=== PATIENT | female | born 1940 | race Caucasian/White ===

== ENCOUNTER 2020-03-26 20:14 | Inpatient (IN) ==
[2020-03-26 21:50] LABS: Hematocrit (blood only) 34.7 % (37-47); Hemoglobin 11.5 g/dL (12.0-16.0); Mean Corpuscular Hemoglobin 31.2 pg (25-34); Mean Corpuscular Hgb Conc 33.1 g/dL (32-36); Mean Platelet Volume 9.5 fL (7.4-10.4); Platelet Count 442 K/uL (130-400); RDW Coefficient of Variation 13.8 % (11.5-14.5); RDW Standard Deviation 47.1 fL (36.4-46.3); Red Blood Count 3.69 M/uL (4.2-5.4); White Blood Count 23.11 K/uL (4.8-10.8)
[2020-03-26 22:04] LABS: Alanine Aminotransferase 182 U/L (12-78); Albumin Level 2.3 gm/dl (3.4-5.0); Aspartate Aminotransferase 79 U/L (15-37); BUN Creatinine Ratio 29.8 (10-20); Blood Urea Nitrogen 18 mg/dl (7-18); Calcium 9.3 mg/dl (8.5-10.1); Carbon Dioxide 27 mmol/L (21-32); Chloride 96 mmol/L (98-107); Est GFR (African American) 99.8; Est GFR (Non-African American) 86.1; Glucose 107 mg/dl (70-99); Magnesium 2.2 mg/dl (1.8-2.4); Potassium 4.1 mmol/L (3.5-5.1); Sodium 131 mmol/L (136-145)
[2020-03-26 22:08] LABS: INR 1.1 (0.9-1.1); Partial Thromboplastin Ratio 0.9; Partial Thromboplastin Time 23.9 Seconds (21.0-31.0); Prothrombin Time 11.3 Seconds (9.0-12.0)
[2020-03-26 22:09] LABS: Albumin Globulin Ratio 0.4 (0.9-2); Alkaline Phosphatase 236 U/L (45-117); Bilirubin,Total 0.5 mg/dl (0.2-1); Globulin 5.5 gm/dl (2.5-4.0); Total Protein 7.8 gm/dl (6.4-8.2); Troponin I < 0.015 ng/ml (0-0.045)
[2020-03-26 22:13] LABS: Basophils # (auto) 0.01 K/uL (0-0.2); Eosinophils # (auto) 0.01 K/uL (0-0.5); Immature Granulocytes # (auto) 0.08 K/uL (0.00-0.02); Immature Granulocytes % (auto) 0.3 %; Lymphocytes # (auto) 0.38 K/uL (1.2-3.4); Lymphocytes % (auto) 1.6 %; Monocytes # (auto) 0.28 K/uL (0.11-0.59); Monocytes % (auto) 1.2 %; Neutrophils # (auto) 22.35 K/uL (1.4-6.5); Neutrophils % (auto) 96.9 %
--- NOTE | 2020-03-26 22:24 | Emergency Department Note ---
History of Present Illness General Chief complaint: Fever Stated complaint: FEVER, VOMITING Time Seen by Provider: 03/26/20 21:22 Source: family History of Present Illness Provider complaint: Fever cough difficulty breathing Onset (ago): day(s) 1 Location: chest Associated symptoms: + cough, + fever/chills, + nausea/vomiting and + shortness of breath 79-year-old female presents emergency department for cough fever and difficulty breathing. Patient has a history of oral cancer. She is not on chemotherapy currently. The son states he was suctioning herThis afternoon/evening and in the patient accidentally vomited and she started coughing a lot. The son states he is afraid that she aspirated. Patient was recently admitted to [facility] for pneumonia. Patient's son states that the patient is waiting to be cleared from her pneumonia to start therapy with Dr. Roman for immunotherapy for her oral cancer. Patient's son states that the patient was discharged on 2 L of oxygen nasal cannula. He states over the last 2 days she has been having better time breathing and has only been wearing half a liter. He states after the episode today she is having increasing difficulty breathing and he had to put on 3 L of oxygen. Home Medications Home Medications Medication Instructions Recorded Confirmed Type levothyroxine 100 mcg PO DAILY 03/26/20 03/26/20 History ondansetron 4 mg TRANSLINGUAL Q8 PRN 03/26/20 03/26/20 History oxycodone 5 mg PO Q4 PRN 03/26/20 03/26/20 History triamcinolone acetonide 1 applic TOPICAL BID 03/26/20 03/26/20 History Allergies Allergy/AdvReac Type Severity Reaction Status Date / Time No Known Allergies Allergy Unverified 03/26/20 22:51 Past Med/Surg History Medical History Squamous cell carcinoma Surgical History H/O neck surgery History of surgical procedure on mouth Status post split thickness skin graft Family History Other Family history non-contributory Social History Smoking Status: Never smoker Hx Alcohol Use: No Hx Substance Use: No Preferred Language: Venezuelan Communication Ability: Impaired Visual Impairment: Limited Hearing Ability: Normal Beliefs That Will Affect Care: None marital status: / Current Living Situation: Alone current occupational status: retired Feels Safe at Home: Yes Review of Systems A total of 10 systems reviewed and were otherwise negative Physical Exam Vital Signs Vital Signs - 24 hr 03/26/20 20:24 03/26/20 21:20 03/26/20 21:21 Temperature 36.9 C Temperature Source Oral Pulse Rate 128 H 121 H Pulse Rate from SpO2 Sensor 121 H Respiratory Rate 20 30 H Respiratory Effort / Characteristics Non-Labored Spontaneous Non-Labored Spontaneous Respiratory Depth Normal Respiratory Pattern Regular Blood Pressure 112/51 L 106/51 L Blood Pressure Mean 71 68 Blood Pressure Position Sitting Pulse Oximetry 90 93 Oxygen Delivery Method Nasal Cannula Room Air Oxygen Flow Rate 3 Sepsis Recent Fever Within 48 Hours Yes Sepsis New/Unexplained Change in Mental Status No Sepsis Action Taken by Nursing No Action Required 03/26/20 21:28 03/26/20 21:30 03/26/20 21:40 Temperature Temperature Source Pulse Rate 121 H 120 H Pulse Rate from SpO2 Sensor 121 H 120 H Respiratory Rate 34 H 30 H Respiratory Effort / Characteristics Respiratory Depth Respiratory Pattern Blood Pressure 108/52 L Blood Pressure Mean 66 Blood Pressure Position Pulse Oximetry 93 94 95 Oxygen Delivery Method Nasal Cannula Oxygen Flow Rate 3 Sepsis Recent Fever Within 48 Hours Sepsis New/Unexplained Change in Mental Status Sepsis Action Taken by Nursing 03/26/20 21:50 03/26/20 22:00 03/26/20 22:20 Temperature Temperature Source Pulse Rate 113 H Pulse Rate from SpO2 Sensor 114 H Respiratory Rate 23 Respiratory Effort / Characteristics Spontaneous Spontaneous Respiratory Depth Respiratory Pattern Blood Pressure 98/52 L Blood Pressure Mean 71 Blood Pressure Position Pulse Oximetry 96 Oxygen Delivery Method Nasal Cannula Nasal Cannula Oxygen Flow Rate Sepsis Recent Fever Within 48 Hours Sepsis New/Unexplained Change in Mental Status Sepsis Action Taken by Nursing 03/26/20 22:30 03/26/20 22:50 03/26/20 23:00 Temperature Temperature Source Pulse Rate 111 H 109 H Pulse Rate from SpO2 Sensor 108 H 106 H Respiratory Rate 20 22 Respiratory Effort / Characteristics Spontaneous Respiratory Depth Respiratory Pattern Blood Pressure 97/58 L 93/49 L Blood Pressure Mean 69 77 Blood Pressure Position Pulse Oximetry 96 95 Oxygen Delivery Method Nasal Cannula Nasal Cannula Oxygen Flow Rate 3 Sepsis Recent Fever Within 48 Hours Sepsis New/Unexplained Change in Mental Status Sepsis Action Taken by Nursing 03/26/20 23:15 03/26/20 23:20 03/26/20 23:30 Temperature Temperature Source Pulse Rate 107 H 106 H Pulse Rate from SpO2 Sensor 107 H 108 H Respiratory Rate 21 22 Respiratory Effort / Characteristics Spontaneous Spontaneous Respiratory Depth Respiratory Pattern Blood Pressure 87/53 L Blood Pressure Mean 72 Blood Pressure Position Pulse Oximetry 94 95 Oxygen Delivery Method Nasal Cannula Nasal Cannula Oxygen Flow Rate Sepsis Recent Fever Within 48 Hours Sepsis New/Unexplained Change in Mental Status Sepsis Action Taken by Nursing Physical Exam EYES: Conjunctivae and EOM are normal. Pupils are equal, round, and reactive to light. Right eye exhibits no discharge. Left eye exhibits no discharge. No scleral icterus. NECK: Normal range of motion. Neck supple. No JVD present. No spinous process tenderness present. No carotid bruit present. No rigidity. No tracheal deviation and normal range of motion present. No Brudzinski's sign and no Kernig's sign noted. CV: Normal rate, regular rhythm, normal heart sounds and intact distal pulses. There is no peripheral edema. Palpable radial pulses bue. PULM/CHEST: Rhonchi bilaterally. -Chest Wall: She exhibits no tenderness. ABD: PEG tube in place. The abdomen is soft. Bowel sounds are normal. She has no distension. No mass is present. There is no tenderness. There is no rebound, no guarding, no Zambrano's sign and no tenderness at McBurney's point. Rovsig nega tive MUSC/SKEL: Normal range of motion. There is no peripheral edema, tenderness or deformity. LYMPH: No cervical adenopathy. NEURO: She is alert and oriented to person, place, and time. She has normal strength. No cranial nerve deficit or sensory deficit. Coordination and gait normal. GCS eye subscore is 4. GCS verbal subscore is 5. GCS motor subscore is 6. Cerebellar tests wnl. SKIN: Skin is warm and dry. She is not diaphoretic. Course Course 2121: The patient was evaluated in room A4. A complete history and physical exam was performed. Patient was seen in full airborne precautions given her fever cough and difficulty breathing. She will be tested for COVID-19. Patient was seen in gowns, N95, facial, and gloves by myself and staff. Cardiac monitoring: An order was placed for continuous cardiac monitoring. The monitor shows a rate of 111 with sinus tachycardia rhythm 0008: Vital signs stable. Patient sleeping and resting comfortably. Labs show leukocytosis of 23.1. Chest x-ray shows infiltrates in the left lower and right middle lobe. Patient was treated with Zosyn and Vanco in the emergency depa rtment. Patient's VBG is within normal limits. Patient is Covid negative. Patient will be admitted to the [facility] service Dr. Valenzuela has been notified. Administered Medications Discontinued Medications Piperacillin Sod/Tazobactam Sod (Zosyn) 4.5 gm in 120 mls @ 240 mls/hr IV NOW ONE Stop: 03/26/20 23:04 Last Infusion: 03/26/20 23:32 Dose: 0 mls/hr Documented by: [id number] Admin: 03/26/20 23:02 Dose: 240 mls/hr Documented by: [id number] Medical Decision Making Laboratory Data Result diagrams: 03/26/20 21:36 03/26/20 21:36 Lab Results 03/26/20 03/26/20 03/26/20 Range/Units 21:36 21:36 21:36 WBC 23.11 H (4.8-10.8) K/uL RBC 3.69 L (4.2-5.4) M/uL Hgb 11.5 L (12.0-16.0) g/dL Hct 34.7 L (37-47) % MCV 94.0 (80-100) fL MCH 31.2 (25-34) pg MCHC 33.1 (32-36) g/dL RDW Std Deviation 47.1 H (36.4-46.3) fL RDW Coeff of Roni 13.8 (11.5-14.5) % Plt Count 442 H (130-400) K/uL MPV 9.5 (7.4-10.4) fL Immature Gran % (Auto) 0.3 % Neut % (Auto) 96.9 % Lymph % (Auto) 1.6 % Rich % (Auto) 1.2 % Eos % (Auto) 0.0 % Baso % (Auto) 0.0 % Neut # (Auto) 22.35 H (1.4-6.5) K/uL Lymph # (Auto) 0.38 L (1.2-3.4) K/uL Rich # (Auto) 0.28 (0.11-0.59) K/uL Eos # (Auto) 0.01 (0-0.5) K/uL Baso # (Auto) 0.01 (0-0.2) K/uL Immature Gran # (Auto) 0.08 H (0.00-0.02) K/uL PT 11.3 (9.0-12.0) Seconds INR 1.1 (0.9-1.1) APTT 23.9 (21.0-31.0) Seconds PTT Ratio 0.9 VBG pH (7.36-7.41) VBG pCO2 (38-50) mmHg VBG pO2 mmHg VBG HCO3 mmol/L VBG O2 Saturation % VBG Base Excess mEq/L Barometric Pressure mm/Hg Sodium 131 L (136-145) mmol/L Potassium 4.1 (3.5-5.1) mmol/L Chloride 96 L (98-107) mmol/L Carbon Dioxide 27 (21-32) mmol/L Anion Gap 8.0 (3-11) BUN 18 (7-18) mg/dl Creatinine 0.60 (0.6-1.2) mg/dl Est Cr Clr Drug Dosing Not Reportable Est GFR ( Amer) 99.8 Est GFR (Non-Af Amer) 86.1 BUN/Creatinine Ratio 29.8 H (10-20) Glucose 107 H (70-99) mg/dl Lactate (0.4-2.0) mmol/L Calcium 9.3 (8.5-10.1) mg/dl Magnesium 2.2 (1.8-2.4) mg/dl Total Bilirubin 0.5 (0.2-1) mg/dl AST 79 H (15-37) U/L ALT 182 H (12-78) U/L Alkaline Phosphatase 236 H (45-117) U/L Troponin I < 0.015 (0-0.045) ng/ml Total Protein 7.8 (6.4-8.2) gm/dl Albumin 2.3 L (3.4-5.0) gm/dl Globulin 5.5 H (2.5-4.0) gm/dl Albumin/Globulin Ratio 0.4 L (0.9-2) Procalcitonin (0-0.5) ng/ml COVID-19 Eval Order COVID-19 PCR (Negative) 03/26/20 03/26/20 03/26/20 Range/Units 21:36 21:36 22:05 WBC (4.8-10.8) K/uL RBC (4.2-5.4) M/uL Hgb (12.0-16.0) g/dL Hct (37-47) % MCV (80-100) fL MCH (25-34) pg MCHC (32-36) g/dL RDW Std Deviation (36.4-46.3) fL RDW Coeff of Roni (11.5-14.5) % Plt Count (130-400) K/uL MPV (7.4-10.4) fL Immature Gran % (Auto) % Neut % (Auto) % Lymph % (Auto) % Rich % (Auto) % Eos % (Auto) % Baso % (Auto) % Neut # (Auto) (1.4-6.5) K/uL Lymph # (Auto) (1.2-3.4) K/uL Rich # (Auto) (0.11-0.59) K/uL Eos # (Auto) (0-0.5) K/uL Baso # (Auto) (0-0.2) K/uL Immature Gran # (Auto) (0.00-0.02) K/uL PT (9.0-12.0) Seconds INR (0.9-1.1) APTT (21.0-31.0) Seconds PTT Ratio VBG pH (7.36-7.41) VBG pCO2 (38-50) mmHg VBG pO2 mmHg VBG HCO3 mmol/L VBG O2 Saturation % VBG Base Excess mEq/L Barometric Pressure mm/Hg Sodium (136-145) mmol/L Potassium (3.5-5.1) mmol/L Chloride (98-107) mmol/L Carbon Dioxide (21-32) mmol/L Anion Gap (3-11) BUN (7-18) mg/dl Creatinine (0.6-1.2) mg/dl Est Cr Clr Drug Dosing Est GFR ( Amer) Est GFR (Non-Af Amer) BUN/Creatinine Ratio (10-20) Glucose (70-99) mg/dl Lactate 1.1 (0.4-2.0) mmol/L Calcium (8.5-10.1) mg/dl Magnesium (1.8-2.4) mg/dl Total Bilirubin (0.2-1) mg/dl AST (15-37) U/L ALT (12-78) U/L Alkaline Phosphatase (45-117) U/L Troponin I (0-0.045) ng/ml Total Protein (6.4-8.2) gm/dl Albumin (3.4-5.0) gm/dl Globulin (2.5-4.0) gm/dl Albumin/Globulin Ratio (0.9-2) Procalcitonin 0.37 (0-0.5) ng/ml COVID-19 Eval Order Covid19 Done at [facility] COVID-19 PCR (Negative) 03/26/20 03/26/20 Range/Units 22:05 22:12 WBC (4.8-10.8) K/uL RBC (4.2-5.4) M/uL Hgb (12.0-16.0) g/dL Hct (37-47) % MCV (80-100) fL MCH (25-34) pg MCHC (32-36) g/dL RDW Std Deviation (36.4-46.3) fL RDW Coeff of Roni (11.5-14.5) % Plt Count (130-400) K/uL MPV (7.4-10.4) fL Immature Gran % (Auto) % Neut % (Auto) % Lymph % (Auto) % Rich % (Auto) % Eos % (Auto) % Baso % (Auto) % Neut # (Auto) (1.4-6.5) K/uL Lymph # (Auto) (1.2-3.4) K/uL Rich # (Auto) (0.11-0.59) K/uL Eos # (Auto) (0-0.5) K/uL Baso # (Auto) (0-0.2) K/uL Immature Gran # (Auto) (0.00-0.02) K/uL PT (9.0-12.0) Seconds INR (0.9-1.1) APTT (21.0-31.0) Seconds PTT Ratio VBG pH 7.47 H (7.36-7.41) VBG pCO2 40 (38-50) mmHg VBG pO2 62 mmHg VBG HCO3 28 mmol/L VBG O2 Saturation 91.8 % VBG Base Excess 4.1 mEq/L Barometric Pressure 735.8 mm/Hg Sodium (136-145) mmol/L Potassium (3.5-5.1) mmol/L Chloride (98-107) mmol/L Carbon Dioxide (21-32) mmol/L Anion Gap (3-11) BUN (7-18) mg/dl Creatinine (0.6-1.2) mg/dl Est Cr Clr Drug Dosing Est GFR ( Amer) Est GFR (Non-Af Amer) BUN/Creatinine Ratio (10-20) Glucose (70-99) mg/dl Lactate (0.4-2.0) mmol/L Calcium (8.5-10.1) mg/dl Magnesium (1.8-2.4) mg/dl Total Bilirubin (0.2-1) mg/dl AST (15-37) U/L ALT (12-78) U/L Alkaline Phosphatase (45-117) U/L Troponin I (0-0.045) ng/ml Total Protein (6.4-8.2) gm/dl Albumin (3.4-5.0) gm/dl Globulin (2.5-4.0) gm/dl Albumin/Globulin Ratio (0.9-2) Procalcitonin (0-0.5) ng/ml COVID-19 Eval Order COVID-19 PCR NEGATIVE (Negative) Imaging Data My Impression: Chest x-ray: Left lower lobe and right middle lobe infiltrates. ECG Data Indication: + SOB/dyspnea Rate (beats per minute): 111 Rhythm: + sinus tachycardia ECG Intervals/blocks: + Normal TX and + Normal QT-c ECG ST segments: + Normal ST segments Additional Comments: QRS 70. No delta wave. [facility] Narrative 2122: The patient was evaluated in room A4. A complete history and physical exam was performed. Patient was seen in full airborne precautions given her fever cough and difficulty breathing. She will be tested for COVID-19. Patient was seen in gowns, N95, facial, and gloves by myself and staff. Cardiac monitoring: An order was placed for continuous cardiac monitoring. The monitor shows a rate of 111 with sinus tachycardia rhythm 0008: Vital signs stable. Patient sleeping and resting comfortably. Labs show leukocytosis of 23.1. Chest x-ray shows infiltrates in the left lower and right middle lobe. [facility] Patient's VBG is within normal limits. Patient is Covid negative. Patient will be admitted to the [facility] service Dr. Valenzuela has been notified. Impression & Plan Pneumonia Discharge Plan Visit Data Chief Complaint: Fever Stated Complaint: FEVER, VOMITING ED Provider: Jass Fleming Discharge Problem: Pneumonia Patient Disposition: Admitted As Inpatient Forms Stand Alone Forms: [facility] [employer] Prescriptions Prescriptions: No Action levothyroxine 100 mcg tablet 100 mcg PO DAILY RF: 0 oxycodone 5 mg/5 mL solution 5 mg PO Q4 PRN (Reason: Pain) RF: 0 triamcinolone acetonide 0.1 % cream 1 applic TOPICAL BID RF: 0 ondansetron 4 mg tablet,disintegrating 4 mg translingual Q8 PRN (Reason: Nausea) RF: 0 Referrals Referrals: Ruba Chaidez DO [Primary Care Provider] - Discharge Problem: Pneumonia Qualifiers: Pneumonia type: due to unspecified organism Laterality: bilateral Lung location: unspecified part of lung Qualified Code(s): J18.9 - Pneumonia, unspecified organism
[2020-03-26 22:31] LABS: Base Excess VBG 4.1 mEq/L; Oxygen Saturation VBG 91.8 %; pH VBG 7.47 (7.36-7.41)
[2020-03-26] MEDS ORDERED: VANCOMYCIN HCL 1,000 MG in SODIUM CHLORIDE 0.9% 500 ML IV ONE (22:35)
[2020-03-26] MEDS ORDERED: VANCOMYCIN CONSULT ACTIVE PRN (22:35)
[2020-03-26] MEDS ORDERED: PIPERACILLIN/TAZOBACTAM 4.5 GM/120 ML BAG IV ONE (22:35)
[2020-03-26] MEDS ORDERED: SODIUM CHLORIDE 0.9% 1000ML 1,000 ML IV ONE (23:43)
[2020-03-26] MEDS ORDERED: methylPREDNISolone 40 MG in SYRINGE 0 ML IV STA (23:59)
[2020-03-27] MEDS ORDERED: XOPENEX/ATROVENT 1.25mg/0.5MG NEB COMBO NEB STA
[2020-03-27] MEDS ORDERED: IPRATROPIUM BROMIDE NEB SOLN 0.02% 2.5 ML VIAL INH STA (00:08)
[2020-03-27] MEDS ORDERED: LEVALBUTEROL 1.25MG/0.5ML NEB INH STA (00:08)
[2020-03-27] MEDS ORDERED: LACTATED RINGER'S 1,000 ML IV ONE (00:51)
--- NOTE | 2020-03-27 01:38 | History & Physical Report ---
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 Heparin subcu Wound care nurse consult RE sacral decubitus sore Full code for now as per son as per patient's prior directives. (Of note, patient had a DNR CODE STATUS following discharge from [facility].) Patient son requesting updates for providers. Mr. Demetri Kelley, contact #[phone]. Total critical care time was 45 minutes. Text document was generated using [employer] voice recognition software. It may contain grammatical or spelling errors. Kindly contact undersigned for clarification of any documentation item in question. History of Present Illness Chief Complaint: Aspiration as per patient family Primary Care Provider: Ruba Chaidez, History obtained from patient, family, and records. Limited history from patient secondary limited verbal output from head and neck cancer surgery. Medical history significant for recurrent head and neck cancer status post surgery, radiation with lung and bone mets, aspiration risk status post PEG tube placement, hypothyroidism. Last confinement [facility] 3 weeks ago for hypoxemic respiratory failure secondary to pneumonia. Patient discharged home on home O2 as per son. Outpatient [facility] [place] appointment to discuss possible immunotherapy. Hospice care offered by Palliative medicine if patient not a candidate for immunotherapy as per documentation. Patient son has been staying with patient at home since discharge from [facility]. Occasional bloody respiratory secretions suctioned by son. Last night, patient gagged while oral/respiratory secretions being suctioned by son. Subsequent emesis. Patient denies abdominal pain or PEG tube issues. Aspiration event noted by patient's son. Patient noted to be hypoxemic and in respiratory distress. At the ER, patient received vancomycin and Zosyn for sepsis. 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 Allergies Allergy/AdvReac Type Severity Reaction Status Date / Time No Known Allergies Allergy Unverified 03/26/20 22:51 Home Medications Home Medications Medication Instructions Recorded Confirmed Type levothyroxine 100 mcg PO DAILY 03/26/20 03/26/20 History ondansetron 4 mg TRANSLINGUAL Q8 PRN 03/26/20 03/26/20 History oxycodone 5 mg PO Q4 PRN 03/26/20 03/26/20 History triamcinolone acetonide 1 applic TOPICAL BID 03/26/20 03/26/20 History Past Med/Surg History Medical History Squamous cell carcinoma Surgical History H/O neck surgery History of surgical procedure on mouth Status post split thickness skin graft Family History Other Family history non-contributory Social History Smoking Status: Never smoker Hx Alcohol Use: No Hx Substance Use: Yes Last Used Substance: Days (ago) Preferred Language: Mohawk Communication Ability: Impaired Communication Ability Comment: Patient unable to speak full sentences Visual Impairment: Limited Hearing Ability: Normal Beliefs That Will Affect Care: Amish Amish Beliefs: Caodaism marital status: / Current Living Situation: Alone current occupational status: retired Other Information That Helps Us Care for You: No Feels Safe at Home: Yes Safety Concerns: Feels Safe At This Time Assistive Devices: Glasses and Oxygen - Continuous Review of Systems Review of Systems: Could not be reliably obtained Physical Exam Physical Exam: GENERAL: Slightly uncomfortable, pleasant, minimal respiratory distress SKIN: Pallor, warm HEENT: [place] palpebral conjunctivae, no ptosis, dry buccal mucosa, nasal cannula in place NECK : Supple, no tenderness CHEST : Decreased breath sounds, expiratory wheezes, no tenderness HEART : Tachycardic , no obvious murmurs ABDOMEN: Some distention, PEG tube in place, nontender BACK : Pressure sore, sacrum (present prior to confinement) RECTAL : Intact sphincter, brown stool (FOBT negative) EXTREMITIES : No LE swelling/tenderness, no other conspicuous deformities noted NEUROLOGIC : Coherent, no facial asymmetry, no other gross focality Results & Data Results & Data ([facility]) Vital Signs (Past 12 Hours) Vital Signs Temp Pulse Resp BP Pulse Ox 03/27/20 01:00 102 H 31 H 110/58 L 98 03/27/20 00:45 103 H 28 H 95 03/27/20 00:30 99 H 21 103/52 L 94 03/27/20 00:24 20 94 03/27/20 00:15 101 H 22 96 03/27/20 00:00 105 H 18 89/59 L 96 03/26/20 23:45 105 H 19 97 03/26/20 23:30 106 H 22 87/53 L 95 03/26/20 23:15 107 H 21 94 03/26/20 23:00 109 H 22 93/49 L 95 03/26/20 22:30 111 H 20 97/58 L 96 03/26/20 22:00 113 H 23 98/52 L 96 03/26/20 21:40 95 03/26/20 21:30 120 H 30 H 108/52 L 94 03/26/20 21:28 121 H 34 H 93 03/26/20 21:21 121 H 30 H 106/51 L 93 03/26/20 20:24 36.9 C 128 H 20 112/51 L 90 Laboratory Results Laboratory Results WBC 23.11 K/uL (4.8-10.8) H 03/26/20 21:36 RBC 3.69 M/uL (4.2-5.4) L 03/26/20 21:36 Hgb 11.5 g/dL (12.0-16.0) L 03/26/20 21:36 Hct 34.7 % (37-47) L 03/26/20 21:36 MCV 94.0 fL (80-100) 03/26/20 21:36 MCH 31.2 pg (25-34) 03/26/20 21:36 MCHC 33.1 g/dL (32-36) 03/26/20 21:36 RDW Std Deviation 47.1 fL (36.4-46.3) H 03/26/20 21:36 RDW Coeff of Roni 13.8 % (11.5-14.5) 03/26/20 21:36 Plt Count 442 K/uL (130-400) H 03/26/20 21:36 MPV 9.5 fL (7.4-10.4) 03/26/20 21:36 Immature Gran % (Auto) 0.3 % 03/26/20 21:36 Neut % (Auto) 96.9 % 03/26/20 21:36 Lymph % (Auto) 1.6 % 03/26/20 21:36 [place] % (Auto) 1.2 % 03/26/20 21:36 Eos % (Auto) 0.0 % 03/26/20 21:36 Baso % (Auto) 0.0 % 03/26/20 21:36 Neut # (Auto) 22.35 K/uL (1.4-6.5) H 03/26/20 21:36 Lymph # (Auto) 0.38 K/uL (1.2-3.4) L 03/26/20 21:36 [place] # (Auto) 0.28 K/uL (0.11-0.59) 03/26/20 21:36 Eos # (Auto) 0.01 K/uL (0-0.5) 03/26/20 21:36 Baso # (Auto) 0.01 K/uL (0-0.2) 03/26/20 21:36 Immature Gran # (Auto) 0.08 K/uL (0.00-0.02) H 03/26/20 21:36 PT 11.3 Seconds (9.0-12.0) 03/26/20 21:36 INR 1.1 (0.9-1.1) 03/26/20 21:36 APTT 23.9 Seconds (21.0-31.0) 03/26/20 21:36 PTT Ratio 0.9 03/26/20 21:36 VBG pH 7.47 (7.36-7.41) H 03/26/20 22:12 VBG pCO2 40 mmHg (38-50) 03/26/20 22:12 VBG pO2 62 mmHg 03/26/20 22:12 VBG HCO3 28 mmol/L 03/26/20 22:12 VBG O2 Saturation 91.8 % 03/26/20 22:12 VBG Base Excess 4.1 mEq/L 03/26/20 22:12 Barometric Pressure 735.8 mm/Hg 03/26/20 22:12 Sodium 131 mmol/L (136-145) L 03/26/20 21:36 Potassium 4.1 mmol/L (3.5-5.1) 03/26/20 21:36 Chloride 96 mmol/L (98-107) L 03/26/20 21:36 Carbon Dioxide 27 mmol/L (21-32) 03/26/20 21:36 Anion Gap 8.0 (3-11) 03/26/20 21:36 BUN 18 mg/dl (7-18) 03/26/20 21:36 Creatinine 0.60 mg/dl (0.6-1.2) 03/26/20 21:36 Est Cr Clr Drug Dosing Not Reportable 03/26/20 21:36 Est GFR ( Amer) 99.8 03/26/20 21:36 Est GFR (Non-Af Amer) 86.1 03/26/20 21:36 BUN/Creatinine Ratio 29.8 (10-20) H 03/26/20 21:36 Glucose 107 mg/dl (70-99) H 03/26/20 21:36 Osmolality 277 mOsm/kg (280-300) L 03/26/20 21:36 Lactate 1.1 mmol/L (0.4-2.0) 03/26/20 21:36 Calcium 9.3 mg/dl (8.5-10.1) 03/26/20 21:36 Magnesium 2.2 mg/dl (1.8-2.4) 03/26/20 21:36 Total Bilirubin 0.5 mg/dl (0.2-1) 03/26/20 21:36 AST 79 U/L (15-37) H 03/26/20 21:36 ALT 182 U/L (12-78) H 03/26/20 21:36 Alkaline Phosphatase 236 U/L (45-117) H 03/26/20 21:36 Troponin I < 0.015 ng/ml (0-0.045) 03/26/20 21:36 Total Protein 7.8 gm/dl (6.4-8.2) 03/26/20 21:36 Albumin 2.3 gm/dl (3.4-5.0) L 03/26/20 21:36 Globulin 5.5 gm/dl (2.5-4.0) H 03/26/20 21:36 Albumin/Globulin Ratio 0.4 (0.9-2) L 03/26/20 21:36 Procalcitonin 0.37 ng/ml (0-0.5) 03/26/20 21:36 TSH 5.370 uIu/ml (0.300-4.500) H 03/26/20 21:36 COVID-19 Eval Order Covid19 Done at [facility] 03/26/20 22:05 COVID-19 PCR NEGATIVE (Negative) 03/26/20 22:05 Diagnostic Findings Chest x-ray as per my interpretation infiltrate left EKG as per my interpretation : Rate 110, sinus tachycardia, LAD, LAFB, T wave abnormalities inferior and septal leads
[2020-03-27] MEDS ORDERED: PROMETHAZINE HCL 6.25 MG in SODIUM CHLORIDE 0.9% 50 ML IV PRN (05:58)
[2020-03-27] MEDS ORDERED: oxyCODONE HCL SOLN 5 MG/5 ML UDC GT PRN (05:58)
[2020-03-27] MEDS ORDERED: ACETAMINOPHEN 1,000 MG/100 ML VIAL IV PRN (05:58)
[2020-03-27] MEDS ORDERED: AMPICILLIN/SULBACTAM CONSULT ACTIVE PRN (06:04)
[2020-03-27] MEDS ORDERED: INFLUENZA VIRUS QUAD VACCINE 0.5 ML SYR IM ONE (06:31)
[2020-03-27] MEDS ORDERED: INFLUENZA ADMINISTRATION CHARGE ONE (06:31)
[2020-03-27] MEDS ORDERED: XOPENEX/ATROVENT 1.25mg/0.5MG NEB COMBO NEB SCH (07:00)
[2020-03-27 07:03] LABS: Appearance Urine Clear (Clear); Bacteria Urine Automated Negative (Negative); Bilirubin Urine Negative (Negative); Blood Urine 2+ (Negative); Color Urine Yellow; Glucose Urine UA Negative (Negative); Ketones Urine Negative (Negative); Leukocyte Esterase Urine Negative (Negative); Nitrite Urine Negative (Negative); Protein Urine Trace (Negative); Specific Gravity Urine 1.014 (1.000-1.030); Urobilinogen Urine Negative (Negative); pH Urine 6.5 (4.5-7.5)
[2020-03-27] MEDS: IPRATROPIUM BROMIDE NEB SOLN 0.02% 2.5 ML VIAL INH SCH ×3 (07:26→20:18)
[2020-03-27] MEDS: LEVALBUTEROL 1.25MG/0.5ML NEB INH SCH ×3 (07:26→20:18)
[2020-03-27] MEDS: AMPICILLIN/SULBACTAM SOD 3,000 MG in 0.9 % SODIUM CHLORIDE 100 ML IV SCH ×3 (07:56→19:56)
[2020-03-27] MEDS: HEPARIN SOD 5,000 UNIT/0.5 ML VIAL SQ SCH ×3 (07:57→20:55)
[2020-03-27] MEDS: LEVOTHYROXINE SODIUM 100 MCG TABLET GT SCH (07:57)
--- NOTE | 2020-03-27 08:19 | XRay Report ---
XR chest 1V portable CLINICAL HISTORY: SEPSIS COMPARISON STUDY: No previous studies for comparison. FINDINGS: The heart is normal in size. There is interstitial thickening. There are patchy left lung a irspace opacity suspicious for pneumonia. There is also equivocal right basilar airspace opacity. The re is a small left pleural effusion.[ IMPRESSION: 1. Left lung airspace opacity suspicious for pneumonia. Small left pleural effusion. Clinical and rad iographic follow-up is recommended. ACT 112: Negative or not required by law. Electronically signed by: James Araujo M.D. 03/27/2020 8:18 AM
[2020-03-27] MEDS: PEPTAMEN 1.5 CAL 1,000 ML BAG PEG SCH (12:30)
--- NOTE | 2020-03-27 16:07 | Hospitalist Progress Note ---
Date of Service March 27, 2020 and March 28, 2020 Assessment & Plan (1) Acute on chronic respiratory failure with hypoxemia: Recurrent aspiration pneumonia with sepsis Met sepsis criteria on admission with fever, tachycardia, tachypnea and increasing white cell count Last confinement [facility] 3 weeks ago for hypoxemic respiratory failure secondary to pneumonia. Patient discharged home on home O2 as per son. 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 (Of note, patient had a DNR CODE STATUS following discharge from [facility].) Patient son requesting updates for providers. Mr. Demetri Kelley, contact #[phone]. Admission and Anticipated Discharge Date Admission Date: March 27, 2020 Subjective The patient was seen and examined in telemetry unit He has been feeling a little better today Complains today of some congestion behind the throat with minimal shortness of breath at rest Denies any chest pain and/or palpitation 03/28/2020 The patient was seen and examined in medical telemetry unit She has been feeling much better Denies any increasing shortness of breath and/or cough Review of Systems Review of Systems: All systems reviewed and are unremarkable except as noted below Constitutional: + fatigue and + weakness Respiratory: + cough and + dyspnea (Minimal to no dyspnea at rest) Gastrointestinal: no abdominal pain, no bloating, no nausea and no vomiting Physical Exam Physical Exam: Lying in bed comfortably Constitutional: + ill appearing and + thin; no acute distress Eyes: PERRL, conjunctivae normal, anicteric sclerae ENMT: external ear and nose normal, oropharynx normal Neck: trachea midline, no thyromegaly Respiratory: no respiratory distress Auscultation: + diminished lung sounds and + crackles (Bibasilar crackles) Cardiovascular: Rate/Rhythm: regular rate and regular rhythm Heart Sounds: no murmur Gastrointestinal (Abdomen): Inspection/Auscultation: abdomen not distended Percussion/Palpation: abdomen soft; abdomen nontender Musculoskeletal: No acute arthritis in any joint Neurologic: Alert, awake and oriented x3. Generally weak without any focal localizing signs Psychiatric: A+Ox3, euthymic affect Lymphatic: no cervical or axillary lymphadenopathy Results & Data Results & Data ([facility]) Vital Signs (Past 12 Hours) Vital Signs Temp Pulse Pulse Resp BP BP Pulse Ox 03/27/20 13:15 94 03/27/20 10:57 36.5 C 76 20 115/67 95 03/27/20 08:00 95 H 03/27/20 07:27 77 18 94 03/27/20 07:16 36.6 C 89 14 113/68 99 03/27/20 05:30 36.3 C L 93 H 20 127/71 96 03/27/20 04:00 36.5 C 95 H 17 114/62 99 Laboratory Results Short CBC 03/28/20 Range/Units 05:21 WBC 12.00 H (4.8-10.8) K/uL Hgb 10.3 L (12.0-16.0) g/dL Hct 31.6 L (37-47) % Plt Count 367 (130-400) K/uL [facility] 03/28/20 05:21 Sodium 136 Potassium 3.2 L D Chloride 100 Carbon Dioxide 30 BUN 14 Creatinine 0.41 L Glucose 106 H Calcium 8.8 Short CBC 03/26/20 Range/Units 21:36 WBC 23.11 H (4.8-10.8) K/uL Hgb 11.5 L (12.0-16.0) g/dL Hct 34.7 L (37-47) % Plt Count 442 H (130-400) K/uL [facility] 03/26/20 21:36 Sodium 131 L Potassium 4.1 Chloride 96 L Carbon Dioxide 27 BUN 18 Creatinine 0.60 Glucose 107 H Calcium 9.3 Cardiac Enzymes 03/26/20 Range/Units 21:36 Troponin I < 0.015 (0-0.045) ng/ml Liver Function 03/26/20 Range/Units 21:36 Total Bilirubin 0.5 (0.2-1) mg/dl AST 79 H (15-37) U/L ALT 182 H (12-78) U/L Alkaline Phosphatase 236 H (45-117) U/L Albumin 2.3 L (3.4-5.0) gm/dl Urine 03/27/20 Range/Units 05:52 Urine Color Yellow Urine Appearance Clear (Clear) Urine pH 6.5 (4.5-7.5) Ur Specific [place] 1.014 (1.000-1.030) Urine Protein Trace H (Negative) Urine Glucose (UA) Negative (Negative) Medications Administered Current Inpatient Medications Enteral Nutritional Formula (Peptamen 1.5 Armando 1,000 Ml Bag) 1,000 ml PEG .CONTINUOUS [place]ERNA[place]; Protocol Stop: 04/26/20 10:59 Last Admin: 03/27/20 12:30 Dose: 1,000 ml Documented by: Heparin Sodium (Porcine) (Heparin Sod 5,000 Unit/0.5 Ml Vial) 5,000 units SQ Q8 [place] Stop: 04/26/20 05:59 Last Admin: 03/27/20 14:01 Dose: 5,000 units Documented by: Promethazine HCl 6.25 mg/ (Sodium Chloride) 50.25 mls @ 201 mls/hr IV Q6H PRN PRN Reason: Nausea And Vomiting Stop: 04/26/20 05:57 Acetaminophen (Ofirmev) 1,000 mg in 100 mls @ 400 mls/hr IV Q8H PRN PRN Reason: fever/pain Stop: 03/30/20 05:57 Ampicillin Sodium/Sulbactam Sodium 3,000 mg/ Sodium Chloride 108 mls @ 216 mls/hr IV Q6H [place] Stop: 04/03/20 07:59 Last Infusion: 03/27/20 14:24 Dose: Infused Documented by: Ipratropium [place] (Ipratropium [place] Neb Soln 0.02% 2.5 Ml Vial) 0.5 mg INH Q6R [place] Stop: 04/26/20 06:59 Last Admin: 03/27/20 13:12 Dose: 0.5 mg Documented by: Levalbuterol HCl (Levalbuterol 1.25mg/0.5ml Neb) 1.25 mg INH Q6R [place] Stop: 04/26/20 06:59 Last Admin: 03/27/20 13:12 Dose: 1.25 mg Documented by: Levothyroxine Sodium (Levothyroxine Sodium 100 Mcg Tablet) 100 mcg GT DAILYBB [place] Stop: 04/26/20 06:29 Last Admin: 03/27/20 07:57 Dose: 100 mcg Documented by: Miscellaneous Information (Ampicillin/Sulbactam Consult Active) 1 ea N/A UD PRN PRN Reason: Consult Stop: 04/26/20 06:03 Multivitamins/Minerals (Multi Vit W/Minerals Liquid 15 Ml Udp) 15 ml PO QAM [place] Stop: 04/27/20 08:59 Oxycodone HCl (Oxycodone Hcl Soln 5 Mg/5 Ml Udc) 5 mg GT Q4 PRN PRN Reason: Pain Stop: 04/10/20 05:57
[2020-03-28] MEDS: LEVALBUTEROL 1.25MG/0.5ML NEB INH SCH ×4 (00:34→20:33)
[2020-03-28] MEDS: IPRATROPIUM BROMIDE NEB SOLN 0.02% 2.5 ML VIAL INH SCH ×4 (00:34→20:32)
[2020-03-28] MEDS: AMPICILLIN/SULBACTAM SOD 3,000 MG in 0.9 % SODIUM CHLORIDE 100 ML IV SCH ×4 (02:51→20:53)
[2020-03-28] MEDS: HEPARIN SOD 5,000 UNIT/0.5 ML VIAL SQ SCH ×3 (06:09→20:53)
[2020-03-28] MEDS: LEVOTHYROXINE SODIUM 100 MCG TABLET GT SCH (06:10)
[2020-03-28 06:16] LABS: Basophils # (auto) 0.01 K/uL (0-0.2); Basophils % (auto) 0.1 %; Eosinophils # (auto) 0.01 K/uL (0-0.5); Eosinophils % (auto) 0.1 %; Hematocrit (blood only) 31.6 % (37-47); Hemoglobin 10.3 g/dL (12.0-16.0); Immature Granulocytes # (auto) 0.03 K/uL (0.00-0.02); Immature Granulocytes % (auto) 0.3 %; Lymphocytes % (auto) 6.7 %; Mean Corpuscular Hemoglobin 31.2 pg (25-34); Mean Corpuscular Hgb Conc 32.6 g/dL (32-36); Mean Corpuscular Volume 95.8 fL (80-100); Monocytes # (auto) 0.33 K/uL (0.11-0.59); Monocytes % (auto) 2.8 %; Neutrophils # (auto) 10.82 K/uL (1.4-6.5); Platelet Count 367 K/uL (130-400); Reticulocyte % 2.3 % (0.5-2.0); Reticulocytes # 0.07 10^6/uL (0.02-0.10)
[2020-03-28 06:47] LABS: BUN Creatinine Ratio 32.7 (10-20); Calcium 8.8 mg/dl (8.5-10.1); Creatinine Clr Calc Pharmacy 91.4 ml/min; Est GFR (African American) 113.1; Est GFR (Non-African American) 97.6; Ferritin 258.8 ng/ml (8-388); Potassium 3.2 mmol/L (3.5-5.1)
[2020-03-28 06:57] LABS: Folate (Folic Acid) > 20.00 ng/ml (>5.38)
[2020-03-28 08:04] LABS: Vitamin B12 > 2000 pg/ml (193-986)
--- NOTE | 2020-03-28 08:46 | Electrocardiogram Report ---
Test Reason : Blood Pressure : / mmHG Vent. 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
[2020-03-28] MEDS: MULTI VIT W/MINERALS LIQUID 15 ML UDP PO SCH (09:01)
[2020-03-28] MEDS: POTASSIUM CHLORIDE / WTR 10 MEQ/100 ML PLCT IV SCH ×2 (10:36→11:32)
--- NOTE | 2020-03-28 11:16 | Cardiology Consultation ---
Date of Consultation March 28, 2020 Assessment & Plan (1) Acute on chronic respiratory failure with hypoxemia: (2) Pneumonia: (3) H/O neck surgery: (4) Squamous cell carcinoma: (5) Atrial flutter, paroxysmal: I think the best way to treat this patient for her atrial flutter is low dose metoprolol to start. When it does occur it can be fast but she is fortunately asymptomatic. I think her current anticoagulation is adequate. History of Present Illness Attending Physician: Kortney Nguyen MD History of Present Illness This is an 79-year-old female with a history of head neck cancer which is metastatic. Recently she had a hospital stay at [facility] due to aspiration pneumonia. Once again admitted for possible aspiration. 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 After admission last night, she has been noted to have runs of atrial flutter with high heart rates however, she is completely asymptomatic in regard to this arrhythmia. Allergies Allergy/AdvReac Type Severity Reaction Status Date / Time No Known Allergies Allergy Unverified 03/26/20 22:51 Home Medications Home Medications Medication Instructions Recorded Confirmed Type levothyroxine 100 mcg PO DAILY 03/26/20 03/26/20 History ondansetron 4 mg TRANSLINGUAL Q8 PRN 03/26/20 03/26/20 History oxycodone 5 mg PO Q4 PRN 03/26/20 03/26/20 History triamcinolone acetonide 1 applic TOPICAL BID 03/26/20 03/26/20 History Patient History Medical History Squamous cell carcinoma Surgical History H/O neck surgery History of surgical procedure on mouth Status post split thickness skin graft Family History Other Family history non-contributory Social History Smoking Status: Never smoker Hx Alcohol Use: No Hx Substance Use: Yes Last Used Substance: Days (ago) Preferred Language: Maltese Communication Ability: Impaired Communication Ability Comment: Patient unable to speak full sentences Visual Impairment: Limited Hearing Ability: Normal Beliefs That Will Affect Care: Jehovah'S Witness Jehovah'S Witness Beliefs: Anabaptist marital status: / Current Living Situation: Alone current occupational status: retired Other Information That Helps Us Care for You: No Feels Safe at Home: Yes Safety Concerns: Feels Safe At This Time Assistive Devices: Glasses and Oxygen - Continuous Review of Systems Review of Systems: All systems reviewed & are unremarkable except as noted in HPI & below Nothing additional to add. Physical Exam Physical Exam: General: no acute distress and stated age Head: normocephalic, no masses, lesions, tenderness or abnormalities Eyes: conjunctiva are pink and non-injected, sclera clear Neck: Previous surgery for head neck cancer Chest: normal shape and normal respiratory effort Lungs: clear to auscultation and percussion Cardiac Exam: - regular rate & rhythm, no murmurs gallops or rubs - normal S1, normal S2 Pulses: 2(+) throughout Abdomen: PEG tube in place Musculoskeletal: no gait disturbance, no joint inflammation, no deforming arthritis Extremities: no edema and no cyanosis Neuro: grossly normal exam Results & Data ([facility]) Vital Signs (Past 12 Hours) Vital Signs Temp Pulse Pulse Resp BP Pulse Ox 03/28/20 08:02 36.2 C L 111 H 20 113/71 90 03/28/20 07:36 92 H 03/28/20 07:18 90 18 91 03/28/20 03:50 36.4 C L 92 H 20 112/71 93 03/28/20 00:40 98 H 03/28/20 00:34 89 18 90 03/27/20 23:25 37.6 C H 102 H 22 133/72 91 Laboratory Results Laboratory Results - last 24 hr 03/28/20 03/28/20 03/28/20 05:21 05:21 05:21 WBC 12.00 H RBC 3.30 L Hgb 10.3 L Hct 31.6 L MCV 95.8 MCH 31.2 MCHC 32.6 Plt Count 367 Immature Gran % (Auto) 0.3 Neut % (Auto) 90.0 Lymph % (Auto) 6.7 Henry % (Auto) 2.8 Eos % (Auto) 0.1 Baso % (Auto) 0.1 Reticulocyte % (Auto) 2.3 H Neut # (Auto) 10.82 H Lymph # (Auto) 0.80 L Henry # (Auto) 0.33 Eos # (Auto) 0.01 Baso # (Auto) 0.01 Reticulocyte # 0.07 Immature Gran # (Auto) 0.03 H Sodium 136 Potassium 3.2 L D Chloride 100 Carbon Dioxide 30 Anion Gap 5.0 BUN 14 Creatinine 0.41 L Est Cr Clr Drug Dosing 91.4 Est GFR ( Amer) 113.1 Est GFR (Non-Af Amer) 97.6 BUN/Creatinine Ratio 32.7 H Glucose 106 H Calcium 8.8 Iron 46 TIBC 182 L Transferrin 138 L Ferritin 258.8 Vitamin B12 Folate Blood Type A Positive Antibody Screen NEGATIVE 03/28/20 05:21 WBC RBC Hgb Hct MCV MCH MCHC Plt Count Immature Gran % (Auto) Neut % (Auto) Lymph % (Auto) Henry % (Auto) Eos % (Auto) Baso % (Auto) Reticulocyte % (Auto) Neut # (Auto) Lymph # (Auto) Henry # (Auto) Eos # (Auto) Baso # (Auto) Reticulocyte # Immature Gran # (Auto) Sodium Potassium Chloride Carbon Dioxide Anion Gap BUN Creatinine Est Cr Clr Drug Dosing Est GFR ( Amer) Est GFR (Non-Af Amer) BUN/Creatinine Ratio Glucose Calcium Iron TIBC Transferrin Ferritin Vitamin B12 > 2000 H Folate > 20.00 Blood Type Antibody Screen Medications Administered Current Inpatient Medications Enteral Nutritional Formula (Peptamen 1.5 Armando 1,000 Ml Bag) 1,000 ml PEG .CONTINUOUS BERNA[place]TE; Protocol Stop: 04/26/20 10:59 Last Admin: 03/27/20 12:30 Dose: 1,000 ml Documented by: Heparin Sodium (Porcine) (Heparin Sod 5,000 Unit/0.5 Ml Vial) 5,000 units SQ Q8 [place] Stop: 04/26/20 05:59 Last Admin: 03/28/20 06:09 Dose: 5,000 units Documented by: Promethazine HCl 6.25 mg/ (Sodium Chloride) 50.25 mls @ 201 mls/hr IV Q6H PRN PRN Reason: Nausea And Vomiting Stop: 04/26/20 05:57 Acetaminophen (Ofirmev) 1,000 mg in 100 mls @ 400 mls/hr IV Q8H PRN PRN Reason: fever/pain Stop: 03/30/20 05:57 Ampicillin Sodium/Sulbactam Sodium 3,000 mg/ Sodium Chloride 108 mls @ 216 mls/hr IV Q6H [place] Stop: 04/03/20 07:59 Last Infusion: 03/28/20 09:30 Dose: Infused Documented by: Ipratropium [place] (Ipratropium [place] Neb Soln 0.02% 2.5 Ml Vial) 0.5 mg INH Q6R [place] Stop: 04/26/20 06:59 Last Admin: 03/28/20 07:15 Dose: 0.5 mg Documented by: Levalbuterol HCl (Levalbuterol 1.25mg/0.5ml Neb) 1.25 mg INH Q6R [place] Stop: 04/26/20 06:59 Last Admin: 03/28/20 07:15 Dose: 1.25 mg Documented by: Levothyroxine Sodium (Levothyroxine Sodium 100 Mcg Tablet) 100 mcg GT DAILYBB [facility] Stop: 04/26/20 06:29 Last Admin: 03/28/20 06:10 Dose: 100 mcg Documented by: Metoprolol Tartrate (Metoprolol Tartrate 25 Mg Tab) 12.5 mg PO BID [facility] Stop: 04/27/20 11:14 Miscellaneous Information (Ampicillin/Sulbactam Consult Active) 1 ea N/A UD PRN PRN Reason: Consult Stop: 04/26/20 06:03 Multivitamins/Minerals (Multi Vit W/Minerals Liquid 15 Ml Udp) 15 ml PO QAM [facility] Stop: 04/27/20 08:59 Last Admin: 03/28/20 09:01 Dose: 15 ml Documented by: Oxycodone HCl (Oxycodone Hcl Soln 5 Mg/5 Ml Udc) 5 mg GT Q4 PRN PRN Reason: Pain Stop: 04/10/20 05:57 (1) Pneumonia Laterality: bilateral Lung location: unspecified part of lung Pneumonia type: due to unspecified organism Qualified Code(s): J18.9 - Pneumonia, unspecified organism
[2020-03-28] MEDS: METOPROLOL TARTRATE 25 MG TAB PO SCH ×2 (13:03→20:53)
[2020-03-29] MEDS: LEVALBUTEROL 1.25MG/0.5ML NEB INH SCH ×2 (00:39→07:24)
[2020-03-29] MEDS: IPRATROPIUM BROMIDE NEB SOLN 0.02% 2.5 ML VIAL INH SCH ×2 (00:39→07:24)
[2020-03-29] MEDS: AMPICILLIN/SULBACTAM SOD 3,000 MG in 0.9 % SODIUM CHLORIDE 100 ML IV SCH ×4 (02:22→19:53)
[2020-03-29] MEDS: LEVOTHYROXINE SODIUM 100 MCG TABLET GT SCH (06:08)
[2020-03-29] MEDS: HEPARIN SOD 5,000 UNIT/0.5 ML VIAL SQ SCH ×3 (06:08→21:06)
[2020-03-29 06:20] LABS: Basophils # (auto) 0.02 K/uL (0-0.2); Basophils % (auto) 0.3 %; Eosinophils # (auto) 0.04 K/uL (0-0.5); Eosinophils % (auto) 0.6 %; Hematocrit (blood only) 32.7 % (37-47); Hemoglobin 10.3 g/dL (12.0-16.0); Immature Granulocytes # (auto) 0.01 K/uL (0.00-0.02); Immature Granulocytes % (auto) 0.1 %; Lymphocytes # (auto) 0.45 K/uL (1.2-3.4); Lymphocytes % (auto) 6.6 %; Mean Corpuscular Hemoglobin 29.9 pg (25-34); Mean Corpuscular Hgb Conc 31.5 g/dL (32-36); Mean Corpuscular Volume 95.1 fL (80-100); Mean Platelet Volume 9.3 fL (7.4-10.4); Monocytes # (auto) 0.61 K/uL (0.11-0.59); Neutrophils # (auto) 5.66 K/uL (1.4-6.5); Neutrophils % (auto) 83.4 %; Platelet Count 355 K/uL (130-400); RDW Coefficient of Variation 13.7 % (11.5-14.5); RDW Standard Deviation 47.3 fL (36.4-46.3); Red Blood Count 3.44 M/uL (4.2-5.4); White Blood Count 6.79 K/uL (4.8-10.8)
[2020-03-29 06:48] LABS: BUN Creatinine Ratio 22.5 (10-20); Calcium 8.8 mg/dl (8.5-10.1); Creatinine Clr Calc Pharmacy 93.1 ml/min; Est GFR (African American) 113.1; Est GFR (Non-African American) 97.6; Magnesium 2.1 mg/dl (1.8-2.4); Phosphorus 2.5 mg/dl (2.5-4.9); Potassium 3.1 mmol/L (3.5-5.1)
[2020-03-29] MEDS: PEPTAMEN 1.5 CAL 1,000 ML BAG PEG SCH (06:59)
[2020-03-29] MEDS: MULTI VIT W/MINERALS LIQUID 15 ML UDP PO SCH (07:47)
[2020-03-29] MEDS: METOPROLOL TARTRATE 25 MG TAB PO SCH ×2 (07:47→20:55)
[2020-03-29] MEDS ORDERED: POTASSIUM CHLORIDE 20 MEQ/15 ML UDC PO STA (09:22)
--- NOTE | 2020-03-29 10:31 | Cardiology Progress Note ---
Date of Service March 29, 2020 Assessment & Plan (1) Acute on chronic respiratory failure with hypoxemia: (2) Pneumonia: (3) H/O neck surgery: (4) Squamous cell carcinoma: (5) Atrial flutter, paroxysmal: The patient's atrial flutter episodes have improved with the start of metoprolol 12.5 mg twice daily which certainly can be titrated up as needed. Her atrial flutter is asymptomatic and seems to occur whenever she is ambulating such as going to the bathroom. I would continue to treat with metoprolol as needed. Admission and Anticipated Discharge Date Admission Date: March 27, 2020 Subjective The patient had an uneventful night. This morning while going to the bathroom she did have a short run of atrial flutter Review of Systems Review of Systems: All systems reviewed & are unremarkable except as noted in Subjective Physical Exam Physical Exam: General: no acute distress and stated age Head: normocephalic, no masses, lesions, tenderness or abnormalities Eyes: conjunctiva are pink and non-injected, sclera clear Neck: Head and neck cancer surgery Chest: normal shape and normal respiratory effort Lungs: clear to auscultation and percussion Cardiac Exam: - regular rate & rhythm, no murmurs gallops or rubs - normal S1, normal S2 Pulses: 2(+) throughout Abdomen: abdomen soft, non-tender, no abnormal masses and no hepatosplenomegaly, PEG tube in place Musculoskeletal: no gait disturbance, no joint inflammation, no deforming arthritis Extremities: no edema and no cyanosis Neuro: grossly normal exam Results & Data ([facility]) Vital Signs (Past 12 Hours) Vital Signs Temp Pulse Pulse Pulse Pulse Resp BP 03/29/20 07:38 36.5 C 96 H 18 138/73 03/29/20 07:24 86 18 03/29/20 07:11 93 H 03/29/20 04:00 36.8 C 88 18 124/69 03/29/20 01:43 92 H 03/29/20 00:39 97 H 18 03/28/20 22:44 37.2 C 74 18 133/78 Pulse Ox 03/29/20 07:38 95 03/29/20 07:24 98 03/29/20 07:11 03/29/20 04:00 98 03/29/20 01:43 03/29/20 00:39 97 03/28/20 22:44 98 Laboratory Results Laboratory Results - last 24 hr 03/28/20 03/29/20 03/29/20 17:25 05:42 05:42 WBC 6.79 RBC 3.44 L Hgb 10.3 L Hct 32.7 L MCV 95.1 MCH 29.9 MCHC 31.5 L RDW Std Deviation 47.3 H RDW Coeff of Roni 13.7 Plt Count 355 MPV 9.3 Immature Gran % (Auto) 0.1 Neut % (Auto) 83.4 Lymph % (Auto) 6.6 [place] % (Auto) 9.0 Eos % (Auto) 0.6 Baso % (Auto) 0.3 Neut # (Auto) 5.66 Lymph # (Auto) 0.45 L [place] # (Auto) 0.61 H Eos # (Auto) 0.04 Baso # (Auto) 0.02 Immature Gran # (Auto) 0.01 Sodium 135 L Potassium 3.1 L Chloride 100 Carbon Dioxide 31 Anion Gap 5.0 BUN 9 D Creatinine 0.41 L Est Cr Clr Drug Dosing 93.1 Est GFR ( Amer) 113.1 Est GFR (Non-Af Amer) 97.6 BUN/Creatinine Ratio 22.5 H Glucose 139 H POC Glucose 117 H Calcium 8.8 Phosphorus 2.5 Magnesium 2.1 Medications Administered Current Inpatient Medications Enteral Nutritional Formula (Peptamen 1.5 Armando 1,000 Ml Bag) 1,000 ml PEG .CONTINUOUS [place]ER[place]; Protocol Stop: 04/26/20 10:59 Last Admin: 03/29/20 06:59 Dose: 1,000 ml Documented by: Heparin Sodium (Porcine) (Heparin Sod 5,000 Unit/0.5 Ml Vial) 5,000 units SQ Q8 [place] Stop: 04/26/20 05:59 Last Admin: 03/29/20 06:08 Dose: 5,000 units Documented by: Promethazine HCl 6.25 mg/ (Sodium Chloride) 50.25 mls @ 201 mls/hr IV Q6H PRN PRN Reason: Nausea And Vomiting Stop: 04/26/20 05:57 Acetaminophen (Ofirmev) 1,000 mg in 100 mls @ 400 mls/hr IV Q8H PRN PRN Reason: fever/pain Stop: 03/30/20 05:57 Ampicillin Sodium/Sulbactam Sodium 3,000 mg/ Sodium Chloride 108 mls @ 216 mls/hr IV Q6H [place] Stop: 04/03/20 07:59 Last Infusion: 03/29/20 08:17 Dose: Infused Documented by: Ipratropium [place] (Ipratropium [place] Neb Soln 0.02% 2.5 Ml Vial) 0.5 mg INH Q6R PRN PRN Reason: Shortness Of Breath Or Wheezing Stop: 04/26/20 06:59 Levalbuterol HCl (Levalbuterol 1.25mg/0.5ml Neb) 1.25 mg INH Q6R PRN PRN Reason: Shortness Of Breath Or Wheezing Stop: 04/26/20 06:59 Levothyroxine Sodium (Levothyroxine Sodium 100 Mcg Tablet) 100 mcg GT DAILYBB [facility] Stop: 04/26/20 06:29 Last Admin: 03/29/20 06:08 Dose: 100 mcg Documented by: Metoprolol Tartrate (Metoprolol Tartrate 25 Mg Tab) 12.5 mg PO BID [place] Stop: 04/27/20 11:14 Last Admin: 03/29/20 07:47 Dose: 12.5 mg Documented by: Miscellaneous Information (Ampicillin/Sulbactam Consult Active) 1 ea N/A UD PRN PRN Reason: Consult Stop: 04/26/20 06:03 Multivitamins/Minerals (Multi Vit W/Minerals Liquid 15 Ml Udp) 15 ml PO QAM [place] Stop: 04/27/20 08:59 Last Admin: 03/29/20 07:47 Dose: 15 ml Documented by: Oxycodone HCl (Oxycodone Hcl Soln 5 Mg/5 Ml Udc) 5 mg GT Q4 PRN PRN Reason: Pain Stop: 04/10/20 05:57 (1) Pneumonia Laterality: bilateral Lung location: unspecified part of lung Pneumonia type: due to unspecified organism Qualified Code(s): J18.9 - Pneumonia, unspecified organism
--- NOTE | 2020-03-29 13:11 | Hospitalist Progress Note ---
Date of Service March 29, 2020 Assessment & Plan (1) Acute on chronic respiratory failure with hypoxemia: Recurrent aspiration pneumonia with sepsis Met sepsis criteria on admission with fever, tachycardia, tachypnea and increasing white cell count Last confinement [facility] 3 weeks ago for hypoxemic respiratory failure secondary to pneumonia. Patient discharged home on home O2 as per son. 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 (Of note, patient had a DNR CODE STATUS following discharge from [facility].) Patient son requesting updates for providers. Mr. Demetri Kelley, contact #[phone].-Discussed with the son in detail Admission and Anticipated Discharge Date Admission Date: March 27, 2020 Subjective The patient was seen and examined in telemetry unit He has been feeling a little better today Complains today of some congestion behind the throat with minimal shortness of breath at rest Denies any chest pain and/or palpitation 03/28/2020 The patient was seen and examined in medical telemetry unit She has been feeling much better Denies any increasing shortness of breath and/or cough 03/29/2020 The patient was seen and examined in presence of the son She has been feeling lot better and her cough and shortness of breath are improved She has had brief episodes of atrial fibrillation/multiple ectopics without any symptoms Review of Systems Review of Systems: All systems reviewed and are unremarkable except as noted below Constitutional: + fatigue and + weakness Respiratory: + cough and + dyspnea (Minimal to no dyspnea at rest) Physical Exam Physical Exam: Lying in bed comfortably Constitutional: + ill appearing and + thin; no acute distress Eyes: PERRL, conjunctivae normal, anicteric sclerae ENMT: external ear and nose normal, oropharynx normal Neck: trachea midline, no thyromegaly Respiratory: no respiratory distress Auscultation: + diminished lung sounds and + crackles (Bibasilar crackles) Cardiovascular: Rate/Rhythm: regular rate and regular rhythm Heart Sounds: no murmur Gastrointestinal (Abdomen): Inspection/Auscultation: abdomen not distended Percussion/Palpation: abdomen soft; abdomen nontender Musculoskeletal: No acute arthritis in any joint Neurologic: Alert, awake and oriented x3. Weak and lethargic without any focal neurological deficit. Psychiatric: A+Ox3, euthymic affect Lymphatic: no cervical or axillary lymphadenopathy Results & Data [facility] & [facility] ([facility] Vital Signs (Past 12 Hours) Vital Signs Temp Pulse Pulse Pulse Pulse Resp BP 03/29/20 11:44 36.6 C 91 H 18 157/94 H 03/29/20 07:38 36.5 C 96 H 18 138/73 03/29/20 07:24 86 18 03/29/20 07:11 93 H 03/29/20 04:00 36.8 C 88 18 124/69 03/29/20 01:43 92 H Pulse Ox 03/29/20 11:44 96 03/29/20 07:38 95 03/29/20 07:24 98 03/29/20 07:11 03/29/20 04:00 98 03/29/20 01:43 Laboratory Results Short CBC 03/29/20 Range/Units 05:42 WBC 6.79 (4.8-10.8) K/uL Hgb 10.3 L (12.0-16.0) g/dL Hct 32.7 L (37-47) % Plt Count 355 (130-400) K/uL BMP 03/29/20 05:42 Sodium 135 L Potassium 3.1 L Chloride 100 Carbon Dioxide 31 BUN 9 D Creatinine 0.41 L Glucose 139 H Calcium 8.8 Medications Administered Current Inpatient Medications Enteral Nutritional Formula (Peptamen 1.5 Armando 1,000 Ml Bag) 1,000 ml PEG .CONTINUOUS BERNA[facility]TE; Protocol Stop: 04/26/20 10:59 Last Admin: 03/29/20 06:59 Dose: 1,000 ml Documented by: Heparin Sodium (Porcine) (Heparin Sod 5,000 Unit/0.5 Ml Vial) 5,000 units SQ Q8 [facility] Stop: 04/26/20 05:59 Last Admin: 03/29/20 06:08 Dose: 5,000 units Documented by: Promethazine HCl 6.25 mg/ (Sodium Chloride) 50.25 mls @ 201 mls/hr IV Q6H PRN PRN Reason: Nausea And Vomiting Stop: 04/26/20 05:57 Acetaminophen (Ofirmev) 1,000 mg in 100 mls @ 400 mls/hr IV Q8H PRN PRN Reason: fever/pain Stop: 03/30/20 05:57 Ampicillin Sodium/Sulbactam Sodium 3,000 mg/ Sodium Chloride 108 mls @ 216 mls/hr IV Q6H [facility] Stop: 04/03/20 07:59 Last Infusion: 03/29/20 08:17 Dose: Infused Documented by: Ipratropium Roodhouse (Ipratropium [place] Neb Soln 0.02% 2.5 Ml Vial) 0.5 mg INH Q6R PRN PRN Reason: Shortness Of Breath Or Wheezing Stop: 04/26/20 06:59 Levalbuterol HCl (Levalbuterol 1.25mg/0.5ml Neb) 1.25 mg INH Q6R PRN PRN Reason: Shortness Of Breath Or Wheezing Stop: 04/26/20 06:59 Levothyroxine Sodium (Levothyroxine Sodium 100 Mcg Tablet) 100 mcg GT DAILYBB [facility] Stop: 04/26/20 06:29 Last Admin: 03/29/20 06:08 Dose: 100 mcg Documented by: Metoprolol Tartrate (Metoprolol Tartrate 25 Mg Tab) 12.5 mg PO BID [facility] Stop: 04/27/20 11:14 Last Admin: 03/29/20 07:47 Dose: 12.5 mg Documented by: Miscellaneous Information (Ampicillin/Sulbactam Consult Active) 1 ea N/A UD PRN PRN Reason: Consult Stop: 04/26/20 06:03 Multivitamins/Minerals (Multi Vit W/Minerals Liquid 15 Ml Udp) 15 ml PO QAM [facility] Stop: 04/27/20 08:59 Last Admin: 03/29/20 07:47 Dose: 15 ml Documented by: Oxycodone HCl (Oxycodone Hcl Soln 5 Mg/5 Ml Udc) 5 mg GT Q4 PRN PRN Reason: Pain Stop: 04/10/20 05:57
[2020-03-29] MEDS: IPRATROPIUM BROMIDE NEB SOLN 0.02% 2.5 ML VIAL INH PRN (20:03)
[2020-03-29] MEDS: LEVALBUTEROL 1.25MG/0.5ML NEB INH PRN (20:03)
[2020-03-30] MEDS: AMPICILLIN/SULBACTAM SOD 3,000 MG in 0.9 % SODIUM CHLORIDE 100 ML IV SCH ×4 (02:19→20:04)
[2020-03-30] MEDS: LEVOTHYROXINE SODIUM 100 MCG TABLET GT SCH (05:25)
[2020-03-30] MEDS: HEPARIN SOD 5,000 UNIT/0.5 ML VIAL SQ SCH ×3 (06:10→21:41)
[2020-03-30 07:16] LABS: BUN Creatinine Ratio 30.7 (10-20); Calcium 8.6 mg/dl (8.5-10.1); Creatinine Clr Calc Pharmacy 99.4 ml/min
[2020-03-30] MEDS: METOPROLOL TARTRATE 25 MG TAB PO SCH ×2 (07:51→21:41)
[2020-03-30] MEDS: MULTI VIT W/MINERALS LIQUID 15 ML UDP PO SCH (07:51)
--- NOTE | 2020-03-30 13:29 | Cardiology Progress Note ---
Date of Service March 30, 2020 Assessment & Plan (1) Paroxysmal atrial tachycardia: Telemetry reviewed. Underlying rhythm is sinus with elevated average heart rate. Rare episodes of paroxysmal atrial tachycardia recorded. I do not see overt evidence of atrial flutter currently. Recommend titration of metoprolol tartrate to 25 mg twice daily. Continue to monitor rhythm via telemetry during hospitalization. Admission and Anticipated Discharge Date Admission Date: March 27, 2020 Subjective Patient seen and examined at the bedside. Feeling well from a cardiovascular perspective. Denies chest pain or palpitations. No lightheadedness, dizziness, syncope, or near syncope. Complains of discomfort involving her mouth and throat. Offers no other concerns/complaints at this time. Review of Systems Review of Systems: All systems reviewed & are unremarkable except as noted in HPI & below Physical Exam Constitutional: no acute distress Respiratory: normal respiratory effort; no respiratory distress and no labored breathing Auscultation: lungs clear to auscultation bilaterally; no crackles, no rales, no rhonchi and no wheezes Cardiovascular: Rate/Rhythm: regular rate and regular rhythm Heart Sounds: normal S1 and normal S2; no murmur Vessels: radial pulses present; no JVD Extremities: no edema Gastrointestinal (Abdomen): Inspection/Auscultation: normal bowel sounds; abdomen not distended Percussion/Palpation: abdomen nontender, no guarding and abdomen not rigid Skin: no rashes, warm and dry Neurologic: moves all extremities and awake Motor/Sensory: no tremor Psychiatric: Orientation: alert and oriented x 3 Results & Data ([facility]) Vital Signs (Past 12 Hours) Vital Signs Temp Pulse Pulse Resp BP Pulse Ox 03/30/20 12:28 36.6 C 91 H 17 130/76 95 03/30/20 07:43 36.6 C 88 20 128/78 98 03/30/20 07:16 89 03/30/20 03:55 36.4 C L 81 20 124/78 98
--- NOTE | 2020-03-30 14:42 | Hospitalist Progress Note ---
Date of Service March 30, 2020 Assessment & Plan (1) Acute on chronic respiratory failure with hypoxemia: Recurrent aspiration pneumonia with sepsis Met sepsis criteria on admission with fever, tachycardia, tachypnea and increasing white cell count Last confinement [facility] 3 weeks ago for hypoxemic respiratory failure secondary to pneumonia. Patient discharged home on home O2 as per son. 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 (Of note, patient had a DNR CODE STATUS following discharge from [facility].) Patient son requesting updates for providers. Mr. Demetri Kelley, contact #[phone].-Discussed with the son in detail Admission and Anticipated Discharge Date Admission Date: March 27, 2020 Subjective The patient was seen and examined in telemetry unit He has been feeling a little better today Complains today of some congestion behind the throat with minimal shortness of breath at rest Denies any chest pain and/or palpitation 03/28/2020 The patient was seen and examined in medical telemetry unit She has been feeling much better Denies any increasing shortness of breath and/or cough 03/29/2020 The patient was seen and examined in presence of the son She has been feeling lot better and her cough and shortness of breath are improved She has had brief episodes of atrial fibrillation/multiple ectopics without any symptoms 03/30/2020 The patient was seen and examined in medical telemetry unit She has been feeling a lot better and denies any respiratory symptoms She remains generally weak and lethargic No more arrhythmias on monitor Review of Systems Review of Systems: All systems reviewed and are unremarkable except as noted below Constitutional: + fatigue and + weakness Respiratory: no cough and no dyspnea (Minimal to no dyspnea at rest) Physical Exam Physical Exam: Lying in bed comfortably Constitutional: + ill appearing and + thin; no acute distress Eyes: PERRL, conjunctivae normal, anicteric sclerae ENMT: external ear and nose normal, oropharynx normal Neck: trachea midline, no thyromegaly Respiratory: no respiratory distress Auscultation: + diminished lung sounds and + crackles (Bibasilar crackles) Cardiovascular: Rate/Rhythm: regular rate and regular rhythm Heart Sounds: no murmur Gastrointestinal (Abdomen): Inspection/Auscultation: abdomen not distended Percussion/Palpation: abdomen soft; abdomen nontender Musculoskeletal: No acute arthritis in any joint Neurologic: Generally weak and lethargic Psychiatric: A+Ox3, euthymic affect Lymphatic: no cervical or axillary lymphadenopathy Results & Data Results & Data ([facility]) Vital Signs (Past 12 Hours) Vital Signs Temp Pulse Pulse Resp BP Pulse Ox 03/30/20 13:27 104 H 94 03/30/20 12:28 36.6 C 91 H 17 130/76 95 03/30/20 07:43 36.6 C 88 20 128/78 98 03/30/20 07:16 89 03/30/20 03:55 36.4 C L 81 20 124/78 98 Laboratory Results [facility] 03/30/20 06:12 Sodium 134 L Potassium 4.0 D Chloride 100 Carbon Dioxide 29 BUN 12 Creatinine 0.38 L Glucose 107 H Calcium 8.6 Medications Administered Current Inpatient Medications Enteral Nutritional Formula (Peptamen 1.5 Armando 1,000 Ml Bag) 1,000 ml PEG .CONTINUOUS [facility]ER[place]; Protocol Stop: 04/26/20 10:59 Last Admin: 03/29/20 06:59 Dose: 1,000 ml Documented by: Heparin Sodium (Porcine) (Heparin Sod 5,000 Unit/0.5 Ml Vial) 5,000 units SQ Q8 [facility] Stop: 04/26/20 05:59 Last Admin: 03/30/20 13:10 Dose: Not Given Documented by: Promethazine HCl 6.25 mg/ (Sodium Chloride) 50.25 mls @ 201 mls/hr IV Q6H PRN PRN Reason: Nausea And Vomiting Stop: 04/26/20 05:57 Ampicillin Sodium/Sulbactam Sodium 3,000 mg/ Sodium Chloride 108 mls @ 216 mls/hr IV Q6H [facility] Stop: 04/03/20 07:59 Last Infusion: 03/30/20 14:32 Dose: Infused Documented by: Ipratropium Rudd (Ipratropium Rudd Neb Soln 0.02% 2.5 Ml Vial) 0.5 mg INH Q6R PRN PRN Reason: Shortness Of Breath Or Wheezing Stop: 04/26/20 06:59 Last Admin: 03/29/20 20:03 Dose: 0.5 mg Documented by: Levalbuterol HCl (Levalbuterol 1.25mg/0.5ml Neb) 1.25 mg INH Q6R PRN PRN Reason: Shortness Of Breath Or Wheezing Stop: 04/26/20 06:59 Last Admin: 03/29/20 20:03 Dose: 1.25 mg Documented by: Levothyroxine Sodium (Levothyroxine Sodium 100 Mcg Tablet) 100 mcg GT DAILYBB [facility] Stop: 04/26/20 06:29 Last Admin: 03/30/20 05:25 Dose: 100 mcg Documented by: Metoprolol Tartrate (Metoprolol Tartrate 25 Mg Tab) 25 mg PO BID [facility] Stop: 04/29/20 20:59 Miscellaneous Information (Ampicillin/Sulbactam Consult Active) 1 ea N/A UD PRN PRN Reason: Consult Stop: 04/26/20 06:03 Multivitamins/Minerals (Multi Vit W/Minerals Liquid 15 Ml Udp) 15 ml PO QAM [facility] Stop: 04/27/20 08:59 Last Admin: 03/30/20 07:51 Dose: 15 ml Documented by: Oxycodone HCl (Oxycodone Hcl Soln 5 Mg/5 Ml Udc) 5 mg GT Q4 PRN PRN Reason: Pain Stop: 04/10/20 05:57
[2020-03-30] MEDS: LEVALBUTEROL 1.25MG/0.5ML NEB INH PRN (20:12)
[2020-03-30] MEDS: IPRATROPIUM BROMIDE NEB SOLN 0.02% 2.5 ML VIAL INH PRN (20:13)
[2020-03-30] MEDS ORDERED: ACETAMINOPHEN 1000 MG/100 ML IV IV STA (21:22)
[2020-03-31] MEDS: AMPICILLIN/SULBACTAM SOD 3,000 MG in 0.9 % SODIUM CHLORIDE 100 ML IV SCH ×4 (02:09→19:47)
[2020-03-31] MEDS: HEPARIN SOD 5,000 UNIT/0.5 ML VIAL SQ SCH ×3 (05:53→21:13)
[2020-03-31] MEDS: LEVOTHYROXINE SODIUM 100 MCG TABLET GT SCH (05:59)
[2020-03-31 06:31] LABS: Alanine Aminotransferase 150 U/L (12-78); Albumin Level 1.9 gm/dl (3.4-5.0); Alkaline Phosphatase 158 U/L (45-117); Aspartate Aminotransferase 55 U/L (15-37); Bilirubin Direct < 0.1 mg/dl (0-0.2); Bilirubin,Total 0.2 mg/dl (0.2-1); Total Protein 6.9 gm/dl (6.4-8.2)
[2020-03-31] MEDS: METOPROLOL TARTRATE 25 MG TAB PO SCH ×3 (08:19→21:19)
[2020-03-31] MEDS: MULTI VIT W/MINERALS LIQUID 15 ML UDP PO SCH (08:21)
--- NOTE | 2020-03-31 12:15 | Hospitalist Progress Note ---
Date of Service March 31, 2020 Assessment & Plan (1) Acute on chronic respiratory failure with hypoxemia: Recurrent aspiration pneumonia with sepsis Met sepsis criteria on admission with fever, tachycardia, tachypnea and increasing white cell count Last confinement [facility] 3 weeks ago for hypoxemic respiratory failure secondary to pneumonia. Patient discharged home on home O2 as per son. 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 (Of note, patient had a DNR CODE STATUS following discharge from [facility].) Patient son requesting updates for providers. Mr. Demetri Kelley, contact #[phone].-Discussed with the son in detail Admission and Anticipated Discharge Date Admission Date: March 27, 2020 Subjective The patient was seen and examined in telemetry unit He has been feeling a little better today Complains today of some congestion behind the throat with minimal shortness of breath at rest Denies any chest pain and/or palpitation 03/28/2020 The patient was seen and examined in medical telemetry unit She has been feeling much better Denies any increasing shortness of breath and/or cough 03/29/2020 The patient was seen and examined in presence of the son She has been feeling lot better and her cough and shortness of breath are improved She has had brief episodes of atrial fibrillation/multiple ectopics without any symptoms 03/30/2020 The patient was seen and examined in medical telemetry unit She has been feeling a lot better and denies any respiratory symptoms She remains generally weak and lethargic No more arrhythmias on monitor 03/31/2020 The patient was seen and examined in medical telemetry unit She has been feeling a lot better and denies any significant symptoms Her beta-paulo has been adjusted to control the heart rate and PVCs Review of Systems Review of Systems: All systems reviewed and are unremarkable except as noted below Constitutional: + fatigue and + weakness Physical Exam Physical Exam: Lying in bed comfortably Constitutional: + ill appearing and + thin; no acute distress Eyes: PERRL, conjunctivae normal, anicteric sclerae ENMT: external ear and nose normal, oropharynx normal Neck: trachea midline, no thyromegaly Respiratory: no respiratory distress Auscultation: + diminished lung sounds and + crackles (Bibasilar crackles) Cardiovascular: Rate/Rhythm: regular rate and regular rhythm Heart Sounds: no murmur Gastrointestinal (Abdomen): Inspection/Auscultation: abdomen not distended Percussion/Palpation: abdomen soft; abdomen nontender Musculoskeletal: No acute arthritis in any joint Neurologic: Alert, awake and oriented x3. Very weak but no focal sensory and/or motor deficit appreciated. Psychiatric: A+Ox3, euthymic affect Lymphatic: no cervical or axillary lymphadenopathy Results & Data Results & Data ([facility]) Vital Signs (Past 12 Hours) Vital Signs Temp Pulse Pulse Resp BP Pulse Ox 03/31/20 08:00 36.5 C 86 18 133/78 98 03/31/20 07:00 86 03/31/20 04:00 36.8 C 76 18 111/70 97 03/31/20 00:13 82 Laboratory Results Liver Function 03/31/20 Range/Units 05:42 Total Bilirubin 0.2 (0.2-1) mg/dl Direct Bilirubin < 0.1 (0-0.2) mg/dl AST 55 H (15-37) U/L ALT 150 H (12-78) U/L Alkaline Phosphatase 158 H (45-117) U/L Albumin 1.9 L (3.4-5.0) gm/dl Medications Administered Current Inpatient Medications Enteral Nutritional Formula (Peptamen 1.5 Armando 1,000 Ml Bag) 1,000 ml PEG .CONTINUOUS [facility]ER[facility]TE; Protocol Stop: 04/26/20 10:59 Last Admin: 03/29/20 06:59 Dose: 1,000 ml Documented by: Heparin Sodium (Porcine) (Heparin Sod 5,000 Unit/0.5 Ml Vial) 5,000 units SQ Q8 [facility] Stop: 04/26/20 05:59 Last Admin: 03/31/20 05:53 Dose: Not Given Documented by: Promethazine HCl 6.25 mg/ (Sodium Chloride) 50.25 mls @ 201 mls/hr IV Q6H PRN PRN Reason: Nausea And Vomiting Stop: 04/26/20 05:57 Ampicillin Sodium/Sulbactam Sodium 3,000 mg/ Sodium Chloride 108 mls @ 216 mls/hr IV Q6H [facility] Stop: 04/03/20 07:59 Last Infusion: 03/31/20 09:16 Dose: Infused Documented by: Ipratropium Tony (Ipratropium Tony Neb Soln 0.02% 2.5 Ml Vial) 0.5 mg INH Q6R PRN PRN Reason: Shortness Of Breath Or Wheezing Stop: 04/26/20 06:59 Last Admin: 03/30/20 20:13 Dose: 0.5 mg Documented by: Levalbuterol HCl (Levalbuterol 1.25mg/0.5ml Neb) 1.25 mg INH Q6R PRN PRN Reason: Shortness Of Breath Or Wheezing Stop: 04/26/20 06:59 Last Admin: 03/30/20 20:12 Dose: 1.25 mg Documented by: Levothyroxine Sodium (Levothyroxine Sodium 100 Mcg Tablet) 100 mcg GT DAILYBB [facility] Stop: 04/26/20 06:29 Last Admin: 03/31/20 05:59 Dose: 100 mcg Documented by: Metoprolol Tartrate (Metoprolol Tartrate 25 Mg Tab) 25 mg PO BID [facility] Stop: 04/29/20 20:59 Last Admin: 03/31/20 08:19 Dose: 25 mg Documented by: Miscellaneous Information (Ampicillin/Sulbactam Consult Active) 1 ea N/A UD PRN PRN Reason: Consult Stop: 04/26/20 06:03 Multivitamins/Minerals (Multi Vit W/Minerals Liquid 15 Ml Udp) 15 ml PO QAM [facility] Stop: 04/27/20 08:59 Last Admin: 03/31/20 08:21 Dose: 15 ml Documented by: Oxycodone HCl (Oxycodone Hcl Soln 5 Mg/5 Ml Udc) 5 mg GT Q4 PRN PRN Reason: Pain Stop: 04/10/20 05:57
[2020-04-01] MEDS: AMPICILLIN/SULBACTAM SOD 3,000 MG in 0.9 % SODIUM CHLORIDE 100 ML IV SCH ×2 (02:14→07:45)
[2020-04-01] MEDS: PEPTAMEN 1.5 CAL 1,000 ML BAG PEG SCH (02:24)
[2020-04-01] MEDS: HEPARIN SOD 5,000 UNIT/0.5 ML VIAL SQ SCH ×3 (06:07→21:18)
[2020-04-01] MEDS: LEVOTHYROXINE SODIUM 100 MCG TABLET GT SCH (06:08)
[2020-04-01 06:26] LABS: Basophils # (auto) 0.01 K/uL (0-0.2); Basophils % (auto) 0.1 %; Eosinophils # (auto) 0.13 K/uL (0-0.5); Eosinophils % (auto) 1.7 %; Hematocrit (blood only) 33.9 % (37-47); Hemoglobin 11.2 g/dL (12.0-16.0); Immature Granulocytes # (auto) 0.04 K/uL (0.00-0.02); Immature Granulocytes % (auto) 0.5 %; Lymphocytes # (auto) 0.48 K/uL (1.2-3.4); Lymphocytes % (auto) 6.3 %; Mean Corpuscular Volume 93.9 fL (80-100); Mean Platelet Volume 8.7 fL (7.4-10.4); Monocytes # (auto) 0.73 K/uL (0.11-0.59); Monocytes % (auto) 9.5 %; Neutrophils # (auto) 6.28 K/uL (1.4-6.5); Neutrophils % (auto) 81.9 %; Platelet Count 281 K/uL (130-400); RDW Coefficient of Variation 13.9 % (11.5-14.5); RDW Standard Deviation 47.6 fL (36.4-46.3); Red Blood Count 3.61 M/uL (4.2-5.4); White Blood Count 7.67 K/uL (4.8-10.8)
[2020-04-01 06:58] LABS: BUN Creatinine Ratio 34.8 (10-20); Calcium 8.7 mg/dl (8.5-10.1); Creatinine Clr Calc Pharmacy 87.5 ml/min; Est GFR (African American) 111.3; Est GFR (Non-African American) 96.1; Magnesium 2.4 mg/dl (1.8-2.4); Potassium 3.5 mmol/L (3.5-5.1)
[2020-04-01] MEDS: METOPROLOL TARTRATE 25 MG TAB PO SCH ×2 (07:45→21:17)
[2020-04-01] MEDS: MULTI VIT W/MINERALS LIQUID 15 ML UDP PO SCH (07:45)
--- NOTE | 2020-04-01 09:49 | XRay Report ---
XR chest 2V PA/lateral HISTORY: pneumonia COMPARISON: Chest 03/26/2020. FINDINGS: Mild diffuse interstitial thickening, unchanged. Left perihilar airspace opacity and a smal l left pleural effusion persist. The heart remains top normal in size. Hazy appearance to the right u pper lung zone is also unchanged. No pneumothorax. IMPRESSION: No change in the left perihilar airspace opacity and small left pleural effusion. This favors a pneum onia. Recommend follow-up to ensure resolution. ACT 112: Negative or not required by law. Electronically signed by: Papo Gomez M.D. 04/01/2020 9:48 AM
--- NOTE | 2020-04-01 11:28 | Hospitalist Progress Note ---
Date of Service April 01, 2020 Assessment & Plan (1) Acute on chronic respiratory failure with hypoxemia: Recurrent aspiration pneumonia with sepsis Met sepsis criteria on admission with fever, tachycardia, tachypnea and increasing white cell count Last confinement [facility] 3 weeks ago for hypoxemic respiratory failure secondary to pneumonia. Patient discharged home on home O2 as per son. hx aspiration risk status post PEG TUBE PLACEMENT Has been started on intravenous Unasyn Clinically much better today We will continue spirometry and current antibiotic Clinically a lot better today and keeps improving Minimal cough and throat congestion otherwise remains stable Repeat chest x-ray showed little or no improvement of the left basilar infiltrate. 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 (Of note, patient had a DNR CODE STATUS following discharge from [facility].) Patient son requesting updates for providers. Mr. Demetri Kelley, contact #[phone].-Discussed with the son in detail Will have PT and OT evaluation and possible discharge home this afternoon Admission and Anticipated Discharge Date Admission Date: March 27, 2020 Subjective The patient was seen and examined in telemetry unit He has been feeling a little better today Complains today of some congestion behind the throat with minimal shortness of breath at rest Denies any chest pain and/or palpitation 03/28/2020 The patient was seen and examined in medical telemetry unit She has been feeling much better Denies any increasing shortness of breath and/or cough 03/29/2020 The patient was seen and examined in presence of the son She has been feeling lot better and her cough and shortness of breath are improved She has had brief episodes of atrial fibrillation/multiple ectopics without any symptoms 03/30/2020 The patient was seen and examined in medical telemetry unit She has been feeling a lot better and denies any respiratory symptoms She remains generally weak and lethargic No more arrhythmias on monitor 03/31/2020 The patient was seen and examined in medical telemetry unit She has been feeling a lot better and denies any significant symptoms Her beta-paulo has been adjusted to control the heart rate and PVCs 04/01/2020 The patient was seen and examined in medical telemetry unit She complains to have some throat congestion and occasional cough but denies any increasing shortness of breath No fever no chills, no nausea and or vomiting Review of Systems Review of Systems: All systems reviewed and are unremarkable except as noted below Constitutional: + fatigue and + weakness Respiratory: + cough; no dyspnea Gastrointestinal: no abdominal pain, no bloating, no nausea and no vomiting Physical Exam Physical Exam: Lying in bed comfortably Constitutional: + ill appearing and + thin; no acute distress Eyes: PERRL, conjunctivae normal, anicteric sclerae ENMT: external ear and nose normal, oropharynx normal Neck: trachea midline, no thyromegaly Respiratory: no respiratory distress Auscultation: + diminished lung sounds and + crackles (Bibasilar crackles) Cardiovascular: Rate/Rhythm: regular rate and regular rhythm Heart Sounds: no murmur Gastrointestinal (Abdomen): Inspection/Auscultation: abdomen not distended Percussion/Palpation: abdomen soft; abdomen nontender Has PEG tube in situ Musculoskeletal: No acute arthritis in any joint Neurologic: Generally weak no focal neuro deficit Psychiatric: A+Ox3, euthymic affect Lymphatic: no cervical or axillary lymphadenopathy Results & Data Results & Data ([facility]) Vital Signs (Past 12 Hours) Vital Signs Temp Pulse Pulse Resp BP Pulse Ox 04/01/20 10:51 36.6 C 73 16 113/64 95 04/01/20 07:19 93 H 04/01/20 06:11 36.8 C 94 H 18 121/80 99 04/01/20 03:36 36.8 C 80 16 121/78 91 Laboratory Results Short CBC 04/01/20 Range/Units 06:11 WBC 7.67 (4.8-10.8) K/uL Hgb 11.2 L (12.0-16.0) g/dL Hct 33.9 L (37-47) % Plt Count 281 (130-400) K/uL [facility] 04/01/20 06:11 Sodium 134 L Potassium 3.5 Chloride 103 Carbon Dioxide 28 BUN 15 Creatinine 0.43 L Glucose 141 H Calcium 8.7 Medications Administered Current Inpatient Medications Amoxicillin/Clavulanate Potassium (Amoxicillin/Clavulanate [place] 600mg/5ml Udp) 600 mg PO BIDM [facility] Stop: 04/08/20 16:59 Enteral Nutritional Formula (Peptamen 1.5 Armando 1,000 Ml Bag) 1,000 ml PEG .CONTINUOUS [facility]ERNA[facility]TE; Protocol Stop: 04/26/20 10:59 Last Admin: 04/01/20 02:24 Dose: 1,000 ml Documented by: Heparin Sodium (Porcine) (Heparin Sod 5,000 Unit/0.5 Ml Vial) 5,000 units SQ Q8 [facility] Stop: 04/26/20 05:59 Last Admin: 04/01/20 06:07 Dose: 5,000 units Documented by: Promethazine HCl 6.25 mg/ (Sodium Chloride) 50.25 mls @ 201 mls/hr IV Q6H PRN PRN Reason: Nausea And Vomiting Stop: 04/26/20 05:57 Ipratropium [place] (Ipratropium [place] Neb Soln 0.02% 2.5 Ml Vial) 0.5 mg INH Q6R PRN PRN Reason: Shortness Of Breath Or Wheezing Stop: 04/26/20 06:59 Last Admin: 03/30/20 20:13 Dose: 0.5 mg Documented by: Levalbuterol HCl (Levalbuterol 1.25mg/0.5ml Neb) 1.25 mg INH Q6R PRN PRN Reason: Shortness Of Breath Or Wheezing Stop: 04/26/20 06:59 Last Admin: 03/30/20 20:12 Dose: 1.25 mg Documented by: Levothyroxine Sodium (Levothyroxine Sodium 100 Mcg Tablet) 100 mcg GT DAILYBB [facility] Stop: 04/26/20 06:29 Last Admin: 04/01/20 06:08 Dose: 100 mcg Documented by: Metoprolol Tartrate (Metoprolol Tartrate 25 Mg Tab) 25 mg PO BID [facility] Stop: 04/29/20 20:59 Last Admin: 04/01/20 07:45 Dose: 25 mg Documented by: Miscellaneous Information (Ampicillin/Sulbactam Consult Active) 1 ea N/A UD PRN PRN Reason: Consult Stop: 04/26/20 06:03 Multivitamins/Minerals (Multi Vit W/Minerals Liquid 15 Ml Udp) 15 ml PO QAM [facility] Stop: 04/27/20 08:59 Last Admin: 04/01/20 07:45 Dose: 15 ml Documented by: Oxycodone HCl (Oxycodone Hcl Soln 5 Mg/5 Ml Udc) 5 mg GT Q4 PRN PRN Reason: Pain Stop: 04/10/20 05:57
--- NOTE | 2020-04-01 14:23 | Cardiology Progress Note ---
Date of Service April 01, 2020 Assessment & Plan (1) Paroxysmal atrial tachycardia: Continue current dose of metoprolol tartrate, 25 mg p.o. twice daily. Continue subcutaneous heparin for DVT prophylaxis. No indication for systemic anticoagulation at this time. Admission and Anticipated Discharge Date Admission Date: March 27, 2020 Subjective Patient seen in cardiology follow-up. Denies any chest discomfort or shortness of breath. Telemetry reveals sinus rhythm with occasional PACs in the range of 80 bpm to 100 bpm. Review of Systems Review of Systems: All systems reviewed & are unremarkable except as noted in HPI & below Physical Exam Physical Exam: Temp Pulse Resp BP Pulse Ox 36.6 C 87 18 119/76 95 04/01/20 10:51 04/01/20 12:34 04/01/20 12:34 04/01/20 12:34 04/01/20 10:51 Constitutional: WD/WN, vitals as above Respiratory: normal respiratory effort, lungs clear to auscultation Cardiovascular: Rate/Rhythm: regular rate and regular rhythm Heart Sounds: no murmur Vessels: no JVD Extremities: no edema Gastrointestinal (Abdomen): normal bowel sounds, soft, nontender, no hepatosplenomegaly Neurologic: PERRL, EOMI, accommodation nl, no face palsy, no dysarthria Results & Data ([facility]) Vital Signs (Past 12 Hours) Vital Signs Temp Pulse Pulse Resp BP Pulse Ox 04/01/20 12:34 87 18 119/76 04/01/20 10:51 36.6 C 73 16 113/64 95 04/01/20 07:19 93 H 04/01/20 06:11 36.8 C 94 H 18 121/80 99 04/01/20 03:36 36.8 C 80 16 121/78 91 Laboratory Results CBC 04/01/20 Range/Units 06:11 WBC 7.67 (4.8-10.8) K/uL RBC 3.61 L (4.2-5.4) M/uL Hgb 11.2 L (12.0-16.0) g/dL Hct 33.9 L (37-47) % Plt Count 281 (130-400) K/uL Neut # (Auto) 6.28 (1.4-6.5) K/uL Lymph # (Auto) 0.48 L (1.2-3.4) K/uL [place] # (Auto) 0.73 H (0.11-0.59) K/uL Eos # (Auto) 0.13 (0-0.5) K/uL Baso # (Auto) 0.01 (0-0.2) K/uL Comprehensive Metabolic Panel 04/01/20 Range/Units 06:11 Sodium 134 L (136-145) mmol/L Potassium 3.5 (3.5-5.1) mmol/L Chloride 103 (98-107) mmol/L Carbon Dioxide 28 (21-32) mmol/L BUN 15 (7-18) mg/dl Creatinine 0.43 L (0.6-1.2) mg/dl Glucose 141 H (70-99) mg/dl Calcium 8.7 (8.5-10.1) mg/dl Intake and Output 03/31/20 04/01/20 04/01/20 22:59 06:59 14:59 Intake Total 216 / 432 108 / 432 108 / 108 Balance 216 / 432 108 / 432 108 / 108 Intake: IV 216 / 432 108 / 432 108 / 108 Unasyn 3,000 mg In Sodium 216 / 432 108 / 432 108 / 108 Chloride 100 ml @ 216 mls/hr IV Q6H [facility] Rx#:[id number] Other: Other Intake Source npo npo Npo # Unmeasured Voids 2 Weight 53.1 kg Weight Measurement Method Standing Scale
[2020-04-01] MEDS: AMOXICILLIN/CLAVULANATE SUSP 400MG/5ML 50ML BOTTLE PO SCH (18:13)
[2020-04-02] MEDS: PEPTAMEN 1.5 CAL 1,000 ML BAG PEG SCH (02:19)
[2020-04-02] MEDS: HEPARIN SOD 5,000 UNIT/0.5 ML VIAL SQ SCH ×2 (05:27→11:35)
[2020-04-02] MEDS: LEVOTHYROXINE SODIUM 100 MCG TABLET GT SCH (06:29)
[2020-04-02] MEDS: AMOXICILLIN/CLAVULANATE SUSP 400MG/5ML 50ML BOTTLE PO SCH (08:06)
[2020-04-02] MEDS: METOPROLOL TARTRATE 25 MG TAB PO SCH (08:06)
[2020-04-02] MEDS: MULTI VIT W/MINERALS LIQUID 15 ML UDP PO SCH (08:06)
--- NOTE | 2020-04-02 10:35 | Hospitalist Progress Note ---
Date of Service April 02, 2020 Assessment & Plan (1) Acute on chronic respiratory failure with hypoxemia: Recurrent aspiration pneumonia with sepsis Met sepsis criteria on admission with fever, tachycardia, tachypnea and increasing white cell count Last confinement [facility] 3 weeks ago for hypoxemic respiratory failure secondary to pneumonia. Patient discharged home on home O2 as per son. hx aspiration risk status post PEG TUBE PLACEMENT Has been started on intravenous Unasyn Clinically much better today We will continue spirometry and current antibiotic Clinically a lot better today and keeps improving Minimal cough and throat congestion otherwise remains stable Repeat chest x-ray showed little or no improvement of the left basilar infiltrate. 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 S/p PEG tube placement Continue PEG tube feeding Aspiration precautions Swallow eval as per patient son request-speech evaluation is not indicated as the patient will not be able to eat orally No acute symptoms New onset anemia No source of bleeding Anemia could be secondary to pneumonia and is contributed by malnutrition We will monitor hemoglobin-remains stable at 10.3 on 03/28/2020 Hemoglobin remains stable at 10.3 Hypothyroidism, TSH slightly elevated Pressure sore Wound care nurse consult RE sacral decubitus sore DVT prophylaxis Subcu heparin Full code for now as per son as per patient's prior directives. (Of note, patient had a DNR CODE STATUS following discharge from [facility].) Patient son requesting updates for providers. Mr. Demetri Kelley, contact #[phone].-Discussed with the son in detail Will have PT and OT evaluation She will be discharged this afternoon-discussed with the son Admission and Anticipated Discharge Date Admission Date: March 27, 2020 Subjective The patient was seen and examined in telemetry unit He has been feeling a little better today Complains today of some congestion behind the throat with minimal shortness of breath at rest Denies any chest pain and/or palpitation 03/28/2020 The patient was seen and examined in medical telemetry unit She has been feeling much better Denies any increasing shortness of breath and/or cough 03/29/2020 The patient was seen and examined in presence of the son She has been feeling lot better and her cough and shortness of breath are improved She has had brief episodes of atrial fibrillation/multiple ectopics without any symptoms 03/30/2020 The patient was seen and examined in medical telemetry unit She has been feeling a lot better and denies any respiratory symptoms She remains generally weak and lethargic No more arrhythmias on monitor 03/31/2020 The patient was seen and examined in medical telemetry unit She has been feeling a lot better and denies any significant symptoms Her beta-paulo has been adjusted to control the heart rate and PVCs 04/01/2020 The patient was seen and examined in medical telemetry unit She complains to have some throat congestion and occasional cough but denies any increasing shortness of breath No fever no chills, no nausea and or vomiting 04/02/2020 The patient was seen and examined in medical telemetry unit She has been feeling a lot better and denies any congestion in the throat or any cough and/or shortness of breath No abdominal pain, nausea and or vomiting Review of Systems Review of Systems: All systems reviewed and are unremarkable except as noted below Constitutional: + fatigue and + weakness Respiratory: no cough and no dyspnea Physical Exam Physical Exam: Lying in bed comfortably Constitutional: + ill appearing and + thin; no acute distress Eyes: PERRL, conjunctivae normal, anicteric sclerae ENMT: external ear and nose normal, oropharynx normal Neck: trachea midline, no thyromegaly Respiratory: no respiratory distress Auscultation: + diminished lung sounds and + crackles (Moderate crackles at the left base) Cardiovascular: Rate/Rhythm: regular rate and regular rhythm Heart Sounds: no murmur Gastrointestinal (Abdomen): Inspection/Auscultation: abdomen not distended Percussion/Palpation: abdomen soft; abdomen nontender Musculoskeletal: No acute arthritis in any joint Psychiatric: A+Ox3, euthymic affect Lymphatic: no cervical or axillary lymphadenopathy Results & Data Results & Data ([facility]) Vital Signs (Past 12 Hours) Vital Signs Temp Pulse Pulse Resp BP Pulse Ox 04/02/20 07:23 91 H 04/02/20 07:00 35.9 C L 90 18 118/75 94 04/02/20 04:00 37.1 C 92 H 18 122/74 96 04/02/20 00:01 75 04/01/20 23:40 36.6 C 80 20 120/71 98 Medications Administered Current Inpatient Medications Amoxicillin/Clavulanate Potassium (Amoxicillin/Clavulanate Susp 400mg/5ml 50ml Bottle) 875 mg PO BIDM [facility] Stop: 04/08/20 16:59 Last Admin: 04/02/20 08:06 Dose: 875 mg Documented by: Enteral Nutritional Formula (Peptamen 1.5 Armando 1,000 Ml Bag) 1,000 ml PEG .CONTINUOUS [facility]ERNA[facility]TE; Protocol Stop: 04/26/20 10:59 Last Admin: 04/02/20 02:19 Dose: 1,000 ml Documented by: Heparin Sodium (Porcine) (Heparin Sod 5,000 Unit/0.5 Ml Vial) 5,000 units SQ Q8 [facility] Stop: 04/26/20 05:59 Last Admin: 04/02/20 05:27 Dose: Not Given Documented by: Promethazine HCl 6.25 mg/ (Sodium Chloride) 50.25 mls @ 201 mls/hr IV Q6H PRN PRN Reason: Nausea And Vomiting Stop: 04/26/20 05:57 Ipratropium [place] (Ipratropium [place] Neb Soln 0.02% 2.5 Ml Vial) 0.5 mg INH Q6R PRN PRN Reason: Shortness Of Breath Or Wheezing Stop: 04/26/20 06:59 Last Admin: 03/30/20 20:13 Dose: 0.5 mg Documented by: Levalbuterol HCl (Levalbuterol 1.25mg/0.5ml Neb) 1.25 mg INH Q6R PRN PRN Reason: Shortness Of Breath Or Wheezing Stop: 04/26/20 06:59 Last Admin: 03/30/20 20:12 Dose: 1.25 mg Documented by: Levothyroxine Sodium (Levothyroxine Sodium 100 Mcg Tablet) 100 mcg GT DAILYBB [facility] Stop: 04/26/20 06:29 Last Admin: 04/02/20 06:29 Dose: 100 mcg Documented by: Metoprolol Tartrate (Metoprolol Tartrate 25 Mg Tab) 25 mg PO BID [facility] Stop: 04/29/20 20:59 Last Admin: 04/02/20 08:06 Dose: 25 mg Documented by: Multivitamins/Minerals (Multi Vit W/Minerals Liquid 15 Ml Udp) 15 ml PO QAM [facility] Stop: 04/27/20 08:59 Last Admin: 04/02/20 08:06 Dose: 15 ml Documented by: Oxycodone HCl (Oxycodone Hcl Soln 5 Mg/5 Ml Udc) 5 mg GT Q4 PRN PRN Reason: Pain Stop: 04/10/20 05:57
--- NOTE | 2020-04-02 19:07 | Discharge Summary ---
Date of Service April 02, 2020 Admission HPI Per Admitting Provider History obtained from patient, family, and records. Limited history from patient secondary limited verbal output from head and neck cancer surgery. Medical history significant for recurrent head and neck cancer status post surgery, radiation with lung and bone mets, aspiration risk status post PEG tube placement, hypothyroidism. Last confinement [facility] 3 weeks ago for hypoxemic respiratory failure seco ndary to pneumonia. Patient discharged home on home O2 as per son. [facility] appointment to discuss possible immunotherapy. Hospice care offered by Palliative medicine if patient not a candidate for immunotherapy as per documentation. Patient son has been staying with patient at home since [place] [facility] Occasional bloody respiratory secretions suctioned by son. Last night, patient gagged while oral/respiratory secretions being suctioned by son. Subsequent emesis. Patient denies abdominal pain or PEG tube issues. Aspiration event noted by patient's son. Patient noted to be hypoxemic and in respiratory distress. At the ER, patient received vancomycin and Zosyn for sepsis. 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 Admission Exam Per Admitting Provider Physical Exam: GENERAL: Slightly uncomfortable, pleasant, minimal respiratory distress SKIN: Pallor, warm HEENT: [place] palpebral conjunctivae, no ptosis, dry buccal mucosa, nasal cannula in place NECK : Supple, no tenderness CHEST : Decreased breath sounds, expiratory wheezes, no tenderness HEART : Tachycardic , no obvious murmurs ABDOMEN: Some distention, PEG tube in place, nontender BACK : Pressure sore, sacrum (present prior to confinement) RECTAL : Intact sphincter, brown stool (FOBT negative) EXTREMITIES : No LE swelling/tenderness, no other conspicuous deformities noted NEUROLOGIC : Coherent, no facial asymmetry, no other gross focality Principal Diagnosis Acute on chronic respiratory failure with hypoxemia, aspiration pneumonia, pa roxysmal atrial tachycardia, 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, PEG tube feeding Discharge Exam Constitutional + ill appearing and + thin; no acute distress Eyes PERRL, conjunctivae normal, anicteric sclerae ENMT external ear and nose normal, oropharynx normal Neck trachea midline, no thyromegaly Respiratory no respiratory distress Auscultation: + diminished lung sounds and + crackles (Moderate crackles at the left base) Cardiovascular Rate/Rhythm: regular rate and regular rhythm Heart Sounds: no murmur Gastrointestinal (Abdomen) Inspection/Auscultation: abdomen not distended Percussion/Palpation: abdomen soft; abdomen nontender Psychiatric A+Ox3, euthymic affect Lymphatic no cervical or axillary lymphadenopathy Discharge Data Allergies Allergy/AdvReac Type Severity Reaction Status Date / Time No Known Allergies Allergy Unverified 03/26/20 22:51 Consultations 03/26/20 23:03 ED Decision to Admit Stat 03/27/20 05:58 Consult Case Management - Discharge Planning Routine 03/28/20 08:00 Consult Cardiology Routine Hospital Course (1) Acute on chronic respiratory failure with hypoxemia: Recurrent aspiration pneumonia with sepsis Met sepsis criteria on admission with fever, tachycardia, tachypnea and increasing white cell count Last confinement [facility] 3 weeks ago for hypoxemic respiratory failure secondary to pneumonia. Patient discharged home on home O2 as per son. hx aspiration risk status post PEG TUBE PLACEMENT Has been started on intravenous Unasyn Clinically much better today We will continue spirometry and current antibiotic Clinically a lot better today and keeps improving Minimal cough and throat congestion otherwise remains stable Repeat chest x-ray showed little or no improvement of the left basilar infiltrate. 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 S/p PEG tube placement Continue PEG tube feeding Aspiration precautions Swallow eval as per patient son request-speech evaluation is not indicated as the patient will not be able to eat orally No acute symptoms New onset anemia No source of bleeding Anemia could be secondary to pneumonia and is contributed by malnutrition We will monitor hemoglobin-remains stable at 10.3 on 03/28/2020 Hemoglobin remains stable at 10.3 Hypothyroidism, TSH slightly elevated Pressure sore Wound care nurse consult RE sacral decubitus sore DVT prophylaxis Subcu heparin Full code for now as per son as per patient's prior directives. (Of note, patient had a DNR CODE STATUS following discharge from [facility].) Patient son requesting updates for providers. Mr. Demetri Kelley, contact #[phone].-Discussed with the son in detail Will have PT and OT evaluation She will be discharged this afternoon-discussed with the son Total Time Total Time Spent Total Time Spent (In Minutes): 40 minutes Total Time Includes: Examination of the Patient, Discharge Planning, Medication Reconciliation and Communication With Other Providers Discharge Plan Discharge Items Patient Disposition: Home - Home Health Services Reason For Visit: RESPIRATORY FAILURE Discharge Diagnosis: Acute on chronic respiratory failure with hypoxemia, aspiration pneumonia, paroxysmal atrial tachycardia, 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 Take precaution to avoid falls Gentle suction of oropharyngeal secretions as needed Keep regular appointment with your oncologist Pending Studies at Discharge: No Stand-Alone Forms: My [facility], Smoking Cessation Medications and DC Order Prescriptions: New amoxicillin-pot clavulanate 400-57 mg/5 mL Suspension For Reconstitution 10 ml PO BIDM 4 Days Qty: 80 RF: 0 metoprolol tartrate 25 mg Tablet 25 mg PO BID Qty: 60 RF: 0 Lactinex 1 million cell tablet,chewable 2 tab feeding tube BID Qty: 30 RF: 0 Continued levothyroxine 100 mcg tablet 100 mcg PO DAILY RF: 0 oxycodone 5 mg/5 mL solution 5 mg PO Q4 PRN (Reason: Pain) RF: 0 triamcinolone acetonide 0.1 % cream 1 applic TOPICAL BID RF: 0 ondansetron 4 mg tablet,disintegrating 4 mg translingual Q8 PRN (Reason: Nausea) RF: 0 Discharge Orders: Discharge Order (Routine); Ordered 04/02/20 Ordered By: Kortney Nguyen Admission Data Admit Date/Time: 03/27/20 01:40 Attending Provider: Kortney Nguyen Admit Provider: Fransico Harris Primary Care Provider: Ruba Chaidez Other Providers: Fransico Harris ; [facility] ; Greg Cortez ; Rios Flores ; Brandon Granados ; Goyo Singleton ; Balta Langston ; Daniel Mac ; Penny Jeong ; Antonieta Zamudio ; Derik Morton Other Interventions: Discharge Summary Assessment (RN) Last Done: 04/02/20 11:38
== END 2020-04-02 15:29 | disposition home health service (06) | DRG 871 ==
LOC: ED 20:14 → 2S 03-27 01:40 → 2N 03-27 18:21

== ENCOUNTER 2020-04-08 12:25 | Inpatient (IN) ==
[2020-04-08] MEDS ORDERED: SODIUM CHLORIDE 0.9% 1000ML 1,000 ML IV ONE ×2 (12:52→14:43)
--- NOTE | 2020-04-08 13:12 | Emergency Department Note ---
Impression & Plan Hypotension, Aspiration pneumonia, Bradycardia, Adverse effect of beta-paulo, Syncope ED Provider Note NAME: HALEY GARNER AGE: 79 SEX: F : 1940 ARRIVES VIA: Ambulance INFORMANT: Patient, patient's son ED PROVIDER(S): Rocco Lim DO CHIEF COMPLAINT: Syncope HPI: The patient is an 79-year-old female who presented to the emergency department with her son for an evaluation after having a syncopal episode. The patient was recently in our facility. She was diagnosed with pneumonia. She has a history of head and neck cancer. She was treated previously with surgery. She is unable to speak but she does follow commands well and understands what I am saying. According to the prehospital personnel her pressure was very low. They were unable to get an IV site. The patient states that she feels much better at rest right now. She is lying flat. She states he has significant symptoms whenever she tries to stand. She denies having any recent fevers. She does have a cough but is currently being treated for pneumonia. This is why she was admitted to our facility recently. She denies having any lower extremity swelling. She denies having any pain at this time including headache neck pain or abdominal pain. The patient was not recently seen by her primary care physician. She was also recently started on a beta-paulo according to her son. She does have history of aspiration pneumonia in the past. The patient had a negative Covid test recently when she was admitted to our facility. ROS: See above HPI for pertinent positives & negatives. A total of 10 systems reviewed and were otherwise negative. PAST MEDICAL HISTORY: See Below PAST SURGICAL HISTORY: See Below FAMILY HISTORY: See Below SOCIAL HISTORY: See Below HOME MEDICATIONS: See Below ALLERGIES: See Below VITALS: See Below PHYSICAL EXAMINATION: GENERAL: The patient is awake and alert. She looks comfortable and is not anxious. EYES: The conjunctivae are clear. The pupils are unequal. The right pupil is slightly larger than the left pupil. They are reactive bilaterally. EARS, NOSE, MOUTH AND THROAT: The nose is without any evidence of any deformity. Mucous membranes are dry NECK: The neck is nontender and supple. RESPIRATORY: Diminished breath sounds are noted throughout. There were scattered rales in all lung syed. CARDIOVASCULAR: Regular rate and rhythm noted there no murmurs rubs or gallops normal S1 normal S2. GASTROINTESTINAL: The abdomen is soft. Abdomen is nontender. MUSCULOSKELETAL/EXTREMITIES: There is no evidence of gross deformity full range of motion is noted in the hips and shoulders. SKIN: There is no obvious evidence of any rash. There are no petechiae, pallor or cyanosis noted. NEUROLOGIC: Patient is awake alert and follows commands well. Strength was symmetric. MEDICAL DECISION MAKING: The patient is an 79-year-old female who presented to the emergency department for syncope. The patient had a syncopal episode while she was at home. She was lowered to the ground. The patient does not have a headache or neck pain. 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 She was recently started on a beta-paulo. I would wonder if the combination of the beta-paulo as well as her history of involvement of her carotid artery may have caused the syncopal episode. She was bradycardic and hypotensive. She was treated with multiple IV fluid boluses. She was also treated with IV antibiotics. She was reevaluated multiple times. On further reevaluation the patient was significantly improved. She was feeling much better. I was very concerned about the patient's overall condition especially her lung exam and her hypotension. It is possible the patient's new medications could be affecting her adversely. For this reason I [facility] They have agreed to evaluate the patient in the emergency department for further management and disposition. Triage Nursing notes reviewed. Prior medical records reviewed Vital Signs: reviewed and remarkable for hypotension, bradycardia Differential diagnosis: Reactive airway disease, pneumonia, pneumothorax, COPD, CHF, infections, cardiac ischemia, pulmonary embolism, musculoskeletal, gastrointestinal, as well as other pathologies. ER treatment provided: See below Diagnostics interpreted by me: ECG: EKG was obtained in the emergency department. My interpretation is sinus bradycardia at 50 bpm. PACs were noted. Inferior T wave abnormalities were noted. This was compared to a tracing from April [id number]. There is a decrease in the ventricular rate however no other significant changes were noted. Cardiac Monitoring: An order was placed for continuous cardiac monitoring. The monitor shows a rate of 85 bpm with sinus rhythm. Laboratory studies: As stated above and show below. Imaging studies: See below Consultation(s): [id number]: I discussed this case with Viky who is on-call for the [facility] hospitalist group. Past Med/Surg History Medical History (Updated 04/08/20 @ 18:31 by Rocco Lim DO) Chronic respiratory failure Moderate malnutrition Squamous cell carcinoma Surgical History (Updated 04/08/20 @ 16:25 by Viky Rae PA-C) H/O neck surgery History of surgical procedure on mouth 2009: Left inferior alveolar ridge s/p resection, left neck dissection (chemoXRT recommended however not started) 02/16-03/07/13: Right Tonsil: Radiation therapy IMRT (Dr. 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 Chauhan) 09/10/15: Right hemimaxillectomy with left RFFF and tracheostomy (Dr. Jw chau/José KERN) 07/12/18: WLE right buccal mass, inferior maxillectomy, biopsy left mandibular gingivolabial sulcus lesion, PEG placement (Dr. Luque of [place]) 10/14/18: Composite resection of anterior FOM, marginal mandibulectomy, inner lip and right radial forearm (Dr. Flaherty and Dr. Dsouza) 02/28/19: Excision of left hard palate SCCa/Maxillectomy (Dr. Dsouza) History of tracheostomy Status post split thickness skin graft Family History (Updated 04/08/20 @ 17:29 by Viky Rae PA-C) Denies family history of Coronary heart disease Social History Smoking Status: Never smoker Hx Alcohol Use: No Hx Substance Use: Yes Last Used Substance: Days (ago) Preferred Language: Korean Communication Ability: Impaired Visual Impairment: Limited Hearing Ability: Normal Beliefs That Will Affect Care: Judaism Judaism Beliefs: Jainism marital status: / Current Living Situation: Alone current occupational status: retired Feels Safe at Home: Yes Assistive Devices: Oxygen - Continuous Allergies Allergies Allergy/AdvReac Type Severity Reaction Status Date / Time No Known Allergies Allergy Unverified 04/08/20 16:00 Home Meds Home Medications Medication Instructions Recorded Confirmed levothyroxine 100 mcg FEEDING TUBE QAM 03/26/20 04/08/20 ondansetron 4 mg FEEDING TUBE Q8 PRN 03/26/20 04/08/20 oxycodone 5 mg FEEDING TUBE Q4 PRN 03/26/20 04/08/20 triamcinolone acetonide 1 applic TOPICAL BID PRN 03/26/20 04/08/20 Lactobacillus acidoph-L.bulgar 2 tab FEEDING TUBE QAM 04/08/20 04/08/20 [Lactinex] metoprolol tartrate 25 mg FEEDING TUBE BID 04/08/20 04/08/20 multivitamin 1 tab FEEDING TUBE QAM 04/08/20 04/08/20 Results & Data (ED) Vital Signs Vital Signs - 24 hr 04/08/20 12:30 04/08/20 12:44 04/08/20 12:45 Temperature Temperature Source Pulse Rate 68 77 80 Pulse Rate from SpO2 Sensor Pulse Rhythm Pulse Strength Respiratory Rate 23 21 20 Respiratory Effort / Characteristics Respiratory Depth Respiratory Pattern Blood Pressure 56/40 L Blood Pressure Mean 43 Pulse Oximetry Oxygen Delivery Method Oxygen Flow Rate Sepsis Recent Fever Within 48 Hours Sepsis New/Unexplained Change in Mental Status Sepsis Action Taken by Nursing 04/08/20 12:57 04/08/20 13:00 04/08/20 13:01 Temperature 37 C Temperature Source Oral Pulse Rate 75 76 76 Pulse Rate from SpO2 Sensor Pulse Rhythm Regular Pulse Strength Normal Respiratory Rate 18 18 18 Respiratory Effort / Characteristics Non-Labored Spontaneous Respiratory Depth Normal Respiratory Pattern Regular Blood Pressure 56/40 L 56/31 L Blood Pressure Mean 45 42 Pulse Oximetry 92 Oxygen Delivery Method Room Air Oxygen Flow Rate Sepsis Recent Fever Within 48 Hours No Sepsis New/Unexplained Change in Mental Status N/A Sepsis Action Taken by Nursing No Action Required 04/08/20 13:15 04/08/20 13:27 04/08/20 13:28 Temperature Temperature Source Pulse Rate 81 78 74 Pulse Rate from SpO2 Sensor 83 72 75 Pulse Rhythm Pulse Strength Respiratory Rate 22 23 28 H Respiratory Effort / Characteristics Respiratory Depth Respiratory Pattern Blood Pressure 63/38 L 62/35 L Blood Pressure Mean 43 44 Pulse Oximetry 93 90 Oxygen Delivery Method Nasal Cannula Nasal Cannula Oxygen Flow Rate Sepsis Recent Fever Within 48 Hours Sepsis New/Unexplained Change in Mental Status Sepsis Action Taken by Nursing 04/08/20 13:30 04/08/20 13:31 04/08/20 13:45 Temperature Temperature Source Pulse Rate 72 77 70 Pulse Rate from SpO2 Sensor 72 78 72 Pulse Rhythm Pulse Strength Respiratory Rate 24 27 H 16 Respiratory Effort / Characteristics Respiratory Depth Respiratory Pattern Blood Pressure 68/44 L 73/44 L Blood Pressure Mean 48 56 Pulse Oximetry 91 92 95 Oxygen Delivery Method Nasal Cannula Nasal Cannula Nasal Cannula Oxygen Flow Rate 2 2 2 Sepsis Recent Fever Within 48 Hours Sepsis New/Unexplained Change in Mental Status Sepsis Action Taken by Nursing 04/08/20 13:46 04/08/20 13:57 04/08/20 14:00 Temperature Temperature Source Pulse Rate 72 80 Pulse Rate from SpO2 Sensor 68 83 Pulse Rhythm Pulse Strength Respiratory Rate 19 28 H Respiratory Effort / Characteristics Non-Labored Respiratory Depth Respiratory Pattern Blood Pressure Blood Pressure Mean Pulse Oximetry 96 100 Oxygen Delivery Method Nasal Cannula Nasal Cannula Oxygen Flow Rate 2 2 Sepsis Recent Fever Within 48 Hours Sepsis New/Unexplained Change in Mental Status Sepsis Action Taken by Nursing 04/08/20 14:15 04/08/20 14:30 04/08/20 14:31 Temperature Temperature Source Pulse Rate 85 85 83 Pulse Rate from SpO2 Sensor 84 Pulse Rhythm Pulse Strength Respiratory Rate 21 18 20 Respiratory Effort / Characteristics Respiratory Depth Respiratory Pattern Blood Pressure 99/66 L 113/62 Blood Pressure Mean 75 77 Pulse Oximetry 100 Oxygen Delivery Method Nasal Cannula Oxygen Flow Rate 2 Sepsis Recent Fever Within 48 Hours Sepsis New/Unexplained Change in Mental Status Sepsis Action Taken by Nursing 04/08/20 14:45 04/08/20 14:46 04/08/20 15:00 Temperature Temperature Source Pulse Rate 85 80 106 H Pulse Rate from SpO2 Sensor Pulse Rhythm Pulse Strength Respiratory Rate 15 20 21 Respiratory Effort / Characteristics Respiratory Depth Respiratory Pattern Blood Pressure 110/58 L Blood Pressure Mean 68 Pulse Oximetry Oxygen Delivery Method Oxygen Flow Rate Sepsis Recent Fever Within 48 Hours Sepsis New/Unexplained Change in Mental Status Sepsis Action Taken by Nursing 04/08/20 15:11 04/08/20 15:15 04/08/20 15:30 Temperature Temperature Source Pulse Rate 90 89 88 Pulse Rate from SpO2 Sensor Pulse Rhythm Pulse Strength Respiratory Rate 34 H 36 H 18 Respiratory Effort / Characteristics Respiratory Depth Respiratory Pattern Blood Pressure 108/61 97/57 L 87/54 L Blood Pressure Mean 85 71 71 Pulse Oximetry 93 96 95 Oxygen Delivery Method Nasal Cannula Nasal Cannula Nasal Cannula Oxygen Flow Rate 2 2 2 Sepsis Recent Fever Within 48 Hours Sepsis New/Unexplained Change in Mental Status Sepsis Action Taken by Nursing 04/08/20 15:31 04/08/20 15:45 Temperature Temperature Source Pulse Rate 87 84 Pulse Rate from SpO2 Sensor Pulse Rhythm Pulse Strength Respiratory Rate 26 H 17 Respiratory Effort / Characteristics Respiratory Depth Respiratory Pattern Blood Pressure 107/56 L Blood Pressure Mean 81 Pulse Oximetry 96 Oxygen Delivery Method Nasal Cannula Oxygen Flow Rate 2 Sepsis Recent Fever Within 48 Hours Sepsis New/Unexplained Change in Mental Status Sepsis Action Taken by [place] Medications Current Medication List: was personally reviewed by me Laboratory Data Attestation: I reviewed the patient's lab results. Result diagrams: 04/08/20 12:45 04/08/20 14:18 Lab Results 04/08/20 04/08/20 04/08/20 Range/Units 12:45 12:45 13:50 WBC 8.21 (4.8-10.8) K/uL RBC 3.63 L (4.2-5.4) M/uL Hgb 11.3 L (12.0-16.0) g/dL Hct 34.9 L (37-47) % MCV 96.1 (80-100) fL MCH 31.1 (25-34) pg MCHC 32.4 (32-36) g/dL RDW Std Deviation 52.6 H (36.4-46.3) fL RDW Coeff of Roni 15.1 H (11.5-14.5) % Plt Count 384 (130-400) K/uL MPV 10.1 (7.4-10.4) fL Immature Gran % (Auto) 0.4 % Neut % (Auto) 82.8 % Lymph % (Auto) 8.9 % Calvert % (Auto) 7.6 % Eos % (Auto) 0.1 % Baso % (Auto) 0.2 % Neut # (Auto) 6.80 H (1.4-6.5) K/uL Lymph # (Auto) 0.73 L (1.2-3.4) K/uL Calvert # (Auto) 0.62 H (0.11-0.59) K/uL Eos # (Auto) 0.01 (0-0.5) K/uL Baso # (Auto) 0.02 (0-0.2) K/uL Immature Gran # (Auto) 0.03 H (0.00-0.02) K/uL PT (9.0-12.0) Seconds INR (0.9-1.1) APTT (21.0-31.0) Seconds PTT Ratio VBG pH (7.36-7.41) VBG pCO2 (38-50) mmHg VBG pO2 mmHg VBG HCO3 mmol/L VBG O2 Saturation % VBG Base Excess mEq/L Barometric Pressure mm/Hg Sodium 131 L (136-145) mmol/L Potassium (3.5-5.1) mmol/L Chloride 97 L (98-107) mmol/L Carbon Dioxide 27 (21-32) mmol/L Anion Gap 7.0 (3-11) BUN 14 (7-18) mg/dl Creatinine 0.83 (0.6-1.2) mg/dl Est Cr Clr Drug Dosing 46.7 ml/min Est GFR ( Amer) 77.2 Est GFR (Non-Af Amer) 66.6 BUN/Creatinine Ratio 17.5 (10-20) Glucose 99 (70-99) mg/dl Lactate (0.4-2.0) mmol/L Calcium 9.6 (8.5-10.1) mg/dl Magnesium (1.8-2.4) mg/dl Total Bilirubin 0.5 (0.2-1) mg/dl AST (15-37) U/L ALT 115 H (12-78) U/L Alkaline Phosphatase 121 H (45-117) U/L Troponin I (0-0.045) ng/ml Total Protein 7.7 (6.4-8.2) gm/dl Albumin 2.4 L (3.4-5.0) gm/dl Globulin 5.3 H (2.5-4.0) gm/dl Albumin/Globulin Ratio 0.5 L (0.9-2) Urine Color Urine Appearance (Clear) Urine pH (4.5-7.5) Ur Specific [place] (1.000-1.030) Urine Protein (Negative) Urine Glucose (UA) (Negative) Urine Ketones (Negative) Urine Blood (Negative) Urine Nitrite (Negative) Urine Bilirubin (Negative) Urine Urobilinogen (Negative) Ur Leukocyte Esterase (Negative) Urine WBC (Auto) (0-5) /hpf Urine RBC (Auto) (0-4) /hpf U Hyaline Cast (Auto) (0-5) /lpf U Epithel Cells (Auto) (0-5) /lpf Urine Bacteria (Auto) (Negative) Ur Renal Epithelial Cell COVID[facility] SARS-[facility]-2, RNA, NAAT (NEGATIVE) 04/08/20 04/08/20 04/08/20 Range/Units 13:50 14:18 14:18 WBC (4.8-10.8) K/uL RBC (4.2-5.4) M/uL Hgb (12.0-16.0) g/dL Hct (37-47) % MCV (80-100) fL MCH (25-34) pg MCHC (32-36) g/dL RDW Std Deviation (36.4-46.3) fL RDW Coeff of Roni (11.5-14.5) % Plt Count (130-400) K/uL MPV (7.4-10.4) fL Immature Gran % (Auto) % Neut % (Auto) % Lymph % (Auto) % Calvert % (Auto) % Eos % (Auto) % Baso % (Auto) % Neut # (Auto) (1.4-6.5) K/uL Lymph # (Auto) (1.2-3.4) K/uL Calvert # (Auto) (0.11-0.59) K/uL Eos # (Auto) (0-0.5) K/uL Baso # (Auto) (0-0.2) K/uL Immature Gran # (Auto) (0.00-0.02) K/uL PT 11.4 (9.0-12.0) Seconds INR 1.1 (0.9-1.1) APTT 24.5 (21.0-31.0) Seconds PTT Ratio 0.9 VBG pH (7.36-7.41) VBG pCO2 (38-50) mmHg VBG pO2 mmHg VBG HCO3 mmol/L VBG O2 Saturation % VBG Base Excess mEq/L Barometric Pressure mm/Hg Sodium (136-145) mmol/L Potassium (3.5-5.1) mmol/L Chloride (98-107) mmol/L Carbon Dioxide (21-32) mmol/L Anion Gap (3-11) BUN (7-18) mg/dl Creatinine (0.6-1.2) mg/dl Est Cr Clr Drug Dosing ml/min Est GFR ( Amer) Est GFR (Non-Af Amer) BUN/Creatinine Ratio (10-20) Glucose (70-99) mg/dl Lactate 1.6 (0.4-2.0) mmol/L Calcium (8.5-10.1) mg/dl Magnesium (1.8-2.4) mg/dl Total Bilirubin (0.2-1) mg/dl AST (15-37) U/L ALT (12-78) U/L Alkaline Phosphatase (45-117) U/L Troponin I (0-0.045) ng/ml Total Protein (6.4-8.2) gm/dl Albumin (3.4-5.0) gm/dl Globulin (2.5-4.0) gm/dl Albumin/Globulin Ratio (0.9-2) Urine Color Urine Appearance (Clear) Urine pH (4.5-7.5) Ur Specific [place] (1.000-1.030) Urine Protein (Negative) Urine Glucose (UA) (Negative) Urine Ketones (Negative) Urine Blood (Negative) Urine Nitrite (Negative) Urine Bilirubin (Negative) Urine Urobilinogen (Negative) Ur Leukocyte Esterase (Negative) Urine WBC (Auto) (0-5) /hpf Urine RBC (Auto) (0-4) /hpf U Hyaline Cast (Auto) (0-5) /lpf U Epithel Cells (Auto) (0-5) /lpf Urine Bacteria (Auto) (Negative) Ur Renal Epithelial Cell COVID-19 Eval Order SARS-CoV-2, RNA, NAAT NEGATIVE (NEGATIVE) 04/08/20 04/08/20 04/08/20 Range/Units 14:18 14:18 15:13 WBC (4.8-10.8) K/uL RBC (4.2-5.4) M/uL Hgb (12.0-16.0) g/dL Hct (37-47) % MCV (80-100) fL MCH (25-34) pg MCHC (32-36) g/dL RDW Std Deviation (36.4-46.3) fL RDW Coeff of Roni (11.5-14.5) % Plt Count (130-400) K/uL MPV (7.4-10.4) fL Immature Gran % (Auto) % Neut % (Auto) % Lymph % (Auto) % [place]vert % (Auto) % Eos % (Auto) % Baso % (Auto) % Neut # (Auto) (1.4-6.5) K/uL Lymph # (Auto) (1.2-3.4) K/uL [place] # (Auto) (0.11-0.59) K/uL Eos # (Auto) (0-0.5) K/uL Baso # (Auto) (0-0.2) K/uL Immature Gran # (Auto) (0.00-0.02) K/uL PT (9.0-12.0) Seconds INR (0.9-1.1) APTT (21.0-31.0) Seconds PTT Ratio VBG pH 7.42 H (7.36-7.41) VBG pCO2 46 (38-50) mmHg VBG pO2 27 mmHg VBG HCO3 29 mmol/L VBG O2 Saturation < 60.0 % VBG Base Excess 3.7 mEq/L Barometric Pressure 737.9 mm/Hg Sodium (136-145) mmol/L Potassium 3.9 (3.5-5.1) mmol/L Chloride (98-107) mmol/L Carbon Dioxide (21-32) mmol/L Anion Gap (3-11) BUN (7-18) mg/dl Creatinine (0.6-1.2) mg/dl Est Cr Clr Drug Dosing ml/min Est GFR ( Amer) Est GFR (Non-Af Amer) BUN/Creatinine Ratio (10-20) Glucose (70-99) mg/dl Lactate (0.4-2.0) mmol/L Calcium (8.5-10.1) mg/dl Magnesium (1.8-2.4) mg/dl Total Bilirubin (0.2-1) mg/dl AST 39 H (15-37) U/L ALT (12-78) U/L Alkaline Phosphatase (45-117) U/L Troponin I < 0.015 (0-0.045) ng/ml Total Protein (6.4-8.2) gm/dl Albumin (3.4-5.0) gm/dl Globulin (2.5-4.0) gm/dl Albumin/Globulin Ratio (0.9-2) Urine Color Yellow Urine Appearance Clear (Clear) Urine pH >= 9.0 H (4.5-7.5) Ur Specific [place] 1.006 (1.000-1.030) Urine Protein Negative (Negative) Urine Glucose (UA) Negative (Negative) Urine Ketones Negative (Negative) Urine Blood Trace H (Negative) Urine Nitrite Negative (Negative) Urine Bilirubin Negative (Negative) Urine Urobilinogen Negative (Negative) Ur Leukocyte Esterase Negative (Negative) Urine WBC (Auto) 1-5 (0-5) /hpf Urine RBC (Auto) 0-4 (0-4) /hpf U Hyaline Cast (Auto) 1-5 (0-5) /lpf U Epithel Cells (Auto) >30 H (0-5) /lpf Urine Bacteria (Auto) Negative (Negative) Ur Renal Epithelial Cell Not Reportable COVID-19 Eval Order SARS-CoV-2, RNA, NAAT (NEGATIVE) Administered Medications Discontinued Medications Sodium Chloride (Nss 1000ml) 1,000 mls @ 999 mls/hr IV .Q1H1M ONE Stop: 04/08/20 13:52 Last Infusion: 04/08/20 14:49 Dose: 0 mls/hr Documented by: [id number] Admin: 04/08/20 13:48 Dose: 999 mls/hr Documented by: [id number] Sodium Chloride (Nss 1000ml) 1,000 mls @ 999 mls/hr IV .Q1H1M ONE Stop: 04/08/20 15:43 Last Infusion: 04/08/20 16:23 Dose: 0 mls/hr Documented by: [id number] Admin: 04/08/20 15:22 Dose: 999 mls/hr Documented by: [id number] Imaging Data Radiologist's Impression: Patient: VANNESSA GARNERdmsyl Date: 04/08/20MR#: [id number]: [id number] CIRCLEAcct ID:[id number]: Date: 1940[facility] Zip: [place], [place] [address]Mob: 79Location: 1ESex: FRoom/Bed: [id number] Phy: Adán Ortega, MDDiagnosis: ASPIRATION PNEUMONIA, SYNCOPEPri Phy: Ruba Chaidez DOService Date: 04/08/20Fam Phy:Interpreting Phy: [facility]ree Olivier [facility] Phy: Adán Ortega MD Ordering Phy: Viky Rae PA-C cc: ~ CT SCAN OF THE BRAIN WITHOUT IV CONTRAST CLINICAL HISTORY: Syncope. COMPARISON STUDY: No priors. TECHNIQUE: Unenhanced axial CT scan of the brain is performed from the vertex to the skull base. A dose lowering technique was utilized adhering to the principles of ALARA. CT DOSE: 537.48 mGy.cm FINDINGS: Brain parenchyma: There are age-related involutional changes noting mild subcortical and periventricular microangiopathic change. There is no hemorrhage, mass effect, or evidence of acute territorial ischemia by CT criteria. [place]-white matter differentiation is preserved. No extra-axial fluid collection is seen. Ventricles, sulci, cisterns: Prominent secondary to involutional change. Intracranial vasculature: There is atherosclerotic calcification of the cavernous carotid arteries. Calvarium: The skeletal structures are osteopenic. No depressed calvarial fracture is identified. Sinuses and mastoids: The visualized paranasal sinuses are clear. The mastoid air cells are well pneumatized. Orbits: The bony orbits are grossly intact. IMPRESSION: There is no hemorrhage, mass effect, or evidence of acute territorial ischemia by CT criteria. ACT 112: Negative or not required by law. Electronically signed by: Shree Olivier M.D. 04/08/2020 5:58 PM Dictated: 04/08/201755Transcribed: 04/08/201755 Patient: Emilee GARNER Date: 04/08/20#: [id number]: [id number] CIRCLEAcct ID:[id number]: Date: 1940[facility] Zip: [place], [place] [address]Guc: 79Location: EDSex: FRoom/Bed:Att Phy:Diagnosis: SYNCOPE WITH BOWEL MOVEMENTPri Phy: Ruba Chaidez DOService Date: 04/08/20Fa Phy:Interpreting Phy: James Araujo MDAdmit Phy: Ordering Phy: Rocco Lim DO cc: ~ XR chest 1V portable CLINICAL HISTORY: SEPSIS COMPARISON STUDY: 04/01/2020 FINDINGS: The cardiac and mediastinal contours remain stable. There is extensive left lower lobe pulmonary consolidation with air bronchograms. There is a progressive 3 cm left midlung zone nodular soft tissue opacity. There are subtle interstitial opacities within the right upper lung zone. Small pleural effusions are suspected.[ IMPRESSION: Persistent pulmonary airspace opacities suspicious for a multifocal pneumonia. ACT 112: Negative or not required by law. Electronically signed by: James Araujo M.D. 04/08/2020 1:22 PM Dictated: 04/08/20 1320Transcribed: 04/08/20 1320 Blood Pressure Blood Pressure Findings: Low blood pressure Discharge Plan Visit Data Chief Complaint: Syncope (Near Syncope) Stated Complaint: SYNCOPE WITH BOWEL MOVEMENT ED Provider: Rocco Lim Discharge Problem: Hypotension, Aspiration pneumonia, Bradycardia, Adverse effect of beta-paulo, Syncope Patient Disposition: Admitted As Inpatient Condition: Good Discharge Instructions Interventions: ED Discharge Assessment Last Done: 04/08/20 17:37
[2020-04-08 13:17] LABS: Basophils # (auto) 0.02 K/uL (0-0.2); Basophils % (auto) 0.2 %; Eosinophils # (auto) 0.01 K/uL (0-0.5); Eosinophils % (auto) 0.1 %; Hematocrit (blood only) 34.9 % (37-47); Hemoglobin 11.3 g/dL (12.0-16.0); Immature Granulocytes # (auto) 0.03 K/uL (0.00-0.02); Immature Granulocytes % (auto) 0.4 %; Lymphocytes # (auto) 0.73 K/uL (1.2-3.4); Lymphocytes % (auto) 8.9 %; Mean Corpuscular Hemoglobin 31.1 pg (25-34); Mean Corpuscular Hgb Conc 32.4 g/dL (32-36); Mean Corpuscular Volume 96.1 fL (80-100); Mean Platelet Volume 10.1 fL (7.4-10.4); Monocytes # (auto) 0.62 K/uL (0.11-0.59); Monocytes % (auto) 7.6 %; Neutrophils % (auto) 82.8 %; Platelet Count 384 K/uL (130-400); RDW Coefficient of Variation 15.1 % (11.5-14.5); RDW Standard Deviation 52.6 fL (36.4-46.3); Red Blood Count 3.63 M/uL (4.2-5.4); White Blood Count 8.21 K/uL (4.8-10.8)
--- NOTE | 2020-04-08 13:24 | XRay Report ---
XR chest 1V portable CLINICAL HISTORY: SEPSIS COMPARISON STUDY: 04/01/2020 FINDINGS: The cardiac and mediastinal contours remain stable. There is extensive left lower lobe pulm onary consolidation with air bronchograms. There is a progressive 3 cm left midlung zone nodular soft tissue opacity. There are subtle interstitial opacities within the right upper lung zone. Small pleu ral effusions are suspected.[ IMPRESSION: Persistent pulmonary airspace opacities suspicious for a multifocal pneumonia. ACT 112: Negative or not required by law. Electronically signed by: James Araujo M.D. 04/08/2020 1:22 PM
[2020-04-08 13:38] LABS: Albumin Level 2.4 gm/dl (3.4-5.0); BUN Creatinine Ratio 17.5 (10-20); Calcium 9.6 mg/dl (8.5-10.1); Creatinine Clr Calc Pharmacy 46.7 ml/min; Est GFR (African American) 77.2; Est GFR (Non-African American) 66.6
[2020-04-08 13:39] LABS: Albumin Globulin Ratio 0.5 (0.9-2); Bilirubin,Total 0.5 mg/dl (0.2-1); Globulin 5.3 gm/dl (2.5-4.0); Total Protein 7.7 gm/dl (6.4-8.2)
[2020-04-08 14:35] LABS: Base Excess VBG 3.7 mEq/L; HCO3 VBG 29 mmol/L; PCO2 VBG 46 mmHg (38-50); PO2 VBG 27 mmHg; pH VBG 7.42 (7.36-7.41)
[2020-04-08 14:40] LABS: Oxygen Saturation VBG < 60.0 %
[2020-04-08 14:48] LABS: Potassium 3.9 mmol/L (3.5-5.1)
[2020-04-08 14:50] LABS: INR 1.1 (0.9-1.1); Partial Thromboplastin Ratio 0.9; Partial Thromboplastin Time 24.5 Seconds (21.0-31.0); Prothrombin Time 11.4 Seconds (9.0-12.0)
[2020-04-08 14:57] LABS: Aspartate Aminotransferase 39 U/L (15-37); Troponin I < 0.015 ng/ml (0-0.045)
[2020-04-08 15:35] LABS: Appearance Urine Clear (Clear); Bacteria Urine Automated Negative (Negative); Bilirubin Urine Negative (Negative); Blood Urine Trace (Negative); Color Urine Yellow; Epithelial Cell Urine Auto >30 /lpf (0-5); Glucose Urine UA Negative (Negative); Ketones Urine Negative (Negative); Leukocyte Esterase Urine Negative (Negative); Nitrite Urine Negative (Negative); Protein Urine Negative (Negative); RBC Urine Automated 0-4 /hpf (0-4); Specific Gravity Urine 1.006 (1.000-1.030); Urobilinogen Urine Negative (Negative); pH Urine >= 9.0 (4.5-7.5)
--- NOTE | 2020-04-08 16:27 | History & Physical Report ---
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 Pt with syncopal episode and hypotension prior to arrival. Recently started metoprolol tartate. They have not been monitoring BP at home. Possibly in setting of medication, vs hypovolemia from dehydration (cr up from .6 to 0.83), vs cardiogenic arrhythmia or neurogenic admit to telemetry to r/o arrhythmia CT head w/o contrast received 2L IVF, pressures doing well now monitor Orthostatic vital signs carotid doppler, EEG consult cardiology (3) Aspiration pneumonia: pt with recurrent Aspiration PNA Hospitalized [facility] [place]; [facility] 03/27- recently finished augmentin check lactic acid/procalcitonin she is afebrile, wbc WNL CXR show persistent infiltrates Initiate empiric IV Zosyn for now until active infection ruled out, MRSA screen, if positive initiate vanco Blood cultures and sputum cultures pending Pulmonary toilet incentive spirometry, chest PT and flutter valve, suction Levalbuterol nebs as needed (4) Paroxysmal atrial tachycardia: recently started on metoprolol tartrate most recent admission to [facility] resume cautiously for now, monitor for hypotension (5) Squamous cell carcinoma: on head/neck s/p surgical resection, XRT scheduled for new pt appt with Dr. Sunil Roman 04/09 @12pm to discuss immunotherapy Son requesting she make this appt Discussed with son importance of above work up and we will likely be able to get her in shortly after discharge - will need to be arranged (6) Anemia: H&H stable 11.3 and 34.9 No signs or symptoms of bleeding Had anemia work-up 03/28 revealing iron 42, ferritin 258, TIBC 182, folic acid greater than 20, vitamin B12 greater than 2000 Likely chronic disease (7) DVT prophylaxis: SQ Lovenox Disposition: admit to tele Follow up: PCP Dr. Chaidez upon discharge Pt was seen and examined in collaboration with Dr. 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 Patient has been living with son who provides most of history. Patient unable to communicate verbally secondary to prior surgeries. She is able to communicate through written language. Of significance patient with 2 recent hospitalizations: [facility] 03/13-03/12 secondary to acute hypoxic respiratory failure due to aspiration pneumonia discharged on 2 L of oxygen. Unfortunately rehospitalized at [facility] 03/27-04/02 secondary to acute respiratory failure with recurrent aspiration pneumonia. She was treated with IV antibiotics and discharged on Augmentin. She has completed this. Her hospital course was complicated by episodes of paroxysmal atrial tachycardia. Initially was felt to be flutter, but after further review of telemetry felt more to be a atrial tachycardia. She was started on metoprolol tartrate and titrated to 25 mg twice daily. According to her son today around 10 AM she was standing when she lost her ba alex and started leaning towards the wall. He ran over for immediate attention. He carried her over to a chair. This is when her condition continued to worsen. He feels she lost consciousness. He was using a pulse ox to monitor her pulse and oxygen. Her oxygen was in the 90s but her heart rate was, "all over the place." He felt it was very irregular, but was unable to check her actual pulse. She went out for approximately 10 minutes. He started, "pounding on her chest." When EMS arrived she did seem to come to. It is uncertain if she actually lost pulse, but according to EMS report patient was significantly hypotensive upon arrival. Patient denies feeling symptomatic prior to syncopizing. She denies dizziness, lightheadedness, chest pain, shortness breath, palpitations, nausea or diaphoresis. She denies any dizziness with change in position. She denies similar symptoms in the past. She denies recent fever, chills, sweats, lightheadedness, shortness breath at rest, nausea, vomiting, abdominal pain. Her bowels have been on the loose side for the past several days. No lia diarrhea. She does have a cough which has been persistent since discharge, but son feels it is improved and her oxygen has been improving. She has not been using oxygen at home. She currently does tube feedings 4-5 times a day on her own. She does cough occasionally with tube feedings, and when that happens she reduces the amount of tube feeds at one time. In ED patient was initially hypotensive. She received 2 L of IVF. Her oxygen saturation was 100% at 2 L. Lab work notable for H&H 11.3 and 34.9, platelet 384, WBC 8.21k, sodium 131, K3.9, chloride 97, BUN 14, creatinine 0.83, lactate 1.6. Chest x-ray consistent with persistent pulmonary airspace opacity suspicious for multifocal pneumonia. Allergies Allergy/AdvReac Type Severity Reaction Status Date / Time No Known Allergies Allergy Unverified 04/08/20 16:00 Home Medications Medication Instructions Recorded Confirmed Type levothyroxine 100 mcg FEEDING TUBE QAM 03/26/20 04/08/20 History ondansetron 4 mg FEEDING TUBE Q8 PRN 03/26/20 04/08/20 History oxycodone 5 mg FEEDING TUBE Q4 PRN 03/26/20 04/08/20 History triamcinolone acetonide 1 applic TOPICAL BID PRN 03/26/20 04/08/20 History Lactobacillus acidoph-L.bulgar 2 tab FEEDING TUBE QAM 04/08/20 04/08/20 History [Lactinex] metoprolol tartrate 25 mg FEEDING TUBE BID 04/08/20 04/08/20 History multivitamin 1 tab FEEDING TUBE QAM 04/08/20 04/08/20 History Past Med/Surg History Medical History (Updated 04/08/20 @ 18:31 by Rocco Lim DO) Chronic respiratory failure Moderate malnutrition Squamous cell carcinoma Surgical History (Updated 04/08/20 @ 16:25 by Viky Rae PA-C) H/O neck surgery History of surgical procedure on mouth 2009: Left inferior alveolar ridge s/p resection, left neck dissection (chemoXRT recommended however not started) 02/16-03/07/13: Right Tonsil: Radiation therapy IMRT (Dr. 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 Chauhan) 09/10/15: Right hemimaxillectomy with left RFFF and tracheostomy (Dr. Suarez/José KERN) 07/12/18: WLE right buccal mass, inferior maxillectomy, biopsy left mandibular gingivolabial sulcus lesion, PEG placement (Dr. Luque of [place]) 10/14/18: Composite resection of anterior FOM, marginal mandibulectomy, inner lip and right radial forearm (Dr. Flaherty and Dr. Dsouza) 02/28/19: Excision of left hard palate SCCa/Maxillectomy (Dr. 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 Beliefs That Will Affect Care: None marital status: / Current Living Situation: Alone current occupational status: retired Other Information That Helps Us Care for You: No Feels Safe at Home: Yes Safety Concerns: Feels Safe At This Time Assistive Devices: Oxygen - Continuous Review of Systems Review of Systems: All systems reviewed & are unremarkable except as noted in HPI & below Physical Exam Physical Exam: Constitutional: Thin, frail, elderly female,vitals as above, NA D, sitting up in bed, answers questions with head nods Head: Normocephalic, Atraumatic Eyes: PERRL, conjunctivae normal, anicteric sclerae ENMT: external ear and nose normal, oropharynx moist Neck: trachea midline, no thyromegaly Respiratory: normal respiratory effort, lungs clear to auscultation, left basilar crackle, no wheeze or rhonchi. Normal insp/exp effort, no accessory muscle use Cardiovascular: RRR, no murmur, no edema Vessels: no JVD or carotid bruit Chest: normal inspection of chest Abdomen: galdino button in place, no surrounding erythema or drainage, normal bowel sounds, soft, nontender, no hepatosplenomegaly Musculoskeletal: no cyanosis or clubbing, extremities motor strength 5/5 Skin: no rashes, warm and dry normal turgor Neurologic: PERRL, EOMI, accommodation nl, no face palsy, no dysarthria CN's II-XI intact bilaterally and moves all extremities Psychiatric: Alert and oriented x 3, euthymic affect Lymphatic: no cervical or axillary lymphadenopathy : deferred Results & Data Results & [facility] ([facility]) Vital Signs (Past 12 Hours) Vital Signs Temp Pulse Resp BP Pulse Ox 04/08/20 14:46 80 20 04/08/20 14:45 85 15 110/58 L 04/08/20 14:31 83 20 04/08/20 14:30 85 18 113/62 04/08/20 14:15 85 21 99/66 L 100 04/08/20 14:00 80 28 H 100 04/08/20 13:46 72 19 96 04/08/20 13:45 70 16 73/44 L 95 04/08/20 13:31 77 27 H 92 04/08/20 13:30 72 24 68/44 L 91 04/08/20 13:28 74 28 H 62/35 L 90 04/08/20 13:27 78 23 63/38 L 93 04/08/20 13:15 81 22 04/08/20 13:01 76 18 56/31 L 04/08/20 13:00 76 18 04/08/20 12:57 37 C 75 18 56/40 L 92 04/08/20 12:45 80 20 04/08/20 12:44 77 21 04/08/20 12:30 68 23 56/40 L Laboratory Results Short CBC 04/08/20 Range/Units 12:45 WBC 8.21 (4.8-10.8) K/uL Hgb 11.3 L (12.0-16.0) g/dL Hct 34.9 L (37-47) % Plt Count 384 (130-400) K/uL BMP 04/08/20 04/08/20 12:45 14:18 Sodium 131 L Potassium 3.9 Chloride 97 L Carbon Dioxide 27 BUN 14 Creatinine 0.83 Glucose 99 Calcium 9.6 Cardiac Enzymes 04/08/20 Range/Units 14:18 Troponin I < 0.015 (0-0.045) ng/ml Liver Function 04/08/20 04/08/20 Range/Units 12:45 14:18 Total Bilirubin 0.5 (0.2-1) mg/dl AST 39 H (15-37) U/L ALT 115 H (12-78) U/L Alkaline Phosphatase 121 H (45-117) U/L Albumin 2.4 L (3.4-5.0) gm/dl Urine 04/08/20 Range/Units 15:13 Urine Color Yellow Urine Appearance Clear (Clear) Urine pH >= 9.0 H (4.5-7.5) Ur Specific [place] 1.006 (1.000-1.030) Urine Protein Negative (Negative) Urine Glucose (UA) Negative (Negative) Diagnostic Findings CXR: IMPRESSION: Persistent pulmonary airspace opacities suspicious for a multifocal pneumonia. Medications Administered Discontinued Medications Sodium Chloride (Nss 1000ml) 1,000 mls @ 999 mls/hr IV .Q1H1M ONE Stop: 04/08/20 13:52 Last Infusion: 04/08/20 14:49 Dose: 0 mls/hr Documented by: [id number] Admin: 04/08/20 13:48 Dose: 999 mls/hr Documented by: [id number] Sodium Chloride (Nss 1000ml) 1,000 mls @ 999 mls/hr IV .Q1H1M ONE Stop: 04/08/20 15:43 Last Admin: 04/08/20 15:22 Dose: 999 mls/hr Documented by: [id number] ECG Rate (beats per minute): 110 Rhythm: sinus tachycardia Findings: + prolonged QT (qtc 533) Code Status & VTE Plan Code Status Full Code VTE Prophylaxis Plan VTE Prophylaxis will be ordered: Yes Supervising Physician Co-Signing Physician Notes Patient is an 79-year-old female with history of recurrent squamous cell carcinoma S/P resection, radiation and other medical problems presents with history of syncopal episode. Patient was recently discharged 1 month ago after being treated for aspiration pneumonia and hypoxia. She was rehospitalized 2 weeks ago for the same. She admits to completing oral antibiotics as prescribed. She was noted to have paroxysmal atrial tachycardia during prior hospitalization. Please review HPI for complete details of presentation. CT head showed no acute intracranial abnormality. Patient denies any palpitations, dizziness, shortness of breath, chest pain. Patient's son informs that patient currently is not using home oxygen and has been monitoring with pulse oximetry which showed adequate saturations. Chest x-ray showed history of persistent pulmonary airspace opacities suspicious for multifocal pneumonia. Lactate, procalcitonin are normal. No leukocytosis or known history of fever. Chronic hyponatremia also noted on labs. On exam patient is elderly, ill-appearing, thin, frail, no apparent distress, normocephalic atraumatic, lungs--basal crackles, normal breath sounds, abdomen soft, nontender, normal bowel sounds,+ PEG tube, S1, S2, no murmur, no pedal edema, alert, awake, oriented, dysarthria, grossly no focal deficits. Patient is admitted for evaluation of syncopal episode. CT head showed no acute intracranial abnormality. Agree with monitoring on telemetry to rule out any tachybradycardia arrhythmias. Check carotid ultrasound, EEG, orthostatics and consult cardiology. Abnormal chest x-ray--persistent pneumonia likely secondary to aspiration due to PEG tube. Giv en normal lactate, calcium levels and no history of fever and leukocytosis, and lack of respiratory symptoms, patient could have no resolution of prior pneumonia. Will empirically start on IV antibiotics, plan to de-escalate quickly if no signs of infection. Patient admits to ongoing aspiration issues with PEG tube use. I personally reviewed the record. Patient is interviewed and examined at bedside. Patient's care is coordinated with Viky Rae PA-C. Please refer to the documentation above for details of patient's presentation and for discussion of other issues.
[2020-04-08] MEDS ORDERED: ALUMINUM/MAGNESIUM SUSP 30 ML UDC PEG PRN (17:47)
[2020-04-08] MEDS ORDERED: LEVALBUTEROL HCL 0.63 MG/3 ML NEB NEB PRN (17:47)
[2020-04-08] MEDS ORDERED: PIPERACILL/TAZOBAC CONSULT ACTIVE PRN (17:47)
[2020-04-08] MEDS ORDERED: ACETAMINOPHEN 325 MG TAB PEG PRN (17:47)
[2020-04-08] MEDS ORDERED: TRIAMCINOLONE ACET 0.1% CR 15 GM TUBE TOP PRN (17:47)
[2020-04-08] MEDS ORDERED: oxyCODONE HCL SOLN 5 MG/5 ML UDC GT PRN (17:47)
[2020-04-08] MEDS ORDERED: PIPERACILLIN/TAZOBACTAM 3.375 GM in DEXTROSE 5% 100 ML IV ONE (18:00)
--- NOTE | 2020-04-08 18:00 | CT Scan Report ---
CT SCAN OF THE BRAIN WITHOUT IV CONTRAST CLINICAL HISTORY: Syncope. COMPARISON STUDY: No priors. TECHNIQUE: Unenhanced axial CT scan of the brain is performed from the vertex to the skull base. A do se lowering technique was utilized adhering to the principles of ALARA. CT DOSE: 537.48 mGy.cm FINDINGS: Brain parenchyma: There are age-related involutional changes noting mild subcortical and periventric ular microangiopathic change. There is no hemorrhage, mass effect, or evidence of acute territorial i schemia by CT criteria. [place]-white matter differentiation is preserved. No extra-axial fluid collecti on is seen. Ventricles, sulci, cisterns: Prominent secondary to involutional change. Intracranial vasculature: There is atherosclerotic calcification of the cavernous carotid arteries. Calvarium: The skeletal structures are osteopenic. No depressed calvarial fracture is identified. Sinuses and mastoids: The visualized paranasal sinuses are clear. The mastoid air cells are well pneu matized. Orbits: The bony orbits are grossly intact. IMPRESSION: There is no hemorrhage, mass effect, or evidence of acute territorial ischemia by CT gilat anusha. ACT 112: Negative or not required by law. Electronically signed by: Shree Olivier M.D. 04/08/2020 5:58 PM
[2020-04-08] MEDS: ENOXAPARIN INJ 30 MG/0.3 ML SYR SQ SCH (18:46)
[2020-04-08] MEDS ORDERED: METOPROLOL TARTRATE 1 MG/ML VIAL IV STA (22:11)
[2020-04-08] MEDS: METOPROLOL TARTRATE 25 MG TAB PO SCH (23:57)
[2020-04-09] MEDS ORDERED: METOPROLOL TARTRATE 1 MG/ML VIAL IV ONE (01:39)
[2020-04-09] MEDS: PIPERACILLIN/TAZOBACTAM 3.375 GM in DEXTROSE 5% 100 ML IV SCH ×4 (02:04→23:54)
[2020-04-09 05:20] LABS: Basophils # (auto) 0.03 K/uL (0-0.2); Basophils % (auto) 0.4 %; Eosinophils # (auto) 0.04 K/uL (0-0.5); Eosinophils % (auto) 0.6 %; Hematocrit (blood only) 32.5 % (37-47); Hemoglobin 10.5 g/dL (12.0-16.0); Immature Granulocytes # (auto) 0.02 K/uL (0.00-0.02); Immature Granulocytes % (auto) 0.3 %; Lymphocytes # (auto) 0.59 K/uL (1.2-3.4); Lymphocytes % (auto) 8.7 %; Mean Corpuscular Hemoglobin 30.7 pg (25-34); Mean Corpuscular Hgb Conc 32.3 g/dL (32-36); Mean Platelet Volume 9.9 fL (7.4-10.4); Monocytes # (auto) 0.51 K/uL (0.11-0.59); Monocytes % (auto) 7.5 %; Neutrophils # (auto) 5.59 K/uL (1.4-6.5); Neutrophils % (auto) 82.5 %; Platelet Count 269 K/uL (130-400); RDW Coefficient of Variation 15.1 % (11.5-14.5); RDW Standard Deviation 51.7 fL (36.4-46.3); Red Blood Count 3.42 M/uL (4.2-5.4); White Blood Count 6.78 K/uL (4.8-10.8)
[2020-04-09 05:54] LABS: Albumin Globulin Ratio 0.5 (0.9-2); Albumin Level 2.1 gm/dl (3.4-5.0); BUN Creatinine Ratio 18.6 (10-20); Bilirubin,Total 0.6 mg/dl (0.2-1); Calcium 8.7 mg/dl (8.5-10.1); Creatinine Clr Calc Pharmacy 70.4 ml/min; Est GFR (African American) 102.7; Est GFR (Non-African American) 88.6; Globulin 4.4 gm/dl (2.5-4.0); Magnesium 2.2 mg/dl (1.8-2.4); Potassium 3.3 mmol/L (3.5-5.1); Total Protein 6.5 gm/dl (6.4-8.2)
--- NOTE | 2020-04-09 06:13 | Electrocardiogram Report ---
Test Reason : Blood Pressure : / mmHG Vent. Rate : 079 BPM Atrial Rate : 079 BPM P-R Int : 134 ms QRS Dur : 076 ms QT Int : 230 ms P-R-T Axes : 060 -37 013 degrees QTc Int : 264 ms Poor data quality, interpretation may be adversely affected Normal sinus rhythm with PACs Left axis deviation Nonspecific T wave abnormality Abnormal ECG When compared with ECG of 26-MAR-2020 22:06, Premature atrial complexes are now Present HR has increased by 32 bpm Confirmed by Bandar Araya ([id number]) on 04/09/2020 6:13:35 AM Referred By: Confirmed By:Bandar Araya
--- NOTE | 2020-04-09 08:12 | Ultrasound Report ---
ULTRASOUND OF THE CAROTID ARTERIES CLINICAL HISTORY: syncope COMPARISON STUDY: None. TECHNIQUE: Real-time, grayscale, and color Doppler sonography of the carotid arteries was performed. Imaging reviewed in the transverse and longitudinal planes. NASCET criteria was utilized for stenosis calcification. FINDINGS: There is minimal atherosclerotic plaque present . The peak systolic velocity within the right internal carotid artery is 66 cm/sec. The systolic velocity ratio of right internal to common carotid artery is 0.8. The peak systolic velocity within the left internal carotid artery is 151 cm/sec. The systolic velocity ratio left internal to common carotid artery is 2.4. Antegrade flow is seen in the vertebral arteries. The external carotid arteries are patent. IMPRESSION: 1. Elevated peak systolic velocity within the left internal carotid suggestive of a 50-69% stenosis. There is however no corresponding visible plaque, and this may be artifactual due to angle measuremen t error due to the tortuosity of the vessel. CT angiography could be obtained in follow-up as deemed clinically appropriate ACT 112: Negative or not required by law. Electronically signed by: James Araujo M.D. 04/09/2020 8:10 AM
[2020-04-09] MEDS ORDERED: MULTIVITAMINS W/MINERALS LIQUID PO SCH (09:00)
[2020-04-09] MEDS: LEVOTHYROXINE SODIUM 100 MCG TABLET GT SCH (09:12)
[2020-04-09] MEDS: LACTOBACILLUS ACIDOPHILUS 1 GM PACK PEG SCH (09:13)
[2020-04-09] MEDS: METOPROLOL TARTRATE 25 MG TAB PO SCH ×2 (09:14→19:28)
[2020-04-09] MEDS ORDERED: PEPTAMEN 1.5 CAL 1,000 ML BAG PEG SCH (10:00)
--- NOTE | 2020-04-09 10:00 | Cardiology Consultation ---
Date of Consultation April 09, 2020 Assessment & Plan (1) Syncope: (2) Hypotension due to hypovolemia: (3) Paroxysmal atrial tachycardia: (4) Aspiration pneumonia: Complex 79-year-old female presents with syncope related to hypotension and hypovolemia. No arrhythmogenic source of syncope per telemetry/ECG thus far. Patient symptoms significantly improved with IV fluid. Currently normotensive. Recommend continuing beta-paulo therapy and telemetry monitoring. Increase free water flushes to maintain adequate hydration. 2D echocardiogram ordered. Aspiration precautions, management of pneumonia as per pulmonary/internal medicine. History of Present Illness Reason for Consultation: Syncope, paroxysmal atrial tachycardia Requesting Physician: Dr. Ma Attending Physician: Wilson Ma MD History of Present Illness Complex 79-year-old female presented to the emergency department with syncope. According to medical record, patient slumped against the wall and lost consciousness. This was witnessed by her son. EMS was summoned and patient not ed to be significantly hypotensive upon arrival. Son states patient was unconscious for nearly 10 minutes. No tonic-clonic movements, tongue biting, or incontinence. She was treated with 2 L of normal saline in the ER with rapid improvement of hypotension. Review of telemetry demonstrates sinus rhythm and sinus tachycardia. There is one brief, 8 beat tita of atrial tachycardia recorded overnight. No significant bradycardia, pauses, or heart block. Currently, patient resting comfortably. Denies lightheadedness or dizziness. She receives nutrition through a feeding tube. Utilizing free water flushes 3 times per day. Serum creatinine on admission within normal limits, however, above baseline. She denies cough, or shortness of breath. No chest discomfort, fevers, or sick contacts. Allergies Allergy/AdvReac Type Severity Reaction Status Date / Time No Known Allergies Allergy Unverified 04/08/20 16:00 Home Medications Medication Instructions Recorded Confirmed Type levothyroxine 100 mcg FEEDING TUBE QAM 03/26/20 04/08/20 History ondansetron 4 mg FEEDING TUBE Q8 PRN 03/26/20 04/08/20 History oxycodone 5 mg FEEDING TUBE Q4 PRN 03/26/20 04/08/20 History triamcinolone acetonide 1 applic TOPICAL BID PRN 03/26/20 04/08/20 History Lactobacillus acidoph-L.bulgar 2 tab FEEDING TUBE QAM 04/08/20 04/08/20 History [Lactinex] metoprolol tartrate 25 mg FEEDING TUBE BID 04/08/20 04/08/20 History multivitamin 1 tab FEEDING TUBE QAM 04/08/20 04/08/20 History Patient History Medical History Chronic respiratory failure Moderate malnutrition Squamous cell carcinoma Surgical History H/O neck surgery History of surgical procedure on mouth 2009: Left inferior alveolar ridge s/p resection, left neck dissection (chemoXRT recommended however not started) 02/16-03/07/13: Right Tonsil: Radiation therapy IMRT (Dr. 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 Chauhan) 09/10/15: Right hemimaxillectomy with left RFFF and tracheostomy (Dr. Suarez/José KERN) 07/12/18: WLE right buccal mass, inferior maxillectomy, biopsy left mandibular gingivolabial sulcus lesion, PEG placement (Dr. Luque of [place]) 10/14/18: Composite resection of anterior FOM, marginal mandibulectomy, inner lip and right radial forearm (Dr. Flaherty and Dr. Dsouza) 02/28/19: Excision of left hard palate SCCa/Maxillectomy (Dr. Dsouza) History of tracheostomy Status post split thickness skin graft Family History Denies family history of Coronary heart disease Social History Smoking Status: Never smoker Hx Alcohol Use: No Hx Substance Use: No Preferred Language: Belgian Communication Ability: Impaired Visual Impairment: Limited Hearing Ability: Normal Post Doctoral Fellow Required: No Beliefs That Will Affect Care: None marital status: / Current Living Situation: Alone current occupational status: retired Other Information That Helps Us Care for You: No Feels Safe at Home: Yes Safety Concerns: Feels Safe At This Time Assistive Devices: Glasses Review of Systems Review of Systems: All systems reviewed & are unremarkable except as noted in HPI & below Physical Exam Constitutional: + ill appearing and + cachectic Respiratory: no respiratory distress and no labored breathing Auscultation: lungs clear to auscultation bilaterally; no crackles, no rales, no rhonchi and no wheezes Cardiovascular: Rate/Rhythm: regular rate and regular rhythm Heart Sounds: normal S1 and normal S2; no murmur Vessels: no JVD Extremities: no edema Gastrointestinal (Abdomen): Inspection/Auscultation: abdomen normal to inspection and normal bowel sounds; abdomen not distended Percussion/Palpation: abdomen soft; abdomen nontender, no guarding and abdomen not rigid Skin: no rashes, warm and dry Neurologic: moves all extremities Motor/Sensory: no tremor Psychiatric: A+Ox3, euthymic affect Results & Data ([facility]) Vital Signs (Past 12 Hours) Vital Signs Temp Pulse Resp BP Pulse Ox 04/09/20 03:16 36.6 C 88 20 124/78 97 04/08/20 23:27 36.9 C 90 18 132/68 99 (1) Aspiration pneumonia Aspiration pneumonia type: unspecified Laterality: bilateral Lung location: unspecified part of lung Qualified Code(s): J69.0 - Pneumonitis due to inhalation of food and vomit (2) Syncope Syncope type: unspecified Qualified Code(s): R55 - Syncope and collapse
--- NOTE | 2020-04-09 12:11 | Electroencephalogram ---
EEG Procedure Note Date of Service April 09, 2020 Start / End Times Start Time: 05:37 End Time: 05:57 Referring Physician Viky Rae PA-C History An 79-year-old woman with syncope. EEG performed for evaluation of epileptiform activity. Home Medication List Medication Instructions Recorded Confirmed Type levothyroxine 100 mcg FEEDING TUBE QAM 03/26/20 04/08/20 History ondansetron 4 mg FEEDING TUBE Q8 PRN 03/26/20 04/08/20 History oxycodone 5 mg FEEDING TUBE Q4 PRN 03/26/20 04/08/20 History triamcinolone acetonide 1 applic TOPICAL BID PRN 03/26/20 04/08/20 History Lactobacillus acidoph-L.bulgar 2 tab FEEDING TUBE QAM 04/08/20 04/08/20 History [Lactinex] metoprolol tartrate 25 mg FEEDING TUBE BID 04/08/20 04/08/20 History multivitamin 1 tab FEEDING TUBE QAM 04/08/20 04/08/20 History Inpatient Medication List Enoxaparin Sodium (Enoxaparin Inj 30 Mg/0.3 Ml Syr) 30 mg SQ Q24H [facility] Stop: 05/08/20 18:59 Last Admin: 04/08/20 18:46 Dose: 30 mg Documented by: [id number] Enteral Nutritional Formula (Peptamen 1.5 Armando 1,000 Ml Bag) 1,000 ml PEG .CONTINUOUS BERNADETTE; Protocol Stop: 05/09/20 09:59 Last Admin: 04/09/20 10:57 Dose: 1,000 ml Documented by: [id number] Piperacillin Sod/Tazobactam (Sod 3.375 gm/ Dextrose) 115 mls @ 28.75 mls/hr IV Q8H [facility]ERNA[facility]; Protocol Stop: 04/16/20 00:00 Last Infusion: 04/09/20 11:22 Dose: 0 mls/hr Documented by: [id number] Admin: 04/09/20 07:15 Dose: 28.8 mls/hr Documented by: [id number] Infusion: 04/09/20 05:41 Dose: 0 mls/hr Documented by: [id number] Admin: 04/09/20 02:04 Dose: 28.8 mls/hr Documented by: [id number] Lactobacillus Acidophilus (Lactobacillus Acidophilus 1 Gm Pack) 2 gm PEG QAM [facility] Stop: 05/09/20 08:59 Last Admin: 04/09/20 09:13 Dose: 2 gm Documented by: [id number] Levothyroxine Sodium (Levothyroxine Sodium 100 Mcg Tablet) 100 mcg GT DAILYBB [facility] Stop: 05/09/20 06:29 Last Admin: 04/09/20 09:12 Dose: Not Given Documented by: [id number] Metoprolol Tartrate (Metoprolol Tartrate 25 Mg Tab) 25 mg PO BID [facility] Stop: 05/08/20 20:59 Last Admin: 04/09/20 09:14 Dose: 25 mg Documented by: [id number] Admin: 04/08/20 23:57 Dose: Not Given Documented by: [id number] Multivitamins/Minerals (Multivitamins W/Minerals Liquid) 15 ml PO QAM [facility] Stop: 05/09/20 08:59 Last Admin: 04/09/20 09:14 Dose: 15 ml Documented by: [id number] Discontinued Medications Sodium Chloride (Nss 1000ml) 1,000 mls @ 999 mls/hr IV .Q1H1M ONE Stop: 04/08/20 13:52 Last Infusion: 04/08/20 14:49 Dose: 0 mls/hr Documented by: [id number] Admin: 04/08/20 13:48 Dose: 999 mls/hr Documented by: [id number] Sodium Chloride (Nss 1000ml) 1,000 mls @ 999 mls/hr IV .Q1H1M ONE Stop: 04/08/20 15:43 Last Infusion: 04/08/20 16:23 Dose: 0 mls/hr Documented by: [id number] Admin: 04/08/20 15:22 Dose: 999 mls/hr Documented by: [id number] Piperacillin Sod/Tazobactam (Sod 3.375 gm/ Dextrose) 115 mls @ 230 mls/hr IV NOW ONE; Protocol Stop: 04/08/20 18:29 Last Infusion: 04/08/20 19:05 Dose: 0 mls/hr Documented by: [id number] Admin: 04/08/20 18:27 Dose: 230 mls/hr Documented by: [id number] Metoprolol Tartrate (Metoprolol Tartrate 1 Mg/Ml Vial) 2.5 mg IV NOW STA Stop: 04/08/20 22:12 Last Admin: 04/09/20 02:03 Dose: Not Given Documented by: [id number] Metoprolol Tartrate (Metoprolol Tartrate 1 Mg/Ml Vial) Confirm Administered Dose 5 mg IV .[employer] ONE Stop: 04/09/20 01:40 Last Admin: 04/09/20 02:04 Dose: Not Given Documented by: [id number] Description This is a 21 electrode EEG with a single channel dedicated to limited EKG. The electrodes were placed in accordance with the International 10-20 system. Report: At the onset of the EEG the patient is drowsy. The background is symmetric. The posterior dominant rhythm is 8-8.5 Hz. Drowsiness is characterized by increased theta activity, reduced blink rate, and decreased myogenic artifact. Photic stimulation does not induce any abnormalities. No stage II sleep transients are recorded. Impression: This is a normal awake and drowsy routine EEG. There is no evidence of epileptiform activity.
[2020-04-09] MEDS ORDERED: POTASSIUM CHLORIDE CRTAB 20 MEQ TABCR PO STA (15:58)
[2020-04-09] MEDS: ENOXAPARIN INJ 30 MG/0.3 ML SYR SQ SCH (19:27)
--- NOTE | 2020-04-10 04:34 | Electrocardiogram Report ---
Test Reason : Blood Pressure : / mmHG Vent. Rate : 085 BPM Atrial Rate : 084 BPM P-R Int : 132 ms QRS Dur : 070 ms QT Int : 394 ms P-R-T Axes : 052 -36 014 degrees QTc Int : 469 ms Poor data quality, interpretation may be adversely affected Sinus rhythm with PAC Left axis deviation Cannot rule out Anterior infarct (cited on or before 08-APR-2020) Abnormal ECG When compared with ECG of 08-APR-2020 12:32, Questionable change in initial forces of Anterolateral leads Confirmed by Bandar Araya ([id number]) on 04/10/2020 4:34:34 AM Referred By: REFERRED SELF Confirmed By:Bandar Araya
--- NOTE | 2020-04-10 04:40 | Electrocardiogram Report ---
Test Reason : Blood Pressure : / mmHG Vent. Rate : 081 BPM Atrial Rate : 081 BPM P-R Int : 138 ms QRS Dur : 070 ms QT Int : 390 ms P-R-T Axes : 050 -36 003 degrees QTc Int : 453 ms Poor data quality, interpretation may be adversely affected Sinus rhythm with Fusion complexes Left axis deviation Abnormal ECG When compared with ECG of 08-APR-2020 17:19, Fusion complexes are now Present Confirmed by Bandar Araya ([id number]) on 04/10/2020 4:39:17 AM Referred By: REFERRED SELF Confirmed By:Bandar Araya
--- NOTE | 2020-04-10 04:57 | Electrocardiogram Report ---
Test Reason : Blood Pressure : / mmHG Vent. Rate : 091 BPM Atrial Rate : 091 BPM P-R Int : 136 ms QRS Dur : 068 ms QT Int : 374 ms P-R-T Axes : 056 -40 020 degrees QTc Int : 460 ms Sinus rhythm with occasional Premature atrial complexes Left axis deviation Low voltage QRS Cannot rule out Anterior infarct , age undetermined Abnormal ECG When compared with ECG of 08-APR-2020 18:17, Premature atrial complexes are now Present Confirmed by Bandar Araya ([id number]) on 04/10/2020 4:56:52 AM Referred By: REFERRED SELF Confirmed By:Bandar Araya
[2020-04-10] MEDS: LEVOTHYROXINE SODIUM 100 MCG TABLET GT SCH (05:42)
[2020-04-10 07:31] LABS: Albumin Level 2.3 gm/dl (3.4-5.0); BUN Creatinine Ratio 17.1 (10-20); Calcium 9.1 mg/dl (8.5-10.1); Creatinine Clr Calc Pharmacy 65.8 ml/min; Est GFR (African American) 100.9; Est GFR (Non-African American) 87.1; Magnesium 2.3 mg/dl (1.8-2.4); Potassium 3.3 mmol/L (3.5-5.1)
[2020-04-10 07:33] LABS: Albumin Globulin Ratio 0.5 (0.9-2); Bilirubin,Total 0.5 mg/dl (0.2-1); Globulin 4.9 gm/dl (2.5-4.0); Total Protein 7.2 gm/dl (6.4-8.2)
--- NOTE | 2020-04-10 08:53 | Hospitalist Progress Note ---
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 Pt with syncopal episode and hypotension prior to arrival. Recently started metoprolol tartate. They have not been monitoring BP at home. Possibly in setting of medication, vs hypovolemia from dehydration (cr up from .6 to 0.83), vs cardiogenic arrhythmia or neurogenic cont. to monitor on telemetry to r/o arrhythmia CT head w/o contrast received 2L IVF, pressures doing well now monitor Orthostatic vital signs carotid doppler - shows some stenosis, no plaque EEG - negative consult cardiology - recommend to increase free water flushes, cont. to monitor on tele for now (3) Aspiration pneumonia: pt with recurrent Aspiration PNA [place] [facility] [place]; [facility] 03/27- recently finished augmentin check lactic acid/procalcitonin she is afebrile, wbc WNL CXR show persistent infiltrates Initiate empiric IV Zosyn for now until active infection ruled out, MRSA screen, if positive initiate vanco Blood cultures and sputum cultures pending Pulmonary toilet incentive spirometry, chest PT and flutter valve, suction Levalbuterol nebs as needed (4) Paroxysmal atrial tachycardia: recently started on metoprolol tartrate most recent admission to [facility] resume cautiously for now, monitor for hypotension (5) Squamous cell carcinoma: on head/neck s/p surgical resection, XRT scheduled for new pt appt with Dr. Sunil Roman 04/09 @12pm to discuss immunotherapy - this appointment was rescheduled for 04/16 Rufino Mosquera updated about the change (6) Anemia: H&H stable 11.3 and 34.9 No signs or symptoms of bleeding Had anemia work-up 03/28 revealing iron 42, ferritin 258, TIBC 182, folic acid greater than 20, vitamin B12 greater than 2000 Likely chronic disease (7) DVT prophylaxis: SQ Lovenox Disposition: tele Follow up: PCP Dr. Chaidez upon discharge Follow up : Dr. Roman - oncology, appointment rescheduled, son Demetri updated over the phone Admission and Anticipated Discharge Date Admission Date: April 09, 2020 Subjective Pt seen in follow up of hypotension, syncope, aspiration pna. Pt is sitting up in chair in NAD, says she is feeling well now. She ambulated with a nurse in hallway and did fairly well, occasionally gait was off though reportedly. Cardiology seen the pt, recommend to monitor on tele, echo ordered. EEG negative. Recommend to increase free water flushes, increased from 150 ml q4 hrs to 200 ml q 4 hrs. Son Demetri updated over the phone. Review of Systems Review of Systems: All systems reviewed & are unremarkable except as noted in HPI & below Constitutional: no fever and no chills Respiratory: no cough and no dyspnea Cardiovascular: no chest pain and no palpitations Gastrointestinal: no abdominal pain, no nausea and no vomiting Physical Exam Physical Exam: Constitutional: Thin, frail, elderly female,vitals as above, NAD, sitting up in chair in NAD Head: Normocephalic, Atraumatic Eyes: conjunctivae normal, anicteric sclerae ENMT: external ear and nose normal Neck: trachea midline, no thyromegaly Respiratory: normal respiratory effort, lungs clear to auscultation, left basilar crackle, no wheeze or rhonchi. Normal insp/exp effort, no accessory muscle use Cardiovascular: RRR, no murmur, no edema Vessels: no JVD or carotid bruit Chest: normal inspection of chest Abdomen: galdino button in place, no surrounding erythema or drainage, normal bowel sounds, soft, nontender Musculoskeletal: no cyanosis or clubbing, extremities motor strength 5/5 Skin: no rashes, warm and dry normal turgor Neuro/Psych: Alert and oriented x 3, euthymic affect, moves all extremities Results & Data Results & Data ([facility]) Vital Signs (Past 12 Hours) vital signs and labs reviewed (1) Syncope Syncope type: unspecified Qualified Code(s): R55 - Syncope and collapse (2) Hypotension Hypotension type: unspecified hypotension type Qualified Code(s): I95.9 - Hypotension, unspecified (3) Aspiration pneumonia Aspiration pneumonia type: unspecified Laterality: bilateral Lung location: unspecified part of lung Qualified Code(s): J69.0 - Pneumonitis due to inhalation of food and vomit
[2020-04-10] MEDS: METOPROLOL TARTRATE 25 MG TAB PO SCH (09:09)
[2020-04-10] MEDS: LACTOBACILLUS ACIDOPHILUS 1 GM PACK PEG SCH (09:09)
[2020-04-10] MEDS: PIPERACILLIN/TAZOBACTAM 3.375 GM in DEXTROSE 5% 100 ML IV SCH (09:11)
[2020-04-10] MEDS ORDERED: MULTIVITAMINS W/MINERALS LIQUID PO SCH (10:00)
--- NOTE | 2020-04-10 11:30 | Cardiology Progress Note ---
Date of Service April 10, 2020 Assessment & Plan (1) Syncope: (2) Hypotension due to hypovolemia: (3) Paroxysmal atrial tachycardia: (4) Aspiration pneumonia: Complex 79-year-old female presents with syncope related to hypotension and hypovolemia. No sustained tachycardia dysrhythmias or symptomatic bradycardia. Recommend continuing beta-paulo therapy. Increase free water flushes to maintain adequate hydration. Aspiration precautions, management of pneumonia as per pulmonary/internal medicine. Cardiology will sign off. Please call with questions. Admission and Anticipated Discharge Date Admission Date: April 09, 2020 Subjective Patient seen and examined at the bedside. Feeling well from a cardiovascular perspective. Blood pressure stable. Telemetry reveals sinus rhythm with rare short salvos of atrial tachycardia. Denies any palpitations. Continues to complain of discomfort related to prior mouth, head and neck surgery. Review of Systems Review of Systems: All systems reviewed & are unremarkable except as noted in HPI & below Physical Exam Constitutional: + ill appearing and + cachectic Respiratory: no respiratory distress and no labored breathing Auscultation: lungs clear to auscultation bilaterally; no crackles, no rales, no rhonchi and no wheezes Cardiovascular: Rate/Rhythm: regular rate and regular rhythm Heart Sounds: normal S1 and normal S2; no murmur Vessels: no JVD Extremities: no edema Gastrointestinal (Abdomen): Inspection/Auscultation: abdomen normal to inspection and normal bowel sounds; abdomen not distended Percussion/Palpation: abdomen soft; abdomen nontender, no guarding and abdomen not rigid Skin: no rashes, warm and dry Neurologic: moves all extremities Motor/Sensory: no tremor Psychiatric: A+Ox3, euthymic affect Results & Data ([facility]) Vital Signs (Past 12 Hours) Vital Signs Temp Pulse Resp BP Pulse Ox 04/10/20 08:00 36.9 C 88 20 130/78 94 04/10/20 04:00 36.9 C 82 18 127/72 94 04/10/20 00:00 36.8 C 82 18 142/77 H 96 (1) Syncope Syncope type: unspecified Qualified Code(s): R55 - Syncope and collapse (2) Aspiration pneumonia Aspiration pneumonia type: unspecified Laterality: bilateral Lung location: unspecified part of lung Qualified Code(s): J69.0 - Pneumonitis due to inhalation of food and vomit
[2020-04-10] MEDS ORDERED: ACETAMINOPHEN SUSP 325 MG/10.15 ML UDC PEG PRN (12:47)
[2020-04-10] MEDS: POTASSIUM CHLORIDE / WTR 10 MEQ/100 ML PLCT IV SCH ×2 (13:01→14:39)
--- NOTE | 2020-04-10 14:00 | XRay Report ---
TWO VIEW CHEST CLINICAL HISTORY: Follow-up airspace consolidation.. FINDINGS: AP and lateral chest radiographs are compared to study dated 04/08/2020. The heart is top n ormal for projection. The pulmonary vasculature is noncongested. Multiple airspace consolidation is a gain seen throughout the left lung. This is greatest in the left mid to lower lung. A small left pleu ral effusion persists. Minimal patchy opacities are seen in the right upper lung. There is no pneumot horax. The skeletal structures are osteopenic. The bony thorax appears intact. IMPRESSION: 1. Multifocal airspace consolidation in the left lung with associated pleural effusion is similar to the 04/08/2020 examination. 2. Mild patchy airspace opacities are again seen in the right upper lobe. ACT 112: Negative or not required by law. Electronically signed by: Shree Olivier M.D. 04/10/2020 1:58 PM
--- NOTE | 2020-04-10 14:29 | Hospitalist Progress Note ---
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 -Carotid doppler 04/08/2020 Elevated peak systolic velocity within the left internal carotid suggestive of a 50-69% stenosis. There is however no corresponding visible plaque, and this may be artifactual due to angle measurement error due to the tortuosity of the vessel EEG - negative as per cardiology consult 04/10/2020 "Complex 79-year-old female presents with syncope related to hypotension and hypovolemia. No sustained tachycardia dysrhythmias or symptomatic bradycardia. ecommend continuing beta-paulo therapy. Increase free water flushes to maintain adequate hydration." (3) Paroxysmal atrial tachycardia: -continue current metoprolol as per cardiology service (4) Aspiration pneumonia: -recurrent Aspiration PNA -Hospitalized [facility] [place] 03/05-03/12; [facility] [place] 03/27- -recently finished augmentin -patient initially on IV Zosyn while in the hospital -cultures no growth to date -Chest X ray: 04/10/2020 Multifocal airspace consolidation in the left lung with associated pleural effusion is similar to the 04/08/2020 examination. Mild patchy airspace opacities are again seen in the right upper lobe. -discharge pharmacy is [facility] [id number] [place] [place] [address] with oral suspension Augmentin that is equivalent to 875 mg twice a day for 10 days (5) Anemia: -Had anemia work-up 03/28 revealing iron 42, ferritin 258, TIBC 182, folic acid greater than 20, vitamin B12 greater than 2000 -H&H stable 11.3 and 34.9, No signs or symptoms of bleeding (6) Squamous cell carcinoma: -history of head/neck cancer with surgical resection and radiation in the past as per hospital notes -Magic mouthwash 5 ml every 4 hours as needed for throat pain as a swish and spit -maintain NPO, continue PEG feeds 04/10/2020 disposition: Patient seen and examined while communicating with hospitalist with writing on notepad as she cannot speak. Patient wishes to go home. She reports that the throat pain is chronic. she denies other symptoms. breathing comfortably on room air. No other symptoms on review of systems. Discussed with her son at length about discharge plans and instructions discharge to home with home health services Patient to have CD of hospital imaging on this admission for follow up of aspiration pneumonia and left internal carotid artery stenosis Increase free water flushes to maintain adequate hydration as per cardiology service upcoming appointments 04/16/2020 9:45 AM Provider Sunil Roman MD Department Hematology/Oncology [facility] 04/18/2020 10:00 AM Provider Nurse Annual Wellness [facility] Department Ancillary [facility] 04/18/2020 11:20 AM Provider Ruba Chaidez DO Department Family Practice [facility] 04/23/2020 11:30 AM Provider Mike Flaherty DO Department Otolaryngology/Head & Neck/Facial Plastic Surgery (7) DVT prophylaxis: -SQ Lovenox while inpatient only Admission and Anticipated Discharge Date Admission Date: April 09, 2020 Subjective Patient seen and examined while communicating with hospitalist with writing on notepad as she cannot speak. Patient wishes to go home. She reports that the throat pain is chronic. she denies other symptoms. breathing comfortably on room air. No other symptoms on review of systems. Discussed with her son at length about discharge plans and instructions Review of Systems Review of Systems: All systems reviewed & are unremarkable except as noted in Subjective Physical Exam Constitutional: comfortable Eyes: PERRL, conjunctivae normal, anicteric sclerae EOM intact bilaterally ENMT: external ear and nose normal, oropharynx normal Respiratory: normal respiratory effort, lungs clear to auscultation Cardiovascular: Rate/Rhythm: regular rate Gastrointestinal (Abdomen): normal bowel sounds, soft, nontender, no hepatosplenomegaly (has PEG tube) Musculoskeletal: Head/Neck/Chest: normocephalic and head atraumatic Neurologic: awake Psychiatric: Orientation: alert and cooperative Results & Data Results & Data ([facility]) Vital Signs (Past 12 Hours) Vital Signs Temp Pulse Resp BP Pulse Ox 04/10/20 12:00 36.5 C 74 20 115/72 95 04/10/20 08:00 36.9 C 88 20 130/78 94 04/10/20 04:00 36.9 C 82 18 127/72 94 (1) Aspiration pneumonia Aspiration pneumonia type: unspecified Laterality: bilateral Lung location: unspecified part of lung Qualified Code(s): J69.0 - Pneumonitis due to inhalation of food and vomit (2) Syncope Syncope type: unspecified Qualified Code(s): R55 - Syncope and collapse (3) Hypotension Hypotension type: unspecified hypotension type Qualified Code(s): I95.9 - Hypotension, unspecified
[2020-04-10] MEDS ORDERED: AMOXICILLIN/CLAVULANATE SUSP 400MG/5ML 50ML BOTTLE PO ONE (14:30)
--- NOTE | 2020-04-10 14:47 | Discharge Summary ---
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 Patient has been living with son who provides most of history. Patient unable to communicate verbally secondary to prior surgeries. She is able to communicate through written language. Of significance patient with 2 recent hospitalizations: [facility] 03/13-03/12 secondary to acute hypoxic respiratory failure due to aspiration pneumonia discharged on 2 L of oxygen. Unfortunately rehospitalized at [facility] 03/27-04/02 secondary to acute respiratory failure with recurrent aspiration pneumonia. She was treated with IV antibiotics and discharged on Augmentin. She has completed this. Her hospital course was complicated by episodes of paroxysmal atrial tachycardia. Initially was felt to be flutter, but after further review of telemetry felt more to be a atrial tachycardia. She was started on metoprolol tartrate and titrated to 25 mg twice daily. According to her son today around 10 AM she was standing when she lost her balance and started leaning towards the wall. He ran over for immediate attention. He carried her over to a chair. This is when her condition continued to worsen. He feels she lost consciousness. He was using a pulse ox to monitor her pulse and oxygen. Her oxygen was in the 90s but her heart rate was, "all over the place." He felt it was very irregular, but was unable to check her actual pulse. She went out for approximately 10 minutes. He started, "pounding on her chest." When EMS arrived she did seem to come to. It is uncertain if she actually lost pulse, but according to EMS report patient was significantly hypotensive upon arrival. Patient denies feeling symptomatic prior to syncopizing. She denies dizziness, lightheadedness, chest pain, shortness breath, palpitations, nausea or diaphoresis. She denies any dizziness with change in position. She denies similar symptoms in the past. She denies recent fever, chills, sweats, lightheadedness, shortness breath at rest, nausea, vomiting, abdominal pain. Her bowels have been on the loose side for the past several days. No lia diarrhea. She does have a cough which has been persistent since discharge, but son feels it is improved and her oxygen has been improving. She has not been using oxygen at home. She currently does tube feedings 4-5 times a day on her own. She does cough occasionally with tube feedings, and when that happens she reduces the amount of tube feeds at one time. In ED patient was initially hypotensive. She received 2 L of IVF. Her oxygen saturation was 100% at 2 L. Lab work notable for H&H 11.3 and 34.9, platelet 384, WBC 8.21k, sodium 131, K3.9, chloride 97, BUN 14, creatinine 0.83, lactate 1.6. Chest x-ray consistent with persistent pulmonary airspace opacity suspicious for multifocal pneumonia. Principal Diagnosis Syncope and collapse Hypotension Left internal carotid artery stenosis Aspiration pneumonia Paroxysmal atrial tachycardia Squamous cell carcinoma (Head/Neck cancer) Anemia Discharge Exam Constitutional comfortable Eyes PERRL, conjunctivae normal, anicteric sclerae EOM intact bilaterally ENMT external ear and nose normal, oropharynx normal Respiratory normal respiratory effort, lungs clear to auscultation Cardiovascular Rate/Rhythm: regular rate Gastrointestinal (Abdomen) normal bowel sounds, soft, nontender, no hepatosplenomegaly (has PEG tube) Musculoskeletal Head/Neck/Chest: normocephalic and head atraumatic Neurologic awake Psychiatric Orientation: alert and cooperative Discharge Data Allergies Allergy/AdvReac Type Severity Reaction Status Date / Time No Known Allergies Allergy Unverified 04/08/20 16:00 Consultations 04/08/20 15:38 ED Decision to Admit Stat 04/08/20 17:47 Consult Cardiology Routine Consult Case Management - Discharge Planning Routine 04/10/20 14:09 Burn CD for patient Stat Ordered Studies 04/08/20 17:18 CT head/brain wo con Stat 04/08/20 17:47 US carotid doppler BI Routine Hospital Course (1) Syncope: Syncope and collapse (prior to ED presentation on 04/08/2020) -"This is an 79-year-old female who has significant past medical history of 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 -Carotid doppler 04/08/2020 Elevated peak systolic velocity within the left internal carotid suggestive of a 50-69% stenosis. There is however no corresponding visible plaque, and this may be artifactual due to angle measurement error due to the tortuosity of the vessel EEG - negative as per cardiology consult 04/10/2020 "Complex 79-year-old female presents with syncope related to hypotension and hypovolemia. No sustained tachycardia dysrhythmias or symptomatic bradycardia. ecommend continuing beta-paulo therapy. Increase free water flushes to maintain adequate hydration." (3) Paroxysmal atrial tachycardia: -continue current metoprolol as per cardiology service (4) Aspiration pneumonia: -recurrent Aspiration PNA -Hospitalized [facility] 03/05-03/12; [facility] -recently finished augmentin -patient initially on IV Zosyn while in the hospital -cultures no growth to date -Chest X ray: 04/10/2020 Multifocal airspace consolidation in the left lung with associated pleural effusion is similar to the 04/08/2020 examination. Mild patchy airspace opacities are again seen in the right upper lobe. -discharge pharmacy is [facility] [address] [place] [address] with oral suspension Augmentin that is equivalent to 875 mg twice a day for 10 days (5) Anemia: -Had anemia work-up 03/28 revealing iron 42, ferritin 258, TIBC 182, folic acid greater than 20, vitamin B12 greater than 2000 -H&H stable 11.3 and 34.9, No signs or symptoms of bleeding (6) Squamous cell carcinoma: -history of head/neck cancer with surgical resection and radiation in the past as per hospital notes -Magic mouthwash 5 ml every 4 hours as needed for throat pain as a swish and spit -maintain NPO, continue PEG feeds 04/10/2020 disposition: Patient seen and examined while communicating with hospitalist with writing on notepad as she cannot speak. Patient wishes to go home. She reports that the throat pain is chronic. she denies other symptoms. breathing comfortably on room air. No other symptoms on review of systems. Discussed with her son at length about discharge plans and instructions discharge to home with home health services Patient to have CD of hospital imaging on this admission for follow up of aspiration pneumonia and left internal carotid artery stenosis Increase free water flushes to maintain adequate hydration as per cardiology service upcoming appointments 04/16/2020 9:45 AM Provider Sunil Roman MD Department Hematology/Oncology [facility] 04/18/2020 10:00 AM Provider Nurse [facility] Department Ancillary [facility] 04/18/2020 11:20 AM Provider Ruba Chaidez DO Department [facility] 04/23/2020 11:30 AM Provider Mike Flaherty DO Department Otolaryngology/Head & Neck/Facial Plastic Surgery (7) DVT prophylaxis: -SQ Lovenox while inpatient only Total Time Total Time Spent Total Time Spent (In Minutes): 40 inutes Total Time Includes: Examination of the Patient, Discharge Planning, Medication Reconciliation and Communication With Other Providers Discharge Plan Discharge Items Patient Disposition: Home - Home Health Services Reason For Visit: ASPIRATION PNEUMONIA, SYNCOPE Discharge Diagnosis: Syncope and collapse Hypotension Left internal carotid artery stenosis Aspiration pneumonia Paroxysmal atrial tachycardia Squamous cell carcinoma (Head/Neck cancer) Anemia Condition on Discharge: Good Activity: Per Instructions section Bathing: No limitations Exercise/Sports: As tolerated Weightbearing: Full weightbearing Non-emergency contact: Primary Care Provider and Specialist Call non-emergency contact if: you have any medication questions Follow-up/Referrals: Ruba Chaidez DO [Primary Care Provider] - Diet: Nothing by Mouth Addtl Attending Provider Instructions: discharge pharmacy is [facility] pharmacy [address] [place] [address] with oral suspension Augmentin that is equivalent to 875 mg twice a day for 10 days Magic mouthwash 5 ml every 4 hours as needed for throat pain as a swish and spit discharge to home with home health services Patient to have [facility] hospital imaging on this admission for follow up of aspiration pneumonia and left internal carotid artery stenosis Increase free water flushes to maintain adequate hydration as per cardiology service upcoming appointments 04/16/2020 9:45 AM Provider Sunil Roman MD Department Hematology/Oncology [facility] 04/18/2020 10:00 AM Provider Nurse 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 No sustained tachycardia dysrhythmias or symptomatic bradycardia. ecommend continuing beta-paulo therapy. Increase free water flushes to maintain adequate hydration." Carotid doppler 04/08/2020 Elevated peak systolic velocity within the left internal carotid suggestive of a 50-69% stenosis. There is however no corresponding visible plaque, and this may be artifactual due to angle measurement error due to the tortuosity of the vessel Chest X ray: 04/10/2020 Multifocal airspace consolidation in the left lung with associated pleural effusion is similar to the 04/08/2020 examination. Mild patchy airspace opacities are again seen in the right upper lobe. Pending Studies at Discharge: No Stand-Alone Forms: [facility], Smoking Cessation Medications and DC Order Prescriptions: New amoxicillin-pot clavulanate 400-57 mg/5 mL Suspension For Reconstitution 11 ml PO BIDM 10 Days Qty: 220 RF: 0 Magic Mouthwash 300 mL mouthwash 5 ml mucous membrane Q4H 10 Days Qty: 300 RF: 0 Continued multivitamin Tablet 1 tab feeding tube QAM RF: 0 metoprolol tartrate 25 mg tablet 25 mg feeding tube BID RF: 0 Lactinex 1 million cell tablet,chewable 2 tab feeding tube QAM RF: 0 levothyroxine 100 mcg tablet 100 mcg feeding tube QAM RF: 0 oxycodone 5 mg/5 mL solution 5 mg feeding tube Q4 PRN (Reason: Pain) RF: 0 triamcinolone acetonide 0.1 % cream 1 applic TOPICAL BID PRN (Reason: Inflammation around peg tube) RF: 0 ondansetron 4 mg tablet,disintegrating 4 mg feeding tube Q8 PRN (Reason: Nausea) RF: 0 Discharge Orders: Discharge Order (Routine); Ordered 04/10/20 Ordered By: Jona Parks/Other Patient Handouts: Dysphagia Aspiration Tx, Amoxicillin Clavulanic Acid oral suspension Admission Data Admit Date/Time: 04/09/20 12:04 Attending Provider: Jona Ortega Admit Provider: Adán Ortega Primary Care Provider: Ruba Chaidez Other Providers: Adán Ortega ; Brandon Granados
[2020-04-10] MEDS ORDERED: AMOXICILLIN/CLAVULANATE SUSP 400MG/5ML 50ML BOTTLE PO SCH (21:00)
--- NOTE | 2020-04-10 21:30 | Electrocardiogram Report ---
Test Reason : Blood Pressure : / mmHG Vent. Rate : 088 BPM Atrial Rate : 088 BPM P-R Int : 132 ms QRS Dur : 070 ms QT Int : 380 ms P-R-T Axes : 059 -40 027 degrees QTc Int : 459 ms Normal sinus rhythm Left axis deviation Low voltage QRS Cannot rule out Anterior infarct (cited on or before 09-APR-2020) Abnormal ECG When compared with ECG of 09-APR-2020 09:00, Premature atrial complexes are no longer Present Confirmed by Bandar Araya ([id number]) on 04/10/2020 9:29:47 PM Referred By: REFERRED SELF Confirmed By:Bandar Araya
== END 2020-04-10 17:11 | disposition home health service (06) | DRG 314 ==
LOC: 1E 12:25 → ED 12:25 → SUATTDRO 15:53 → 1E 17:37 → SUATTDRO 04-09 12:04

== ENCOUNTER 2020-04-11 12:14 | Inpatient (IN) ==
[2020-04-11] MEDS ORDERED: SODIUM CHLORIDE 0.9% 1000ML 1,000 ML IV SCH ×2 (12:30→18:00)
--- NOTE | 2020-04-11 12:43 | Emergency Department Note ---
History of Present Illness General Chief complaint: Hypotension Stated complaint: Hypotension Time Seen by Provider: 04/11/20 12:17 Source: patient Mode of arrival: EMS Limitations: no limitations History of Present Illness Provider complaint: Near syncope Maximum Pain Intensity: 0 This is a 79-year-old female who presents to the ED with a chief complaint of feeling lightheaded and dizzy and near syncopal while she was sitting down feeding herself through her feeding tube. EMS was summoned. Her initial blood pressure was 50/20. The best blood pressure they got was in the 80s. They gave her a normal saline bolus in route. Her blood pressure here was 94/50. The patient has no additional complaints at this time. Denies any headache, recent illness or fever, chest pain, shortness of breath, abdominal pains or other symptoms. The patient does have a history of oral cancer and does not take p.o. Home Medications Medication Instructions Recorded Confirmed Type levothyroxine 100 mcg FEEDING TUBE QAM 03/26/20 04/11/20 History ondansetron 4 mg FEEDING TUBE Q8 PRN 03/26/20 04/11/20 History oxycodone 5 mg FEEDING TUBE Q4 PRN 03/26/20 04/11/20 History triamcinolone acetonide 1 applic TOPICAL BID PRN 03/26/20 04/11/20 History Lactinex 2 tab FEEDING TUBE QAM 04/08/20 04/11/20 History metoprolol tartrate 25 mg FEEDING TUBE BID 04/08/20 04/11/20 History multivitamin 1 tab FEEDING TUBE QAM 04/08/20 04/11/20 History Magic Mouthwash 5 ml MUCOUS MEMBRANE Q4H 10 Days 04/10/20 04/11/20 Rx #300 ml amoxicillin-pot clavulanate 11 ml PO BIDM 10 Days #220 ml 04/10/20 04/11/20 Rx Allergies Allergy/AdvReac Type Severity Reaction Status Date / Time No Known Allergies Allergy Unverified 04/11/20 13:50 Past Med/Surg History Medical History Chronic respiratory failure Hypotension Moderate malnutrition Squamous cell carcinoma Syncope Surgical History H/O neck surgery History of surgical procedure on mouth 2009: Left inferior alveolar ridge s/p resection, left neck dissection (chemoXRT recommended however not started) 02/16-03/07/13: Right Tonsil: Radiation therapy IMRT (Dr. 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 Chauhan) 09/10/15: Right hemimaxillectomy with left RFFF and tracheostomy (Dr. Suarez/José KERN) 07/12/18: WLE right buccal mass, inferior maxillectomy, biopsy left mandibular gingivolabial sulcus lesion, PEG placement (Dr. Luque of [place]) 10/14/18: Composite resection of anterior FOM, marginal mandibulectomy, inner lip and right radial forearm (Dr. Flaherty and Dr. Dsouza) 02/28/19: Excision of left hard palate SCCa/Maxillectomy (Dr. Dsouza) History of tracheostomy Status post split thickness skin graft Family History Denies family history of Coronary heart disease Social History Smoking Status: Unknown if ever smoked Hx Alcohol Use: No Hx Substance Use: No Preferred Language: Wolof Communication Ability: Impaired Visual Impairment: Limited Hearing Ability: Normal Dispute Resolution Specialist Required: No Beliefs That Will Affect Care: None marital status: / Current Living Situation: Alone current occupational status: retired Feels Safe at Home: Yes Assistive Devices: Glasses Review of Systems A total of 10 systems reviewed and were otherwise negative Physical Exam Vital Signs Vital Signs - 24 hr 04/11/20 12:23 04/11/20 12:35 04/11/20 12:50 Temperature 36.9 C Temperature Source Rectal Pulse Rate 108 H 58 L Pulse Rate from SpO2 Sensor Pulse Rhythm Regular Regular Respiratory Rate 17 18 Respiratory Effort / Characteristics Non-Labored Spontaneous Respiratory Depth Normal Respiratory Pattern Regular Blood Pressure 94/50 L Blood Pressure Mean 64 Pulse Oximetry 96 93 84 L Oxygen Delivery Method Room Air Room Air Room Air Nasal Cannula Oxygen Flow Rate 0 Sepsis Recent Fever Within 48 Hours No Sepsis New/Unexplained Change in Mental Status Yes Sepsis Action Taken by Nursing Physician Notified Oxygen Flow Rate - Titration 2 Pulse Oximetry Post Tiitration 96 04/11/20 13:01 04/11/20 13:30 Temperature Temperature Source Pulse Rate 82 74 Pulse Rate from SpO2 Sensor 74 75 Pulse Rhythm Respiratory Rate 24 15 Respiratory Effort / Characteristics Respiratory Depth Respiratory Pattern Blood Pressure 83/49 L 85/43 L Blood Pressure Mean 55 50 Pulse Oximetry 100 100 Oxygen Delivery Method Oxygen Flow Rate 2 2 Sepsis Recent Fever Within 48 Hours Sepsis New/Unexplained Change in Mental Status Sepsis Action Taken by Nursing Oxygen Flow Rate - Titration Pulse Oximetry Post Tiitration CONSTITUTIONAL/VITAL SIGNS: Reviewed / noted above. GENERAL: Non-toxic in appearance. INTEGUMENTARY: Warm, dry, and Wisdom. HEAD: Normocephalic with exception of anatomic changes in the mouth area from her cancer. EYES: without scleral icterus or trauma. ENT/OROPHARYNX: clear and moist. LYMPHADENOPATHY/NECK: Is supple without lymphadenopathy or meningismus. RESPIRATORY: Lungs clear and equal. CARDIOVASCULAR: Regular rate and rhythm. GI/ABDOMEN: Soft and nontender. No organomegaly or pulsatile mass. No rebound or guarding. Normal bowel sounds. PEG tube present. EXTREMITIES: Warm and well perfused. BACK: No CVA tenderness. NEUROLOGICAL: Intact without focal deficits. PSYCHIATRIC: normal affect. MUSCULOSKELETAL: Normally developed with good muscle tone. TRIAGE NURSING DOCUMENTATION REVIEWED. Course Administered Medications Discontinued Medications Sodium Chloride (Nss 1000ml) 1,000 mls @ 999 mls/hr IV .Q1H1M BERNADETTE Stop: 04/11/20 13:30 Last Infusion: 04/11/20 13:41 Dose: 0 mls/hr Documented by: [id number] Admin: 04/11/20 12:33 Dose: 999 mls/hr Documented by: [id number] Medical Decision Making Differential Diagnosis Differential includes acute coronary syndrome, myocardial infarction, CVA, TIA, anemia, infection, pneumonia, UTI, pyelonephritis, poor nutrition, dehydration, electrolyte disturbance,hypoglycemia. Medical Records Attestation: I reviewed the patient's medical records. Home Medications Current Medication List: was personally reviewed by me Laboratory Data Attestation: I reviewed the patient's lab results. Result diagrams: 04/11/20 13:06 04/11/20 13:06 Lab Results 04/11/20 04/11/20 Range/Units 13:06 13:06 WBC 6.73 (4.8-10.8) K/uL RBC 3.19 L (4.2-5.4) M/uL Hgb 9.9 L (12.0-16.0) g/dL Hct 30.0 L (37-47) % MCV 94.0 (80-100) fL MCH 31.0 (25-34) pg MCHC 33.0 (32-36) g/dL RDW Std Deviation 50.5 H (36.4-46.3) fL RDW Coeff of Roni 14.7 H (11.5-14.5) % Plt Count 267 (130-400) K/uL MPV 9.0 (7.4-10.4) fL Immature Gran % (Auto) 0.4 % Neut % (Auto) 85.2 % Lymph % (Auto) 9.4 % Centre % (Auto) 4.0 % Eos % (Auto) 0.4 % Baso % (Auto) 0.6 % Neut # (Auto) 5.73 (1.4-6.5) K/uL Lymph # (Auto) 0.63 L (1.2-3.4) K/uL Centre # (Auto) 0.27 (0.11-0.59) K/uL Eos # (Auto) 0.03 (0-0.5) K/uL Baso # (Auto) 0.04 (0-0.2) K/uL Immature Gran # (Auto) 0.03 H (0.00-0.02) K/uL Sodium 134 L (136-145) mmol/L Potassium 3.5 (3.5-5.1) mmol/L Chloride 101 (98-107) mmol/L Carbon Dioxide 31 (21-32) mmol/L Anion Gap 2.0 L (3-11) BUN 12 (7-18) mg/dl Creatinine 0.76 (0.6-1.2) mg/dl Est Cr Clr Drug Dosing 46.7 ml/min Est GFR ( Amer) 85.9 Est GFR (Non-Af Amer) 74.1 BUN/Creatinine Ratio 15.5 (10-20) Glucose 124 H (70-99) mg/dl Calcium 8.0 L (8.5-10.1) mg/dl Total Bilirubin 0.4 (0.2-1) mg/dl AST 24 (15-37) U/L ALT 57 (12-78) U/L Alkaline Phosphatase 102 (45-117) U/L Total Creatine Kinase 22 L (26-192) U/L Troponin I < 0.015 (0-0.045) ng/ml Total Protein 6.3 L (6.4-8.2) gm/dl Albumin 2.0 L (3.4-5.0) gm/dl Globulin 4.3 H (2.5-4.0) gm/dl Albumin/Globulin Ratio 0.5 L (0.9-2) TSH 8.000 H (0.300-4.500) uIu/ml Free T4 1.23 (0.8-1.6) ng/dl Imaging Data Radiologist's Impression: XR chest 1V portable HISTORY: 79 years-old Female weakness acute weakness COMPARISON: Chest radiographs 04/10/2020 TECHNIQUE: Portable AP view of the chest FINDINGS: Cardiac silhouette is enlarged, unchanged. Calcified plaque of the thoracic aorta. No pneumothorax or overt pulmonary edema. Decreased pulmonary vascular congestion. Mildly improved aeration of the right upper lobe. Improved aeration of left lung with persistent patchy alveolar opacities and small left pleural effusion. Surgical clips project over the left neck. Degenerative changes of the shoulders and spine. IMPRESSION: 1. Cardiomegaly with decreased pulmonary vascular congestion. 2. Mild improvement of the multifocal left lung and right upper lung alveolar opacities. 3. Small left pleural effusion. ECG Data Attestation: I personally reviewed and interpreted this ECG as follows: Indication: + syncope Rate (beats per minute): 74 Rhythm: + normal sinus ECG ST segments: no ST elevation ECG Findings: no PVCs MDM Narrative Patient presents to the ED with complaints of lightheadedness and near syncope and had an initial blood pressure by EMS on scene of 50/20. They provided a 500 cc normal saline bolus in route and her blood pressure here was 94/50. She is currently not experiencing any significant symptoms. Her exam as noted above. Nothing significantly remarkable with exception of her chronic physical changes from her oral cancer. This is reportedly not being treated. I did speak with the son when he came in about the patient's symptoms. She became very shaky and had some involuntary contractions of her hands. The patient's twelve-lead EKG shows normal sinus rhythm. CBC is unremarkable. Hemoglobin is 9.9. This is near baseline. Chest x-ray reveals some cardiomegaly and some other findings as noted above which appear to be improving. The patient blood pressure on recheck after a liter of normal saline was 85/43. The patient did have normal blood pressures during her stay in the hospital. She was discharged yesterday. Because of her recurrent hypotension, she will need further observation in the hospital for further evaluation. Impression & Plan Acute hypotension Discharge Plan Visit Data Chief Complaint: Hypotension Stated Complaint: Hypotension ED Provider: Michael Beverly Discharge Problem: Acute hypotension Patient Disposition: Being Evaluated by Hospitalist Forms Stand Alone Forms: [facility] Prescriptions Prescriptions: No Action multivitamin Tablet 1 tab feeding tube QAM RF: 0 metoprolol tartrate 25 mg tablet 25 mg feeding tube BID RF: 0 Lactinex 1 million cell tablet,chewable 2 tab feeding tube QAM RF: 0 amoxicillin-pot clavulanate 400-57 mg/5 mL Suspension For Reconstitution 11 ml PO BIDM 10 Days Qty: 220 RF: 0 Magic Mouthwash 300 mL mouthwash 5 ml mucous membrane Q4H 10 Days Qty: 300 RF: 0 levothyroxine 100 mcg tablet 100 mcg feeding tube QAM RF: 0 oxycodone 5 mg/5 mL solution 5 mg feeding tube Q4 PRN (Reason: Pain) RF: 0 triamcinolone acetonide 0.1 % cream 1 applic TOPICAL BID PRN (Reason: Inflammation around peg tube) RF: 0 ondansetron 4 mg tablet,disintegrating 4 mg feeding tube Q8 PRN (Reason: Nausea) RF: 0 Referrals Referrals: Ruba Chaidez DO [Primary Care Provider] -
--- NOTE | 2020-04-11 13:10 | XRay Report ---
XR chest 1V portable HISTORY: 79 years-old Female weakness acute weakness COMPARISON: Chest radiographs 04/10/2020 TECHNIQUE: Portable AP view of the chest FINDINGS: Cardiac silhouette is enlarged, unchanged. Calcified plaque of the thoracic aorta. No pneumothorax or overt pulmonary edema. Decreased pulmonary vascular congestion. Mildly improved aeration of the righ t upper lobe. Improved aeration of left lung with persistent patchy alveolar opacities and small left pleural effusion. Surgical clips project over the left neck. Degenerative changes of the shoulders a nd spine. IMPRESSION: 1. Cardiomegaly with decreased pulmonary vascular congestion. 2. Mild improvement of the multifocal left lung and right upper lung alveolar opacities. 3. Small left pleural effusion. ACT 112: Negative or not required by law. The above report was generated using voice recognition software. It may contain grammatical, syntax o r spelling errors. Electronically signed by: Campbell Haddad M.D. 04/11/2020 1:08 PM
[2020-04-11 13:22] LABS: Basophils # (auto) 0.04 K/uL (0-0.2); Basophils % (auto) 0.6 %; Eosinophils # (auto) 0.03 K/uL (0-0.5); Eosinophils % (auto) 0.4 %; Hemoglobin 9.9 g/dL (12.0-16.0); Immature Granulocytes # (auto) 0.03 K/uL (0.00-0.02); Immature Granulocytes % (auto) 0.4 %; Lymphocytes # (auto) 0.63 K/uL (1.2-3.4); Lymphocytes % (auto) 9.4 %; Monocytes # (auto) 0.27 K/uL (0.11-0.59); Neutrophils # (auto) 5.73 K/uL (1.4-6.5); Neutrophils % (auto) 85.2 %; Platelet Count 267 K/uL (130-400); RDW Coefficient of Variation 14.7 % (11.5-14.5); RDW Standard Deviation 50.5 fL (36.4-46.3); Red Blood Count 3.19 M/uL (4.2-5.4); White Blood Count 6.73 K/uL (4.8-10.8)
[2020-04-11 13:42] LABS: Alanine Aminotransferase 57 U/L (12-78); Aspartate Aminotransferase 24 U/L (15-37); BUN Creatinine Ratio 15.5 (10-20); Blood Urea Nitrogen 12 mg/dl (7-18); Carbon Dioxide 31 mmol/L (21-32); Chloride 101 mmol/L (98-107); Creatinine Clr Calc Pharmacy 46.7 ml/min; Est GFR (African American) 85.9; Est GFR (Non-African American) 74.1; Glucose 124 mg/dl (70-99); Potassium 3.5 mmol/L (3.5-5.1); Sodium 134 mmol/L (136-145)
[2020-04-11 13:52] LABS: Albumin Globulin Ratio 0.5 (0.9-2); Alkaline Phosphatase 102 U/L (45-117); Bilirubin,Total 0.4 mg/dl (0.2-1); Creatine Kinase 22 U/L (26-192); Globulin 4.3 gm/dl (2.5-4.0); Total Protein 6.3 gm/dl (6.4-8.2); Troponin I < 0.015 ng/ml (0-0.045)
[2020-04-11 14:05] LABS: T4 Free Thyroxine 1.23 ng/dl (0.8-1.6)
[2020-04-11] MEDS: ACETAMINOPHEN 325 MG TAB PO STA ×2 (15:08→16:17)
[2020-04-11] MEDS ORDERED: SODIUM CHLORIDE 0.9% 1000ML 500 ML IV ONE ×2 (15:33→17:58)
[2020-04-11] MEDS ORDERED: TRIAMCINOLONE ACET 0.1% CR 15 GM TUBE TOP PRN (15:34)
[2020-04-11] MEDS ORDERED: ACETAMINOPHEN 65 ML IV PRN (15:40)
--- NOTE | 2020-04-11 15:41 | History & Physical Report ---
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 Patient has been admitted multiple times in past month for issues concerning of aspiration or loss of consciousness. Patient is returned to hospital by EMS on 04/11/2020 after hypotension event associated with shaking at home. As per the patient's son, woke up in the morning with normal systolic blood pressure of 120 as recorded by him with digital blood pressure cuff. patient also had some free water flushes to the PEG tube and also day time medications including Augmentin suspension and metoprolol. About an hour later, patient's son reported that patient was sitting in chair and looked unwell with her head drooping. Patient's son reports that patient's eyes were opened but staring into space and there were some associated shaking of her body with also her hands in a stiff claw like position. The son also "pounded" on the patient's chest. The patient's symptoms also associated with low blood pressure and was verified by EMS who arrived perhaps 10 minutes later as per the patient's son. Unclear by the history whether any blood sugars were checked at the time. However, by the tiem EMS arrived as per the son, the patient was back to usual mental baseline. In the Emergency room, patient was given IV fluids and interacting appropriately as her usual mental baseline however the blood pressure still low to low normotensive. Patient is baseline at nonverbal because of history of cancer with neck surgery/radiation. But her facial expressions were well animated. She was cooperative on exam. She was able to write to communicate with physician the code status which is full code and this was witnessed by patient's son who talked her through the medical plans as explained by hospitalist. She did not appear to have any other symptoms on review of systems -will give additional IV fluids -sepsis is unlikely because of recent antibiotics from previous hospital stay when she was on IV Zosyn, recheck blood cultures and lactic acid levels, continue outpatient respiratory antibiotics of Augmentin suspension BID by PEG tube -check cortisol levels -check glucose levels qshift -patient has history of Paroxysmal atrial tachycardia but allowed to resume metoprolol when evaluated by cardiology on last hospitalization. monitor on telemetry if any arrhythmia whiling holding metoprolol for now -last time patient was admitted, she had unremarkable neurological workup including negative EEG. check prolactin and CK levels. since the associated hypotension at home included possible seizure symptoms, will request neurology consult to evaluate and plan for repeat EEG on this presentation although the EEG may not be revealing -neurocheck qshift (2) PAT (paroxysmal atrial tachycardia): -patient has history of Paroxysmal atrial tachycardia but allowed to resume metoprolol when evaluated by cardiology on last hospitalization. 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 risk of sedation by narcotic pain medications vs benefits of treating cancer related neck pains -PEG feeding. trial of free water flushes as 300 ml every 6 hours through PEG tibe as well -nutrition consult (4) Stenosis of left internal carotid artery: -Carotid doppler 04/08/2020: "Elevated peak systolic velocity within the left internal carotid suggestive of a 50-69% stenosis. There is however no corresponding visible plaque, and this may be artifactual due to angle measurement error due to the tortuosity of the vessel" -can consider dedicated CTA scan of the neck when blood pressure improves (5) Aspiration pneumonia: -recurrent aspiration pneumonia and recently was on IV on last hospitalization -continue current oral Augmentin suspension (started on 04/11/2020 with plans for 10 days of antibiotics) (6) Hypothyroidism: -TSH is 8, normal free T4 -can continue home dose levothyroxine 100 mcg daily by PEG tube for now Anemia -chronic, stable around 9 to 10 Full Code Status: patient will allow for ICU intervention if central line is needed for vasopressors if blood pressure not responsive to IV fluids History of Present Illness This is a 79 year old female with 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 Patient has been admitted multiple times in past month for issues concerning of aspiration or loss of consciousness. Patient is returned to hospital by EMS on 04/11/2020 after hypotension event associated with shaking at home. As per the patient's son, woke up in the morning with normal systolic blood pressure of 120 as recorded by him with digital blood pressure cuff. patient also had some free water flushes to the PEG tube and also day time medications including Augmentin suspension and metoprolol. About an hour later, patient's son reported that patient was sitting in chair and looked unwell with her head drooping. Patient's son reports that patient's eyes were opened but staring into space and there were some associated shaking of her body with also her hands in a stiff claw like position. The son also "pounded" on the patient's chest. The patient's symptoms also associated with low blood pressure and was verified by EMS who arrived perhaps 10 minutes later as per the patient's son. Unclear by the history whether any blood sugars were checked at the time. However, by the tiem EMS arrived as per the son, the patient was back to usual mental baseline. In the Emergency room, patient was given IV fluids and interacting appropriately as her usual mental baseline however the blood pressure still low to low normotensive. Patient is baseline at nonverbal because of history of cancer with neck surgery/radiation. But her facial expressions were well animated. She was cooperative on exam. She was able to write to communicate with physician the code status which is full code and this was witnessed by patient's son who talked her through the medical plans as explained by hospitalist. She did not appear to have any other symptoms on review of systems Primary Care Provider: Ruba Chaidez, DO Allergies Allergy/AdvReac Type Severity Reaction Status Date / Time No Known Allergies Allergy Unverified 04/11/20 13:50 Home Medications Medication Instructions Recorded Confirmed Type levothyroxine 100 mcg FEEDING TUBE QAM 03/26/20 04/11/20 History ondansetron 4 mg FEEDING TUBE Q8 PRN 03/26/20 04/11/20 History oxycodone 5 mg FEEDING TUBE Q4 PRN 03/26/20 04/11/20 History triamcinolone acetonide 1 applic TOPICAL BID PRN 03/26/20 04/11/20 History Lactinex 2 tab FEEDING TUBE QAM 04/08/20 04/11/20 History metoprolol tartrate 25 mg FEEDING TUBE BID 04/08/20 04/11/20 History multivitamin 1 tab FEEDING TUBE QAM 04/08/20 04/11/20 History Magic Mouthwash 5 ml MUCOUS MEMBRANE Q4H 10 Days 04/10/20 04/11/20 Rx #300 ml amoxicillin-pot clavulanate 11 ml PO BIDM 10 Days #220 ml 04/10/20 04/11/20 Rx Past Med/Surg History Medical History Chronic respiratory failure Hypotension Moderate malnutrition Squamous cell carcinoma Syncope Surgical History H/O neck surgery History of surgical procedure on mouth 2009: Left inferior alveolar ridge s/p resection, left neck dissection (chemoXRT recommended however not started) 02/16-03/07/13: Right Tonsil: Radiation therapy IMRT (Dr. 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 Chauhan) 09/10/15: Right hemimaxillectomy with left RFFF and tracheostomy (Dr. Suarez/José KERN) 07/12/18: WLE right buccal mass, inferior maxillectomy, biopsy left mandibular gingivolabial sulcus lesion, PEG placement (Dr. Luque of [place]) 10/14/18: Composite resection of anterior FOM, marginal mandibulectomy, inner lip and right radial forearm (Dr. Flaherty and Dr. Dsouza) 02/28/19: Excision of left hard palate SCCa/Maxillectomy (Dr. Dsouza) History of tracheostomy Status post split thickness skin graft Family History Denies family history of Coronary heart disease Social History Smoking Status: Never smoker Second Hand Exposure: No; Do You Dip or Chew Tobacco: No; Tobacco Cessation Education Requested by Patient: No Hx Alcohol Use: No Hx Substance Use: No Preferred Language: Lithuanian Communication Ability: Effective Visual Impairment: Limited Hearing Ability: Normal Chief Wellness Officer Required: No Beliefs That Will Affect Care: None marital status: / Current Living Situation: Family Current Living Situation Comment: lives with son current occupational status: retired Other Information That Helps Us Care for You: No Feels Safe at Home: Yes Safety Concerns: Feels Safe At This Time Assistive Devices: None Review of Systems Review of Systems: All systems reviewed & are unremarkable except as noted in Subjective Physical Exam Constitutional: cooperative Eyes: PERRL, conjunctivae normal, anicteric sclerae EOM intact bilaterally ENMT: external ear and nose normal, oropharynx normal Respiratory: normal respiratory effort, lungs clear to auscultation Cardiovascular: Rate/Rhythm: regular rate Gastrointestinal (Abdomen): Percussion/Palpation: abdomen soft (has PEG tube) Musculoskeletal: Head/Neck/Chest: normocephalic Neurologic: moves all extremities and awake Cranial Nerves: EOM intact bilaterally Psychiatric: Orientation: alert and cooperative Eye Contact: good eye contact Results & Data Results & Data ([facility]) Vital Signs (Past 12 Hours) Vital Signs Temp Pulse Resp BP Pulse Ox 04/11/20 15:30 70 22 90/57 L 99 04/11/20 15:08 79 22 88/50 L 97 04/11/20 15:07 77 24 84/44 L 98 04/11/20 15:00 63 19 75/40 L 99 04/11/20 14:30 76 18 81/48 L 98 04/11/20 14:00 76 17 83/48 L 100 04/11/20 13:30 74 15 85/43 L 100 04/11/20 13:01 82 24 83/49 L 100 04/11/20 12:50 84 L 04/11/20 12:35 58 L 18 93 04/11/20 12:23 36.9 C 108 H 17 94/50 L 96 Code Status & VTE Plan VTE Prophylaxis Plan VTE Prophylaxis will be ordered: Yes (1) Aspiration pneumonia Aspiration pneumonia type: unspecified Laterality: bilateral Lung location: unspecified part of lung Qualified Code(s): J69.0 - Pneumonitis due to inhalation of food and vomit
[2020-04-11] MEDS ORDERED: NON-FORMULARY MEDICATION (Magic Mouthwash 300 mL mouthwash) mucous membrane SCH (15:45)
[2020-04-11 16:54] LABS: Cortisol Random 16.88 mcg/dl; Prolactin 9.91 ng/ml
[2020-04-11] MEDS ORDERED: ACETAMINOPHEN 1,000 MG/100 ML VIAL IV PRN (17:45)
[2020-04-11] MEDS ORDERED: MIDODRINE HCL 2.5 MG TAB PO ONE (18:00)
[2020-04-11] MEDS: AMOXICILLIN/CLAVULANATE SUSP 400MG/5ML 50ML BOTTLE PO SCH (18:18)
[2020-04-11] MEDS: TUBE FEEDING WATER FLUSH PEG SCH (18:19)
[2020-04-11] MEDS ORDERED: GLUCAGON 5 MG in DEXTROSE 5% 45 ML IV ONE (19:00)
[2020-04-11] MEDS ORDERED: GLUCAGON 10 MG in SYRINGE 0 ML IV ONE (19:00)
[2020-04-11] MEDS: Magic Swizzle w/Glycerin 240mL MT SCH ×2 (19:02→22:06)
[2020-04-11] MEDS: HEPARIN SOD 5,000 UNIT/0.5 ML VIAL SQ SCH (20:13)
[2020-04-11] MEDS ORDERED: SODIUM CHLORIDE 0.9% 500 ML IV SCH (23:45)
[2020-04-12] MEDS ORDERED: DEXTROSE 50% 50 ML SYRINGE IV STA (00:06)
[2020-04-12] MEDS ORDERED: D5W AND NSS 1,000 ML IV SCH (00:15)
[2020-04-12] MEDS ORDERED: DEXTROSE 50% 50 ML SYRINGE IV ONE (00:16)
[2020-04-12] MEDS: TUBE FEEDING WATER FLUSH PEG SCH ×4 (00:31→17:53)
[2020-04-12] MEDS: Magic Swizzle w/Glycerin 240mL MT SCH ×6 (01:08→20:46)
[2020-04-12 01:10] LABS: Basophils # (auto) 0.02 K/uL (0-0.2); Basophils % (auto) 0.2 %; Eosinophils # (auto) 0.01 K/uL (0-0.5); Eosinophils % (auto) 0.1 %; Hematocrit (blood only) 29.9 % (37-47); Hemoglobin 9.8 g/dL (12.0-16.0); Immature Granulocytes # (auto) 0.02 K/uL (0.00-0.02); Immature Granulocytes % (auto) 0.2 %; Lymphocytes # (auto) 0.25 K/uL (1.2-3.4); Lymphocytes % (auto) 2.8 %; Mean Corpuscular Hemoglobin 31.3 pg (25-34); Mean Corpuscular Hgb Conc 32.8 g/dL (32-36); Mean Corpuscular Volume 95.5 fL (80-100); Mean Platelet Volume 9.8 fL (7.4-10.4); Monocytes # (auto) 0.46 K/uL (0.11-0.59); Monocytes % (auto) 5.2 %; Neutrophils # (auto) 8.06 K/uL (1.4-6.5); Neutrophils % (auto) 91.5 %; Platelet Count 284 K/uL (130-400); RDW Coefficient of Variation 14.9 % (11.5-14.5); RDW Standard Deviation 51.5 fL (36.4-46.3); Red Blood Count 3.13 M/uL (4.2-5.4); White Blood Count 8.82 K/uL (4.8-10.8)
[2020-04-12 01:31] LABS: Alanine Aminotransferase 58 U/L (12-78); Albumin Level 2.1 gm/dl (3.4-5.0); Aspartate Aminotransferase 26 U/L (15-37); BUN Creatinine Ratio 19.6 (10-20); Blood Urea Nitrogen 12 mg/dl (7-18); Calcium 8.1 mg/dl (8.5-10.1); Carbon Dioxide 25 mmol/L (21-32); Chloride 103 mmol/L (98-107); Creatinine Clr Calc Pharmacy 59.1 ml/min; Est GFR (African American) 99.8; Est GFR (Non-African American) 86.1; Glucose 186 mg/dl (70-99); Potassium 3.1 mmol/L (3.5-5.1); Sodium 134 mmol/L (136-145)
[2020-04-12 01:35] LABS: Albumin Globulin Ratio 0.5 (0.9-2); Alkaline Phosphatase 100 U/L (45-117); Bilirubin,Total 0.5 mg/dl (0.2-1); Globulin 4.2 gm/dl (2.5-4.0); Total Protein 6.3 gm/dl (6.4-8.2); Troponin I < 0.015 ng/ml (0-0.045)
[2020-04-12 01:51] LABS: T4 Thyroxine 6.3 mcg/dl (4.5-10.9)
[2020-04-12 01:52] LABS: T3 Free 1.95 pg/ml (2.3-4.2); T3 Total 0.48 ng/ml (0.60-1.81)
[2020-04-12] MEDS ORDERED: LEVOTHYROXINE SODIUM 100 MCG TABLET JT SCH (06:30)
[2020-04-12] MEDS ORDERED: LEVOTHYROXINE SODIUM 25 MCG TABLET PO ONE (06:51)
[2020-04-12] MEDS ORDERED: LACTOBACILLUS ACIDOPHILUS 1 GM PACK PEG SCH (09:00)
[2020-04-12] MEDS: AMOXICILLIN/CLAVULANATE SUSP 400MG/5ML 50ML BOTTLE PO SCH ×2 (10:07→18:52)
[2020-04-12] MEDS: MULTI VIT W/MINERALS LIQUID 15 ML UDP PEG SCH (10:07)
[2020-04-12] MEDS: PEPTAMEN 1.5 CAL 1,000 ML BAG PEG SCH (10:07)
[2020-04-12] MEDS: MIDODRINE HCL 2.5 MG TAB PO SCH ×3 (10:08→17:53)
[2020-04-12] MEDS: HEPARIN SOD 5,000 UNIT/0.5 ML VIAL SQ SCH ×2 (10:08→20:47)
--- NOTE | 2020-04-12 10:45 | Hospitalist Progress Note ---
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 Patient has been admitted multiple times in past month for issues concerning of aspiration or loss of consciousness. Patient is returned to hospital by EMS on 04/11/2020 after hypotension event associated with shaking at home. As per the patient's son, woke up in the morning with normal systolic blood pressure of 120 as recorded by him with digital blood pressure cuff. patient also had some free water flushes to the PEG tube and also day time medications including Augmentin suspension and metoprolol. About an hour later, patient's son reported that patient was sitting in chair and looked unwell with her head drooping. Patient's son reports that patient's eyes were opened but staring into space and there were some associated shaking of her body with also her hands in a stiff claw like position. The son also "pounded" on the patient's chest. The patient's symptoms also associated with low blood pressure and was verified by EMS who arrived perhaps 10 minutes later as per the patient's son. Unclear by the history whether any blood sugars were checked at the time. However, by the tiem EMS arrived as per the son, the patient was back to usual mental baseline. In the Emergency room, patient was given IV fluids and interacting appropriately as her usual mental baseline however the blood pressure still low to low normotensive. Patient is baseline at nonverbal because of history of cancer with neck surgery/radiation. But her facial expressions were well animated. She was cooperative on exam. She was able to write to communicate with physician the code status which is full code and this was witnessed by patient's son who talked her through the medical plans as explained by hospitalist. She did not appear to have any other symptoms on review of systems -was given additional IV fluids -sepsis is unlikely because of recent antibiotics from previous hospital stay when she was on IV Zosyn, recheck blood cultures and lactic acid levels, continue outpatient respiratory antibiotics of Augmentin suspension BID by PEG tube -cortisol levels are not low on admission labs. so she does not likely have an adrenal isnufficiency -check glucose levels qshift -patient has history of Paroxysmal atrial tachycardia but allowed to resume metoprolol when evaluated by cardiology on last hospitalization. monitor on telemetry if any arrhythmia whiling holding metoprolol for now. Glucagon bolus was given on admission. -last time patient was admitted, she had unremarkable neurological workup including negative EEG. normal serum prolactin levels and normal CK levels. since the associated hypotension at home included possible seizure symptoms, will request neurology consult to evaluate and plan for repeat EEG on this presentation although the EEG may not be revealing -neuroco[facility] qshift 04/12/2020 AM assessment: Overnight there was some lower blood sugar recorded as 69 even though patient was given glucagon on admission. Patient was given IV fluids with dextrose. By AM of 04/12/2020, the IV fluids are stopped and PEG feeds to be started up for titration. Additional thyroid labs reviewed and home dose levothyroxine increased from 100 mcg daily to 125 mcg daily by PEG tube. Di scussed with patient/patient's son that any changes to home dose levothyroxine will take several weeks because thyroid levels are changed. brief 04/12/2020 AM run of Paroxysmal Atrial Tachycardia on telemetry - otherwise no other arrhythmia. Patient seen and examined at bedside. She is baseline nonverbal. She appears to be in good spirits and denies any new symptoms or medical concerns on review of systems by her head movements and she decline to list any new complaints by notepad (2) PAT (paroxysmal atrial tachycardia): -patient has history of Paroxysmal atrial tachycardia but allowed to resume metoprolol when evaluated by cardiology on last hospitalization. -monitor on telemetry if any arrhythmia whiling holding metoprolol for now. Glucagon bolus was given on admission. -overnight telemetry reveal a brief 04/12/2020 AM run of PAT. 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 risk of sedation by narcotic pain medications vs benefits of treating cancer related neck pains -restart PEG feeding. with trial of free water flushes as 300 ml every 6 hours through PEG tube, nutrition consult (4) Stenosis of left internal carotid artery: -Carotid doppler 04/08/2020: "Elevated peak systolic velocity within the left internal carotid suggestive of a 50-69% stenosis. There is however no corresponding visible plaque, and this may be artifactual due to angle measurement error due to the tortuosity of the vessel" -can consider dedicated CTA scan of the neck when blood pressure remains stable (5) Aspiration pneumonia: -recurrent aspiration pneumonia and recently was on IV on last hospitalization -continue current oral Augmentin suspension (started on 04/11/2020 with plans for 10 days of antibiotics) (6) Hypothyroidism: -TSH is 8, normal free T4, low T3, low free T4 -in case any contribution to low blood pressures by underactive thyroid, the home dose levothyroxine is increased from 100 mcg daily to 125 mcg daily by PEG tube Anemia -chronic, stable around 9 to 10 Full Code Status Admission and Anticipated Discharge Date Admission Date: April 11, 2020 Subjective Overnight there was some lower blood sugar recorded as 69 even though patient was given glucagon on admission. Patient was given IV fluids with dextrose. By AM of 04/12/2020, the IV fluids are stopped and PEG feeds to be started up for titration. Additional thyroid labs reviewed and home dose levothyroxine increased from 100 mcg daily to 125 mcg daily by PEG tube. Discussed with patient/patient's son that any changes to home dose levothyroxine will take several weeks because thyroid levels are changed. brief 04/12/2020 AM run of Paroxysmal Atrial Tachycardia on telemetry - otherwise no other arrhythmia. Patient seen and examined at bedside. She is baseline nonverbal. She appears to be in good spirits and denies any new symptoms or medical concerns on review of systems by her head movements and she decline to list any new complaints by notepad Review of Systems Review of Systems: All systems reviewed & are unremarkable except as noted in Subjective Physical Exam Constitutional: cooperative Eyes: PERRL, conjunctivae normal, anicteric sclerae EOM intact bilaterally ENMT: external ear and nose normal, oropharynx normal Neck: nontender Respiratory: normal respiratory effort, lungs clear to auscultation Cardiovascular: Rate/Rhythm: regular rate Gastrointestinal (Abdomen): Percussion/Palpation: abdomen soft (has PEG tube) Musculoskeletal: Head/Neck/Chest: normocephalic Neurologic: moves all extremities and awake Cranial Nerves: EOM intact bilaterally Psychiatric: Orientation: alert and cooperative Eye Contact: good eye contact Results & Data Results & Data ([facility]) Vital Signs (Past 12 Hours) Vital Signs Temp Pulse Pulse Resp BP Pulse Ox 04/12/20 07:30 68 04/12/20 07:04 36.7 C 70 18 107/69 99 04/12/20 05:33 133/72 04/12/20 03:16 36.5 C 72 18 90/51 L 98 04/12/20 00:40 105/64 04/11/20 23:29 36.8 C 64 18 79/43 L 96 (1) Aspiration pneumonia Aspiration pneumonia type: unspecified Laterality: bilateral Lung location: unspecified part of lung Qualified Code(s): J69.0 - Pneumonitis due to inhalation of food and vomit
[2020-04-12] MEDS: POTASSIUM CHLORIDE / WTR 10 MEQ/100 ML PLCT IV SCH ×2 (13:44→15:14)
--- NOTE | 2020-04-12 15:36 | Communication Note ---
Date of Service: April 12, 2020 I saw and very briefly today, reviewed her chart, discussed the event of this morning with her son by telephone and have also interpreted her EEG. She is a woman with advanced head and neck cancer post resection with radiation who has a number of other medical problems including anemia aspiration pneumonia hypotension possibly of stenosis of the left internal carotid artery by the prior duplex examination and has had some atrial tach arrhythmias and at least one prior episode of syncope which was evaluated extensively last admission beginning about a week ago She was home for a day was giving herself I think a third tube feeding and then became poorly responsive had some tonic movements of her extremities had a little pallor and extremely irregular cardiac rhythm determined by her pulse oximetry clinical lab technologist arrived had significant hypotension of 80/50 but then revived quickly once her cardiac rhythm became more regular and has been stable ever since albeit with a significantly low baseline blood pressure but is without any obvious symptoms CAT scans have shown age-appropriate changes occluding a leukoencephalopathy but no recent infarcts and again the duplex did suggest either an artifactual issue with the left internal carotid or perhaps a poorly localizable stenosis and CT angiography was recommended for further assessment An EEG done during the last hospital admission was normal and another one today is normal At this point I think the most likely cause for recurrent syncope is diminished cerebral blood flow perhaps due to some reflexive hypotension induced by tube feeding, perhaps by some tachy cardia with atrial arrhythmias but we really have nothing to suggest a primary cerebral originating seizure and the seizure-like activity described by her son is quite appropriate for global cerebral hypoperfusion My only suggestion would be to go ahead with the CT angiography suggested on the basis of the last duplex just to be sure she does not have any post radiation induced stenoses of the carotid or that the head and neck cancer is not beginning to erode into the carotid itself or into the carotid sinus area with irritation and production of secondary arrhythmias and vascular instability Oli Sheridan MD
--- NOTE | 2020-04-12 15:41 | Electroencephalogram ---
EEG Procedure Note Date of Service April 12, 2020 Start / End Times Start Time: 1233 End Time: 12 5 3 Referring Physician Oli Sheridan MD History Recurrent syncope question seizures Home Medication List Medication Instructions Recorded Confirmed Type levothyroxine 100 mcg FEEDING TUBE QAM 03/26/20 04/11/20 History ondansetron 4 mg FEEDING TUBE Q8 PRN 03/26/20 04/11/20 History oxycodone 5 mg FEEDING TUBE Q4 PRN 03/26/20 04/11/20 History triamcinolone acetonide 1 applic TOPICAL BID PRN 03/26/20 04/11/20 History Lactinex 2 tab FEEDING TUBE QAM 04/08/20 04/11/20 History metoprolol tartrate 25 mg FEEDING TUBE BID 04/08/20 04/11/20 History multivitamin 1 tab FEEDING TUBE QAM 04/08/20 04/11/20 History Magic Mouthwash 5 ml MUCOUS MEMBRANE Q4H 10 Days 04/10/20 04/11/20 Rx #300 ml amoxicillin-pot clavulanate 11 ml PO BIDM 10 Days #220 ml 04/10/20 04/11/20 Rx Inpatient Medication List Amoxicillin/Clavulanate Potassium (Amoxicillin/Clavulanate Susp 400mg/5ml 50ml Bottle) 875 mg PO BIDM [facility] Stop: 04/18/20 16:59 Last Admin: 04/12/20 10:07 Dose: 875 mg Documented by: [id number] Admin: 04/11/20 18:18 Dose: 875 mg Documented by: [id number] Lidocaine HCl 60 ml/Diphenhydramine HCl 150 mg/ Al Hydrox/Mg Hydrox/Simethicone 60 ml/ Glycerin 60 ml/ BARCODE IDENTIFIER 1 ea 0 ml MT Q4H [facility]ERNA[place] Stop: 05/11/20 17:59 Last Admin: 04/12/20 13:45 Dose: 5 ml Documented by: [id number] Admin: 04/12/20 10:08 Dose: Not Given Documented by: [id number] Admin: 04/12/20 05:52 Dose: Not Given Documented by: [id number] Admin: 04/12/20 01:08 Dose: Not Given Documented by: [id number] Admin: 04/11/20 22:06 Dose: Not Given Documented by: [id number] Admin: 04/11/20 19:02 Dose: Not Given Documented by: [id number] Enteral Nutritional Formula (Peptamen 1.5 Armando 1,000 Ml Bag) 1,000 ml PEG .CONTINUOUS BERNADETTE; Protocol Stop: 05/12/20 06:59 Last Admin: 04/12/20 10:07 Dose: 1,000 ml Documented by: [id number] Heparin Sodium (Porcine) (Heparin Sod 5,000 Unit/0.5 Ml Vial) 5,000 units SQ Q12 BERNA[place] Stop: 05/11/20 20:59 Last Admin: 04/12/20 10:08 Dose: 5,000 units Documented by: [id number] Admin: 04/11/20 20:13 Dose: 5,000 units Documented by: [id number] Acetaminophen (Ofirmev) 1,000 mg in 100 mls @ 400 mls/hr IV Q8H PRN; Protocol PRN Reason: Pain or Fever Stop: 04/14/20 17:44 Last Infusion: 04/12/20 02:20 Dose: 0 mls/hr Documented by: [id number] Admin: 04/12/20 02:05 Dose: 400 mls/hr Documented by: [id number] Lactobacillus Acidophilus (Lactobacillus Acidophilus 1 Gm Pack) 1 gm PEG QAM [place]NA[place] Stop: 05/12/20 08:59 Last Admin: 04/12/20 10:08 Dose: 1 gm Documented by: [id number] Midodrine (Midodrine Hcl 2.5 Mg Tab) 5 mg PO TID@0800,1200,1700 BERNA[place] Stop: 05/12/20 07:59 Last Admin: 04/12/20 13:45 Dose: 5 mg Documented by: [id number] Admin: 04/12/20 10:08 Dose: 5 mg Documented by: [id number] Multivitamins/Minerals (Multi Vit W/Minerals Liquid 15 Ml Udp) 15 ml PEG QAM BERNADETTE Stop: 05/12/20 08:59 Last Admin: 04/12/20 10:07 Dose: 15 ml Documented by: [id number] Sterile Water (Tube Feeding Water Flush) 300 ml PEG Q6H [place] Stop: 05/11/20 17:59 Last Admin: 04/12/20 13:45 Dose: 300 ml Documented by: [id number] Admin: 04/12/20 05:52 Dose: 300 ml Documented by: [id number] Admin: 04/12/20 00:31 Dose: 300 ml Documented by: [id number] Admin: 04/11/20 18:19 Dose: 300 ml Documented by: [id number] Discontinued Medications Acetaminophen (Acetaminophen 325 Mg Tab) 650 mg PO NOW STA Stop: 04/11/20 14:58 Last Admin: 04/11/20 16:17 Dose: Not Given Documented by: [id number] Dextrose (Dextrose 50% 50 Ml Syringe) 50 ml IV NOW STA Stop: 04/12/20 00:07 Last Admin: 04/12/20 00:25 Dose: 50 ml Documented by: [id number] Dextrose (Dextrose 50% 50 Ml Syringe) Confirm Administered Dose 50 ml IV .STK- MED ONE Stop: 04/12/20 00:17 Last Admin: 04/12/20 00:32 Dose: Not Given Documented by: [id number] Sodium Chloride (Nss 1000ml) 1,000 mls @ 999 mls/hr IV .Q1H1M [place] Stop: 04/11/20 13:30 Last Infusion: 04/11/20 13:41 Dose: 0 mls/hr Documented by: [id number] Admin: 04/11/20 12:33 Dose: 999 mls/hr Documented by: [id number] Sodium Chloride (Nss 1000ml) 500 mls @ 999 mls/hr IV .Q31M ONE Stop: 04/11/20 16:03 Last Infusion: 04/11/20 16:09 Dose: 0 mls/hr Documented by: [id number] Admin: 04/11/20 15:38 Dose: 999 mls/hr Documented by: [id number] Sodium Chloride (Nss 1000ml) 1,000 mls @ 80 mls/hr IV .[id number] [place]ERNA[place] Stop: 04/12/20 06:29 Last Infusion: 04/12/20 00:49 Dose: 0 mls/hr Documented by: [id number] Infusion: 04/11/20 23:45 Dose: 0 mls/hr Documented by: [id number] Infusion: 04/11/20 18:53 Dose: 80 mls/hr Documented by: [id number] Infusion: 04/11/20 18:09 Dose: 0 mls/hr Documented by: [id number] Admin: 04/11/20 17:47 Dose: 80 mls/hr Documented by: [id number] Sodium Chloride (Nss 1000ml) 500 mls @ 999 mls/hr IV .Q31M ONE Stop: 04/11/20 18:28 Last Infusion: 04/11/20 18:53 Dose: 0 mls/hr Documented by: [id number] Admin: 04/11/20 18:09 Dose: 999 mls/hr Documented by: [id number] Glucagon 10 mg/ Syringe 10 mls @ 1 mls/min IV TODAY@1900 ONE Stop: 04/11/20 19:09 Last Admin: 04/11/20 19:24 Dose: 1 mls/min Documented by: [id number] Glucagon 5 mg/ Dextrose 50 mls @ 30 mls/hr IV TODAY@1900 ONE Stop: 04/11/20 20:39 Last Infusion: 04/11/20 22:05 Dose: 0 mg/hr, 0 mls/hr Documented by: [id number] Admin: 04/11/20 19:24 Dose: 3 mg/hr, 30 mls/hr Documented by: [id number] Sodium Chloride (Nss) 500 mls @ 250 mls/hr IV .Q2H [place] Stop: 04/12/20 00:44 Last Infusion: 04/12/20 00:45 Dose: 0 mls/hr Documented by: [id number] Admin: 04/11/20 23:45 Dose: 250 mls/hr Documented by: [id number] Dextrose/Sodium Chloride (D5w And Nss) 1,000 mls @ 80 mls/hr IV .[id number] [place]ERNA[place] Stop: 05/12/20 00:14 Last Infusion: 04/12/20 07:36 Dose: 0 mls/hr Documented by: [id number] Admin: 04/12/20 00:49 Dose: 80 mls/hr Documented by: [id number] Potassium Chloride (K Roverto / Wtr) 10 meq in 100 mls @ 100 mls/hr IV Q1H [place] Stop: 04/12/20 14:59 Last Admin: 04/12/20 15:14 Dose: 100 mls/hr Documented by: [id number] Infusion: 04/12/20 14:51 Dose: 0 mls/hr Documented by: [id number] Admin: 04/12/20 13:44 Dose: 100 mls/hr Documented by: [id number] Infusion: 04/12/20 13:44 Dose: 100 mls/hr Documented by: [id number] Admin: 04/12/20 13:44 Dose: 100 mls/hr Documented by: [id number] Levothyroxine Sodium (Levothyroxine Sodium 100 Mcg Tablet) 100 mcg JT DAILYBB [place] Stop: 05/12/20 06:29 Last Admin: 04/12/20 05:52 Dose: 100 mcg Documented by: [id number] Levothyroxine Sodium (Levothyroxine Sodium 25 Mcg Tablet) 25 mcg PO ONE ONE Stop: 04/12/20 06:52 Last Admin: 04/12/20 10:07 Dose: 25 mcg Documented by: [id number] Midodrine (Midodrine Hcl 2.5 Mg Tab) 5 mg PO ONCE ONE Stop: 04/11/20 18:01 Last Admin: 04/11/20 18:18 Dose: 5 mg Documented by: [id number] Description This is a 21 electrode EEG with a single channel dedicated to limited EKG. The electrodes were placed in accordance with the International 10-20 system. This EEG was done as a bedside recording is of excellent technical quality with no muscle artifacts. Video analysis patient movement and behavior was obtained. Because this light sleep were not seen. Photic stimulation was performed These conditions there is evidence for normal background rhythm in the alpha range of up to 10 Hz and maximum frequency and 30 V a maximum amplitude which is symmetrical in maximum posterior head regions. Polymorphic mid to upper frequency modest voltage theta activity is seen symmetrically over the central regions. Beta activity seen bifrontally Photic stimulation produces no important changes No time during the tracing is or evidence for potentially epileptogenic activity form polyspike and spike-wave burst, focal sharp waves or focal spikes Interpretation This is a normal EEG during wakefulness Clinical Correlation This is a normal EEG failing to reveal evidence for focal or generalized encephalopathy and failing to reveal evidence for potentially epileptogenic activity Oli Sheridan MD
[2020-04-12] MEDS ORDERED: OPTIRAY 320 125ml IV ONE (17:30)
--- NOTE | 2020-04-12 18:03 | Communication Note ---
Date of Service: April 12, 2020 The CTA head and neck is performed and discussed with radiologist Dr. Olivier of a previous outpatient report on [employer] system of imaging dating to 02/21/2020 (CT NECK W CONTRAST-02/21/2020 4:40 pm COMPARISON: CT scan 02/08/2019 TECHNIQUE: Axial scanning performed through the neck at 1 mm intervals with intravenous contrast. Sagittal and coronal reconstructions. FINDINGS: ORBITS AND SKULL BASE: The visualized intracranial and intraorbital contents are normal. SINUSES AND MASTOIDS: The tympanic cavities and mastoid air cells are well aerated. NASOPHARYNX/NASAL CAVITY: Nasal cavity and nasopharynx are widely patent. SUPRAHYOID NECK: Postsurgical changes of mandibulectomy and reconstruction. Resection of floor of the right maxillary sinus and right hard palate. Partial glossectomy. Multiple surgical clips in the floor of the mouth and tonsillar fossae. Bilateral neck dissection with excision of the right jugular vein. New mass present surrounding left internal carotid artery. The mass measures approximately 2.5 x 1.8 cm in diameter and extends 5.4 cm cephalocaudal from the level of C2 to the skull base. The mass apparently narrows internal carotid artery. The mass abuts the left vertebral artery. Previously seen metabolically active soft tissue below left maxilla appear stable. INFRAHYOID NECK: Bilateral neck dissections. There are retained secretions in the vallecula and hypopharynx. The epiglottis, supraglottis, glottis, cervical esophagus, and trachea are normal. GLANDS: The parotid and thyroid glands are atrophic. Submandibular glands are not visualized. Thyroid is grossly unremarkable by CT evaluation. LYMPH NODES: No lymphadenopathy. THORACIC INLET: The pulmonary apices and superior mediastinum are normal. VASCULATURE: Surgically absent right internal jugular vein. Left internal carotid is narrowed by surrounding mass.. MUSCULOSKELETAL: Postsurgical changes. Edentulous maxilla. Several dental implants in the mandible. Chronic depression of superior endplate of T2.. IMPRESSION: Chronic postsurgical changes. 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
--- NOTE | 2020-04-12 18:06 | CT Scan Report ---
CT ANGIOGRAM OF THE BRAIN; CT ANGIOGRAM OF THE NECK CLINICAL HISTORY: Syncope. Neurological symptoms. 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 Abnormal carotid ultrasound. COMPARISON STUDY: Unenhanced CT of the brain dated 04/08/2020. Carotid artery ultrasound dated 04/08. TECHNIQUE: Following the IV administration of 116 of Optiray 320, CT angiogram of the head and neck w as performed from the aortic arch to the vertex. Images are reviewed in the axial, sagittal, and kaylee nal planes. 3-D MIPS images are created and assessed. IV contrast was administered without complicati on. All measurements were calculated based on NASCET criteria. A dose lowering technique was utilize d adhering to the principles of ALARA. CT DOSE: 462.70 mGy.cm FINDINGS: Brain parenchyma: There is age-related involutional change noting mild subcortical and periventricula r microangiopathic disease. There is no hemorrhage, mass effect, or evidence of acute territorial isc hemia by CT criteria. There is no evidence of enhancing mass lesion on the angiogram phase images. Th e ventricles, sulci, and cisterns are prominent secondary to involutional change. The pineal gland is densely calcified. Bingham-white matter differentiation is preserved. No extra-axial fluid collection i s seen. Thoracic aorta: Visualized portions of the thoracic aorta are normal in caliber. The aortic arch demo nstrates 4-vessel variant anatomy. The left vertebral artery arises directly from the thoracic aorta. Right carotid arterial system: The right common carotid artery is widely patent, as are the right int ernal and external carotid arteries. Mild plaque is seen in the carotid bulb. Left carotid arterial system: The left common carotid artery is widely patent, as is the left externa l carotid artery. There is a large heterogeneous/complex fluid collection versus necrotic mass encasi ng the distal left internal carotid artery. This extends from just above the bifurcation to the skull base and measures approximately 5 x 2 x 2.5 cm as seen on axial image #240. There is a long segment of approximately 50% luminal narrowing of the mid to distal left internal carotid artery in this vahe on. The minimum diameter measures up to 2.5 mm as seen on image #255. This may extend into the left t ransverse foramen at the level of C1-C2 on image #246 and partially encase the left vertebral artery. Layering secretions are noted in the pharynx. Vertebral arteries: The vertebral arteries are widely patent bilaterally and codominant. Subclavian arteries: Widely patent bilaterally. Intracranial vasculature: The internal carotid arteries are patent at the skull base, as are the ante rior and middle cerebral arteries bilaterally. The vertebrobasilar system and posterior cerebral carley blank[place] are widely patent. The vertebral arteries are codominant. There is no aneurysm, high-grade steno sis, or focal vessel cut off seen throughout the intracranial circulation. Jugular veins: The right jugular vein is not identified and presumed surgically absent. The left inte rnal jugular vein is patent, with significant effacement at the level of C2-C3 as seen on image #214. Gas within the left internal jugular vein is likely related to injection. Dural sinuses: Patent. Lung apices: A left pleural effusion is partially visualized. Upper lobe lung parenchyma is otherwise clear as imaged. Soft tissues: Extensive postoperative change is suggested in the visualized pharynx/floor of the mout h. Surgical clips and soft tissue infiltration is seen throughout the left neck. Surgical clips are a lso identified throughout the right neck. As noted above there is a heterogeneous/complex collection versus necrotic mass lesion encasing the left internal carotid artery as above. There is effacement o f the left parapharyngeal fat, and as noted above this extends into the left transverse foramen at C1 and C2. The oropharyngeal airway appears patent. The thyroid gland is atrophic versus surgically abs ent. The parotid glands are atrophic and grossly unremarkable. The submandibular glands are not visua lized and presumed surgically absent. No discrete cervical lymphadenopathy is identified. Skeletal structures: The skeletal structures are osteopenic. The calvarium appears intact. The cervic al spine is maintained noting multilevel spondylosis. There is a mild superior endplate compression d eformity of T2. No lytic or blastic lesion is seen. Orbits: The bony orbits are intact. Orbital contents are normal as visualized. Sinuses and mastoids: There is trace mucosal thickening within the maxillary antra and the ethmoid si nuses. The remaining paranasal sinuses are clear. The mastoid air cells are well pneumatized. IMPRESSION: 1. There is no hemorrhage, mass effect, or evidence of acute territorial ischemia by CT criteria noti ng angiographic phase technique. 2. Unremarkable CT angiogram of the brain. 3. The right internal carotid artery in the vertebral arteries are widely patent in the neck. 4. There is a large heterogeneous/complex fluid collection or mass in the left neck which encases the left internal carotid artery. This causes a long segment of at least 50% luminal narrowing of the mi d to distal internal carotid artery. 5. This lesion also extends into the left parapharyngeal region and also involves the left transverse foramen at C1 and C2. This likely at least partially encases the left vertebral artery at this level . 6. Postoperative change is seen bilaterally with soft tissue infiltration throughout the left neck. C orrelation with the patient's oncological and surgical history will be required. 7. The right internal jugular vein is not identified and presumed surgically absent. 8. There is significant effacement of the left internal jugular vein which remains patent. Findings were discussed with Dr. Ortega at the time of interpretation. ACT 112: Negative or not required by law. Electronically signed by: Shree Olivier M.D. 04/12/2020 6:05 PM
--- NOTE | 2020-04-12 21:12 | Electrocardiogram Report ---
Test Reason : Blood Pressure : / mmHG Vent. Rate : 074 BPM Atrial Rate : 074 BPM P-R Int : 128 ms QRS Dur : 072 ms QT Int : 414 ms P-R-T Axes : 020 -42 003 degrees QTc Int : 459 ms Poor data quality, interpretation may be adversely affected Sinus rhythm Left axis deviation Cannot rule out Anterior infarct (cited on or before 09-APR-2020) Abnormal ECG When compared with ECG of 10-APR-2020 07:20, No significant change Confirmed by Sammy Borjas ([id number]) on 04/12/2020 9:12:03 PM Referred By: REFERRED SELF Confirmed By:Sammy Borjas
[2020-04-13] MEDS: TUBE FEEDING WATER FLUSH PEG SCH ×4 (01:29→17:19)
[2020-04-13] MEDS: Magic Swizzle w/Glycerin 240mL MT SCH ×6 (01:30→20:51)
[2020-04-13] MEDS: LEVOTHYROXINE SODIUM 125 MCG TABLET PO SCH (06:30)
[2020-04-13 08:48] LABS: Albumin Globulin Ratio 0.5 (0.9-2); Albumin Level 2.3 gm/dl (3.4-5.0); BUN Creatinine Ratio 9.6 (10-20); Bilirubin,Total 0.4 mg/dl (0.2-1); Calcium 9.3 mg/dl (8.5-10.1); Creatinine Clr Calc Pharmacy 73.9 ml/min; Est GFR (African American) 107.4; Est GFR (Non-African American) 92.6; Globulin 4.8 gm/dl (2.5-4.0); Total Protein 7.1 gm/dl (6.4-8.2)
[2020-04-13] MEDS: AMOXICILLIN/CLAVULANATE SUSP 400MG/5ML 50ML BOTTLE PO SCH ×2 (08:57→18:02)
[2020-04-13] MEDS: ADVANCED PROBIOTIC 1250 MG CAPSULE PO SCH (08:57)
[2020-04-13] MEDS: HEPARIN SOD 5,000 UNIT/0.5 ML VIAL SQ SCH ×2 (08:57→20:50)
[2020-04-13] MEDS: MULTI VIT W/MINERALS LIQUID 15 ML UDP PEG SCH (08:57)
[2020-04-13] MEDS: MIDODRINE HCL 2.5 MG TAB PO SCH ×3 (08:58→17:19)
[2020-04-13] MEDS ORDERED: BACITRACIN OINT 15 GM TUBE EXT ONE (09:23)
--- NOTE | 2020-04-13 09:23 | Hospitalist Progress Note ---
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 Patient has been admitted multiple times in past month for issues concerning of aspiration or loss of consciousness. Patient is returned to hospital by EMS on 04/11/2020 after hypotension event associated with shaking at home. As per the patient's son Demetri [phone], the patient woke up in the morning with normal systolic blood pressure of 120 as recorded by him with digital blood pressure cuff. patient also had some free water flushes to the PEG tube and also day time medications including Augmentin suspension and metoprolol. About an hour later, patient's son reported that patient was sitting in chair and looked unwell with her head drooping. Patient's son reports that patient's eyes were opened but staring into space and there were some associated shaking of her body with also her hands in a stiff claw like position. The son also "pounded" on the patient's chest. The patient's symptoms also associated with low blood pressure and was verified by EMS who arrived perhaps 10 minutes later as per the patient's son. Unclear by the history whether any blood sugars were checked at the time. However, by the tiem EMS arrived as per the son, the patient was back to usual mental baseline. -In the Emergency room, patient was given IV fluids and interacting appropriately as her usual mental baseline however the blood pressure still low to low normotensive. Patient is baseline at nonverbal because of history of cancer with neck surgery/radiation. But her facial expressions were well animated. She was cooperative on exam. She was able to write to communicate with physician the code status which is full code and this was witnessed by patient's son who talked her through the medical plans as explained by hospitalist. She did not appear to have any other symptoms on review of systems -On this hospital return as of 04/12/2020, multiple workups have been done to rule out differentials Patient's blood pressure required greater than 2 liters of IV fluids before improving to stability Her metoprolol was held in case of any contribution from beta paulo to the initial low blood pressures, she was given glucagon initially The telemetry shows occasional paroxysmal tachycardia, which is known to have occurred in the past, and no other arrythmias to date Her admission cortisol levels were not low, rules out adrenal insufficiency as cause of hypertension Sepsis from any underlying bacterial infection was not suspected because when she was discharged on 04/10/2020, she was still on IV Zosyn for aspiration pneumonia. her blood cultures no growth and she can continue the outpatient discharge plans of Augmentin oral suspension by PEG tubes (estimated to be for 10 day course from 04/10/2020) The EEG again on this admission did not find evidence for seizure like activity The patient has hypothyroidism with further increases of TSH levels, with low total T3 and low free T3 levels but normal free T4 levels, her levothyroxine was increased on this admission from 100 mcg daily to 125 mcg daily by PEG feeds starting on 04/12/2020 but unlikely to be the sole cause of initial hypotension Her glucose levels were monitored while restarting PEG feeds in the hospital - have recommended to patient and her son that patient should go home with kangaroo pump to help with tube feeds rather than self feeds. This could be set up on Wednesday04/15/2020 for home use as per community case manager. However patient expressed some reservations about being on tube feeds with pump because she worries this will limit her mobility compared to when she self feeds at home. Hospitalist recommends that she try the tube feed protocol at home and see how much she can deviate from that as per her comfort and wishes Continued the workup of the neck with CTA head and neck completed on 04/12/2020 that basically showed chronic surgical changes to her anatomy and continues to show cancer around left internal carotid area -04/13/2020 have discussed the recent hospital workup and imaging tests with patient and her son Demetri and that much as of the symptomatic problems of syncope in the past is likely related to aspiration due to the surgical anatomy of oropharynx and previously known tumor invasion of the neck. Discussed with Dr. Sunil Roman oncology of these impressions and he plans to see patient as outpatient to discuss whether any role of chemotherapy in regards to current cancer situation. (2) PAT (paroxysmal atrial tachycardia): -patient has history of Paroxysmal atrial tachycardia but allowed to resume metoprolol when evaluated by cardiology on last hospitalization. -monitor on telemetry if any arrhythmia whiling holding metoprolol for now. Glucagon bolus was given on admission. -overnight telemetry reveal a brief 04/12/2020 AM run of PAT. 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 -(a summary of patient's surgical history from head/neck cancer are documented in this outpatient surgery clinic note on 01/05/2020 Department of Otolaryngology - Head and Neck Surgery Facial Plastic Surgery [address] [id number] Diagnosis: 2009: T1N0 Oral Cavity (Left inferior alveolar ridge) SCC 2012: T1N1M0 Oropharyngeal (Right Tonsil) SCC 2015: Oral Cavity Recurrence 07/12/18: pT2 cN0 M0 Oral Cavity (Right Buccal/Maxillary, left gingivobuccal gingiva) SCCa 02/15/2019: [id number] Oral Cavity Recurrence (left maxilla) SCC Treatment History: 2009: Left inferior alveolar ridge s/p resection, left neck dissection (chemoXRT recommended however not started) 02/16-03/07/13: Right Tonsil: Radiation therapy IMRT (Dr. 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 Chauhan) 09/10/15: Right hemimaxillectomy with left RFFF and tracheostomy (Dr. Suarez/José KERN) 07/12/18: WLE right buccal mass, inferior maxillectomy, biopsy left mandibular gingivolabial sulcus lesion, PEG placement (Dr. Luque of [place]) 10/14/18: Composite resection of anterior FOM, marginal mandibulectomy, inner lip and right radial forearm (Dr. Flaherty and Dr. Dsouza) 02/28/19: Excision of left hard palate SCCa/Maxillectomy (Dr. Dsouza)) -outpatient report on [facility] system of imaging dating to 02/21/2020 (CT NECK W CONTRAST-02/21/2020 4:40 pm, COMPARISON: CT scan 02/08/2019 (FINDINGS: ORBITS AND SKULL BASE: The visualized intracranial and intraorbital contents are normal. SINUSES AND MASTOIDS: The tympanic cavities and mastoid air cells are well aerated. NASOPHARYNX/NASAL CAVITY: Nasal cavity and nasopharynx are widely patent. SUPRAHYOID NECK: Postsurgical changes of mandibulectomy and reconstruction. Resection of floor of the right maxillary sinus and right hard palate. Partial glossectomy. Multiple surgical clips in the floor of the mouth and tonsillar fossae. Bilateral neck dissection with excision of the right jugular vein. New mass present surrounding left internal carotid artery. The mass measures approximately 2.5 x 1.8 cm in diameter and extends 5.4 cm cephalocaudal from the level of C2 to the skull base. The mass apparently narrows internal carotid artery. The mass abuts the left vertebral artery. Previously seen metabolically active soft tissue below left maxilla appear stable. INFRAHYOID NECK: Bilateral neck dissections. There are retained secretions in the vallecula and hypopharynx. The epiglottis, supraglottis, glottis, cervical esophagus, and trachea are normal. GLANDS: The parotid and thyroid glands are atrophic. Submandibular glands are not visualized. Thyroid is grossly unremarkable by CT evaluation. LYMPH NODES: No lymphadenopathy. THORACIC INLET: The pulmonary apices and superior mediastinum are normal. VASCULATURE: Surgically absent right internal jugular vein. Left internal carotid is narrowed by surrounding mass.. MUSCULOSKELETAL: Postsurgical changes. Edentulous maxilla. Several dental implants in the mandible. Chronic depression of superior endplate of T2.. IMPRESSION: Chronic postsurgical changes. New mass in left upper neck surrounding the internal carotid artery consistent with recurrent tumor.) -there is a outpatient PET CT SKULL BASE TO MID-THIGH - 03/04/2020 IMPRESSION 1. FDG avid pre-spinal lesion surrounding the carotid artery, near the skull base, as detailed on the recent diagnostic CT neck, consistent with neoplastic disease. 2. FDG avid soft tissue lesion extending from the inferior margin of the midline mandible. This is consistent with either neoplasm or infection. 3. FDG avid left hilar nodule and nodule along the cranial aspect of the left major fissure. These are new since the prior PET-CT and most likely malignant -cannot take food or medications by mouth -Magic mouthwash 5 ml every 4 hours as needed for throat pain as a swish and spit -re-assess pain medications. risk of sedation by narcotic pain medications vs benefits of treating cancer related neck pains -restart PEG feeding. with trial of free water flushes as 300 ml every 6 hours through PEG tube, nutrition consult -04/13/2020. Discussed with Dr. Sunil Roman oncology of these impressions and he plans to see patient as outpatient to discuss whether any role of chemotherapy in regards to current cancer situation. Patient will need this upcoming appointment to be scheduled patient's lower jaw area with ulcer that occasionally bleeds from contact with face mask, cleaning as per nursing care and trial of bacitracin (4) Stenosis of left internal carotid artery: due to cancer mass inpatient [facility] -Carotid doppler 04/08/2020: "Elevated peak systolic velocity within the left internal carotid suggestive of a 50-69% stenosis. There is however no corresponding visible plaque" Head/Neck CTA with contrast 04/12/2020 (1. There is no hemorrhage, mass effect, or evidence of acute territorial ischemia by CT criteria noting angiographic phase technique. 2. Unremarkable CT angiogram of the brain. 3. The right internal carotid artery in the vertebral arteries are widely patent in the neck. 4. There is a large heterogeneous/complex fluid collection or mass in the left neck which encases the left internal carotid artery. This causes a long segment of at least 50% luminal narrowing of the mid to distal internal carotid artery. 5. This lesion also extends into the left parapharyngeal region and also involves the left transverse foramen at C1 and C2. This likely at least partially encases the left vertebral artery at this level. 6. Postoperative change is seen bilaterally with soft tissue infiltration throughout the left neck. Correlation with the patient's oncological and surgical history will be required. 7. The right internal jugular vein is not identified and presumed surgically absent. 8. There is significant effacement of the left internal jugular vein which remains patent.) (5) Aspiration pneumonia: -recurrent aspiration pneumonia and recently was on IV on last hospitalization -continue current oral Augmentin suspension (started on 04/11/2020 with plans for 10 days of antibiotics) -on this admission, nurse have observed oral secretions that needs to be suctioned, patient get suctioning by son at home (6) Hypothyroidism: -TSH is 8, normal free T4, low T3, low free T3 -in case any contribution to low blood pressures by underactive thyroid, the home dose levothyroxine is increased from 100 mcg daily to 125 mcg daily by PEG tube Anemia -chronic, stable around 9 to 10 Full Code Status Admission and Anticipated Discharge Date Admission Date: April 11, 2020 Subjective 04/13/2020 have discussed the recent hospital workup and imaging tests with patient and her son Demetri and that much as of the symptomatic problems of syncope in the past is likely related to aspiration due to the surgical anatomy of oropharynx and previously known tumor invasion of the neck. Discussed with Dr. Sunil Roman oncology of these impressions and he plans to see patient as outpatient to discuss whether any role of chemotherapy in regards to current cancer situation. patient continues to be currently stable. no arrhythmia besides occasional PAT on telemetry and heart rate controlled. nurse assists with suctioning. patient's lower jaw area with ulcer that occasionally bleeds from contact with face mask. patient otherwise denies other symptoms on review of systems by communicating with her by speaking to her and notepad Review of Systems Review of Systems: All systems reviewed & are unremarkable except as noted in Subjective Physical Exam Constitutional: cooperative Eyes: PERRL, conjunctivae normal, anicteric sclerae EOM intact bilaterally ENMT: Mouth: + oropharynx abnormality (lower mandible resected with partial tongue removed, ulcer of lower jaw) Respiratory: normal respiratory effort, lungs clear to auscultation Cardiovascular: Rate/Rhythm: regular rate Gastrointestinal (Abdomen): Percussion/Palpation: abdomen soft (has PEG tube) Musculoskeletal: Head/Neck/Chest: normocephalic Neurologic: moves all extremities and awake Cranial Nerves: EOM intact bilaterally Psychiatric: Orientation: alert and cooperative Eye Contact: good eye contact Results & Data Results & Data ([facility]) Vital Signs (Past 12 Hours) Vital Signs Temp Pulse Pulse Resp BP Pulse Ox 04/13/20 07:23 93 H 04/13/20 07:11 36.5 C 91 H 16 138/80 95 04/13/20 04:00 36.3 C L 91 H 20 160/80 H 94 (1) Aspiration pneumonia Aspiration pneumonia type: unspecified Laterality: bilateral Lung location: unspecified part of lung Qualified Code(s): J69.0 - Pneumonitis due to inhalation of food and vomit
--- NOTE | 2020-04-13 09:48 | Electrocardiogram Report ---
Test Reason : Blood Pressure : / mmHG Vent. Rate : 094 BPM Atrial Rate : 094 BPM P-R Int : 132 ms QRS Dur : 074 ms QT Int : 378 ms P-R-T Axes : 054 -44 018 degrees QTc Int : 472 ms Normal sinus rhythm Left axis deviation Low voltage QRS Cannot rule out Old Anterior infarct (cited on or before 09-APR-2020) Abnormal ECG When compared with ECG of 11-APR-2020 12:21, No significant change was found Confirmed by Demetri Law ([id number]) on 04/13/2020 9:48:16 AM Referred By: REFERRED SELF Confirmed By:Demetri Law
[2020-04-13] MEDS ORDERED: POTASSIUM CHLORIDE 20 MEQ/15 ML UDC PO STA (11:46)
[2020-04-13] MEDS: POTASSIUM CHLORIDE / WTR 10 MEQ/100 ML PLCT IV SCH ×3 (13:01→16:55)
[2020-04-13] MEDS: PEPTAMEN 1.5 CAL 1,000 ML BAG PEG SCH (13:02)
--- NOTE | 2020-04-13 16:56 | Communication Note ---
Date of Service: April 13, 2020 hospitalist informed by nurse that when she walked into patient's room, patient's eyes were opened but not really responding to her. She checked blood p ressure and it was low. Glucose levels were normal and review of telemetry did not show arrhythmia. Patient was subsequently able to respond to nurse. Upon questioning by nurse, patient reports she was having pain of the right wrist as the IV potassium was running. Nurse denies any sounds of aspiration. On physical exam by hospitalist, patient breathing comfortably. A bolus of IV fluids is being ordered note that patient already on trial of midrodrine and PEG feeds were being hung. from this information, it seems like hypotensive episode was vasovagal in nature due to pain. will continue to monitor patient on telemetry and monitor blood pressure after IV fluids completed
[2020-04-13] MEDS ORDERED: SODIUM CHLORIDE 0.9% 1000ML 1,000 ML IV SCH (17:15)
[2020-04-14] MEDS: Magic Swizzle w/Glycerin 240mL MT SCH ×6 (00:26→20:29)
[2020-04-14] MEDS: TUBE FEEDING WATER FLUSH PEG SCH ×4 (00:26→17:26)
[2020-04-14] MEDS: LEVOTHYROXINE SODIUM 125 MCG TABLET PO SCH (05:24)
[2020-04-14 07:01] LABS: Basophils # (auto) 0.02 K/uL (0-0.2); Basophils % (auto) 0.4 %; Eosinophils # (auto) 0.08 K/uL (0-0.5); Eosinophils % (auto) 1.4 %; Hematocrit (blood only) 33.7 % (37-47); Hemoglobin 10.9 g/dL (12.0-16.0); Immature Granulocytes # (auto) 0.01 K/uL (0.00-0.02); Immature Granulocytes % (auto) 0.2 %; Lymphocytes # (auto) 0.59 K/uL (1.2-3.4); Lymphocytes % (auto) 10.6 %; Mean Corpuscular Hemoglobin 30.5 pg (25-34); Mean Corpuscular Hgb Conc 32.3 g/dL (32-36); Mean Corpuscular Volume 94.4 fL (80-100); Mean Platelet Volume 10.2 fL (7.4-10.4); Monocytes # (auto) 0.53 K/uL (0.11-0.59); Monocytes % (auto) 9.5 %; Neutrophils # (auto) 4.35 K/uL (1.4-6.5); Neutrophils % (auto) 77.9 %; Platelet Count 318 K/uL (130-400); RDW Coefficient of Variation 14.9 % (11.5-14.5); RDW Standard Deviation 51.3 fL (36.4-46.3); Red Blood Count 3.57 M/uL (4.2-5.4); White Blood Count 5.58 K/uL (4.8-10.8)
[2020-04-14 07:31] LABS: Albumin Level 2.2 gm/dl (3.4-5.0); BUN Creatinine Ratio 14.3 (10-20); Calcium 8.9 mg/dl (8.5-10.1); Creatinine Clr Calc Pharmacy 80.7 ml/min; Est GFR (African American) 110.5; Est GFR (Non-African American) 95.3; Potassium 3.8 mmol/L (3.5-5.1)
[2020-04-14 07:35] LABS: Albumin Globulin Ratio 0.5 (0.9-2); Bilirubin,Total 0.3 mg/dl (0.2-1); Globulin 4.7 gm/dl (2.5-4.0); Total Protein 6.9 gm/dl (6.4-8.2)
[2020-04-14] MEDS: MIDODRINE HCL 2.5 MG TAB PO SCH ×3 (08:30→17:26)
[2020-04-14] MEDS: MULTI VIT W/MINERALS LIQUID 15 ML UDP PEG SCH (08:30)
[2020-04-14] MEDS: ADVANCED PROBIOTIC 1250 MG CAPSULE PO SCH (08:30)
[2020-04-14] MEDS: BACITRACIN OINT 15 GM TUBE EXT SCH (08:30)
[2020-04-14] MEDS: AMOXICILLIN/CLAVULANATE SUSP 400MG/5ML 50ML BOTTLE PO SCH ×2 (08:31→17:26)
[2020-04-14] MEDS: HEPARIN SOD 5,000 UNIT/0.5 ML VIAL SQ SCH ×2 (08:31→20:29)
[2020-04-14] MEDS ORDERED: METOPROLOL TARTRATE 1 MG/ML VIAL IV STA (10:14)
--- NOTE | 2020-04-14 10:47 | Hospitalist Progress Note ---
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 Patient has been admitted multiple times in past month for issues concerning of aspiration or loss of consciousness. Patient is returned to hospital by EMS on 04/11/2020 after hypotension event associated with shaking at home. As per the patient's son Demetri [phone], the patient woke up in the morning with normal systolic blood pressure of 120 as recorded by him with digital blood pressure cuff. patient also had some free water flushes to the PEG tube and also day time medications including Augmentin suspension and metoprolol. About an hour later, patient's son reported that patient was sitting in chair and looked unwell with her head drooping. Patient's son reports that patient's eyes were opened but staring into space and there were some associated shaking of her body with also her hands in a stiff claw like position. The son also "pounded" on the patient's chest. The patient's symptoms also associated with low blood pressure and was verified by EMS who arrived perhaps 10 minutes later as per the patient's son. Unclear by the history whether any blood sugars were checked at the time. However, by the tiem EMS arrived as per the son, the patient was back to usual mental baseline. -In the Emergency room, patient was given IV fluids and interacting appropriately as her usual mental baseline however the blood pressure still low to low normotensive. Patient is baseline at nonverbal because of history of cancer with neck surgery/radiation. But her facial expressions were well animated. She was cooperative on exam. She was able to write to communicate with physician the code status which is full code and this was witnessed by patient's son who talked her through the medical plans as explained by hospitalist. She did not appear to have any other symptoms on review of systems -On this hospital return as of 04/12/2020, multiple workups have been done to rule out differentials Patient's blood pressure required greater than 2 liters of IV fluids before improving to stability Her metoprolol was held in case of any contribution from beta paulo to the initial low blood pressures, she was given glucagon initially The telemetry shows occasional paroxysmal tachycardia, which is known to have occurred in the past, and no other arrhythmias to date Her admission cortisol levels were not low, rules out adrenal insufficiency as cause of hypertension Sepsis from any underlying bacterial infection was not suspected because when she was discharged on 04/10/2020, she was still on IV Zosyn for aspiration pneumonia. her blood cultures no growth and she can continue the outpatient discharge plans of Augmentin oral suspension by PEG tubes (estimated to be for 10 day course from 04/10/2020) Trial of midodrine also started in case of orthostatic or postural hypotension The EEG again on this admission did not find evidence for seizure like activity The patient has hypothyroidism with further increases of TSH levels, with low total T3 and low free T3 levels but normal free T4 levels, her levothyroxine was increased on this admission from 100 mcg daily to 125 mcg daily by PEG feeds starting on 04/12/2020 but unlikely to be the sole cause of initial hypotension Her glucose levels were monitored while restarting PEG feeds in the hospital - have recommended to patient and her son that patient should go home with kangaroo pump to help with tube feeds rather than self feeds. This could be set up on Wednesday04/15/2020 for home use as per corrections caseworker. However patient expressed some reservations about being on tube feeds with pump because she worries this will limit her mobility compared to when she self feeds at home. Hospitalist recommends that she try the tube feed protocol at home and see how much she can deviate from that as per her comfort and wishes Continued the workup of the neck with CTA head and neck completed on 04/12/2020 that basically showed chronic surgical changes to her anatomy and continues to show cancer around left internal carotid area -04/13/2020 have discussed the recent hospital workup and imaging tests with patient and her son Demetri and that much as of the symptomatic problems of syncope in the past is likely related to either aspiration due to the surgical anatomy of oropharynx and previously known tumor invasion of the neck, or from vasovagal episodes from pain. Hypotension associated with vasovagal symptoms is more likely differential at this time (On evening of 04/13/2020 hospitalist informed by nurse that when she walked into patient's room, patient's eyes were opened but not really responding to her. She checked blood pressure and it was low as 70/40. Glucose levels were normal and review of telemetry did not show arrhythmia. Patient was subsequently able to respond to nurse. Upon questioning by nurse, patient reports she was having pain of the right wrist as the IV potassium was running. Nurse denies any sounds of aspiration. On physical exam by hospitalist, patient breathing comfortably. note that patient already on trial of midrodrine and PEG feeds were being hung. A bolus of IV fluids helped with resolving the hypotension) -04/14/2020: No acute events since evening of 04/13/2020. As per discussions with patient's son and patient the goal is to see if she can be discharged in the coming weekdays and follow with Dr. Sunil Roman oncology about any role of chemotherapy/immunotherapy (hospitalist updated Dr. Roman by telephone on 04/13/2020) - And also on ensuring that patient has appropriate pumps for tube feeding which requires case management efforts. re-assessment by Wednesday04/15/2020 when discharge services are available (2) PAT (paroxysmal atrial tachycardia): -patient has history of Paroxysmal atrial tachycardia but allowed to resume metoprolol when evaluated by cardiology on last hospitalization. -monitor on telemetry if any arrhythmia whiling holding metoprolol for now. Glucagon bolus was given on admission. -overnight telemetry reveal a brief 04/12/2020 AM run of PAT. 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 -(a summary of patient's surgical history from head/neck cancer are documented in this outpatient surgery clinic note on 01/05/2020 Department of Otolaryngology - Head and Neck Surgery Facial Plastic Surgery [address] [id number] Diagnosis: 2009: T1N0 Oral Cavity (Left inferior alveolar ridge) SCC 2013: T1N1M0 Oropharyngeal (Right Tonsil) SCC 2015: Oral Cavity Recurrence 07/12/18: pT2 cN0 M0 Oral Cavity (Right Buccal/Maxillary, left gingivobuccal gingiva) SCCa 02/15/2019: [id number] Oral Cavity Recurrence (left maxilla) SCC Treatment History: 2009: Left inferior alveolar ridge s/p resection, left neck dissection (chemoXRT recommended however not started) 02/16-03/07/13: Right Tonsil: Radiation therapy IMRT (Dr. 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 Chauhan) 09/10/15: Right hemimaxillectomy with left RFFF and tracheostomy (Dr. Suarez/José KERN) 07/12/18: WLE right buccal mass, inferior maxillectomy, biopsy left mandibular gingivolabial sulcus lesion, PEG placement (Dr. Luque of [facility]) 10/14/18: Composite resection of anterior FOM, marginal mandibulectomy, inner lip and right radial forearm (Dr. Flaherty and Dr. Dsouza) 02/28/19: Excision of left hard palate SCCa/Maxillectomy (Dr. Dsouza)) -outpatient report on [employer] system of imaging dating to 02/21/2020 (CT NECK W CONTRAST-02/21/2020 4:40 pm, COMPARISON: CT scan 02/08/2019 (FINDINGS: ORBITS AND SKULL BASE: The visualized intracranial and intraorbital contents are normal. SINUSES AND MASTOIDS: The tympanic cavities and mastoid air cells are well aerated. NASOPHARYNX/NASAL CAVITY: Nasal cavity and nasopharynx are widely patent. SUPRAHYOID NECK: Postsurgical changes of mandibulectomy and reconstruction. Resection of floor of the right maxillary sinus and right hard palate. Partial glossectomy. Multiple surgical clips in the floor of the mouth and tonsillar fossae. Bilateral neck dissection with excision of the right jugular vein. New mass present surrounding left internal carotid artery. The mass measures approximately 2.5 x 1.8 cm in diameter and extends 5.4 cm cephalocaudal from the level of C2 to the skull base. The mass apparently narrows internal carotid artery. The mass abuts the left vertebral artery. Previously seen metabolically active soft tissue below left maxilla appear stable. INFRAHYOID NECK: Bilateral neck dissections. There are retained secretions in the vallecula and hypopharynx. The epiglottis, supraglottis, glottis, cervical esophagus, and trachea are normal. GLANDS: The parotid and thyroid glands are atrophic. Submandibular glands are not visualized. Thyroid is grossly unremarkable by CT evaluation. LYMPH NODES: No lymphadenopathy. THORACIC INLET: The pulmonary apices and superior mediastinum are normal. VASCULATURE: Surgically absent right internal jugular vein. Left internal carotid is narrowed by surrounding mass.. MUSCULOSKELETAL: Postsurgical changes. Edentulous maxilla. Several dental implants in the mandible. Chronic depression of superior endplate of T2.. IMPRESSION: Chronic postsurgical changes. New mass in left upper neck surrounding the internal carotid artery consistent with recurrent tumor.) -there is a outpatient PET CT SKULL BASE TO MID-THIGH - 03/04/2020 IMPRESSION 1. FDG avid pre-spinal lesion surrounding the carotid artery, near the skull base, as detailed on the recent diagnostic CT neck, consistent with neoplastic disease. 2. FDG avid soft tissue lesion extending from the inferior margin of the midline mandible. This is consistent with either neoplasm or infection. 3. FDG avid left hilar nodule and nodule along the cranial aspect of the left major fissure. These are new since the prior PET-CT and most likely malignant -cannot take food or medications by mouth -Magic mouthwash 5 ml every 4 hours as needed for throat pain as a swish and spit -re-assess pain medications. risk of sedation by narcotic pain medications vs benefits of treating cancer related neck pains -restart PEG feeding. with trial of free water flushes as 300 ml every 6 hours through PEG tube, nutrition consult -04/13/2020. Discussed with Dr. Sunil Roman oncology of these impressions and he plans to see patient as outpatient to discuss whether any role of chemotherapy in regards to current cancer situation. Patient will need this upcoming appointment to be scheduled patient's lower jaw area with ulcer that occasionally bleeds from contact with face mask, cleaning as per nursing care and trial of bacitracin. no bleeding seen on 04/14/2020 (4) Stenosis of left internal carotid artery: due to cancer mass inpatient [facility] imaging Carotid doppler 04/08/2020: "Elevated peak systolic velocity within the left internal carotid suggestive of a 50-69% stenosis. There is however no corresponding visible plaque" Head/Neck CTA with contrast 04/12/2020 (1. There is no hemorrhage, mass effect, or evidence of acute territorial ischemia by CT criteria noting angiographic phase technique. 2. Unremarkable CT angiogram of the brain. 3. The right internal carotid artery in the vertebral arteries are widely patent in the neck. 4. There is a large heterogeneous/complex fluid collection or mass in the left neck which encases the left internal carotid artery. This causes a long segment of at least 50% luminal narrowing of the mid to distal internal carotid artery. 5. This lesion also extends into the left parapharyngeal region and also involves the left transverse foramen at C1 and C2. This likely at least partially encases the left vertebral artery at this level. 6. Postoperative change is seen bilaterally with soft tissue infiltration throughout the left neck. Correlation with the patient's oncological and surgical history will be required. 7. The right internal jugular vein is not identified and presumed surgically absent. 8. There is significant effacement of the left internal jugular vein which remains patent.) -discussed as above (5) Aspiration pneumonia: -recurrent aspiration pneumonia and recently was on IV on last hospitalization -continue current oral Augmentin suspension (started on 04/11/2020 with plans for 10 days of antibiotics) -on this admission, nurse have observed oral secretions that needs to be suctioned, patient get suctioning by son at home (6) Hypothyroidism: -TSH is 8, normal free T4, low T3, low free T3 -in case any contribution to low blood pressures by underactive thyroid, the home dose levothyroxine is increased from 100 mcg daily to 125 mcg daily by PEG tube Anemia -chronic, stable around 9 to 10 Full Code Status Admission and Anticipated Discharge Date Admission Date: April 11, 2020 Subjective -04/14/2020: No acute events since evening of 04/13/2020. As per discussions with patient's son and patient the goal is to see if she can be discharged in the coming and follow with Dr. Sunil Roman oncology about any role of chemotherapy/immunotherapy (hospitalist updated Dr. Roman by telephone on 04/13/2020) - And also on ensuring that patient has appropriate pumps for tube feeding which requires case management efforts. re-assessment by Wednesday04/15/2020 when discharge services are available patient on exam with good expression and denies acute symptoms on review of systems since evening of 04/13/2020. Patient is not in distress Review of Systems Review of Systems: All systems reviewed & are unremarkable except as noted in Subjective Physical Exam Constitutional: cooperative Eyes: PERRL, conjunctivae normal, anicteric sclerae EOM intact bilaterally ENMT: external ear and nose normal, oropharynx normal Mouth: + oropharynx abnormality (lower mandible resected with partial tongue removed, ulcer of lower jaw) Respiratory: normal respiratory effort, lungs clear to auscultation Cardiovascular: Rate/Rhythm: regular rate Gastrointestinal (Abdomen): Percussion/Palpation: abdomen soft (has PEG tube) Musculoskeletal: Head/Neck/Chest: normocephalic Neurologic: moves all extremities and awake Cranial Nerves: EOM intact bilaterally Psychiatric: Orientation: alert and cooperative Eye Contact: good eye contact Results & Data Results & Data ([facility]) Vital Signs (Past 12 Hours) Vital Signs Temp Pulse Pulse Resp BP BP Pulse Ox 04/14/20 07:18 37.2 C 90 18 133/74 94 04/14/20 05:04 88 04/14/20 04:20 36.9 C 83 18 122/73 94 04/13/20 23:00 37.1 C 88 16 156/83 H 93 (1) Aspiration pneumonia Aspiration pneumonia type: unspecified Laterality: bilateral Lung location: unspecified part of lung Qualified Code(s): J69.0 - Pneumonitis due to inhalation of food and vomit
[2020-04-14] MEDS: PEPTAMEN 1.5 CAL 1,000 ML BAG PEG SCH (12:21)
[2020-04-14] MEDS ORDERED: SODIUM CHLORIDE 0.9% 1000ML 250 ML IV ONE (16:01)
[2020-04-15] MEDS: TUBE FEEDING WATER FLUSH PEG SCH ×3 (00:01→12:32)
[2020-04-15] MEDS: Magic Swizzle w/Glycerin 240mL MT SCH ×4 (01:49→14:14)
[2020-04-15] MEDS: LEVOTHYROXINE SODIUM 125 MCG TABLET PO SCH (05:24)
[2020-04-15 08:25] LABS: BUN Creatinine Ratio 20.2 (10-20); Calcium 9.6 mg/dl (8.5-10.1); Creatinine Clr Calc Pharmacy 72.4 ml/min; Est GFR (African American) 106.6; Potassium 3.9 mmol/L (3.5-5.1)
[2020-04-15] MEDS: AMOXICILLIN/CLAVULANATE SUSP 400MG/5ML 50ML BOTTLE PO SCH (09:02)
[2020-04-15] MEDS: MIDODRINE HCL 2.5 MG TAB PO SCH ×2 (09:02→11:46)
[2020-04-15] MEDS: ADVANCED PROBIOTIC 1250 MG CAPSULE PO SCH (09:03)
[2020-04-15] MEDS: MULTI VIT W/MINERALS LIQUID 15 ML UDP PEG SCH (09:03)
[2020-04-15] MEDS: HEPARIN SOD 5,000 UNIT/0.5 ML VIAL SQ SCH ×2 (09:11→11:57)
[2020-04-15] MEDS ORDERED: PANTOprazole 40 MG TAB PO SCH (10:00)
[2020-04-15] MEDS ORDERED: LANSOPRAZOLE 30 MG SOLTAB PEG SCH (10:30)
--- NOTE | 2020-04-15 10:31 | Hospitalist Progress Note ---
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 Patient has been admitted multiple times in past month for issues concerning of aspiration or loss of consciousness. Patient is returned to hospital by EMS on 04/11/2020 after hypotension event associated with shaking at home. As per the patient's son Demetri [phone], the patient woke up in the morning with normal systolic blood pressure of 120 as recorded by him with digital blood pressure cuff. patient also had some free water flushes to the PEG tube and also day time medications including Augmentin suspension and metoprolol. About an hour later, patient's son reported that patient was sitting in chair and looked unwell with her head drooping. Patient's son reports that patient's eyes were opened but staring into space and there were some associated shaking of her body with also her hands in a stiff claw like position. The son also "pounded" on the patient's chest. The patient's symptoms also associated with low blood pressure and was verified by EMS who arrived perhaps 10 minutes later as per the patient's son. Unclear by the history whether any blood sugars were checked at the time. However, by the tiem EMS arrived as per the son, the patient was back to usual mental baseline. -In the Emergency room, patient was given IV fluids and interacting appropriately as her usual mental baseline however the blood pressure still low to low normotensive. Patient is baseline at nonverbal because of history of cancer with neck surgery/radiation. But her facial expressions were well animated. She was cooperative on exam. She was able to write to communicate with physician the code status which is full code and this was witnessed by patient's son who talked her through the medical plans as explained by hospitalist. She did not appear to have any other symptoms on review of systems -On this hospital return as of 04/12/2020, multiple workups have been done to rule out differentials Patient's blood pressure required greater than 2 liters of IV fluids before improving to stability Her metoprolol was held in case of any contribution from beta paulo to the initial low blood pressures, she was given glucagon initially The telemetry shows occasional paroxysmal tachycardia, which is known to have occurred in the past, and no other arrhythmias to date Her admission cortisol levels were not low, rules out adrenal insufficiency as cause of hypertension Sepsis from any underlying bacterial infection was not suspected because when she was discharged on 04/10/2020, she was still on IV Zosyn for aspiration pneumonia. her blood cultures no growth and she can continue the outpatient discharge plans of Augmentin oral suspension by PEG tubes (estimated to be for 10 day course from 04/10/2020) Trial of midodrine also started in case of orthostatic or postural hypotension The EEG again on this admission did not find evidence for seizure like activity The patient has hypothyroidism with further increases of TSH levels, with low total T3 and low free T3 levels but normal free T4 levels, her levothyroxine was increased on this admission from 100 mcg daily to 125 mcg daily by PEG feeds starting on 04/12/2020 but unlikely to be the sole cause of initial hypotension Her glucose levels were monitored while restarting PEG feeds in the hospital - have recommended to patient and her son that patient should go home with ka ngaroo pump to help with tube feeds rather than self feeds. 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 However patient expressed some reservations about being on tube feeds with pump because she worries this will limit her mobility compared to when she self feeds at home. Hospitalist recommends that she try the tube feed protocol at home and see how much she can deviate from that as per her comfort and wishes Continued the workup of the neck with CTA head and neck completed on 04/12/2020 that basically showed chronic surgical changes to her anatomy and continues to show cancer around left internal carotid area -04/13/2020 have discussed the recent hospital workup and imaging tests with patient and her son Demetri and that much as of the symptomatic problems of syncope in the past is likely related to either aspiration due to the surgical anatomy of oropharynx and previously known tumor invasion of the neck, or from vasovagal episodes from pain. Hypotension associated with vasovagal symptoms is more likely differential at this time (On evening of 04/13/2020 hospitalist informed by nurse that when she walked into patient's room, patient's eyes were opened but not really responding to her. She checked blood pressure and it was low as 70/40. Glucose levels were normal and review of telemetry did not show arrhythmia. Patient was subsequently able to respond to nurse. Upon questioning by nurse, patient reports she was having pain of the right wrist as the IV potassium was running. Nurse denies any sounds of aspiration. On physical exam by hospitalist, patient breathing comfortably. note that patient already on trial of midrodrine and PEG feeds were being hung. A bolus of IV fluids helped with resolving the hypotension) -04/14/2020: No acute events since evening of 04/13/2020. As per discussions with patient's son and patient the goal is to see if she can be discharged in the coming weekdays and follow with Dr. Sunil Roman oncology about any role of chemotherapy/immunotherapy (hospitalist updated Dr. Roman by telephone on 04/13/2020) - And also on ensuring that patient has appropriate pumps for tube feeding which requires case management efforts. re-assessment by Wednesday04/15/2020 when discharge services are available 04/15/2020 discharge to home with home health services (originally patient was resumed Peptamen 1.5 while in the hospital with 300 ml q6 hour free water flushes by PEG tube). As per discharge dietary services recommendations that patient to be provided discharge on these Prescriptions of Isosource 1.5 with goal rate of 65 ml/hr x 18 hours per day and free water flushes to 225 ml QID which are to be coordinated by [facility] as per case management patient can finish home dose Augmentin from previous admission Stop metoprolol from discharge medications because of hypotensive episodes discharge medication of sent electronically to her preferred pharmacy of bacitracin ointment for the lower jaw, pantoprazole daily be PEG tube to reduce gastric reflux while on tube feeds, midrodrine 5 mg TID by PEG tube to prevent orthostatic hypotension, levothyroxine 125 mcg by PEG tube daily upcoming appointments 04/16/2020 9:45 AM Provider Sunil Roman MD Department Hematology/Oncology [facility] 04/18/2020 10:00 AM Provider Nurse Annual Wellness [facility] Department Ancillary [facility] 04/18/2020 11:20 AM Provider Ruba Chaidez DO Department Family Practice [facility] 04/23/2020 11:30 AM Provider Mike Flaherty DO Department Otolaryngology/Head & Neck/Facial Plastic Surgery (2) PAT (paroxysmal atrial tachycardia): -patient has history of Paroxysmal atrial tachycardia but allowed to resume metoprolol when evaluated by cardiology on last hospitalization. -monitor on telemetry if any arrhythmia whiling holding metoprolol for now. Glucagon bolus was given on admission. 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 -(a summary of patient's surgical history from head/neck cancer are documented in this outpatient surgery clinic note on 01/05/2020 Department of Otolaryngology - Head and Neck Surgery Facial Plastic Surgery [address] [id number] Diagnosis: 2009: T1N0 Oral Cavity (Left inferior alveolar ridge) SCC 2012: T1N1M0 Oropharyngeal (Right Tonsil) SCC 2015: Oral Cavity Recurrence 07/12/18: pT2 cN0 M0 Oral Cavity (Right Buccal/Maxillary, left gingivobuccal gingiva) SCCa 02/15/2019: [id number] Oral Cavity Recurrence (left maxilla) SCC Treatment History: 2010: Left inferior alveolar ridge s/p resection, left neck dissection (chemoXRT recommended however not started) 02/16-03/07/13: Right Tonsil: Radiation therapy IMRT (Dr. 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 Chauhan) 09/10/15: Right hemimaxillectomy with left RFFF and tracheostomy (Dr. Suarez/José KERN) 07/12/18: WLE right buccal mass, inferior maxillectomy, biopsy left mandibular gingivolabial sulcus lesion, PEG placement (Dr. Luque of [place]) 10/14/18: Composite resection of anterior FOM, marginal mandibulectomy, inner lip and right radial forearm (Dr. Flaherty and Dr. Dsouza) 02/28/19: Excision of left hard palate SCCa/Maxillectomy (Dr. Dsouza)) -outpatient report on [facility] of imaging dating to 02/21/2020 (CT NECK W CONTRAST-02/21/2020 4:40 pm, COMPARISON: CT scan 02/08/2019 (FINDINGS: ORBITS AND SKULL BASE: The visualized intracranial and intraorbital contents are normal. SINUSES AND MASTOIDS: The tympanic cavities and mastoid air cells are well aer ated. NASOPHARYNX/NASAL CAVITY: Nasal cavity and nasopharynx are widely patent. SUPRAHYOID NECK: Postsurgical changes of mandibulectomy and reconstruction. Resection of floor of the right maxillary sinus and right hard palate. Partial glossectomy. Multiple surgical clips in the floor of the mouth and tonsillar fossae. Bilateral neck dissection with excision of the right jugular vein. New mass present surrounding left internal carotid artery. The mass measures approximately 2.5 x 1.8 cm in diameter and extends 5.4 cm cephalocaudal from the level of C2 to the skull base. The mass apparently narrows internal carotid artery. The mass abuts the left vertebral artery. Previously seen metabolically active soft tissue below left maxilla appear stable. INFRAHYOID NECK: Bilateral neck dissections. There are retained secretions in the vallecula and hypopharynx. The epiglottis, supraglottis, glottis, cervical esophagus, and trachea are normal. GLANDS: The parotid and thyroid glands are atrophic. Submandibular glands are not visualized. Thyroid is grossly unremarkable by CT evaluation. LYMPH NODES: No lymphadenopathy. THORACIC INLET: The pulmonary apices and superior mediastinum are normal. VASCULATURE: Surgically absent right internal jugular vein. Left internal carotid is narrowed by surrounding mass.. MUSCULOSKELETAL: Postsurgical changes. Edentulous maxilla. Several dental implants in the mandible. Chronic depression of superior endplate of T2.. IMPRESSION: Chronic postsurgical changes. New mass in left upper neck surrounding the internal carotid artery consistent with recurrent tumor.) -there is a outpatient PET CT SKULL BASE TO MID-THIGH - 03/04/2020 IMPRESSION 1. FDG avid pre-spinal lesion surrounding the carotid artery, near the skull base, as detailed on the recent diagnostic CT neck, consistent with neoplastic disease. 2. FDG avid soft tissue lesion extending from the inferior margin of the midline mandible. This is consistent with either neoplasm or infection. 3. FDG avid left hilar nodule and nodule along the cranial aspect of the left major fissure. These are new since the prior PET-CT and most likely malignant -cannot take food or medications by mouth -Magic mouthwash 5 ml every 4 hours as needed for throat pain as a swish and spit -re-assess pain medications. risk of sedation by narcotic pain medications vs benefits of treating cancer related neck pains -restart PEG feeding. with trial of free water flushes as 300 ml every 6 hours through PEG tube, nutrition consult -04/13/2020. Discussed with Dr. Sunil Roman oncology of these impressions and he plans to see patient as outpatient to discuss whether any role of chemotherapy in regards to current cancer situation. Patient will need this upcoming appointment to be scheduled patient's lower jaw area with ulcer that occasionally bleeds from contact with face mask, cleaning as per nursing care and trial of bacitracin. no bleeding seen on 04/14/2020 (4) Stenosis of left internal carotid artery: due to cancer mass inpatient [facility] imaging Carotid doppler 04/08/2020: "Elevated peak systolic velocity within the left internal carotid suggestive of a 50-69% stenosis. There is however no corresponding visible plaque" Head/Neck CTA with contrast 04/12/2020 (1. There is no hemorrhage, mass effect, or evidence of acute territorial ischemia by CT criteria noting angiographic phase technique. 2. Unremarkable CT angiogram of the brain. 3. The right internal carotid artery in the vertebral arteries are widely patent in the neck. 4. There is a large heterogeneous/complex fluid collection or mass in the left neck which encases the left internal carotid artery. This causes a long segment of at least 50% luminal narrowing of the mid to distal internal carotid artery. 5. This lesion also extends into the left parapharyngeal region and also involves the left transverse foramen at C1 and C2. This likely at least partially encases the left vertebral artery at this level. 6. Postoperative change is seen bilaterally with soft tissue infiltration throughout the left neck. Correlation with the patient's oncological and surgi annabelle history will be required. 7. The right internal jugular vein is not identified and presumed surgically absent. 8. There is significant effacement of the left internal jugular vein which remains patent.) -discussed as above (5) Aspiration pneumonia: -recurrent aspiration pneumonia and recently was on IV on last hospitalization -continue current oral Augmentin suspension (started on 04/11/2020 with plans for 10 days of antibiotics) -on this admission, nurse have observed oral secretions that needs to be suctioned, patient get suctioning by son at home (6) Hypothyroidism: -TSH is 8, normal free T4, low T3, low free T3 -in case any contribution to low blood pressures by underactive thyroid, the home dose levothyroxine is increased from 100 mcg daily to 125 mcg daily by PEG tube Anemia -chronic, stable around 9 to 10 Full Code Status Admission and Anticipated Discharge Date Admission Date: April 11, 2020 Subjective Patient did not have any acute dizziness or nausea. she reports some lower jaw irritation. otherwise, she denies any pain to chest, abdomen area. 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 is finalizing tube feed services for discharge Review of Systems Review of Systems: All systems reviewed & are unremarkable except as noted in Subjective Physical Exam Constitutional: cooperative Eyes: PERRL, conjunctivae normal, anicteric sclerae EOM intact bilaterally ENMT: external ear and nose normal, oropharynx normal Mouth: + oropharynx abnormality (lower mandible resected with partial tongue removed, ulcer of lower jaw) Respiratory: normal respiratory effort, lungs clear to auscultation Cardiovascular: Rate/Rhythm: regular rate Gastrointestinal (Abdomen): Percussion/Palpation: abdomen soft (has PEG tube) Musculoskeletal: Head/Neck/Chest: normocephalic Neurologic: moves all extremities and awake Cranial Nerves: EOM intact bilaterally Psychiatric: Orientation: alert and cooperative Eye Contact: good eye contact Results & Data Results & Data ([facility]) Vital Signs (Past 12 Hours) Vital Signs Temp Pulse Pulse Resp BP Pulse Ox 04/15/20 07:50 36.6 C 96 H 18 145/76 H 99 04/15/20 07:18 89 04/15/20 04:05 36.6 C 82 16 139/87 94 04/15/20 00:00 89 04/14/20 23:57 36.5 C 89 18 148/89 H 93 (1) Aspiration pneumonia Aspiration pneumonia type: unspecified Laterality: bilateral Lung location: unspecified part of lung Qualified Code(s): J69.0 - Pneumonitis due to inhalation of food and vomit
--- NOTE | 2020-04-15 10:36 | Discharge Summary ---
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 Patient has been admitted multiple times in past month for issues concerning of aspiration or loss of consciousness. Patient is returned to hospital by EMS on 04/11/2020 after hypotension event associated with shaking at home. As per the patient's son, woke up in the morning with normal systolic blood pressure of 120 as recorded by him with digital blood pressure cuff. patient also had some free wa ter flushes to the PEG tube and also day time medications including Augmentin suspension and metoprolol. About an hour later, patient's son reported that patient was sitting in chair and looked unwell with her head drooping. Patient's son reports that patient's eyes were opened but staring into space and there were some associated shaking of her body with also her hands in a stiff claw like position. The son also "pounded" on the patient's chest. The patient's symptoms also associated with low blood pressure and was verified by EMS who arrived perhaps 10 minutes later as per the patient's son. Unclear by the history whether any blood sugars were checked at the time. However, by the tiem EMS arrived as per the son, the patient was back to usual mental baseline. In the Emergency room, patient was given IV fluids and interacting appropriately as her usual mental baseline however the blood pressure still low to low normotensive. Patient is baseline at nonverbal because of history of cancer with neck surgery/radiation. But her facial expressions were well animated. She was cooperative on exam. She was able to write to communicate with physician the code status which is full code and this was witnessed by patient's son who talked her through the medical plans as explained by hospitalist. 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 Hypothyroidism History of Aspiration pneumonia Discharge Exam Constitutional cooperative Eyes PERRL, conjunctivae normal, anicteric sclerae EOM intact bilaterally ENMT external ear and nose normal, oropharynx normal Mouth: + oropharynx abnormality (lower mandible resected with partial tongue removed, ulcer of lower jaw) Respiratory normal respiratory effort, lungs clear to auscultation Cardiovascular Rate/Rhythm: regular rate Gastrointestinal (Abdomen) Percussion/Palpation: abdomen soft (has PEG tube) Musculoskeletal Head/Neck/Chest: normocephalic Neurologic moves all extremities and awake Cranial Nerves: EOM intact bilaterally Psychiatric Orientation: alert and cooperative Eye Contact: good eye contact Discharge Data Allergies Allergy/AdvReac Type Severity Reaction Status Date / Time No Known Allergies Allergy Unverified 04/11/20 13:50 Consultations 04/11/20 14:29 ED Decision to Admit Stat 04/11/20 15:17 ED Decision to Admit Stat 04/11/20 15:38 Consult Case Management - Discharge Planning Routine 04/11/20 15:55 Consult Neurology Routine Ordered Studies 04/12/20 16:35 CT angio neck with con Routine 04/12/20 16:36 CT angio head w con Routine Hospital Course (1) Acute hypotension: Acute hypotension (likely from vasovagal episodes) -This is a 79 year old female with recurrent head neck squamous cell CA status post resection in the past lung metastasis who was discharged on her request on 04/10/2020 after recent hospitalization. Patient has been admitted multiple times in past month for issues concerning of aspiration or loss of consciousn ess. Patient is returned to hospital by EMS on 04/11/2020 after hypotension event associated with shaking at home. As per the patient's son Demetri [phone], the patient woke up in the morning with normal systolic blood pressure of 120 as recorded by him with digital blood pressure cuff. patient also had some free water flushes to the PEG tube and also day time medications including Augmentin suspension and metoprolol. About an hour later, patient's son reported that patient was sitting in chair and looked unwell with her head drooping. Patient's son reports that patient's eyes were opened but staring into space and there were some associated shaking of her body with also her hands in a stiff claw like position. The son also "pounded" on the patient's chest. The patient's symptoms also associated with low blood pressure and was verified by EMS who arrived perhaps 10 minutes later as per the patient's son. Unclear by the history whether any blood sugars were checked at the time. However, by the tie EMS arrived as per the son, the patient was back to usual mental baseline. -In the Emergency room, patient was given IV fluids and interacting appropriately as her usual mental baseline however the blood pressure still low to low normotensive. Patient is baseline at nonverbal because of history of cancer with neck surgery/radiation. But her facial expressions were well animated. She was cooperative on exam. She was able to write to communicate with physician the code status which is full code and this was witnessed by patient's son who talked her through the medical plans as explained by hospitalist. She did not appear to have any other symptoms on review of systems -On this hospital return as of 04/12/2020, multiple workups have been done to rule out differentials Patient's blood pressure required greater than 2 liters of IV fluids before improving to stability Her metoprolol was held in case of any contribution from beta paulo to the initial low blood pressures, she was given glucagon initially The telemetry shows occasional paroxysmal tachycardia, which is known to have occurred in the past, and no other arrhythmias to date Her admission cortisol levels were not low, rules out adrenal insufficiency as cause of hypertension Sepsis from any underlying bacterial infection was not suspected because when she was discharged on 04/10/2020, she was still on IV Zosyn for aspiration pneumonia. her blood cultures no growth and she can continue the outpatient discharge plans of Augmentin oral suspension by PEG tubes (estimated to be for 10 day course from 04/10/2020) Trial of midodrine also started in case of orthostatic or postural hypotension The EEG again on this admission did not find evidence for seizure like activity The patient has hypothyroidism with further increases of TSH levels, with low total T3 and low free T3 levels but normal free T4 levels, her levothyroxine was increased on this admission from 100 mcg daily to 125 mcg daily by PEG feeds starting on 04/12/2020 but unlikely to be the sole cause of initial hypotension Her glucose levels were monitored while restarting PEG feeds in the hospital - have recommended to patient and her son that patient should go home with kangaroo pump to help with tube feeds rather than self feeds. This could be set up on Wednesday04/15/2020 for home use as per case reviewer. However patient expressed some reservations about being on tube feeds with pump because she worries this will limit her mobility compared to when she self feeds at home. Hospitalist recommends that she try the tube feed protocol at home and see how much she can deviate from that as per her comfort and wishes Continued the workup of the neck with CTA head and neck completed on 04/12/2020 that basically showed chronic surgical changes to her anatomy and continues to show cancer around left internal carotid area -04/13/2020 have discussed the recent hospital workup and imaging tests with patient and her son Demetri and that much as of the symptomatic problems of syncope in the past is likely related to either aspiration due to the surgical anatomy of oropharynx and previously known tumor invasion of the neck, or from vasovagal episodes from pain. Hypotension associated with vasovagal symptoms is more likely differential at this time (On evening of 04/13/2020 hospitalist informed by nurse that when she walked into patient's room, patient's eyes were opened but not really responding to her. She checked blood pressure and it was low as 70/40. Glucose levels were normal and review of telemetry did not show arrhythmia. Patient was subsequently able to respond to nurse. Upon questioning by nurse, patient reports she was having pain of the right wrist as the IV potassium was running. Nurse denies any sounds of aspiration. On physical exam by hospitalist, patient breathing comfortably. note that patient already on trial of midrodrine and PEG feeds were being hung. A bolus of IV fluids helped with resolving the hypotension) -04/14/2020: No acute events since evening of 04/13/2020. As per discussions with patient's son and patient the goal is to see if she can be discharged in the coming and follow with Dr. Sunil Roman oncology about any role of chemotherapy/immunotherapy (hospitalist updated Dr. Roman by telephone on 04/13/2020) - And also on ensuring that patient has appropriate pumps for tube feeding which requires case management efforts. re-assessment by Wednesday04/15/2020 when discharge services are available 04/15/2020 discharge to home with home health services (originally patient was resumed Peptamen 1.5 while in the hospital with 300 ml q6 hour free water flushes by PEG tube). As per discharge dietary services recommendations that patient to be provided discharge on these Prescriptions of Isosource 1.5 with goal rate of 65 ml/hr x 18 hours per day and free water flushes to 225 ml QID which are to be coordinated by Vitaline as per case management patient can finish home dose Augmentin from previous admission Stop metoprolol from discharge medications because of hypotensive episodes discharge medication of sent electronically to her preferred pharmacy of bacit racin ointment for the lower jaw, pantoprazole daily be PEG tube to reduce gastric reflux while on tube feeds, midrodrine 5 mg TID by PEG tube to prevent orthostatic hypotension, levothyroxine 125 mcg by PEG tube daily upcoming appointments 04/16/2020 9:45 AM Provider Sunil Roman MD Department Hematology/Oncology [facility] 04/18/2020 10:00 AM Provider Nurse [facility] Department Ancillary [facility] 04/18/2020 11:20 AM Provider Ruba Chaidez DO Department Family Practice [facility] 04/23/2020 11:30 AM Provider Mike Flaherty DO Department Otolaryngology/Head & Neck/Facial Plastic Surgery (2) PAT (paroxysmal atrial tachycardia): -patient has history of Paroxysmal atrial tachycardia but allowed to resume metoprolol when evaluated by cardiology on last hospitalization. -monitor on telemetry if any arrhythmia whiling holding metoprolol for now. Gl ucagon bolus was given on admission. 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 -(a summary of patient's surgical history from head/neck cancer are documented in this outpatient surgery clinic note on 01/05/2020 Department of Otolaryngology - Head and Neck Surgery Facial Plastic Surgery [address] [id number] Diagnosis: 2009: T1N0 Oral Cavity (Left inferior alveolar ridge) SCC 2013: T1N1M0 Oropharyngeal (Right Tonsil) SCC 2015: Oral Cavity Recurrence 07/12/18: pT2 cN0 M0 Oral Cavity (Right Buccal/Maxillary, left gingivobuccal gingiva) SCCa 02/15/2019: [id number] Oral Cavity Recurrence (left maxilla) SCC Treatment History: 2009: Left inferior alveolar ridge s/p resection, left neck dissection (chemoXRT recommended however not started) 02/16-03/07/13: Right Tonsil: Radiation therapy IMRT (Dr. 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 Chauhan) 09/10/15: Right hemimaxillectomy with left RFFF and tracheostomy (Dr. Suarez/José KERN) 07/12/18: WLE right buccal mass, inferior maxillectomy, biopsy left mandibular gingivolabial sulcus lesion, PEG placement (Dr. Luque of [place]) 10/14/18: Composite resection of anterior FOM, marginal mandibulectomy, inner lip and right radial forearm (Dr. Flaherty and Dr. Dsouza) 02/28/19: Excision of left hard palate SCCa/Maxillectomy (Dr. Dsouza)) -outpatient report on iPositioning system of imaging dating to 02/21/2020 (CT NECK W CONTRAST-02/21/2020 4:40 pm, COMPARISON: CT scan 02/08/2019 (FINDINGS: ORBITS AND SKULL BASE: The visualized intracranial and intraorbital contents are normal. SINUSES AND MASTOIDS: The tympanic cavities and mastoid air cells are well aerated. NASOPHARYNX/NASAL CAVITY: Nasal cavity and nasopharynx are widely patent. SUPRAHYOID NECK: Postsurgical changes of mandibulectomy and reconstruction. Res ection of floor of the right maxillary sinus and right hard palate. Partial glossectomy. Multiple surgical clips in the floor of the mouth and tonsillar fossae. Bilateral neck dissection with excision of the right jugular vein. New mass present surrounding left internal carotid artery. The mass measures approximately 2.5 x 1.8 cm in diameter and extends 5.4 cm cephalocaudal from the level of C2 to the skull base. The mass apparently narrows internal carotid artery. The mass abuts the left vertebral artery. Previously seen metabolically active soft tissue below left maxilla appear stable. INFRAHYOID NECK: Bilateral neck dissections. There are retained secretions in the vallecula and hypopharynx. The epiglottis, supraglottis, glottis, cervical esophagus, and trachea are normal. GLANDS: The parotid and thyroid glands are atrophic. Submandibular glands are not visualized. Thyroid is grossly unremarkable by CT evaluation. LYMPH NODES: No lymphadenopathy. THORACIC INLET: The pulmonary apices and superior mediastinum are normal. VASCULATURE: Surgically absent right internal jugular vein. Left internal carotid is narrowed by surrounding mass.. MUSCULOSKELETAL: Postsurgical changes. Edentulous maxilla. Several dental implants in the mandible. Chronic depression of superior endplate of T2.. IMPRESSION: Chronic postsurgical changes. New mass in left upper neck surrounding the internal carotid artery consistent with recurrent tumor.) -there is a outpatient PET CT SKULL BASE TO MID-THIGH - 03/04/2020 IMPRESSION 1. FDG avid pre-spinal lesion surrounding the carotid artery, near the skull base, as detailed on the recent diagnostic CT neck, consistent with neoplastic disease. 2. FDG avid soft tissue lesion extending from the inferior margin of the midline mandible. This is consistent with either neoplasm or infection. 3. FDG avid left hilar nodule and nodule along the cranial aspect of the left major fissure. These are new since the prior PET-CT and most likely malignant -cannot take food or medications by mouth -Magic mouthwash 5 ml every 4 hours as needed for throat pain as a swish and spit -re-assess pain medications. risk of sedation by narcotic pain medications vs benefits of treating cancer related neck pains -restart PEG feeding. with trial of free water flushes as 300 ml every 6 hours through PEG tube, nutrition consult -04/13/2020. Discussed with Dr. Sunil Roman oncology of these impressions and he plans to see patient as outpatient to discuss whether any role of chemotherapy in regards to current cancer situation. Patient will need this upcoming appointment to be scheduled patient's lower jaw area with ulcer that occasionally bleeds from contact with face mask, cleaning as per nursing care and trial of bacitracin. no bleeding seen on 04/14/2020 (4) Stenosis of left internal carotid artery: due to cancer mass inpatient [facility] imaging Carotid doppler 04/08/2020: "Elevated peak s ystolic velocity within the left internal carotid suggestive of a 50-69% stenosis. There is however no corresponding visible plaque" Head/Neck CTA with contrast 04/12/2020 (1. There is no hemorrhage, mass effect, or evidence of acute territorial ischemia by CT criteria noting angiographic phase technique. 2. Unremarkable CT angiogram of the brain. 3. The right internal carotid artery in the vertebral arteries are widely patent in the neck. 4. There is a large heterogeneous/complex fluid collection or mass in the left neck which encases the left internal carotid artery. This causes a long segment of at least 50% luminal narrowing of the mid to distal internal carotid artery. 5. This lesion also extends into the left parapharyngeal region and also involves the left transverse foramen at C1 and C2. This likely at least partially encases the left vertebral artery at this level. 6. Postoperative change is seen bilaterally with soft tissue infiltration throughout the left neck. Correlation with the patient's oncological and surgical history will be required. 7. The right internal jugular vein is not identified and presumed surgically absent. 8. There is significant effacement of the left internal jugular vein which remains patent.) -discussed as above (5) Aspiration pneumonia: -recurrent aspiration pneumonia and recently was on IV on last hospitalization -continue current oral Augmentin suspension (started on 04/11/2020 with plans for 10 days of antibiotics) -on this admission, nurse have observed oral secretions that needs to be suct ioned, patient get suctioning by son at home (6) Hypothyroidism: -TSH is 8, normal free T4, low T3, low free T3 -in case any contribution to low blood pressures by underactive thyroid, the home dose levothyroxine is increased from 100 mcg daily to 125 mcg daily by PEG tube Anemia -chronic, stable around 9 to 10 Full Code Status Total Time Total Time Spent Total Time Spent (In Minutes): 40 minutes Total Time Includes: Examination of the Patient, Discharge Planning, Medication Reconciliation and Communication With Other Providers Discharge Plan Discharge Items Patient Disposition: Home - Home Health Services Reason For Visit: Hypotension Discharge Diagnosis: Acute hypotension (like from vasovagal episodes) PAT (paroxysmal atrial tachycardia) 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 As per discharge dietary services recommendations that patient to be provided discharge on these Prescriptions of Isosource 1.5 with goal rate of 65 ml/hr x 18 hours per day and free water flushes to 225 ml QID which are to be coordinated by Vitaline as per case man agement patient can finish home dose Augmentin from previous admission Stop metoprolol from discharge medications because of hypotensive episodes discharge medication of sent electronically to her preferred pharmacy of bacitracin ointment for the lower jaw, pantoprazole daily be PEG tube to reduce gastric reflux while on tube feeds, midrodrine 5 mg TID by PEG tube to prevent orthostatic hypotension, levothyroxine 125 mcg by PEG tube daily upcoming appointments 04/16/2020 9:45 AM Provider Sunil Roman MD Department Hematology/Oncology [facility] 04/18/2020 10:00 AM Provider Nurse [facility] Department Ancillary [facility] 04/18/2020 11:20 AM Provider Ruba Chaidez DO Department Family Practice [facility] 04/23/2020 11:30 AM Provider Mike Flaherty DO Department Otolaryngology/Head & Neck/Facial Plastic Surgery Pending Studies at Discharge: No Stand-Alone Forms: My [facility] [employer], Smoking Cessation Medications and DC Order Prescriptions: New midodrine 2.5 mg Tablet 5 mg PO TID@0800,1200,1700 30 Days Qty: 90 RF: 0 levothyroxine [Synthroid] 125 mcg Tablet 125 mcg PO DAILYBB 30 Days Qty: 30 RF: 0 bacitracin 500 unit/gram Ointment 1 applic EXT DAILY 14 Days Qty: 30 RF: 0 pantoprazole 40 mg Tablet,Delayed Release (Dr/Ec) 40 mg PO QAM 30 Days Qty: 30 RF: 0 Continued multivitamin Tablet 1 tab feeding tube QAM RF: 0 Lactinex 1 million cell tablet,chewable 2 tab feeding tube QAM RF: 0 amoxicillin-pot clavulanate 400-57 mg/5 mL Suspension For Reconstitution 11 ml PO BIDM 10 Days Qty: 220 RF: 0 Magic Mouthwash 300 mL mouthwash 5 ml mucous membrane Q4H 10 Days Qty: 300 RF: 0 oxycodone 5 mg/5 mL solution 5 mg feeding tube Q4 PRN (Reason: Pain) RF: 0 triamcinolone acetonide 0.1 % cream 1 applic TOPICAL BID PRN (Reason: Inflammation around peg tube) RF: 0 ondansetron 4 mg tablet,disintegrating 4 mg feeding tube Q8 PRN (Reason: Nausea) RF: 0 Discontinued metoprolol tartrate 25 mg tablet 25 mg feeding tube BID RF: 0 levothyroxine 100 mcg tablet 100 mcg feeding tube QAM RF: 0 Discharge Orders: Discharge Order (Routine); Ordered 04/15/20 Ordered By: Jona Ortega Admission Data Admit Date/Time: 04/11/20 15:37 Attending Provider: Jona Ortega Admit Provider: Jona Ortega Primary Care Provider: Ruba Chaidez Other Providers: Oli Montesinos ; Jona Ortega ; Oli Sheridan ; [facility]
[2020-04-15] MEDS: PEPTAMEN 1.5 CAL 1,000 ML BAG PEG SCH (12:33)
[2020-04-15] MEDS: BACITRACIN OINT 15 GM TUBE EXT SCH (14:14)
== END 2020-04-15 16:31 | disposition home health service (06) | DRG 314 ==
LOC: ED 12:14 → 2N 15:37

== ENCOUNTER 2020-04-20 03:09 | Inpatient (IN) ==
[2020-04-20] MEDS ORDERED: SODIUM CHLORIDE 0.9% 1000ML 500 ML IV ONE (03:34)
[2020-04-20] MEDS ORDERED: ALBUT/IPRATROP 3MG/0.5MG NEB 3 ML VIAL NEB STA (03:57)
--- NOTE | 2020-04-20 04:00 | Emergency Department Note ---
History of Present Illness General Chief complaint: Hypotension Stated complaint: UNRESPONSIVENESS/HYPOTENSION Time Seen by Provider: 04/20/20 03:13 History of Present Illness This is an 79-year-old female presenting to the emergency department for evaluation of unresponsive episode and hypotension that occurred just prior to arrival. The patient has an extensive recent medical history including aspiration pneumonia and multiple episodes of hypertension. 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 The patient is living with her son, and evidently the patient had an episode of coughing tonight where she did bring up a large amount of mucoid material. The son typically does super ficial and deep suction as the patient has difficulty handling her secretions at times. The patient initially did well after the coughing episode, and went to sleep. The son did check on his mother, and she was evidently very pale and not responsive. He had difficulty arousing her, and did put a home pulse ox on her as well as called 911. He states her oxygen saturation was in the mid 80s. Up on EMS arrival her blood pressure was 50/30, and they did give her a liter of fluids prehospital. The patient has difficulty speaking because of her cancer, but does understand questions and is able to communicate otherwise. She does not report recent fever or chills. She does not report any chest pain, chest tightness, or shortness of breath. Home Medications Medication Instructions Recorded Confirmed Type ondansetron 4 mg FEEDING TUBE Q8 PRN 03/26/20 04/20/20 History oxycodone 5 mg FEEDING TUBE Q4 PRN 03/26/20 04/20/20 History triamcinolone acetonide 1 applic TOPICAL BID PRN 03/26/20 04/20/20 History Lactinex 2 tab FEEDING TUBE QAM 04/08/20 04/20/20 History bacitracin 1 applic EXT DAILY 14 Days #30 g 04/15/20 04/20/20 Rx gggvzdph-evh-mhlkmdl gluconate 15 ml PEG QAM 30 Days #450 ml 04/15/20 04/20/20 R x [Centrum] pantoprazole 40 mg PO QAM 30 Days #30 tab 04/15/20 04/20/20 Rx Magic Mouthwash 5 ml PO Q4H 04/20/20 04/20/20 History amoxicillin-pot clavulanate 11 ml FEEDING TUBE BID 04/20/20 04/20/20 History levothyroxine [Synthroid] 125 mcg FEEDING TUBE DAILYBB 04/20/20 04/20/20 History midodrine 5 mg PO TID 04/20/20 04/20/20 History Allergies Allergy/AdvReac Type Severity Reaction Status Date / Time No Known Allergies Allergy Verified 04/20/20 03:55 Past Med/Surg History Medical History (Updated 04/20/20 @ 21:54 by Rios Hernandez PA-C) Chronic respiratory failure Hypotension Moderate malnutrition Recurrent aspiration pneumonia Squamous cell carcinoma Syncope Surgical History H/O neck surgery History of surgical procedure on mouth 2009: Left inferior alveolar ridge s/p resection, left neck dissection (chemoXRT recommended however not started) 02/16-03/07/13: Right Tonsil: Radiation therapy IMRT (Dr. 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 Chauhan) 09/10/15: Right hemimaxillectomy with left RFFF and tracheostomy (Dr. Suarez/José KERN) 07/12/18: WLE right buccal mass, inferior maxillectomy, biopsy left mandibular gingivolabial sulcus lesion, PEG placement (Dr. Luque of [place]) 10/14/18: Composite resection of anterior FOM, marginal mandibulectomy, inner lip and right radial forearm (Dr. Flaherty and Dr. Dsouza) 02/28/19: Excision of left hard palate SCCa/Maxillectomy (Dr. Dsouza) History of tracheostomy Status post split thickness skin graft Family History Denies family history of Coronary heart disease Social History Smoking Status: Never smoker Second Hand Exposure: No; Hx Alcohol Use: No Hx Substance Use: No Preferred Language: Thai Communication Ability: Impaired Visual Impairment: Limited Hearing Ability: Normal [employer] Teacher Required: No Beliefs That Will Affect Care: None marital status: / Current Living Situation: Family Current Living Situation Comment: lives with son current occupational status: retired Feels Safe at Home: Yes Assistive Devices: Glasses Review of Systems A total of 10 systems reviewed and were otherwise negative Physical Exam Vital Signs Vital Signs - 24 hr 04/20/20 03:16 04/20/20 03:20 04/20/20 03:26 Temperature 36.2 C L Temperature Source Axillary Pulse Rate 78 68 Pulse Rate [Apical] Respiratory Rate 22 20 Respiratory Effort / Characteristics Respiratory Depth Normal Blood Pressure 101/48 L 70/30 L Blood Pressure Mean 65 44 Pulse Oximetry 100 95 88 L Oxygen Delivery Method Nasal Cannula Nasal Cannula Oxygen Flow Rate 3 3 Sepsis New/Unexplained Change in Mental Status N/A Sepsis Action Taken by Nursing No Action Required Oxygen Flow Rate - Titration 3 Pulse Oximetry Post Tiitration 100 04/20/20 03:30 04/20/20 03:40 04/20/20 03:50 Temperature Temperature Source Pulse Rate 87 79 84 Pulse Rate [Apical] Respiratory Rate 16 16 16 Respiratory Effort / Characteristics Respiratory Depth Blood Pressure 111/67 70/46 L 109/61 Blood Pressure Mean 72 51 73 Pulse Oximetry 100 100 100 Oxygen Delivery Method Oxygen Flow Rate 3 Sepsis New/Unexplained Change in Mental Status Sepsis Action Taken by Nursing Oxygen Flow Rate - Titration Pulse Oximetry Post Tiitration 04/20/20 04:00 04/20/20 04:10 04/20/20 04:20 Temperature Temperature Source Pulse Rate 92 H 98 H 94 H Pulse Rate [Apical] Respiratory Rate 16 20 24 Respiratory Effort / Characteristics Respiratory Depth Blood Pressure 105/60 106/62 99/59 L Blood Pressure Mean 70 66 66 Pulse Oximetry 100 100 100 Oxygen Delivery Method Oxygen Flow Rate Sepsis New/Unexplained Change in Mental Status Sepsis Action Taken by Nursing Oxygen Flow Rate - Titration Pulse Oximetry Post Tiitration 04/20/20 04:27 04/20/20 04:30 04/20/20 04:40 Temperature Temperature Source Pulse Rate 95 H 90 Pulse Rate [Apical] 94 H Respiratory Rate 26 H 24 20 Respiratory Effort / Characteristics Spontaneous Respiratory Depth Blood Pressure 89/52 L 102/56 L Blood Pressure Mean 60 71 Pulse Oximetry 100 100 100 Oxygen Delivery Method Nasal Cannula Oxygen Flow Rate 3 Sepsis New/Unexplained Change in Mental Status Sepsis Action Taken by Nursing Oxygen Flow Rate - Titration Pulse Oximetry Post Tiitration 04/20/20 04:58 Temperature Temperature Source Pulse Rate 93 H Pulse Rate [Apical] Respiratory Rate 20 Respiratory Effort / Characteristics Respiratory Depth Blood Pressure 82/46 L Blood Pressure Mean 54 Pulse Oximetry 100 Oxygen Delivery Method Oxygen Flow Rate Sepsis New/Unexplained Change in Mental Status Sepsis Action Taken by Nursing Oxygen Flow Rate - Titration Pulse Oximetry Post Tiitration VITALS: Vitals are noted on the nurse's note and reviewed by myself. Vital signs with O2 sat of 88%. 3 L nasal cannula improved this to 100%. GENERAL: Chronically ill-appearing white female who is cooperative with the exam HEAD: Normocephalic atraumatic. NECK: Supple without nuchal rigidity. No lymphadenopathy. No thyromegaly. Cervical spine is nontender. HEART: Regular rate and rhythm without murmurs gallops or rubs. LUNGS: Clear to auscultation bilaterally without wheezes, rales or rhonchi. No retractions or accessory muscle use. ABDOMEN: Positive normal bowel sounds x 4. Soft, nontender, without masses or organomegaly. No guarding or rebound tenderness. PEG tube noted. MUSCULOSKELETAL: No muscle atrophy, erythema, or edema noted. Full range of motion in all extremities. NEURO: Patient was alert and oriented to person place and time. Course Administered Medications Ampicillin Sodium/Sulbactam Sodium 3,000 mg/ Sodium Chloride 108 mls @ 216 m ls/hr IV Q6H BERNADETTE Stop: 04/27/20 07:59 Last Infusion: 04/20/20 20:40 Dose: 0 mls/hr Documented by: [id number] Admin: 04/20/20 20:06 Dose: 216 mls/hr Documented by: [id number] Admin: 04/20/20 20:05 Dose: Not Given Documented by: [id number] Admin: 04/20/20 20:05 Dose: Not Given Documented by: [id number] Discontinued Medications Albuterol (Albut/Ipratrop 3mg/0.5mg Neb 3 Ml Vial) 3 ml NEB NOW STA Stop: 04/20/20 03:58 Last Admin: 04/20/20 04:27 Dose: 3 ml Documented by: [id number] Sodium Chloride (Nss 1000ml) 500 mls @ 999 mls/hr IV .Q31M ONE Stop: 04/20/20 04:04 Last Infusion: 04/20/20 04:13 Dose: 0 mls/hr Documented by: [id number] Admin: 04/20/20 03:40 Dose: 999 mls/hr Documented by: [id number] Midodrine (Midodrine Hcl 10 Mg Tab) 10 mg PO 0540 ONE Stop: 04/20/20 05:41 Last Admin: 04/20/20 20:07 Dose: Not Given Documented by: [id number] Midodrine (Midodrine Hcl 10 Mg Tab) 10 mg PO TID BERNADETTE Stop: 05/20/20 13:59 Last Admin: 04/20/20 19:41 Dose: Not Given Documented by: [id number] Medical Decision Making Differential Diagnosis Differential diagnosis: Etiologies such as vasovagal event, infection, anemia, hypoglycemia, hypovolemia, electrolyte abnormalities, dysrhythmias, cardiac ischemia, cardiac tamponade, valvular heart disease, structural heart disease, seizure, vascular stenosis/dissection, pulmonary embolism, intracerebral event, toxicological process, neurologic event, as well as others were entertained. Laboratory Data Result diagrams: 04/20/20 03:57 04/20/20 03:57 Lab Results 04/20/20 04/20/20 04/20/20 Range/Units 03:57 03:57 03:57 WBC 8.79 (4.8-10.8) K/uL RBC 3.16 L (4.2-5.4) M/uL Hgb 9.8 L (12.0-16.0) g/dL Hct 30.2 L (37-47) % MCV 95.6 (80-100) fL MCH 31.0 (25-34) pg MCHC 32.5 (32-36) g/dL RDW Std Deviation 53.2 H (36.4-46.3) fL RDW Coeff of Roni 15.0 H (11.5-14.5) % Plt Count 249 (130-400) K/uL MPV 10.4 (7.4-10.4) fL Immature Gran % (Auto) 0.1 % Neut % (Auto) 88.7 % Lymph % (Auto) 6.7 % Rosebud % (Auto) 4.0 % Eos % (Auto) 0.3 % Baso % (Auto) 0.2 % Neut # (Auto) 7.79 H (1.4-6.5) K/uL Lymph # (Auto) 0.59 L (1.2-3.4) K/uL Rosebud # (Auto) 0.35 (0.11-0.59) K/uL Eos # (Auto) 0.03 (0-0.5) K/uL Baso # (Auto) 0.02 (0-0.2) K/uL Immature Gran # (Auto) 0.01 (0.00-0.02) K/uL ABG pH (7.35-7.45) ABG pCO2 (35-46) mmHg ABG pO2 (80-95) mmHg ABG HCO3 (19-24) mmol/L ABG O2 Saturation (90-95) % ABG Base Excess (-9-1.8) mEq/L Dilshad Test (Pos) Barometric Pressure mm/Hg Oxygen Given Sodium 135 L (136-145) mmol/L Potassium 4.0 (3.5-5.1) mmol/L Chloride 101 (98-107) mmol/L Carbon Dioxide 29 (21-32) mmol/L Anion Gap 5.0 (3-11) BUN 15 (7-18) mg/dl Creatinine 0.60 (0.6-1.2) mg/dl Est Cr Clr Drug Dosing 64.6 ml/min Est GFR ( Amer) 99.8 Est GFR (Non-Af Amer) 86.1 BUN/Creatinine Ratio 25.2 H (10-20) Glucose 93 (70-99) mg/dl Lactate 1.3 (0.4-2.0) mmol/L Calcium 8.5 (8.5-10.1) mg/dl Magnesium 2.0 (1.8-2.4) mg/dl Total Bilirubin 0.4 (0.2-1) mg/dl AST 17 (15-37) U/L ALT 30 (12-78) U/L Alkaline Phosphatase 88 (45-117) U/L Troponin I < 0.015 (0-0.045) ng/ml Total Protein 6.7 (6.4-8.2) gm/dl Albumin 2.3 L (3.4-5.0) gm/dl Globulin 4.4 H (2.5-4.0) gm/dl Albumin/Globulin Ratio 0.5 L (0.9-2) TSH 2.430 (0.300-4.500) uIu/ml COVID-19 Eval Order SARS-CoV-2, RNA, NAAT (NEGATIVE) 04/20/20 04/20/20 04/20/20 Range/Units 04:10 04:10 04:33 WBC (4.8-10.8) K/uL RBC (4.2-5.4) M/uL Hgb (12.0-16.0) g/dL Hct (37-47) % MCV (80-100) fL MCH (25-34) pg MCHC (32-36) g/dL RDW Std Deviation (36.4-46.3) fL RDW Coeff of Roni (11.5-14.5) % Plt Count (130-400) K/uL MPV (7.4-10.4) fL Immature Gran % (Auto) % Neut % (Auto) % Lymph % (Auto) % Rosebud % (Auto) % Eos % (Auto) % Baso % (Auto) % Neut # (Auto) (1.4-6.5) K/uL Lymph # (Auto) (1.2-3.4) K/uL [place] # (Auto) (0.11-0.59) K/uL Eos # (Auto) (0-0.5) K/uL Baso # (Auto) (0-0.2) K/uL Immature Gran # (Auto) (0.00-0.02) K/uL ABG pH 7.40 (7.35-7.45) ABG pCO2 41 (35-46) mmHg ABG pO2 126 H (80-95) mmHg ABG HCO3 25 H (19-24) mmol/L ABG O2 Saturation 98.7 H (90-95) % ABG Base Excess -0.1 (-9-1.8) mEq/L Dilshad Test POS (Pos) Barometric Pressure 730.0 mm/Hg Oxygen Given 3L Sodium (136-145) mmol/L Potassium (3.5-5.1) mmol/L Chloride (98-107) mmol/L Carbon Dioxide (21-32) mmol/L Anion Gap (3-11) BUN (7-18) mg/dl Creatinine (0.6-1.2) mg/dl Est Cr Clr Drug Dosing ml/min Est GFR ( Amer) Est GFR (Non-Af Amer) BUN/Creatinine Ratio (10-20) Glucose (70-99) mg/dl Lactate (0.4-2.0) mmol/L Calcium (8.5-10.1) mg/dl Magnesium (1.8-2.4) mg/dl Total Bilirubin (0.2-1) mg/dl AST (15-37) U/L ALT (12-78) U/L Alkaline Phosphatase (45-117) U/L Troponin I (0-0.045) ng/ml Total Protein (6.4-8.2) gm/dl Albumin (3.4-5.0) gm/dl Globulin (2.5-4.0) gm/dl Albumin/Globulin Ratio (0.9-2) TSH (0.300-4.500) uIu/ml COVID-19 [facility] SARS-[facility]-2, RNA, NAAT NEGATIVE (NEGATIVE) Imaging Data Radiologist's Impression: XR chest 1V portable CLINICAL HISTORY: possible aspiration COMPARISON STUDY: 04/11/2020 FINDINGS: The cardiac and mediastinal contours remain stable. There are persistent left mid and lower lung zone airspace opacities. Findings are consistent with a pneumonia. There is a small left pleural effusion. There is nodular prominence of the left hilum. There is also a 29 mm left upper lung zone nodular opacity. Underlying neoplasm cannot be excluded. CT scanning the chest or film subsequent to treatment are recommended in follow-up. IMPRESSION: 1. Left lung airspace opacities consistent with pneumonia. Small left pleural effusion. 2. Equivocal 29 mm left upper lung zone nodule and left hilar prominence. Underl aquiles malignancy cannot be excluded. Chest CT scanning or film subsequent to treatment are recommended in follow-up. MDM Narrative This patient was seen in part during a [facility] downtime and elements of this chart may be scanned into the EMR at a later date. Physical exam and history were performed. Nursing notes, EMR, and Medication List were personally reviewed. Patient appears to have an unresponsive and hypotensive episode tonight. The p atient has extensive and complicated past medical history. She is somewhat improved after 1 L of normal saline via EMS. She is slightly hypoxic and this did improve significantly with 3 L nasal cannula. IV access was established and labs were obtained. Chest x-ray was performed. The patient was given a small amount of maintenance fluids. An order was placed for continuous cardiac monitoring. The monitor shows a rate of 87 with normal sinus rhythm. The patient blood work is as above and was reviewed. She does not have a significantly elevated white blood cell count, new anemia, significant bandemia, or gross electrolyte imbalance. Troponin x1 is negative. Covid is negative. Chest x-ray was reviewed by myself and radiology and appears to show left lung pneumonia. Overall the patient does not appear well for discharge home. The case was discussed with the on-call hospitalist, Dr. Valenzuela, who did begin Unasyn and order additional labs. Please see the hospitalist dictation for further patient course, plan, and disposition. The chart was completed utilizing [employer] Speech Voice Recognition Software. Grammatical errors, random word insertions, pronoun errors, and incomplete sentences are an occasional consequence of this system due to software limitations, ambient noise, and hardware issues. Any formal questions or concerns about the content, text, or information contained within the body of this dictation should be directly addressed to the provider for clarification. . Impression & Plan Pneumonia, Hypotension, Unresponsive episode, Hypoxia Discharge Plan Visit Data Chief Complaint: Hypotension Stated Complaint: UNRESPONSIVENESS/HYPOTENSION ED Provider: Corazon Duarte ED Midlevel Provider: Rios Hernandez Discharge Problem: Pneumonia, Hypotension, Unresponsive episode, Hypoxia Patient Disposition: Admitted As Inpatient
--- NOTE | 2020-04-20 04:10 | History & Physical Report ---
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 No sepsis for now hypothyroidism, euthyroid as of today's TSH Hyperglycemia rule out DM Recurrent admissions, debility from progressive head and neck cancer PCU IVF Continue midodrine currently at maximal dose of 10 mg 3 times daily Add Fludrocortisone 0.1 mg daily TTE RE recurrent syncope/hypotension rule out obstructive cardiac pathology Supplemental O2 IV Unasyn for aspiration pneumonitis Nebs as needed Aspiration precautions Swallow eval, follow-up Check hemoglobin A1c Palliative care consultation RE recurrent admissions, debility from progressive head and neck cancer, discuss goals of care with patient and son (Son requesting video conference with mother and providers if possible) DVT prophylaxis. Heparin subcu DNR as per patient Patient son requesting updates for providers. Mr. Demetri Kelley, contact #[phone]. Text document was generated using [employer] voice recognition software. It may contain grammatical or spelling errors. Kindly contact undersigned for clarification of any documentation item in question. History of Present Illness Chief Complaint: Cough, low O2, low BP unresponsiveness Primary Care Provider: Ruba Chiadez, History obtained from patient, family, and records. Limited history from patient secondary limited verbal output from head and neck cancer surgery. Medical history significant for recurrent head and neck cancer status post surgery, radiation with lung and bone mets, aspiration risk status post PEG tube placement, hypothyroidism, orthostatic hypotension on Midodrine. Patient admitted at [facility] on few occasions last month. Recent confinement last week for acute hypotension from vasovagal episodes and aspiration pneumonia. Beta-paulo for paroxysmal atrial tachycardia stop on discharge. Patient discharged on Midodrine 5 mg via PEG 3 times daily later increased to 10 mg via PEG 3 times daily. Patient also discharged on Augmentin course for aspiration pneumonia. Last night, patients son noted aspiration event following nausea emesis episode while receiving tube feeds. Junky cough symptoms noted. No fever, no chills, no shortness of breath. Patient later noted to be hypoxemic on home pulse ox by son. Patient noted to be unresponsive. SBP 60s at home. Patient brought to the ER for evaluation. Medical History as above Recent outpatient [facility] oncologist follow-up 04/16/20 Consideration for initiation of Keytruda immunotherapy next week. Treatment goal will be palliative and not curative as per documentation. 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 Allergies Allergy/AdvReac Type Severity Reaction Status Date / Time No Known Allergies Allergy Verified 04/20/20 03:55 Home Medications Medication Instructions Recorded Confirmed Type ondansetron 4 mg FEEDING TUBE Q8 PRN 03/26/20 04/20/20 History oxycodone 5 mg FEEDING TUBE Q4 PRN 03/26/20 04/20/20 History triamcinolone acetonide 1 applic TOPICAL BID PRN 03/26/20 04/20/20 History Lactinex 2 tab FEEDING TUBE QAM 04/08/20 04/20/20 History bacitracin 1 applic EXT DAILY 14 Days #30 g 04/15/20 04/20/20 Rx hcselyfd-[id number] gluconate 15 ml PEG QAM 30 Days #450 ml 04/15/20 04/20/20 Rx [Centrum] pantoprazole 40 mg PO QAM 30 Days #30 tab 04/15/20 04/20/20 Rx Magic Mouthwash 5 ml PO Q4H 04/20/20 04/20/20 History amoxicillin-pot clavulanate 11 ml FEEDING TUBE BID 04/20/20 04/20/20 History levothyroxine [Synthroid] 125 mcg FEEDING TUBE DAILYBB 04/20/20 04/20/20 History midodrine 5 mg PO TID 04/20/20 04/20/20 History Past Med/Surg History Medical History (Updated 04/20/20 @ 21:16 by Fransico Harris MD) Chronic respiratory failure Hypotension Moderate malnutrition Recurrent aspiration pneumonia Squamous cell carcinoma Syncope Surgical History H/O neck surgery History of surgical procedure on mouth 2009: Left inferior alveolar ridge s/p resection, left neck dissection (chemoXRT recommended however not started) 02/16-03/07/13: Right Tonsil: Radiation therapy IMRT (Dr. 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 Chauhan) 09/10/15: Right hemimaxillectomy with left RFFF and tracheostomy (Dr. Suarez/José KERN) 07/12/18: WLE right buccal mass, inferior maxillectomy, biopsy left mandibular gingivolabial sulcus lesion, PEG placement (Dr. Luque of [place]) 10/14/18: Composite resection of anterior FOM, marginal mandibulectomy, inner lip and right radial forearm (Dr. Flaherty and Dr. Dsouza) 02/28/19: Excision of left hard palate SCCa/Maxillectomy (Dr. Dsouza) History of tracheostomy Status post split thickness skin graft Family History Denies family history of Coronary heart disease Social History Smoking Status: Never smoker Second Hand Exposure: No; Hx Alcohol Use: No Hx Substance Use: No Preferred Language: French Communication Ability: Impaired Visual Impairment: Limited Hearing Ability: Normal Warehouse Assistant Required: No Beliefs That Will Affect Care: None marital status: / Current Living Situation: Family Current Living Situation Comment: lives with son current occupational status: retired Feels Safe at Home: Yes Assistive Devices: Glasses Review of Systems Review of Systems: Could not be reliably obtained Physical Exam Physical Exam: GENERAL: pleasant, no respiratory distress, underweight SKIN: Pallor, warm HEENT: pale palpebral conjunctivae, no ptosis, dry buccal mucosa, nasal cannula in place NECK : Supple, no tenderness, tracheostomy scar CHEST : Decreased breath sounds, occasional expiratory wheezes, no tenderness HEART : RRR , no obvious murmurs ABDOMEN: Some distention, PEG tube in place, nontender EXTREMITIES : No LE swelling/tenderness, no other conspicuous deformities noted NEUROLOGIC : Coherent, no facial asymmetry, no other gross focality Results & Data Results & Data ([facility]) Vital Signs (Past 12 Hours) Vital Signs Temp Pulse Resp BP Pulse Ox 04/20/20 03:30 87 16 111/67 100 04/20/20 03:26 88 L 04/20/20 03:20 68 20 70/30 L 95 04/20/20 03:16 36.2 C L 78 22 101/48 L 100 Laboratory Results Laboratory Results WBC 8.79 K/uL (4.8-10.8) 04/20/20 03:57 RBC 3.16 M/uL (4.2-5.4) L 04/20/20 03:57 Hgb 9.8 g/dL (12.0-16.0) L 04/20/20 03:57 Hct 30.2 % (37-47) L 04/20/20 03:57 MCV 95.6 fL (80-100) 04/20/20 03:57 MCH 31.0 pg (25-34) 04/20/20 03:57 MCHC 32.5 g/dL (32-36) 04/20/20 03:57 RDW Std Deviation 53.2 fL (36.4-46.3) H 04/20/20 03:57 RDW Coeff of Roni 15.0 % (11.5-14.5) H 04/20/20 03:57 Plt Count 249 K/uL (130-400) 04/20/20 03:57 MPV 10.4 fL (7.4-10.4) 04/20/20 03:57 Immature Gran % (Auto) 0.1 % 04/20/20 03:57 Neut % (Auto) 88.7 % 04/20/20 03:57 Lymph % (Auto) 6.7 % 04/20/20 03:57 [place] % (Auto) 4.0 % 04/20/20 03:57 Eos % (Auto) 0.3 % 04/20/20 03:57 Baso % (Auto) 0.2 % 04/20/20 03:57 Neut # (Auto) 7.79 K/uL (1.4-6.5) H 04/20/20 03:57 Lymph # (Auto) 0.59 K/uL (1.2-3.4) L 04/20/20 03:57 [place] # (Auto) 0.35 K/uL (0.11-0.59) 04/20/20 03:57 Eos # (Auto) 0.03 K/uL (0-0.5) 04/20/20 03:57 Baso # (Auto) 0.02 K/uL (0-0.2) 04/20/20 03:57 Immature Gran # (Auto) 0.01 K/uL (0.00-0.02) 04/20/20 03:57 ABG pH 7.40 (7.35-7.45) 04/20/20 04:33 ABG pCO2 41 mmHg (35-46) 04/20/20 04:33 ABG pO2 126 mmHg (80-95) H 04/20/20 04:33 ABG HCO3 25 mmol/L (19-24) H 04/20/20 04:33 ABG O2 Saturation 98.7 % (90-95) H 04/20/20 04:33 ABG Base Excess -0.1 mEq/L (-9-1.8) 04/20/20 04:33 Dilshad Test POS (Pos) 04/20/20 04:33 Barometric Pressure 730.0 mm/Hg 04/20/20 04:33 Oxygen Given 3L 04/20/20 04:33 Sodium 135 mmol/L (136-145) L 04/20/20 03:57 Potassium 4.0 mmol/L (3.5-5.1) 04/20/20 03:57 Chloride 101 mmol/L (98-107) 04/20/20 03:57 Carbon Dioxide 29 mmol/L (21-32) 04/20/20 03:57 Anion Gap 5.0 (3-11) 04/20/20 03:57 BUN 15 mg/dl (7-18) 04/20/20 03:57 Creatinine 0.60 mg/dl (0.6-1.2) 04/20/20 03:57 Est Cr Clr Drug Dosing 64.6 ml/min 04/20/20 03:57 Est GFR ( Amer) 99.8 04/20/20 03:57 Est GFR (Non-Af Amer) 86.1 04/20/20 03:57 BUN/Creatinine Ratio 25.2 (10-20) H 04/20/20 03:57 Glucose 93 mg/dl (70-99) 04/20/20 03:57 Lactate 1.3 mmol/L (0.4-2.0) 04/20/20 03:57 Calcium 8.5 mg/dl (8.5-10.1) 04/20/20 03:57 Magnesium 2.0 mg/dl (1.8-2.4) 04/20/20 03:57 Total Bilirubin 0.4 mg/dl (0.2-1) 04/20/20 03:57 AST 17 U/L (15-37) 04/20/20 03:57 ALT 30 U/L (12-78) 04/20/20 03:57 Alkaline Phosphatase 88 U/L (45-117) 04/20/20 03:57 Troponin I < 0.015 ng/ml (0-0.045) 04/20/20 03:57 Total Protein 6.7 gm/dl (6.4-8.2) 04/20/20 03:57 Albumin 2.3 gm/dl (3.4-5.0) L 04/20/20 03:57 Globulin 4.4 gm/dl (2.5-4.0) H 04/20/20 03:57 Albumin/Globulin Ratio 0.5 (0.9-2) L 04/20/20 03:57 TSH 2.430 uIu/ml (0.300-4.500) 04/20/20 03:57 COVID-19 Eval Order Covid19 IDNow atMWVC 04/20/20 04:10 SARS-CoV-2, RNA, NAAT NEGATIVE (NEGATIVE) 04/20/20 04:10 Diagnostic Findings Chest x-ray as per my interpretation atelectasis EKG as per my interpretation : Rate 80, NSR, LAD, LAFB, T wave abnormalities inferior and septal leads
[2020-04-20 04:42] LABS: Basophils # (auto) 0.02 K/uL (0-0.2); Basophils % (auto) 0.2 %; Eosinophils # (auto) 0.03 K/uL (0-0.5); Eosinophils % (auto) 0.3 %; Hematocrit (blood only) 30.2 % (37-47); Hemoglobin 9.8 g/dL (12.0-16.0); Immature Granulocytes # (auto) 0.01 K/uL (0.00-0.02); Immature Granulocytes % (auto) 0.1 %; Lymphocytes # (auto) 0.59 K/uL (1.2-3.4); Lymphocytes % (auto) 6.7 %; Mean Corpuscular Hgb Conc 32.5 g/dL (32-36); Mean Corpuscular Volume 95.6 fL (80-100); Mean Platelet Volume 10.4 fL (7.4-10.4); Monocytes # (auto) 0.35 K/uL (0.11-0.59); Neutrophils # (auto) 7.79 K/uL (1.4-6.5); Neutrophils % (auto) 88.7 %; Platelet Count 249 K/uL (130-400); RDW Standard Deviation 53.2 fL (36.4-46.3); Red Blood Count 3.16 M/uL (4.2-5.4); White Blood Count 8.79 K/uL (4.8-10.8)
[2020-04-20 04:46] LABS: Base Excess ABG -0.1 mEq/L (-9-1.8); HCO3 ABG 25 mmol/L (19-24); Oxygen Saturation ABG 98.7 % (90-95); PCO2 ABG 41 mmHg (35-46); PO2 ABG 126 mmHg (80-95)
[2020-04-20 05:00] LABS: Allen Test POS (Pos)
[2020-04-20] MEDS ORDERED: MIDODRINE HCL 10 MG TAB PO ONE (05:40)
[2020-04-20] MEDS ORDERED: ACETAMINOPHEN 1,000 MG/100 ML VIAL IV PRN (06:30)
[2020-04-20] MEDS ORDERED: PROMETHAZINE HCL 6.25 MG in SODIUM CHLORIDE 0.9% 50 ML IV PRN (06:30)
--- NOTE | 2020-04-20 14:55 | XRay Report ---
XR chest 1V portable CLINICAL HISTORY: possible aspiration COMPARISON STUDY: 04/11/2020 FINDINGS: The cardiac and mediastinal contours remain stable. There are persistent left mid and lower lung zone airspace opacities. Findings are consistent with a pneumonia. There is a small left pleura l effusion. There is nodular prominence of the left hilum. There is also a 29 mm left upper lung zone nodular opacity. Underlying neoplasm cannot be excluded. CT scanning the chest or film subsequent to treatment are recommended in follow-up. IMPRESSION: 1. Left lung airspace opacities consistent with pneumonia. Small left pleural effusion. 2. Equivocal 29 mm left upper lung zone nodule and left hilar prominence. Underlying malignancy canno t be excluded. Chest CT scanning or film subsequent to treatment are recommended in follow-up. ACT 112: Negative or not required by law. Electronically signed by: James Araujo M.D. 04/20/2020 7:48 AM
[2020-04-20 17:16] LABS: Alanine Aminotransferase 30 U/L (12-78); Albumin Globulin Ratio 0.5 (0.9-2); Albumin Level 2.3 gm/dl (3.4-5.0); Alkaline Phosphatase 88 U/L (45-117); Aspartate Aminotransferase 17 U/L (15-37); BUN Creatinine Ratio 25.2 (10-20); Bilirubin,Total 0.4 mg/dl (0.2-1); Blood Urea Nitrogen 15 mg/dl (7-18); Calcium 8.5 mg/dl (8.5-10.1); Carbon Dioxide 29 mmol/L (21-32); Chloride 101 mmol/L (98-107); Creatinine Clr Calc Pharmacy 64.6 ml/min; Est GFR (African American) 99.8; Est GFR (Non-African American) 86.1; Globulin 4.4 gm/dl (2.5-4.0); Glucose 93 mg/dl (70-99); Sodium 135 mmol/L (136-145); Total Protein 6.7 gm/dl (6.4-8.2); Troponin I < 0.015 ng/ml (0-0.045)
--- NOTE | 2020-04-20 17:46 | Hospitalist Progress Note ---
Date of Service April 20, 2020 Assessment & Plan (1) Recurrent aspiration pneumonia: Acute on chronic respiratory failure with hypoxia Recurrent aspiration pneumonia Left upper lobe pulmonary nodule S/P PEG tube placement Uses oxygen intermittently at baseline as per patient -CXR:Left lung airspace opacities consistent with pneumonia. Small left pleural effusion. Equivocal 29 mm left upper lung zone nodule and left hilar prominence. Underlying malignancy cannot be excluded. Chest CT scanning or film subsequent to treatment are recommended in follow-up. -Normal lactate levels, no leukocytosis, Afebrile -Hold Augmentin. Started on IV Unasyn Aspiration precautions, speech therapy consulted Gentle IV fluids Continue supplemental oxygen as needed Nebs PRN Continue tube feeds Given recurrent admissions/Complex comorbidities, palliative care consulted to address goals of care (son request video conference with mother if possible) Syncopal Episode Chronic hypotension Chronic recurrent Syncopal Episodes H/O orthostatic hypotension H/O left internal carotid artery stenosis secondary to cancer mass as per records EEG on prior admission showed no seizure-like activity Had extensive work-up prior admissions. 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 S/P resection, radiation S/P PEG NPO at baseline Paroxysmal atrial tachycardia Previously on metoprolol Beta-paulo discontinued on prior to discharge Hypothyroidism Continue levothyroxine DVT Px: Heparin SQ Code Status DNR Disposition To be determined Subjective Patient is seen and examined at bedside States feeling better currently Mostly Nonverbal--responds by writing to questions Denies chest pain, shortness of breath, dizziness, nausea, abdominal pain Admits to using oxygen intermittently at baseline Currently saturating well on 3 L of supplemental oxygen Review of Systems Review of Systems: All systems reviewed & are unremarkable except as noted in HPI & below Physical Exam Physical Exam: Physical Exam: Vitals signs as noted above General Appearance: Ill-appearing, thin, frail, no apparent distress Head: normocephalic, + oropharyngeal abnormality. Surgical findings. Eyes: normal inspection, EOMI, PERRL Neck: supple, Trachea midline Respiratory/Chest: Coarse breath sounds, basal crackles Cardiovascular: S1, S2, No murmur Abdomen/GI:Soft, Non tender, +PEG tube, Bowel sounds present Extremities/Musculoskelatal:normal inspection, no edema Neurologic/Psych:AAOX3, grossly no focal neurological deficits Skin: normal color, warm Results & Data Results & Data ([facility]) Vital Signs (Past 12 Hours) Vital Signs Temp Pulse Pulse Resp BP Pulse Ox 04/20/20 04:58 93 H 20 82/46 L 100 04/20/20 04:40 90 20 102/56 L 100 04/20/20 04:30 95 H 24 89/52 L 100 04/20/20 04:27 94 H 26 H 100 04/20/20 04:20 94 H 24 99/59 L 100 04/20/20 04:10 98 H 20 106/62 100 04/20/20 04:00 92 H 16 105/60 100 04/20/20 03:50 84 16 109/61 100 04/20/20 03:40 79 16 70/46 L 100 04/20/20 03:30 87 16 111/67 100 04/20/20 03:26 88 L 04/20/20 03:20 68 20 70/30 L 95 04/20/20 03:16 36.2 C L 78 22 101/48 L 100 Intake and Output 04/20/20 04/20/20 04/20/20 06:59 14:59 22:59 Intake Total 500 / 500 Balance 500 / 500 Intake: IV 500 / 500 Nss 1000ML 500 ml @ 999 mls/hr 500 / 500 IV .Q31M ONE Rx#:[id number] Other: Weight 55.8 kg Weight Measurement Method Built in [facility] Laboratory Results Short CBC 04/20/20 Range/Units 03:57 WBC 8.79 (4.8-10.8) K/uL Hgb 9.8 L (12.0-16.0) g/dL Hct 30.2 L (37-47) % Plt Count 249 (130-400) K/uL BMP 04/20/20 03:57 Sodium 135 L Potassium 4.0 Chloride 101 Carbon Dioxide 29 BUN 15 Creatinine 0.60 Glucose 93 Calcium 8.5 Cardiac Enzymes 04/20/20 Range/Units 03:57 Troponin I < 0.015 (0-0.045) ng/ml Liver Function 04/20/20 Range/Units 03:57 Total Bilirubin 0.4 (0.2-1) mg/dl AST 17 (15-37) U/L ALT 30 (12-78) U/L Alkaline Phosphatase 88 (45-117) U/L Albumin 2.3 L (3.4-5.0) gm/dl Diagnostic Findings CXR: 1. Left lung airspace opacities consistent with pneumonia. Small left pleural effusion. 2. Equivocal 29 mm left upper lung zone nodule and left hilar prominence. Underlying malignancy cannot be excluded. Chest CT scanning or film subsequent to treatment are recommended in follow-up.
[2020-04-20] MEDS ORDERED: ALBUT/IPRATROP 3MG/0.5MG NEB 3 ML VIAL INH PRN (18:54)
[2020-04-20] MEDS: MIDODRINE HCL 10 MG TAB PO SCH ×2 (19:41→22:04)
[2020-04-20] MEDS: AMPICILLIN/SULBACTAM SOD 3,000 MG in 0.9 % SODIUM CHLORIDE 100 ML IV SCH ×2 (20:05→20:06)
--- NOTE | 2020-04-20 21:28 | Communication Note ---
Date of Service: April 20, 2020 SBP 140s. Continue fludrocortisone for orthostatic/postural hypotension. Decrease midodrine to 5 mg TID.
[2020-04-20] MEDS ORDERED: TRIAMCINOLONE ACET 0.1% CR 15 GM TUBE TOP PRN (21:47)
[2020-04-20] MEDS ORDERED: MAGIC MOUTHWASH PO SCH (21:47)
[2020-04-20] MEDS ORDERED: oxyCODONE HCL IR 5 MG TAB (IMMEDIATE RELEASE) PEG PRN (21:47)
[2020-04-21] MEDS: AMPICILLIN/SULBACTAM SOD 3,000 MG in 0.9 % SODIUM CHLORIDE 100 ML IV SCH ×4 (03:23→21:05)
[2020-04-21] MEDS ORDERED: MIDODRINE HCL 2.5 MG TAB PO SCH (06:00)
[2020-04-21 06:06] LABS: Hematocrit (blood only) 31.2 % (37-47); Hemoglobin 10.3 g/dL (12.0-16.0); Mean Corpuscular Hemoglobin 31.3 pg (25-34); Mean Corpuscular Volume 94.8 fL (80-100); Mean Platelet Volume 9.7 fL (7.4-10.4); Platelet Count 217 K/uL (130-400); RDW Coefficient of Variation 14.8 % (11.5-14.5); RDW Standard Deviation 51.7 fL (36.4-46.3); Red Blood Count 3.29 M/uL (4.2-5.4); White Blood Count 5.45 K/uL (4.8-10.8)
[2020-04-21] MEDS: HEPARIN SOD 5,000 UNIT/0.5 ML VIAL SQ SCH ×3 (06:32→21:04)
[2020-04-21] MEDS: LEVOTHYROXINE SODIUM 125 MCG TABLET PO SCH (06:32)
[2020-04-21 06:34] LABS: Estimated Average Glucose 103 mg/dl; Hemoglobin A1C 5.2 % (4.5-5.6)
[2020-04-21 06:36] LABS: BUN Creatinine Ratio 21.3 (10-20); Calcium 8.8 mg/dl (8.5-10.1); Creatinine Clr Calc Pharmacy 92.3 ml/min; Est GFR (African American) 112.2; Est GFR (Non-African American) 96.8; Potassium 3.4 mmol/L (3.5-5.1)
[2020-04-21] MEDS: MIDODRINE HCL 2.5 MG TAB PO SCH ×3 (08:52→17:36)
[2020-04-21] MEDS: LANSOPRAZOLE 30 MG SOLTAB PEG SCH (08:53)
[2020-04-21] MEDS: BACITRACIN OINT 15 GM TUBE EXT SCH (08:53)
[2020-04-21] MEDS: LACTOBACILLUS ACIDOPHILUS 1 GM PACK PEG SCH (08:53)
[2020-04-21] MEDS: FLUDROCORTISONE ACETATE 0.1 MG TAB PO SCH (08:53)
[2020-04-21] MEDS: MULTI VIT W/MINERALS LIQUID 15 ML UDP PEG SCH (08:53)
[2020-04-21] MEDS: Magic Mouthwash 240mL PO SCH ×4 (09:00→21:07)
[2020-04-21] MEDS ORDERED: POTASSIUM CHLORIDE PWD 20 MEQ PACK GT ONE (10:02)
--- NOTE | 2020-04-21 10:39 | Electrocardiogram Report ---
Test Reason : Blood Pressure : / mmHG Vent. Rate : 078 BPM Atrial Rate : 078 BPM P-R Int : 140 ms QRS Dur : 072 ms QT Int : 416 ms P-R-T Axes : 059 -33 004 degrees QTc Int : 474 ms Poor data quality, interpretation may be adversely affected Normal sinus rhythm Left axis deviation Low voltage QRS Cannot rule out Anterior infarct (cited on or before 09-APR-2020) Abnormal ECG When compared with ECG of 13-APR-2020 07:15, No significant change was found Confirmed by Rocco Gonzalez ([id number]) on 04/21/2020 10:39:12 AM Referred By: REFERRED SELF Confirmed By:Rocco Gonzalez
[2020-04-21] MEDS ORDERED: AMPICILLIN/SULBACTAM CONSULT ACTIVE PRN (11:52)
[2020-04-21] MEDS: PEPTAMEN 1.5 CAL 1,000 ML BAG NG SCH (18:03)
--- NOTE | 2020-04-21 19:12 | Hospitalist Progress Note ---
Date of Service April 21, 2020 Assessment & Plan (1) Hypotension: Acute on chronic respiratory failure with hypoxia Recurrent aspiration pneumonia Left upper lobe pulmonary nodule S/P PEG tube placement Uses oxygen intermittently at baseline as per patient -CXR:Left lung airspace opacities consistent with pneumonia. Small left pleural effusion. Equivocal 29 mm left upper lung zone nodule and left hilar prominence. Underlying malignancy cannot be excluded. Chest CT scanning or film subsequent to treatment are recommended in follow-up. -Normal lactate levels, no leukocytosis, Afebrile -Hold Augmentin. Continue IV Unasyn Aspiration precautions, speech therapy consulted Received IV fluids Continue supplemental oxygen as needed Nebs PRN Continue tube feeds Given recurrent admissions/Complex comorbidities, palliative care consulted to address goals of care (son request video conference with mother if possible) Continue current medications Syncopal Episode Chronic hypotension Chronic recurrent Syncopal Episodes H/O orthostatic hypotension H/O left internal carotid artery stenosis secondary to cancer mass as per records EEG on prior admission showed no seizure-like activity Had extensive work-up prior admissions. 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 S/P resection, radiation S/P PEG NPO at baseline Paroxysmal atrial tachycardia Previously on metoprolol Beta-paulo discontinued on prior to discharge Hypothyroidism Continue levothyroxine DVT Px: Heparin SQ Code Status DNR Disposition To be determined Palliative care consult secondary to recurrent admissions to address goals of care Admission and Anticipated Discharge Date Admission Date: April 20, 2020 Subjective Patient is seen and examined at bedside Minimal dry cough today No new complaints Saturating 94% on 3 L of oxygen Mostly Nonverbal--responds by writing to questions Denies chest pain, shortness of breath, dizziness, nausea, abdominal pain Review of Systems Review of Systems: All systems reviewed & are unremarkable except as noted in HPI & below Physical Exam Physical Exam: Physical Exam: Vitals signs as noted above General Appearance: Ill-appearing, thin, frail, no apparent distress Head: normocephalic, + oropharyngeal abnormality. Surgical findings. Eyes: normal inspection, EOMI, PERRL Neck: supple, Trachea midline Respiratory/Chest: Decreased breath sounds, scattered rhonchi Cardiovascular: S1, S2, No murmur Abdomen/GI:Soft, Non tender, +PEG tube, Bowel sounds present Extremities/Musculoskelatal:normal inspection, no edema Neurologic/Psych:AAOX3, grossly no focal neurological deficits Skin: normal color, warm Results & Data Results & Data ([facility]) Vital Signs (Past 12 Hours) Vital Signs Temp Pulse Pulse Pulse Resp BP Pulse Ox 04/21/20 17:25 98 H 143/74 H 04/21/20 15:02 36.8 C 95 H 20 144/82 H 94 04/21/20 15:00 106 H 04/21/20 11:07 36.5 C 97 H 20 138/67 98 04/21/20 07:53 36.6 C 87 20 119/72 99 Laboratory Results Short CBC 04/21/20 Range/Units 05:50 WBC 5.45 (4.8-10.8) K/uL Hgb 10.3 L (12.0-16.0) g/dL Hct 31.2 L (37-47) % Plt Count 217 (130-400) K/uL BMP 04/21/20 05:50 Sodium 136 Potassium 3.4 L Chloride 102 Carbon Dioxide 28 BUN 9 D Creatinine 0.42 L Glucose 121 H Calcium 8.8
[2020-04-21] MEDS ORDERED: MAGNESIUM SULFATE / D5W 1 GM/100 ML BAG IV ONE (22:23)
[2020-04-21 23:14] LABS: BUN Creatinine Ratio 23.5 (10-20); Calcium 8.6 mg/dl (8.5-10.1); Creatinine Clr Calc Pharmacy 87.5 ml/min; Est GFR (African American) 111.3; Est GFR (Non-African American) 96.1; Potassium 3.4 mmol/L (3.5-5.1)
[2020-04-21] MEDS ORDERED: POTASSIUM CHLORIDE / WTR 10 MEQ/100 ML PLCT IV SCH (23:30)
[2020-04-21] MEDS: POTASSIUM CHLORIDE / WTR 10 MEQ/100 ML PLCT IV SCH (23:42)
[2020-04-22] MEDS ORDERED: POTASSIUM CHLORIDE 40 MEQ in SODIUM CHLORIDE 0.9% 1000ML 1,000 ML IV ONE (00:01)
[2020-04-22] MEDS ORDERED: POTASSIUM CHLORIDE 20 MEQ/15 ML UDC PEG STA (00:08)
[2020-04-22] MEDS: POTASSIUM CHLORIDE / WTR 10 MEQ/100 ML PLCT IV SCH (00:12)
[2020-04-22] MEDS: AMPICILLIN/SULBACTAM SOD 3,000 MG in 0.9 % SODIUM CHLORIDE 100 ML IV SCH ×4 (03:06→20:03)
--- NOTE | 2020-04-22 03:29 | Communication Note ---
Date of Service: April 22, 2020 Transient atrial tachycardia as per RN SBP 140- 150s Serum potassium 3.4 AP Elevated BP History idiopathic hypotension on home midodrine, recently started on fludrocortisone Hypokalemia ? Secondary to fludrocortisone DC midodrine Continue fludrocortisone Replace potassium May require daily potassium supplement if with recurrent hypokalemia Will relay to AM provider.
[2020-04-22] MEDS: LEVOTHYROXINE SODIUM 125 MCG TABLET PO SCH (06:11)
[2020-04-22] MEDS: HEPARIN SOD 5,000 UNIT/0.5 ML VIAL SQ SCH ×3 (06:11→21:51)
[2020-04-22 06:58] LABS: BUN Creatinine Ratio 22.5 (10-20); Calcium 9.1 mg/dl (8.5-10.1); Creatinine Clr Calc Pharmacy 87.5 ml/min; Est GFR (African American) 111.3; Est GFR (Non-African American) 96.1; Magnesium 1.9 mg/dl (1.8-2.4); Potassium 4.1 mmol/L (3.5-5.1)
[2020-04-22] MEDS: FLUDROCORTISONE ACETATE 0.1 MG TAB PO SCH (08:40)
[2020-04-22] MEDS: Magic Mouthwash 240mL PO SCH ×4 (08:45→20:04)
[2020-04-22] MEDS: BACITRACIN OINT 15 GM TUBE EXT SCH (08:45)
[2020-04-22] MEDS: LACTOBACILLUS ACIDOPHILUS 1 GM PACK PEG SCH (08:45)
[2020-04-22] MEDS: MULTI VIT W/MINERALS LIQUID 15 ML UDP PEG SCH (08:45)
[2020-04-22] MEDS: LANSOPRAZOLE 30 MG SOLTAB PEG SCH (08:45)
[2020-04-22 08:56] LABS: Appearance Urine Clear (Clear); Bacteria Urine Automated Negative (Negative); Bilirubin Urine Negative (Negative); Blood Urine 1+ (Negative); Cast Urine Automated 0 /lpf (0-5); Color Urine Yellow; Epithelial Cell Urine Auto 0-5 /lpf (0-5); Glucose Urine UA Trace (Negative); Ketones Urine Negative (Negative); Leukocyte Esterase Urine Negative (Negative); Nitrite Urine Negative (Negative); Specific Gravity Urine 1.016 (1.000-1.030); Urobilinogen Urine Negative (Negative); WBC Urine Automated 0 /hpf (0-5)
--- NOTE | 2020-04-22 09:16 | Palliative Care Consultation ---
Date of Consultation April 22, 2020 Assessment & Plan (1) Palliative care encounter: Jeanne is an 79 year old who presented to the [facility] with . She has unfortunately had 3 other inpatient hospitalizations in the past 30 days for similar symptoms. 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 [facility] [place] [facility] [place] and was due to start Keytruda next week for palliation of symptoms. She is aware that her cancer is, unfortunately, not curative. She has a PEG tube since her resection and has been receiving tube feedings through it. She has a son, Demetri, who is her POA and has recently moved in with her to provide her care in her home. Palliative Care has been consulted to discuss goals of care. Jeanne is an already established DNR/DNI. I met with Jeanne privately first. She was so pleasant and grateful for a visit. We spoke at length about how she was feeling regarding her current plans to move forward with Keytruda Immunotherapy. She has reservations, but due to the anticipated limited side effects, she is willing to proceed. I did connect her with her son, Demetri (POA), whom I did speak with prior to the Ipad meeting over Zoom. Demetri has moved in with her to care for her over the past few weeks. Both recognize the repeat and frequent hospitalizations are not linear with what both of their half-way goals would be. Her admissions have been more geared towards hypotension/vasovagal episodes. Her son wants to know what he can do at home to prevent this. I suggested she use a walker to have 4 point balance, would also suggest PT/OT, surveillance cameras (son suggested), and a life alert necklace. The cause of her current and frequent hypotension is not 100% clear. She did have a carotid ultrasound done on April 08, 2020 which showed some plaque, but nothing too remarkable. I was unable to find any recent ECHO, so discussed ordering one with Dr. Ortega, who agreed to such and will take place today. This will help them have more information towards making decisions in the future. We did discuss Hospice and its capabilities. She does continue to have tube feedings and this was discussed also. For now, all parties agreed for her to remain a DNR/DNI, proceed with Keytruda immunotherapy for palliation purposes, continue tube feedings, return home with home health and attend outpatient palliative care appointments to continue to evolve goals of care based on her treatment response. She declines any symptom management needs. For now, palliative care will follow peripherally, unless additional support is necessary while she is inpatient. 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 Ortega Attending Physician: Adán Ortega MD History of Present Illness Jeanne is an 79 year old who presented to the [facility] with . She has unfortunately had 3 other inpatient hospitalizations in the past 30 days for similar symptoms. 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 She [place] [facility] [place] and was due to start Keytruda next week for palliation of symptoms. She is aware that her cancer is, unfortunately, not curative. She has a PEG tube since her resection and has been receiving tube feedings through it. She has a son, Demetri, who is her POA and has recently moved in with her to provide her care in her home. Palliative Care has been consulted to discuss goals of care. Jeanne is an already established DNR/DNI. Please see A/P for further details. Thank you kindly for involving Palliative Care with this patient. Allergies Allergy/AdvReac Type Severity Reaction Status Date / Time No Known Allergies Allergy Verified 04/20/20 03:55 Home Medications Medication Instructions Recorded Confirmed Type ondansetron 4 mg FEEDING TUBE Q8 PRN 03/26/20 04/20/20 History oxycodone 5 mg FEEDING TUBE Q4 PRN 03/26/20 04/20/20 History triamcinolone acetonide 1 applic TOPICAL BID PRN 03/26/20 04/20/20 History Lactinex 2 tab FEEDING TUBE QAM 04/08/20 04/20/20 History bacitracin 1 applic EXT DAILY 14 Days #30 g 04/15/20 04/20/20 Rx zcdzvyqd-svg-szsqzlv gluconate 15 ml PEG QAM 30 Days #450 ml 04/15/20 04/20/20 Rx [Centrum] pantoprazole 40 mg PO QAM 30 Days #30 tab 04/15/20 04/20/20 Rx Magic Mouthwash 5 ml PO Q4H 04/20/20 04/20/20 History amoxicillin-pot clavulanate 11 ml FEEDING TUBE BID 04/20/20 04/20/20 History levothyroxine [Synthroid] 125 mcg FEEDING TUBE DAILYBB 04/20/20 04/20/20 History midodrine 5 mg PO TID 04/20/20 04/20/20 History Patient History Medical History (Updated 04/22/20 @ 09:34 by ABHILASH De Oliveira) Chronic respiratory failure Hypotension 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 Chauhan) 09/10/15: Right hemimaxillectomy with left RFFF and tracheostomy (Dr. Suarez/José KERN) 07/12/18: WLE right buccal mass, inferior maxillectomy, biopsy left mandibular gingivolabial sulcus lesion, PEG placement (Dr. Luque of [place]) 10/14/18: Composite resection of anterior FOM, marginal mandibulectomy, inner lip and right radial forearm (Dr. Flaherty and Dr. Dsouza) 02/28/19: Excision of left hard palate SCCa/Maxillectomy (Dr. Dsouza) History of tracheostomy Status post split thickness skin graft Family History Denies family history of Coronary heart disease Social History Smoking Status: Never smoker Second Hand Exposure: No; Hx Alcohol Use: No Hx Substance Use: No Preferred Language: Sinhala Communication Ability: Impaired Visual Impairment: Limited Hearing Ability: Normal Die Trimmer Required: No Beliefs That Will Affect Care: None marital status: / Current Living Situation: Family Current Living Situation Comment: lives with son current occupational status: retired Feels Safe at Home: Yes Assistive Devices: None Review of Systems Review of Systems: [place] Symptom Assessment System Revised (ESAS-R) Pain: 0/3 Nausea: 0/3 SOB: 0/3 Depression: 0/3 Anxiety: 0/3 PPS: 40% Physical Exam Constitutional: well nourished, + frail appearing and cooperative ENMT: external ear and nose normal, oropharynx normal Neck: + anterior neck swelling Respiratory: normal respiratory effort, lungs clear to auscultation Cardiovascular: RRR, no murmur, no edema Extremities: normal capillary refill; no edema Gastrointestinal (Abdomen): normal bowel sounds, soft, nontender, no hepatosplenomegaly Skin: no rashes, warm and dry Psychiatric: A+Ox3, euthymic affect unable to speak d/t cancer Results & Data ([facility]) Vital Signs (Past 12 Hours) Vital Signs Temp Pulse Pulse Resp BP BP Pulse Ox 04/22/20 07:21 36.3 C L 95 H 16 147/88 H 96 04/22/20 07:09 94 H 04/22/20 04:02 36.8 C 103 H 18 141/70 H 96 04/22/20 02:05 106 H 04/21/20 23:33 36.7 C 105 H 18 152/80 H 94 PG Care Time/CCT Total # of Minutes Spent Total Time Spent with Patient: Total time spent is greater than 50% in coordination of care (as documented) at patient's floor/unit and/or counseling patient: 70 Coding Level of Care Code 33404 Inpt Consult Level 3 Diagnoses Palliative care encounter Z51.5 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
[2020-04-22 09:20] LABS: Protein Urine Negative (Negative); Sulfosalicylic Acid Urine Negative (Negative)
[2020-04-22] MEDS: PEPTAMEN 1.5 CAL 1,000 ML BAG NG SCH (15:26)
--- NOTE | 2020-04-22 18:22 | Hospitalist Progress Note ---
Date of Service April 22, 2020 Assessment & Plan (1) Hypotension: Acute on chronic respiratory failure with hypoxia Recurrent aspiration pneumonia Left upper lobe pulmonary nodule S/P PEG tube placement Uses oxygen intermittently at baseline as per patient -CXR:Left lung airspace opacities consistent with pneumonia. Small left pleural effusion. Equivocal 29 mm left upper lung zone nodule and left hilar prominence. Underlying malignancy cannot be excluded. Chest CT scanning or film subsequent to treatment are recommended in follow-up. -Normal lactate levels, no leukocytosis, Afebrile -Held Augmentin. Continue IV Unasyn Aspiration precautions, speech therapy consulted Received IV fluids Continue supplemental oxygen as needed Nebs PRN Continue tube feeds Appreciate palliative care input to address goals of care Saturating well on room air Syncopal Episode Chronic hypotension Chronic recurrent Syncopal Episodes H/O paroxysmal atrial tachycardia H/O orthostatic hypotension H/O left internal carotid artery stenosis secondary to cancer mass as per records EEG on prior admission showed no seizure-like activity Had extensive work-up prior admissions. ECHO pending Blood pressure improved with fludrocortisone Midodrine discontinued Restarted metoprolol at lower dose for paroxysmal atrial tachycardia Received IV fluids Fall precautions 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 S/P resection, radiation S/P PEG NPO at baseline Patient interested to move forward with Keytruda immunotherapy Appreciate palliative care input Paroxysmal atrial tachycardia Previously on metoprolol Resume Metoprolol 6.25mg BID with holding parameters Hypothyroidism Continue levothyroxine DVT Px: Heparin SQ Code Status DNR/DNI Disposition Expect to discharge home when medically stable Admission and Anticipated Discharge Date Admission Date: April 20, 2020 Subjective Patient is seen and examined at bedside Mostly Nonverbal--responds by writing to questions Blood pressure elevated today No new complaints Discussed with palliative care today Noted tachycardia on monitor Less cough Saturating 95% on RA Denies chest pain, shortness of breath, dizziness, nausea, abdominal pain Review of Systems Review of Systems: All systems reviewed & are unremarkable except as noted in HPI & below Physical Exam Physical Exam: Physical Exam: Vitals signs as noted above General Appearance: Ill-appearing, thin, frail, no apparent distress Head: normocephalic, + oropharyngeal abnormality. Surgical findings. Eyes: normal inspection, EOMI, PERRL Neck: supple, Trachea midline Respiratory/Chest: Decreased breath sounds, scattered rhonchi Cardiovascular: S1, S2, No murmur Abdomen/GI:Soft, Non tender, +PEG tube, Bowel sounds present Extremities/Musculoskelatal:normal inspection, no edema Neurologic/Psych:AAOX3, grossly no focal neurological deficits Skin: normal color, warm Results & Data Results & Data ([facility]) Vital Signs (Past 12 Hours) Vital Signs Temp Pulse Pulse Resp BP BP Pulse Ox 04/22/20 16:20 100 H 04/22/20 15:45 36.9 C 78 19 158/71 H 95 04/22/20 12:58 36.3 C L 86 18 95/77 L 98 04/22/20 11:19 36.2 C L 94 H 16 134/77 96 04/22/20 07:21 36.3 C L 95 H 16 147/88 H 96 04/22/20 07:09 94 H Laboratory Results [facility] 04/21/20 04/22/20 22:33 06:13 Sodium 134 L 135 L Potassium 3.4 L 4.1 D Chloride 100 102 Carbon Dioxide 27 27 BUN 10 10 Creatinine 0.43 L 0.43 L Glucose 128 H 133 H Calcium 8.6 9.1 Urine 04/22/20 Range/Units 08:25 Urine Color Yellow Urine Appearance Clear (Clear) Urine pH 8.0 H (4.5-7.5) Ur Specific [place] 1.016 (1.000-1.030) Urine Protein Negative (Negative) Urine Glucose (UA) Trace H (Negative)
[2020-04-22] MEDS: METOPROLOL TARTRATE 25 MG TAB PO SCH (20:42)
[2020-04-23] MEDS: AMPICILLIN/SULBACTAM SOD 3,000 MG in 0.9 % SODIUM CHLORIDE 100 ML IV SCH ×3 (01:52→14:48)
[2020-04-23] MEDS: HEPARIN SOD 5,000 UNIT/0.5 ML VIAL SQ SCH ×2 (05:46→14:49)
[2020-04-23] MEDS: LEVOTHYROXINE SODIUM 125 MCG TABLET PO SCH (05:46)
[2020-04-23 06:39] LABS: BUN Creatinine Ratio 31.9 (10-20); Calcium 8.9 mg/dl (8.5-10.1); Creatinine Clr Calc Pharmacy 83.5 ml/min; Est GFR (African American) 111.3; Est GFR (Non-African American) 96.1; Magnesium 2.3 mg/dl (1.8-2.4); Potassium 3.9 mmol/L (3.5-5.1)
[2020-04-23] MEDS: MULTI VIT W/MINERALS LIQUID 15 ML UDP PEG SCH (09:07)
[2020-04-23] MEDS: Magic Mouthwash 240mL PO SCH ×3 (09:08→16:04)
[2020-04-23] MEDS: FLUDROCORTISONE ACETATE 0.1 MG TAB PO SCH (09:09)
[2020-04-23] MEDS: BACITRACIN OINT 15 GM TUBE EXT SCH (09:09)
[2020-04-23] MEDS: LANSOPRAZOLE 30 MG SOLTAB PEG SCH (09:09)
[2020-04-23] MEDS: METOPROLOL TARTRATE 25 MG TAB PO SCH (09:10)
[2020-04-23] MEDS: LACTOBACILLUS ACIDOPHILUS 1 GM PACK PEG SCH (09:10)
--- NOTE | 2020-04-23 15:07 | Hospitalist Progress Note ---
Date of Service April 23, 2020 Assessment & Plan (1) Hypotension: Acute on chronic respiratory failure with hypoxia Recurrent aspiration pneumonia Left upper lobe pulmonary nodule S/P PEG tube placement Uses oxygen intermittently at baseline as per patient -CXR:Left lung airspace opacities consistent with pneumonia. Small left pleural effusion. Equivocal 29 mm left upper lung zone nodule and left hilar prominence. Underlying malignancy cannot be excluded. Chest CT scanning or film subsequent to treatment are recommended in follow-up. -Normal lactate levels, no leukocytosis, Afebrile Received IV Unasyn Aspiration precautions, speech therapy consulted Received IV fluids Weaned off of supplemental oxygen Nebs PRN Continue tube feeds Appreciate palliative care input to address goals of care Plan to transition to Augmentin to complete the course Syncopal Episode Chronic hypotension Chronic recurrent Syncopal Episodes H/O paroxysmal atrial tachycardia H/O orthostatic hypotension H/O left internal carotid artery stenosis secondary to cancer mass as per records EEG on prior admission showed no seizure-like activity Had extensive work-up prior admissions. ECHO: EF: 60-65%, grade 1 diastolic dysfunction. Poorly visualized valvular structures without significant stenosis or regurgitation by Doppler. Blood pressure improved with fludrocortisone Midodrine discontinued Restarted metoprolol at lower dose 6.25mg BID given H/O paroxysmal atrial tachycardia Received IV fluids Fall precautions Advised to check blood pressure regularly at home. 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 S/P resection, radiation S/P PEG NPO at baseline Patient interested to move forward with Keytruda immunotherapy Appreciate palliative care input Paroxysmal atrial tachycardia Previously on metoprolol Resumed Metoprolol 6.25mg BID with holding parameters Hypothyroidism Continue levothyroxine DVT Px: Heparin SQ Code Status DNR/DNI Disposition Plan to discharge home today Admission and Anticipated Discharge Date Admission Date: April 20, 2020 Subjective Patient is seen and examined at bedside Mostly Nonverbal--responds by writing to questions Doing well today Offers no new complaints Discussed with patient's son over the phone Saturating well on RA Denies chest pain, shortness of breath, dizziness, nausea, abdominal pain Plan to discharge home today Review of Systems Review of Systems: All systems reviewed & are unremarkable except as noted in HPI & below Physical Exam Physical Exam: Physical Exam: Vitals signs as noted above General Appearance: Ill-appearing, thin, frail, no apparent distress Head: normocephalic, + oropharyngeal abnormality. Surgical findings. Eyes: normal inspection, EOMI, PERRL Neck: supple, Trachea midline Respiratory/Chest: Decreased breath sounds, minimal left base crackles Cardiovascular: S1, S2, No murmur Abdomen/GI:Soft, Non tender, +PEG tube, Bowel sounds present Extremities/Musculoskelatal:normal inspection, no edema Neurologic/Psych:AAOX3, grossly no focal neurological deficits Skin: normal color, warm Results & Data Results & Data ([facility]) Vital Signs (Past 12 Hours) Vital Signs Temp Pulse Pulse Resp BP Pulse Ox 04/23/20 11:07 36.9 C 90 16 124/74 94 04/23/20 07:41 93 H 04/23/20 07:21 36.5 C 96 H 16 153/91 H 96 Laboratory Results [facility] 04/23/20 05:18 Sodium 134 L Potassium 3.9 Chloride 102 Carbon Dioxide 27 BUN 14 Creatinine 0.43 L Glucose 124 H Calcium 8.9
--- NOTE | 2020-04-23 15:36 | Discharge Summary ---
Date of Service April 23, 2020 Admission HPI Per Admitting Provider History obtained from patient, family, and records. Limited history from patient secondary limited verbal output from head and neck cancer surgery. Medical history significant for recurrent head and neck cancer status post surgery, radiation with lung and bone mets, aspiration risk status post PEG tube placement, hypothyroidism, orthostatic hypotension on Midodrine. Patient admitted at [facility] on few occasions last month. Recent confinement last week for acute hypotension from vasovagal episodes and aspiration pneumonia. Beta-paulo for paroxysmal atrial tachycardia stop on discharge. Patient discharged on Midodrine 5 mg via PEG 3 times daily later increased to 10 mg via PEG 3 times daily. Patient also discharged on Augmentin course for aspiration pneumonia. Last night, patients son noted aspiration event following nausea emesis episode while receiving tube feeds. Junky cough symptoms noted. No fever, no chills, no shortness of breath. Patient later noted to be hypoxemic on home pulse ox by son. Patient noted to be unresponsive. SBP 60s at home. Patient brought to the ER for evaluation. Medical History as above Recent outpatient [facility] oncologist follow-up 04/16/20 Consideration for initiation of Keytruda immunotherapy next week. Treatment goal will be palliative and not curative as per documentation. 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 Admission Exam Per Admitting Provider Physical Exam Physical Exam: GENERAL: pleasant, no respiratory distress, underweight SKIN: Pallor, warm HEENT: pale palpebral conjunctivae, no ptosis, dry buccal mucosa, nasal cannula in place NECK : Supple, no tenderness, tracheostomy scar CHEST : Decreased breath sounds, occasional expiratory wheezes, no tenderness HEART : RRR , no obvious murmurs ABDOMEN: Some distention, PEG tube in place, nontender EXTREMITIES : No LE swelling/tenderness, no other conspicuous deformities noted NEUROLOGIC : Coherent, no facial asymmetry, no other gross focality Principal Diagnosis Acute on chronic respiratory failure with hypoxia Recurrent aspiration pneumonia Left upper lobe pulmonary nodule Syncope Hypokalemia Discharge Data Allergies Allergy/AdvReac Type Severity Reaction Status Date / Time No Known Allergies Allergy Verified 04/20/20 03:55 Consultations 04/20/20 03:51 ED Decision to Admit Stat 12/05/20 21:18 Consult Case Management - Discharge Planning Routine 04/21/20 12:58 Consult Palliative Care Routine Procedures Performed -CXR:Left lung airspace opacities consistent with pneumonia. Small left pleural effusion. Equivocal 29 mm left upper lung zone nodule and left hilar prominence. Underlying malignancy cannot be excluded. Chest CT scanning or film subsequent to treatment are recommended in follow-up. Hospital Course (1) Hypotension: Acute on chronic respiratory failure with hypoxia Recurrent aspiration pneumonia Left upper lobe pulmonary nodule S/P PEG tube placement Uses oxygen intermittently at baseline as per patient -CXR:Left lung airspace opacities consistent with pneumonia. Small left pleural effusion. Equivocal 29 mm left upper lung zone nodule and left hilar prominence. Underlying malignancy cannot be excluded. Chest CT scanning or film subsequent to treatment are recommended in follow-up. -Normal lactate levels, no leukocytosis, Afebrile Received IV Unasyn Aspiration precautions, speech therapy consulted Received IV fluids Weaned off of supplemental oxygen Nebs PRN Continue tube feeds Appreciate palliative care input to address goals of care Plan to transition to Augmentin to complete the course Syncopal Episode Chronic hypotension Chronic recurrent Syncopal Episodes H/O paroxysmal atrial tachycardia H/O orthostatic hypotension H/O left internal carotid artery stenosis secondary to cancer mass as per records EEG on prior admission showed no seizure-like activity Had extensive work-up prior admissions. ECHO: EF: 60-65%, grade 1 diastolic dysfunction. Poorly visualized valvular structures without significant stenosis or regurgitation by Doppler. Blood pressure improved with fludrocortisone Midodrine discontinued Restarted metoprolol at lower dose 6.25mg BID given H/O paroxysmal atrial tachycardia Received IV fluids Fall precautions Advised to check blood pressure regularly at home. 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 S/P resection, radiation S/P PEG NPO at baseline Patient interested to move forward with Keytruda immunotherapy Appreciate palliative care input Paroxysmal atrial tachycardia Previously on metoprolol Resumed Metoprolol 6.25mg BID with holding parameters Hypothyroidism Continue levothyroxine DVT Px: Heparin SQ Code Status DNR/DNI Disposition Plan to discharge home today Total Time Total Time Spent Total Time Spent (In Minutes): 38 minutes Total Time Includes: Examination of the Patient, Discharge Planning, Medication Reconciliation, Communication With Other Providers and Other Discharge Plan Discharge Items Patient Disposition: Home - Home Health Services Reason For Visit: HYPOTENSION Discharge Diagnosis: Acute on chronic respiratory failure with hypoxia Recurrent aspiration pneumonia Left upper lobe pulmonary nodule Syncope Hypokalemia Activity: Resume your previous activity Exercise/Sports: Gradually increase as tolerated Non-emergency contact: Primary Care Provider, Director Of Cloud Services and Oncologist Call non-emergency contact if: you have any medication questions, your symptoms worsen, your pain is not controlled, your pain is worsening, your pain is unusual for you, your pain is concerning for you and you have a fever Follow-up/Referrals: Ruba Chaidez DO [Primary Care Provider] - (Date & Time 04/26/2020 11:20 AM Provider Ruba Chaidez DO Department [facility] ) Dietitian Info: Tube feeds Diet: Nothing by Mouth and Other - See Diet Comment Ambulatory Orders: Basic Metabolic Panel (Routine) Timeframe: 1 Week Location: Determined by Patient Ordered By: Adán Figueroa Attending Provider Instructions: Follow up with your PCP on 04/26/2020 11:20 AM as scheduled Follow up with your Director Of Cloud Services as recommended for further evaluation of paroxysmal atrial tachycardia and recurrent syncope Follow up with your Oncologist for further evaluation of left lung nodule. Get blood test (Basic Metabolic Panel) in 1 week and follow up with your physician with results Complete antibiotic course Augmentin as recommended Your final blood cultures are pending at the time of discharge. Follow-up with your physician for results. Check your blood pressure regularly as advised. Monitor your oxygen saturations at home using pulse oximeter. Seek immediate medical attention if your symptoms reoccur or worsen Pending Studies at Discharge: Yes Studies:: Blood Cultures Stand-Alone Forms: My [facility] [employer], Smoking Cessation Medications and DC Order Prescriptions: New metoprolol tartrate 25 mg Tablet 6.25 mg PO BID Qty: 30 RF: 0 fludrocortisone 0.1 mg Tablet 0.1 mg PO QAM Qty: 30 RF: 0 Continued Lactinex 1 million cell tablet,chewable 2 tab feeding tube QAM RF: 0 oxycodone 5 mg/5 mL solution 5 mg feeding tube Q4 PRN (Reason: Pain) RF: 0 triamcinolone acetonide 0.1 % cream 1 applic TOPICAL BID PRN (Reason: Inflammation around peg tube) RF: 0 ondansetron 4 mg tablet,disintegrating 4 mg feeding tube Q8 PRN (Reason: Nausea) RF: 0 bacitracin 500 unit/gram Ointment 1 applic EXT DAILY 14 Days Qty: 30 RF: 0 pantoprazole 40 mg Tablet,Delayed Release (Dr/Ec) 40 mg PO QAM 30 Days Qty: 30 RF: 0 ofuhcqkb-spv-etcgrhz gluconate [Centrum] 9 mg iron/15 mL Liquid 15 ml PEG QAM 30 Days Qty: 450 RF: 0 amoxicillin-pot clavulanate 400-57 mg/5 mL suspension for reconstitution 11 ml feeding tube BID RF: 0 Magic Mouthwash 5 ml PO Q4H RF: 0 levothyroxine [Synthroid] 125 mcg tablet 125 mcg feeding tube DAILYBB RF: 0 Discontinued midodrine 2.5 mg tablet 5 mg PO TID RF: 0 Discharge Orders: Discharge Order (Routine); Ordered 04/23/20 Ordered By: Adán Ortega Admission Data Admit Date/Time: 04/20/20 07:30 Attending Provider: Adán Ortega Admit Provider: Adán Ortega Primary Care Provider: Ruba Chaidez Other Providers: Fransico Harris ; [facility] ; Jeannie Goodson Other Interventions: Discharge Summary Assessment (RN) Last Done: 04/23/20 16:01
== END 2020-04-23 17:36 | disposition home health service (06) | DRG 177 ==
LOC: ED 03:09 → 2S 07:30 → 2N 21:19

== ENCOUNTER 2020-04-27 00:17 | Observation (INO) ==
[2020-04-27] MEDS ORDERED: SODIUM CHLORIDE 0.9% 1000ML 1,000 ML IV ONE (00:21)
--- NOTE | 2020-04-27 00:28 | Emergency Department Note ---
Impression & Plan Acute hypotension, Altered mental status ED Provider Note Name: HALEY GARNER Age: 79 Sex: F Arrives Via: Ambulance Informant: Patient, EMS, Son ED Provider: Aidan Pathak MD Chief Complaint: Syncope Impression: Acute Hypotension Altered Mental States Medical Decision Makin yr old female with metastatic squamous CA of head and neck arrives after another episode syncope/hypotension that has been occurring fairly frequently the last few weeks. Apparently tried recent switch to fludrocortisone and dropping off the Midodrine as outpatient. She arrives tired appearing, dehydrated appearing and of note there is a dilated minimally reactive right pupil. She is awake and appears oriented. Work-up essentially benign other than hypotension on arrival which responded to 2 L IV NSS. With good BP improvement held off on empiric steroids. No clear evidence of infection causing this. Unclear etiology of these episodes whether maury/vagal in nature, mets to brain, dehydration or other. Reviewed with pt/son and at this point wish monitoring in hosp given severity symptoms prior to arrival. Hospitalist consulted for further management. I will note it appears there was to be paliative/hospice consult next week which given recurrence of these issues and severity of her cancer seems very much reasonable. Prior Medical Record and Triage/Nursing Notes reviewed by Me Additional history obtained from Differentials:Vasovagal event, dehydration, infection, hypoglycemia, electrolyte abnormalities, cardiac sources, intracerebral event, pulmonary embolism, seizure, toxicologic, neurologic, as well as other pathologies. Vital Signs: reviewed and remarkable for hypotension Interventions: saline lock, nss bolus x 2, Dilaudid IV (chronic neck pain from mass) Labs:Reviewed and remarkable for no significant abnormalities Imaging:X ray results are stated below per my interpretation: Chest: 1 view: Mild congestion, left hilar fullness, left pleural effusion, similar to recent cxr EKG:Per My Interpretation: Indication Syncope: NSR 86 bpm, qtc 485. No Ectopy. No Ischemia. Compared to EKG 04/27/20, no significant changes. Cardiac/Tele Monitoring: Cardiac Monitoring: An Order was placed for continuous cardiac monitoring. The monitor shows a rate of 80 with a normal sinus rhythm. Consults:Dr Candido Jordan Hospitalist Plan: Disposition: Hospitalist Condition: Fair History of Present Illness:79 yr old arrives for evaluation of syncope. Patient with large facial tumor which keeps from eating/drinking orally. Patient was recently discharged from hospital after syncope and pneumonia treatment. She has been at home and tonight had a syncopal episode. No reported injury nor head headache. She notes she feels OK currently. EMS notes SBP in 50s en route. Unable to get IV access prior to arrival. No medications prior to arrival. Patient denies headache, neck pain cp, sob, back pain, fevers, abdominal pain, nausea, vomiting, diarrhea, urinary issues, leg swelling nor other symptoms. Notes that peg tube working well for feeding at home. Per son she was switched from Midodrine 10mg TID to Fludrocortisone daily a few days ago. ROS: See above HPI for pertinent positives & negatives. A total of 10 systems reviewed and were otherwise negative. Past Medical History:See Below Past Surgical History:See Below Family History:See Below Social History:See Below Home Medications:See Below Allergies:See Below Vitals:Blood Pressure: 70/50, Pulse 90, RR 30, T 36.7C, O2 94% on RA Physical Exam: GENERAL: Patient is chronically unwell and significantly dehydrated appearing and in minimal distress. EYES: No scleral icterus, unremarkable pupils. ENT: Large fungating ulcerative mass of lower anterior jaw/lip protruding forward/up. Dry membranes, no nasal congestion. NECK: No masses appreciated, nomeningismus, trachea is midline. RESPIRATORY: Mild dyspnea with diffuse mild crackles, mostly upper airway noises, no wheeze CARDIOVASCULAR: Regular rate and rhythm.No murmurs, rubs, gallops appreciated. GASTROINTESTINAL: Abdomen soft, non-tender, no peritonitis.Bowel sounds positive.No masses appreciated. BACK: No midline tenderness, no CVA tenderness EXTREMITIES: Normal motion all extremities, no cyanosis, no edema. NEUROLOGIC: Alert, answers with head nod yes/no, no acute motor or sensory deficits, no focal weakness, cranial nerves grossly intact though right pupil is dilated and minimally responsive. SKIN: No rash, no jaundice, no diaphoresis. PSYCH: Appropriate GCS: 15 ED Course: Times/Reassessments: Improvement in BP with IV fluids, patient feeling better though needing some pain meds for neck Critical Care: I have personally spent 35 minutes of critical care time in the direct management of this patient. Acute Hypotensive episode requiring fluid resus. This was a life/limb threatening event. This 35 minutes is in excess of all separately billable procedures. Aidan Pathak MD Past Med/Surg History Medical History (Updated 04/27/20 @ 02:57 by Aidan Pathak MD) Chronic respiratory failure Hypokalemia Hypotension 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 Chauhan) 09/10/15: Right hemimaxillectomy with left RFFF and tracheostomy (Dr. Suarez/José KERN) 07/12/18: WLE right buccal mass, inferior maxillectomy, biopsy left mandibular gingivolabial sulcus lesion, PEG placement (Dr. Luque of [place]) 10/14/18: Composite resection of anterior FOM, marginal mandibulectomy, inner lip and right radial forearm (Dr. Flaherty and Dr. Dsouza) 02/28/19: Excision of left hard palate SCCa/Maxillectomy (Dr. 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: No Beliefs That Will Affect Care: None marital status: / Current Living Situation: Family Current Living Situation Comment: lives with son current occupational status: retired Other Information That Helps Us Care for You: No Feels Safe at Home: Yes Safety Concerns: Feels Safe At This Time Assistive Devices: Glasses, Hearing Aid - Left and Hearing Aid - Right Allergies Allergies Allergy/AdvReac Type Severity Reaction Status Date / Time No Known Allergies Allergy Verified 04/27/20 00:39 Home Meds Home Medications Medication Instructions Recorded Confirmed ondansetron 4 mg FEEDING TUBE Q8 PRN 03/26/20 04/27/20 oxycodone 5 mg FEEDING TUBE Q4 PRN 03/26/20 04/27/20 triamcinolone acetonide 1 applic TOPICAL BID PRN 03/26/20 04/27/20 Lactinex 2 tab FEEDING TUBE QAM 04/08/20 04/27/20 Magic Mouthwash 5 ml PO Q4H 04/20/20 04/27/20 levothyroxine [Synthroid] 125 mcg FEEDING TUBE DAILYBB 04/20/20 04/27/20 midodrine 5 mg PO TID 04/27/20 04/27/20 pantoprazole 40 mg PO QAM 04/27/20 04/27/20 Previous Rx's Medication Instructions Recorded bacitracin 1 applic EXT DAILY 14 Days #30 g 04/15/20 ucecafvs-ews-vebjufr gluconate 15 ml PEG QAM 30 Days #450 ml 04/15/20 [Centrum] fludrocortisone 0.1 mg PO QAM #30 tab 04/23/20 metoprolol tartrate 6.25 mg PO BID #30 tab 04/23/20 Results & Data (ED) Vital Signs Vital Signs - 24 hr 04/27/20 00:23 04/27/20 00:24 04/27/20 00:26 Temperature Temperature Source Pulse Rate 115 H 156 H 120 H Pulse Rate from SpO2 Sensor Respiratory Rate 20 21 23 Respiratory Effort / Characteristics Non-Labored Respiratory Depth Normal Respiratory Pattern Regular Blood Pressure 74/44 L 74/44 L Blood Pressure Mean 54 54 Pulse Oximetry 95 Oxygen Delivery Method Room Air Sepsis Recent Fever Within 48 Hours No Sepsis New/Unexplained Change in Mental Status N/A Sepsis Action Taken by Nursing No Action Required 04/27/20 00:30 04/27/20 00:31 04/27/20 00:37 Temperature 36.7 C Temperature Source Axillary Pulse Rate 90 83 Pulse Rate from SpO2 Sensor Respiratory Rate 23 19 Respiratory Effort / Characteristics Respiratory Depth Respiratory Pattern Blood Pressure 80/47 L Blood Pressure Mean 53 Pulse Oximetry Oxygen Delivery Method Sepsis Recent Fever Within 48 Hours Sepsis New/Unexplained Change in Mental Status Sepsis Action Taken by Nursing 04/27/20 00:40 04/27/20 00:55 04/27/20 00:58 Temperature Temperature Source Pulse Rate 85 91 H 80 Pulse Rate from SpO2 Sensor 86 87 80 Respiratory Rate 20 19 20 Respiratory Effort / Characteristics Respiratory Depth Respiratory Pattern Blood Pressure 92/52 L 82/41 L Blood Pressure Mean 60 54 Pulse Oximetry 92 94 90 Oxygen Delivery Method Sepsis Recent Fever Within 48 Hours Sepsis New/Unexplained Change in Mental Status Sepsis Action Taken by Nursing 04/27/20 01:00 04/27/20 01:01 04/27/20 01:10 Temperature Temperature Source Pulse Rate 68 68 102 H Pulse Rate from SpO2 Sensor 69 68 88 Respiratory Rate 17 21 21 Respiratory Effort / Characteristics Respiratory Depth Respiratory Pattern Blood Pressure 71/35 L 98/52 L Blood Pressure Mean 47 62 Pulse Oximetry 91 92 92 Oxygen Delivery Method Sepsis Recent Fever Within 48 Hours Sepsis New/Unexplained Change in Mental Status Sepsis Action Taken by Nursing 04/27/20 01:15 04/27/20 01:20 04/27/20 01:21 Temperature Temperature Source Pulse Rate 92 H 90 89 Pulse Rate from SpO2 Sensor 93 H 91 H 89 Respiratory Rate 15 13 15 Respiratory Effort / Characteristics Respiratory Depth Respiratory Pattern Blood Pressure 100/53 L Blood Pressure Mean 69 Pulse Oximetry 96 94 95 Oxygen Delivery Method Sepsis Recent Fever Within 48 Hours Sepsis New/Unexplained Change in Mental Status Sepsis Action Taken by Nursing 04/27/20 01:30 04/27/20 01:31 04/27/20 01:40 Temperature Temperature Source Pulse Rate 90 94 H 94 H Pulse Rate from SpO2 Sensor 91 H 92 H 90 Respiratory Rate 16 21 17 Respiratory Effort / Characteristics Respiratory Depth Respiratory Pattern Blood Pressure 118/62 114/59 L Blood Pressure Mean 79 76 Pulse Oximetry 97 96 97 Oxygen Delivery Method Sepsis Recent Fever Within 48 Hours Sepsis New/Unexplained Change in Mental Status Sepsis Action Taken by Nursing 04/27/20 01:41 04/27/20 01:50 04/27/20 01:51 Temperature Temperature Source Pulse Rate 93 H 99 H 97 H Pulse Rate from SpO2 Sensor 94 H 96 H 97 H Respiratory Rate 16 19 17 Respiratory Effort / Characteristics Respiratory Depth Respiratory Pattern Blood Pressure 109/61 Blood Pressure Mean 78 Pulse Oximetry 97 97 97 Oxygen Delivery Method Sepsis Recent Fever Within 48 Hours Sepsis New/Unexplained Change in Mental Status Sepsis Action Taken by Nursing 04/27/20 02:03 04/27/20 02:33 04/27/20 02:34 Temperature Temperature Source Pulse Rate 94 H 83 84 Pulse Rate from SpO2 Sensor 99 H 81 85 Respiratory Rate 13 22 14 Respiratory Effort / Characteristics Respiratory Depth Respiratory Pattern Blood Pressure 117/59 L 58/37 L 76/36 L Blood Pressure Mean 82 45 45 Pulse Oximetry 94 91 94 Oxygen Delivery Method Room Air Room Air Room Air Sepsis Recent Fever Within 48 Hours Sepsis New/Unexplained Change in Mental Status Sepsis Action Taken by Nursing 04/27/20 02:39 04/27/20 02:40 04/27/20 02:44 Temperature Temperature Source Pulse Rate 79 92 H 93 H Pulse Rate from SpO2 Sensor 77 91 H 92 H Respiratory Rate 15 21 15 Respiratory Effort / Characteristics Respiratory Depth Respiratory Pattern Blood Pressure 67/38 L 76/39 L 94/48 L Blood Pressure Mean 46 53 64 Pulse Oximetry 92 93 92 Oxygen Delivery Method Room Air Room Air Room Air Sepsis Recent Fever Within 48 Hours Sepsis New/Unexplained Change in Mental Status Sepsis Action Taken by Nursing 04/27/20 02:51 04/27/20 03:00 Temperature Temperature Source Pulse Rate 102 H 99 H Pulse Rate from SpO2 Sensor 105 H 99 H Respiratory Rate 35 H 17 Respiratory Effort / Characteristics Respiratory Depth Respiratory Pattern Blood Pressure 99/54 L 101/52 L Blood Pressure Mean 65 70 Pulse Oximetry 94 92 Oxygen Delivery Method Room Air Room Air Sepsis Recent Fever Within 48 Hours Sepsis New/Unexplained Change in Mental Status Sepsis Action Taken by Nursing Laboratory Data Result diagrams: 04/27/20 Unknown 04/27/20 Unknown Lab Results 04/27/20 Range/Units 02:44 POC Glucose 114 H (70-99) mg/dl Administered Medications Sodium Chloride (Nss 1000ml) 1,000 mls @ 150 mls/hr IV .Q6H40M [facility] Stop: 05/27/20 04:57 Last Admin: 04/27/20 05:29 Dose: 150 mls/hr Documented by: [id number] Discontinued Medications Hydromorphone HCl (Hydromorphone Inj 0.5 Mg/0.5 Ml Syr) 0.25 mg IV NOW STA Stop: 04/27/20 01:44 Last Admin: 04/27/20 01:53 Dose: 0.25 mg Documented by: [id number] Hydromorphone HCl (Hydromorphone Inj 0.5 Mg/0.5 Ml Syr) 0.5 mg IV NOW STA Stop: 04/27/20 02:12 Last Admin: 04/27/20 02:22 Dose: 0.5 mg Documented by: [id number] Sodium Chloride (Nss 1000ml) 1,000 mls @ 999 mls/hr IV .Q1H1M ONE Stop: 04/27/20 01:21 Last Infusion: 04/27/20 01:25 Dose: 0 mls/hr Documented by: [id number] Admin: 04/27/20 00:31 Dose: 999 mls/hr Documented by: [id number] Discharge Plan Visit Data Chief Complaint: Syncope Stated Complaint: SYNCOPE/HYPOTENSIVE ED Provider: Aidan Pathak Discharge Problem: Acute hypotension, Altered mental status Patient Disposition: Admitted As Inpatient Discharge Instructions Interventions: ED Discharge Assessment Last Done: 04/27/20 04:12 Discharge Problem: Altered mental status Qualifiers: Altered mental status type: transient alteration of awareness Qualified Code(s): R40.4 - Transient alteration of awareness
[2020-04-27 00:40] LABS: Basophils # (auto) 0.04 K/uL (0-0.2); Basophils % (auto) 0.6 %; Eosinophils # (auto) 0.15 K/uL (0-0.5); Eosinophils % (auto) 2.4 %; Hematocrit (blood only) 34.1 % (37-47); Hemoglobin 11.1 g/dL (12.0-16.0); Immature Granulocytes # (auto) 0.02 K/uL (0.00-0.02); Immature Granulocytes % (auto) 0.3 %; Lymphocytes # (auto) 0.82 K/uL (1.2-3.4); Lymphocytes % (auto) 12.9 %; Mean Corpuscular Hemoglobin 30.8 pg (25-34); Mean Corpuscular Hgb Conc 32.6 g/dL (32-36); Mean Corpuscular Volume 94.7 fL (80-100); Mean Platelet Volume 10.4 fL (7.4-10.4); Monocytes # (auto) 0.87 K/uL (0.11-0.59); Monocytes % (auto) 13.7 %; Neutrophils # (auto) 4.44 K/uL (1.4-6.5); Neutrophils % (auto) 70.1 %; Platelet Count 298 K/uL (130-400); RDW Coefficient of Variation 14.8 % (11.5-14.5); RDW Standard Deviation 51.1 fL (36.4-46.3); White Blood Count 6.34 K/uL (4.8-10.8)
[2020-04-27 00:48] LABS: INR 1.1 (0.9-1.1); Prothrombin Time 11.2 Seconds (9.0-12.0)
[2020-04-27 00:58] LABS: Alanine Aminotransferase 29 U/L (12-78); Albumin Level 2.6 gm/dl (3.4-5.0); Aspartate Aminotransferase 21 U/L (15-37); BUN Creatinine Ratio 28.7 (10-20); Bilirubin Direct < 0.1 mg/dl (0-0.2); Blood Urea Nitrogen 20 mg/dl (7-18); Calcium 9.2 mg/dl (8.5-10.1); Carbon Dioxide 33 mmol/L (21-32); Chloride 99 mmol/L (98-107); Creatinine Clr Calc Pharmacy 57.8 ml/min; Est GFR (African American) 95.3; Est GFR (Non-African American) 82.2; Glucose 84 mg/dl (70-99); Lipase 157 U/L (73-393); Magnesium 2.4 mg/dl (1.8-2.4); Potassium 4.1 mmol/L (3.5-5.1); Sodium 135 mmol/L (136-145)
[2020-04-27 01:04] LABS: Alkaline Phosphatase 92 U/L (45-117); Bilirubin,Total 0.3 mg/dl (0.2-1); Total Protein 7.8 gm/dl (6.4-8.2); Troponin I < 0.015 ng/ml (0-0.045)
[2020-04-27] MEDS ORDERED: HYDROmorphone INJ 0.5 MG/0.5 ML SYR IV STA ×2 (01:43→02:11)
[2020-04-27] MEDS ORDERED: MAGIC MOUTHWASH PO SCH (04:58)
[2020-04-27] MEDS ORDERED: SODIUM CHLORIDE 0.9% 1000ML 1,000 ML IV SCH (04:58)
[2020-04-27] MEDS ORDERED: ACETAMINOPHEN 325 MG TAB PO PRN (04:58)
[2020-04-27] MEDS ORDERED: TRIAMCINOLONE ACET 0.1% CR 15 GM TUBE TOP PRN (04:58)
[2020-04-27] MEDS ORDERED: NITROGLYCERIN SL 0.4 MG/TAB TAB SL PRN (04:58)
[2020-04-27] MEDS ORDERED: oxyCODONE HCL SOLN 5 MG/5 ML UDC GT PRN (04:58)
--- NOTE | 2020-04-27 05:59 | History and Physical Report ---
DATE OF ADMISSION: 04/27/2020 CHIEF COMPLAINT: Syncope, hypotension. HISTORY OF PRESENT ILLNESS: This 79-year-old female with past medical history significant for head and neck cancer status post surgery and radiation mets to lung, bone mets, aspiration risk, status post PEG tube placement, recently started on Keytruda, history of hypothyroidism, orthostatic hypotension, history of aspiration pneumonia, paroxysmal atrial tachycardia. The patient has little verbal output from the head and neck cancer surgery. Son lives with her. The patient was just had recently multiple admissions for hypotension. She was discharged on 04/23/2020. As per son, the patient was doing okay. He was checking her blood pressure 128/80, but today in night again she was staring and semiconscious, so he called the EMS and blood pressure was low again. Initially with the fluid bolus, her blood pressure improved, but again it dropped down and we have to give more fluid bolus. The patient is alert and awake, no complaints of any headache, no chest pain, no shortness of breath, no nausea, no abdominal pain. She has couple of episodes of diarrhea yesterday, tolerating , tube feeds okay as per the son and also given fluid flushes he says about 250 mL 6 times a day. No fever. She has occasional cough. Normal bladder movements. She is ambulating okay with a cane, he thinks may be in the he last couple of days he has noticed some imbalance. ALLERGIES: No known drug allergies. PAST MEDICAL HISTORY: As mentioned above. PAST SURGICAL HISTORY: History of neck surgery in 2009, left inferior alveolar ridge, status post resection, left neck dissection, radiation therapy, resection of the oral cavity malignancy with a mandibulectomy and right fibular free flap, right neck dissection, tracheostomy in 2015, right hemimaxillectomy with left RFFF and tracheostomy in 2018,buccal mass inferior maxillectomy, biopsy of left mandibular gingival labial sulcus lesion, PEG placement and also in September 2018 composite resection of anterior FOM marginal mandibulectomy, inner lip and right radial forearm, in February 2019, incision of the left hard palate, status post split skin thickness graft. FAMILY HISTORY: No family history in file. SOCIAL HISTORY: Currently lives with son. No smoking, no alcohol, no drug use. REVIEW OF SYMPTOMS: As per HPI. Could not get complete review of symptoms. PHYSICAL EXAMINATION: GENERAL: The patient could not speak much. VITAL SIGNS: Temperature 36.7, pulse 102, respiratory rate 21, blood pressure 99/54, oxygen 94% on room air. HEENT: Pupils equal, round, and reactive to light. NECK: No neck masses seen. CARDIOVASCULAR: S1, S2 heard. Tachycardia. No murmurs. RESPIRATORY SYSTEM: Normal AP diameter. No accessory muscle use. No wheezing, no crackles. ABDOMEN: Soft, bowel sounds present, nontender. PEG tube site clean. No distention seen. CENTRAL NERVOUS SYSTEM: Alert and awake. Moves extremities. EXTREMITIES: No edema, no erythema seen. LABORATORY DATA: WBC 6.3, hemoglobin 11.1, hematocrit 34.1, platelets 298. PT 11.2, INR 1.1. Sodium 135, potassium 4.1, chloride 99, bicarbonate 33, BUN 20, creatinine 0.69, serum glucose 84, calcium 9.2, magnesium 2.4, total bilirubin 0.3, direct bilirubin less than 0.1, AST 21, ALT 29, alkaline phosphatase 92. Troponin I less than 0.015. Lipase 157. IMAGING: CT of the head, no acute intracranial hemorrhage, mass effect, midline shift or hydrocephalus, acute infarct, low densities in the bilateral periventricular white matter is nonspecific but probably represents chronic small vessel ischemic disease. Chest x-ray, left lower lung specific opacities. EKG: Sinus rhythm with occasional PVCs at a rate of 86, no acute ST changes seen. ASSESSMENT AND PLAN: This 79-year-old female presents with syncope and hypotension. 1. Syncope, hypotension. The patient has ongoing problems with hypotension. recent echo was okay except for grade 1 diastolic dysfunction. Recent eeg ok.Since she was started on midodrine, but last admission changed to fludrocortisone and Lopressor was started at 6.25 mg p.o. b.i.d. given because of history of paroxysmal atrial tachycardia which we will stop the metoprolol. The patient's symptoms improving with fluids. We will continue with fluids and continue the fludrocortisone. If needed, we may need to increase the fludrocortisone dose. Will check blood pressure. We will closely monitor and monitor in the tele floor. The patient's blood pressure somewhat again decreased, but with fluid bolus again coming up. Doesn't seem to be in sepsis. Will follow lactic acid level. Close monitor. 2. History of recurrent aspiration pneumonia, status post PEG tube placement. The patient's chest x-ray had left lower lobe infiltrate. Last admission she finished a course of Augmentin. If any concern, we will restart the antibiotics. 3. 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 , all medicine via tube feeding. Currently, just received Keytruda few days back, following with hematology/oncology, Son requesting request for a port placement, 4.history of paroxysmal atrial tachycardia. Holding metoprolol. 5.The patient has Hypothyroidism. Continue Synthroid. 6. Deep venous thrombosis prophylaxis, sequential compression devices. 7. Code status. The patient was full code, but last admission, she was DNR/DNI, but again she says she does not want CPR , but ok for intubation and shocks. DISPOSITION: Monitor in the tele floor. Expect discharge back to home when stable. IRAIS
[2020-04-27] MEDS: LEVOTHYROXINE SODIUM 125 MCG TABLET PO SCH (06:36)
--- NOTE | 2020-04-27 07:08 | CT Scan Report ---
HEAD CT NONCONTRAST CT DOSE: 537.48 mGy.cm HISTORY: syncope TECHNIQUE: Multiaxial CT images of the head were performed without the use of intravenous contrast. A utomated exposure control was utilized for this study. A dose lowering technique was utilized adheri ng to the principles of ALARA. Comparison: Head CT 04/08/2020. Findings: Mild mucosal thickening within the maxillary sinuses. The mastoid air cells are clear. The calvarium and skull base are intact. There is no mass, hematoma, midline shift, acute infarct. White matter hypodensity is nonspecific but suggestive of microvascular ischemic change. The ventricles and sulci demonstrate mild age-related involutional changes. Impression: No significant change compared to the prior study. No acute intracranial abnormality. ACT 112: Negative or not required by law. Electronically signed by: Papo Gomez M.D. 04/27/2020 7:07 AM
[2020-04-27 07:49] LABS: Basophils # (auto) 0.02 K/uL (0-0.2); Basophils % (auto) 0.4 %; Eosinophils # (auto) 0.06 K/uL (0-0.5); Eosinophils % (auto) 1.1 %; Hematocrit (blood only) 30.2 % (37-47); Hemoglobin 9.8 g/dL (12.0-16.0); Immature Granulocytes # (auto) 0.02 K/uL (0.00-0.02); Immature Granulocytes % (auto) 0.4 %; Lymphocytes # (auto) 0.62 K/uL (1.2-3.4); Lymphocytes % (auto) 10.9 %; Mean Corpuscular Hemoglobin 30.7 pg (25-34); Mean Corpuscular Hgb Conc 32.5 g/dL (32-36); Mean Corpuscular Volume 94.7 fL (80-100); Mean Platelet Volume 9.4 fL (7.4-10.4); Monocytes # (auto) 0.38 K/uL (0.11-0.59); Monocytes % (auto) 6.7 %; Neutrophils % (auto) 80.5 %; Platelet Count 206 K/uL (130-400); RDW Coefficient of Variation 14.7 % (11.5-14.5); RDW Standard Deviation 50.4 fL (36.4-46.3); Red Blood Count 3.19 M/uL (4.2-5.4)
[2020-04-27 08:07] LABS: BUN Creatinine Ratio 35.5 (10-20); Calcium 8.4 mg/dl (8.5-10.1); Creatinine Clr Calc Pharmacy 78.9 ml/min; Est GFR (African American) 109.7; Est GFR (Non-African American) 94.6; Potassium 3.9 mmol/L (3.5-5.1)
--- NOTE | 2020-04-27 08:11 | Hospitalist Progress Note ---
Date of Service April 27, 2020 Assessment & Plan (1) Syncope: -Patient presented to th2 ED on 04/26/2020 and as per the ED notes that "79 yr old female with metastatic squamous CA of head and neck arrives after another episode syncope/hypotension that has been occurring fairly frequently the last few weeks. Apparently tried recent switch to fludrocortisone and dropping off the Midodrine as outpatient. She arrives tired appearing, dehydrated appearing and of note there is a dilated minimally reactive right pupil. She is awake and appears oriented. Work-up essentially benign other than hypotension on arrival which responded to 2 L IV NSS" -admitting physician Dr. Rey continued IV fluids and held off further home metoprolol dose 6.25 mg BID for the history of paroxysmal atrial tachycardia -hospitalist Dr. Ortega, the undersigned, continues to follow the patient on 04/27/2020 morning/daytime. Patient on exam is baseline mental status. She is baseline minimally verbal due to to her history of surgeries of head/neck cancer. Patient is able to communicate by facial expressions, head movements, and writing on paper. Patient denies any current symptoms. Denied dizziness or pain anywhere in the body besides chronic oral soreness. Telemetry generally is normal and sinus in rhythm. Note that initial troponin negative on this admission. In the past, Patient has already had multiple recent hospitalizations to for recurrent episodes of syncope or hypotension at home. Her imaging in the recent past (Head/Neck CTA with contrast 04/12/2020) still notes tumor burden (There is a large heterogeneous/complex fluid collection or mass in the left neck which encases the left internal carotid artery. This causes a long segment of at least 50% luminal narrowing of the mid to distal internal carotid artery. This lesion also extends into the left parapharyngeal region and also involves the left transverse foramen at C1 and C2. This likely at least partially encases the left vertebral artery at this level.) Her son Demetri had patient followed in the past with Head and Neck Surgery /Facial Plastic Surgery in [facility] and as per our conversations when patient was admitted in one of her hospitalizations in March 2020, her son reports that she is not a candidate for further surgery. The workup before has not found anything suggestive that these symptoms were from a cardiac arrest or seizure or stroke. Her telemetry workup to my knowledge has not any sustained arrhythmia. While aspiration in the past or dehydration was considered as possibly contributory, she had in March hospitalization when under my care an episode of hypotension that did not appear to be to aspiration while she was on tube feeds and without other aforementioned cardiac/neuro etiologies. It has been thought that these symptoms are vasovagal in nature or due to tumor burden possibly affecting autonomic system. She already had in recent admission increased dosing of levothyroxine for hypothyroidism. Modifying medications such as trial of midodrine in the past, or steroids, or down titrating metoprolol for the paroxysmal atrial tachycardia have all been tried but not likely to change future outcomes that she will likely have further hypotensive or syncope symptoms in the future. -Have called patient's Demetri Kelley [phone] and had long discussion in regards to the goals of care on this hospital stay. Initially he was asking for possibility of chemoport placement in anticipation of further Keytruda medications, but he also noted that he already had a palliative care clinic appointment outpatient on Wednesday04/29/2020. Hospitalist offered that patient can have vascular consult to assess chemoport placement possibility while being assessed with inpatient palliative care consult by Dr. Goodson and her team. However, patient's son prefers the outpatient clinic appointment so that he can attend with his mother. -Therefore the tentative plan for this hospital stay is to monitor patient on 04/27/2020 with resumption of PEG feeds. If she remains stable and no acute syncopal events, then plans to discharge on Wednesday04/28/2020 as per wishes of patient/patient family (2) Metastatic squamous cell carcinoma to head and neck: -Cancer history 2009: T1N0 Oral Cavity (Left inferior alveolar ridge) SCC 2012: T1N1M0 Oropharyngeal (Right Tonsil) SCC 2015: Oral Cavity Recurrence 07/12/18: pT2 cN0 M0 Oral Cavity (Right Buccal/Maxillary, left gingivobuccal gingiva) SCCa 02/15/2019: [id number] Oral Cavity Recurrence (left maxilla) SCC Treatment History: 2009: Left inferior alveolar ridge s/p resection, left neck dissection (chemoXRT recommended however not started) 02/16-03/07/13: Right Tonsil: Radiation therapy IMRT (Dr. 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 Chauhan) 09/10/15: Right hemimaxillectomy with left RFFF and tracheostomy (Dr. Suarez/José KERN) 07/12/18: WLE right buccal mass, inferior maxillectomy, biopsy left mandibular gingivolabial sulcus lesion, PEG placement (Dr. Luque of [place]) 10/14/18: Composite resection of anterior FOM, marginal mandibulectomy, inner lip and right radial forearm (Dr. Flaherty and Dr. Dsouza) 02/28/19: Excision of left hard palate SCCa/Maxillectomy (Dr. Dsouza) -has recently established with oncology Dr. Sunil Roman and had been on 1 dose of Keytruda -continue PEG feeds (3) PAT (paroxysmal atrial tachycardia): -can hold metoprolol (4) Hypothyroidism: -continue home dose levothyroxine Deep venous thrombosis prophylaxis, sequential compression devices. Current Code status -patient's code status preferences has changed multiple times in previous admissions. -currently patient reports that she does not want CPR , but ok for intubation and shocks, on this admission Admission and Anticipated Discharge Date Admission Date: April 27, 2020 Subjective on 04/27/2020 morning/daytime. Patient on exam is baseline mental status. She is baseline minimally verbal due to to her history of surgeries of head/neck cancer. Patient is able to communicate by facial expressions, head movements, and writing on paper. Patient denies any current symptoms. Denied dizziness or pain anywhere in the body besides chronic oral soreness. Telemetry generally is normal and sinus in rhythm. Note that initial troponin negative on this admission. Review of Systems Review of Systems: All systems reviewed & are unremarkable except as noted in Subjective Physical Exam Constitutional: cooperative and comfortable Eyes: PERRL, conjunctivae normal, anicteric sclerae EOM intact bilaterally ENMT: chronic surgical changes of lower jaw from history of surgeries Neck: normal visual inspection Respiratory: normal respiratory effort, lungs clear to auscultation Cardiovascular: Rate/Rhythm: regular rate and regular rhythm Gastrointestinal (Abdomen): Inspection/Auscultation: normal bowel sounds Percussion/Palpation: abdomen soft Musculoskeletal: Head/Neck/Chest: normocephalic and head atraumatic Neurologic: moves all extremities Psychiatric: Orientation: alert and cooperative Results & Data Results & Data ([facility]) Vital Signs (Past 12 Hours) Vital Signs Temp Pulse Pulse Resp BP BP Pulse Ox 04/27/20 07:03 84 04/27/20 04:20 36.6 C 96 H 22 116/73 94 04/27/20 04:00 96 H 13 102/57 L 93 04/27/20 03:45 97 H 12 101/51 L 92 04/27/20 03:40 97 H 11 L 112/55 L 92 04/27/20 03:30 91 H 18 75/37 L 94 04/27/20 03:15 98 H 15 103/59 L 93 04/27/20 03:00 99 H 17 101/52 L 92 04/27/20 02:51 102 H 35 H 99/54 L 94 04/27/20 02:44 93 H 15 94/48 L 92 04/27/20 02:40 92 H 21 76/39 L 93 04/27/20 02:39 79 15 67/38 L 92 04/27/20 02:34 84 14 76/36 L 94 04/27/20 02:33 83 22 58/37 L 91 04/27/20 02:03 94 H 13 117/59 L 94 04/27/20 01:51 97 H 17 97 04/27/20 01:50 99 H 19 109/61 97 04/27/20 01:41 93 H 16 97 04/27/20 01:40 94 H 17 114/59 L 97 04/27/20 01:31 94 H 21 96 04/27/20 01:30 90 16 118/62 97 04/27/20 01:21 89 15 95 04/27/20 01:20 90 13 100/53 L 94 04/27/20 01:15 92 H 15 96 04/27/20 01:10 102 H 21 98/52 L 92 04/27/20 01:01 68 21 92 04/27/20 01:00 68 17 71/35 L 91 04/27/20 00:58 80 20 82/41 L 90 04/27/20 00:55 91 H 19 94 04/27/20 00:40 85 20 92/52 L 92 04/27/20 00:37 83 19 80/47 L 04/27/20 00:31 36.7 C 04/27/20 00:30 90 23 04/27/20 00:26 120 H 23 04/27/20 00:24 156 H 21 74/44 L 04/27/20 00:23 115 H 20 74/44 L 95
[2020-04-27] MEDS: FLUDROCORTISONE ACETATE 0.1 MG TAB PO SCH (09:00)
[2020-04-27] MEDS ORDERED: PANTOprazole 40 MG TAB PO SCH (09:00)
[2020-04-27] MEDS: MULTI VIT W/MINERALS LIQUID 15 ML UDP PEG SCH (09:00)
[2020-04-27] MEDS: BACITRACIN OINT 15 GM TUBE EXT SCH (09:00)
[2020-04-27] MEDS: ADVANCED PROBIOTIC 1250 MG CAPSULE PO SCH (09:00)
[2020-04-27] MEDS: PEPTAMEN 1.5 CAL 1,000 ML BAG NG SCH (09:04)
[2020-04-27] MEDS: TUBE FEEDING WATER FLUSH NG SCH ×4 (09:05→19:54)
--- NOTE | 2020-04-27 09:06 | XRay Report ---
SINGLE VIEW CHEST CLINICAL HISTORY: Syncope. FINDINGS: An AP, portable, upright chest radiograph is compared to study dated 04/20/2020. The heart i s top normal for projection noting atherosclerotic calcification of the thoracic aorta. The pulmonary vasculature is noncongested. Chronic interstitial thickening is similar to previous. There is residu al airspace consolidation in the left mid to lower lung and a small left pleural effusion. The right lung appears clear. No pneumothorax is seen. The skeletal structures are osteopenic. The bony thorax is grossly intact. IMPRESSION: There is residual airspace consolidation in the left mid to lower lung and a small left p leural effusion. This is similar to the 04/20/2020 examination. ACT 112: Negative or not required by law. Electronically signed by: Shree Olivier M.D. 04/27/2020 9:05 AM
[2020-04-27] MEDS: Magic Mouthwash 240mL PO SCH ×4 (09:58→19:53)
[2020-04-27] MEDS: LANSOPRAZOLE 30 MG SOLTAB NG SCH (09:58)
[2020-04-27 22:14] LABS: Appearance Urine Clear (Clear); Bacteria Urine Automated Negative (Negative); Bilirubin Urine Negative (Negative); Blood Urine Trace (Negative); Cast Urine Automated 0 /lpf (0-5); Color Urine Yellow; Epithelial Cell Urine Auto 0-5 /lpf (0-5); Glucose Urine UA Negative (Negative); Ketones Urine Negative (Negative); Leukocyte Esterase Urine Negative (Negative); Nitrite Urine Negative (Negative); Protein Urine Negative (Negative); RBC Urine Automated 0-4 /hpf (0-4); Specific Gravity Urine 1.012 (1.000-1.030); Urobilinogen Urine Negative (Negative); WBC Urine Automated 0 /hpf (0-5); pH Urine 7.5 (4.5-7.5)
[2020-04-28] MEDS: TUBE FEEDING WATER FLUSH NG SCH ×4 (01:12→12:11)
[2020-04-28] MEDS: Magic Mouthwash 240mL PO SCH ×4 (01:13→12:11)
[2020-04-28] MEDS: LEVOTHYROXINE SODIUM 125 MCG TABLET PO SCH (05:59)
[2020-04-28] MEDS: PEPTAMEN 1.5 CAL 1,000 ML BAG NG SCH (08:19)
[2020-04-28] MEDS: MULTI VIT W/MINERALS LIQUID 15 ML UDP PEG SCH (08:21)
[2020-04-28] MEDS: FLUDROCORTISONE ACETATE 0.1 MG TAB PO SCH (08:21)
[2020-04-28] MEDS: ADVANCED PROBIOTIC 1250 MG CAPSULE PO SCH (08:21)
[2020-04-28] MEDS: LANSOPRAZOLE 30 MG SOLTAB NG SCH (08:21)
[2020-04-28] MEDS: BACITRACIN OINT 15 GM TUBE EXT SCH (08:22)
--- NOTE | 2020-04-28 10:22 | Hospitalist Progress Note ---
Date of Service April 28, 2020 Assessment & Plan (1) Syncope: -Patient presented to th2 ED on 04/26/2020 and as per the ED notes that "79 yr old female with metastatic squamous CA of head and neck arrives after another episode syncope/hypotension that has been occurring fairly frequently the last few weeks. Apparently tried recent switch to fludrocortisone and dropping off the Midodrine as outpatient. She arrives tired appearing, dehydrated appearing and of note there is a dilated minimally reactive right pupil. She is awake and appears oriented. Work-up essentially benign other than hypotension on arrival which responded to 2 L IV NSS" -admitting physician Dr. Rey continued IV fluids and held off further home metoprolol dose 6.25 mg BID for the history of paroxysmal atrial tachycardia -hospitalist Dr. Ortega, the undersigned, continues to follow the patient on 04/27/2020 morning/daytime. Patient on exam is baseline mental status. She is baseline minimally verbal due to to her history of surgeries of head/neck cancer. Patient is able to communicate by facial expressions, head movements, and writing on paper. Patient denies any current symptoms. Denied dizziness or pain anywhere in the body besides chronic oral soreness. Telemetry generally is normal and sinus in rhythm. Note that initial troponin negative on this admission. In the past, Patient has already had multiple recent hospitalizations to for recurrent episodes of syncope or hypotension at home. Her imaging in the recent past (Head/Neck CTA with contrast 04/12/2020) still notes tumor burden (There is a large heterogeneous/complex fluid collection or mass in the left neck which encases the left internal carotid artery. This causes a long segment of at least 50% luminal narrowing of the mid to distal internal carotid artery. This lesion also extends into the left parapharyngeal region and also involves the left transverse foramen at C1 and C2. This likely at least partially encases the left vertebral artery at this level.) Her son Demetri had patient followed in the past with Head and Neck Surgery /Facial Plastic Surgery in [facility] and as per our conversations when patient was admitted in one of her hospitalizations in March 2020, her son reports that she is not a candidate for further surgery. The workup before has not found anything suggestive that these symptoms were from a cardiac arrest or seizure or stroke. Her telemetry workup to my knowledge has not any sustained arrhythmia. While aspiration in the past or dehydration was considered as possibly contributory, she had in March hospitalization when under my care an episode of hypotension that did not appear to be to aspiration while she was on tube feeds and without other aforementioned cardiac/neuro etiologies. It has been thought that these symptoms are vasovagal in nature or due to tumor burden possibly affecting autonomic system. She already had in recent admission increased dosing of levothyroxine for hypothyroidism. Modifying medications such as trial of midodrine in the past, or steroids, or down titrating metoprolol for the paroxysmal atrial tachycardia have all been tried but not likely to change future outcomes that she will likely have further hypotensive or syncope symptoms in the future. -Have called patient's Demetri Kelley [phone] and had long discussion in regards to the goals of care on this hospital stay. Initially he was asking for possibility of chemoport placement in anticipation of further Keytruda medications, but he also noted that he already had a palliative care clinic appointment outpatient on Wednesday04/29/2020. Hospitalist offered that patient can have vascular consult to assess chemoport placement possibility while being assessed with inpatient palliative care consult by Dr. Goodson and her team. However, patient's son prefers the outpatient clinic appointment so that he can attend with his mother. 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 Chauhan) 09/10/15: Right hemimaxillectomy with left RFFF and tracheostomy (Dr. Suarez/José KERN) 07/12/18: WLE right buccal mass, inferior maxillectomy, biopsy left mandibular gingivolabial sulcus lesion, PEG placement (Dr. Luque of [place]) 10/14/18: Composite resection of anterior FOM, marginal mandibulectomy, inner lip and right radial forearm (Dr. Flaherty and Dr. Dsouza) 02/28/19: Excision of left hard palate SCCa/Maxillectomy (Dr. Dsouza) -has recently established with oncology Dr. Sunil Roman and had been on 1 dose of Keytruda -on PEG feeds (3) PAT (paroxysmal atrial tachycardia): -can hold metoprolol from medication list to prevent any suspicion of beta blockers on low blood pressures; however I do not believe beta blockers are the culprit for patient's recurrent hypotension and syncope episodes (4) Hypothyroidism: -continue home dose levothyroxine Current Code status -patient's code status preferences has changed multiple times in previous admissions. -currently patient reports that she does not want CPR , but ok for intubation and shocks, on this admission Admission and Anticipated Discharge Date Admission Date: April 27, 2020 Subjective No acute telemetry events. Patient remains normal sinus rhythm. No distress. Patient baseline mental status. She denies any new symptoms on review of systems. She is agreeable to discharge to home as per wishes of her son. Review of Systems Review of Systems: All systems reviewed & are unremarkable except as noted in Subjective Physical Exam Constitutional: cooperative and comfortable Eyes: PERRL, conjunctivae normal, anicteric sclerae EOM intact bilaterally ENMT: Mouth: + oropharynx abnormality (chronic surgical changes of lower jaw) Neck: normal visual inspection Respiratory: normal respiratory effort, lungs clear to auscultation Cardiovascular: Rate/Rhythm: regular rate and regular rhythm Gastrointestinal (Abdomen): Inspection/Auscultation: normal bowel sounds Percussion/Palpation: abdomen soft Musculoskeletal: Head/Neck/Chest: normocephalic and head atraumatic Neurologic: moves all extremities Psychiatric: Orientation: alert and cooperative Results & Data Results & Data ([facility]) Vital Signs (Past 12 Hours) Vital Signs Temp Pulse Pulse Resp BP Pulse Ox 04/28/20 07:51 89 04/28/20 07:06 36.7 C 100 H 18 130/87 95 04/28/20 03:54 36.4 C L 89 155/75 H 95 04/28/20 00:00 37.2 C 96 H 137/72 96
--- NOTE | 2020-04-28 10:25 | Discharge Summary ---
Date of Service April 28, 2020 Admission HPI Per Admitting Provider DATE OF ADMISSION: 04/27/2020 CHIEF COMPLAINT: Syncope, hypotension. HISTORY OF PRESENT ILLNESS: This 79-year-old female with past medical history significant for head and neck cancer status post surgery and radiation mets to lung, bone mets, aspiration risk, status post PEG tube placement, recently started on Keytruda, history of hypothyroidism, orthostatic hypotension, history of aspiration pneumonia, paroxysmal atrial tachycardia. The patient has little verbal output from the head and neck cancer surgery. Son lives with her. The patient was just had recently multiple admissions for hypotension. She was discharged on 04/23/2020. As per son, the patient was doing okay. He was checking her blood pressure 128/80, but today in night again she was staring and semiconscious, so he called the EMS and blood pressure was low again. Initially with the fluid bolus, her blood pressure improved, but again it dropped down and we have to give more fluid bolus. The patient is alert and awake, no complaints of any headache, no chest pain, no shortness of breath, no nausea, no abdominal pain. She has couple of episodes of diarrhea yesterday, tolerating , tube feeds okay as per the son and also given fluid flushes he says about 250 mL 6 times a day. No fever. She has occasional cough. Normal bladder movements. She is ambulating okay with a cane, he thinks may be in the he last couple of days he has noticed some imbalance. 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 PAT (paroxysmal atrial tachycardia) Hypothyroidism Discharge Exam Constitutional cooperative and comfortable Eyes PERRL, conjunctivae normal, anicteric sclerae EOM intact bilaterally ENMT Mouth: + oropharynx abnormality (chronic surgical changes of lower jaw) Neck normal visual inspection Respiratory normal respiratory effort, lungs clear to auscultation Cardiovascular Rate/Rhythm: regular rate and regular rhythm Gastrointestinal (Abdomen) Inspection/Auscultation: normal bowel sounds Percussion/Palpation: abdomen soft Musculoskeletal Head/Neck/Chest: normocephalic and head atraumatic Neurologic moves all extremities Psychiatric Orientation: alert and cooperative Discharge Data Allergies Allergy/AdvReac Type Severity Reaction Status Date / Time No Known Allergies Allergy Verified 04/27/20 00:39 Consultations 04/27/20 01:41 ED Decision to Admit Stat 12/12/20 04:58 Consult Case Management - Discharge Planning Routine Ordered Studies 04/27/20 00:23 CT head/brain wo con Urgent Hospital Course (1) Syncope: -Patient presented to th2 ED on 04/26/2020 and as per the ED notes that "79 yr old female with metastatic squamous CA of head and neck arrives after another episode syncope/hypotension that has been occurring fairly frequently the last few weeks. Apparently tried recent switch to fludrocortisone and drop ping off the Midodrine as outpatient. She arrives tired appearing, dehydrated appearing and of note there is a dilated minimally reactive right pupil. She is awake and appears oriented. Work-up essentially benign other than hypotension on arrival which responded to 2 L IV NSS" -admitting physician Dr. Rey continued IV fluids and held off further home metoprolol dose 6.25 mg BID for the history of paroxysmal atrial tachycardia -hospitalist Dr. Ortega, the undersigned, continues to follow the patient on 04/27/2020 morning/daytime. Patient on exam is baseline mental status. She is baseline minimally verbal due to to her history of surgeries of head/neck cancer. Patient is able to communicate by facial expressions, head movements, and writing on paper. Patient denies any current symptoms. Denied dizziness or pain anywhere in the body besides chronic oral soreness. Telemetry generally is normal and sinus in rhythm. Note that initial troponin negative on this admission. In the past, Patient has already had multiple recent hospitalizations to for recurrent episodes of syncope or hypotension at home. Her imaging in the recent past (Head/Neck CTA with contrast 04/12/2020) still notes tumor burden (There is a large heterogeneous/complex fluid collection or mass in the left neck which encases the left internal carotid artery. This causes a long segment of at least 50% luminal narrowing of the mid to distal internal carotid artery. This lesion also extends into the left parapharyngeal region and also involves the left transverse foramen at C1 and C2. This likely at least partially encases the left vertebral artery at this level.) Her son Demetri had patient followed in the past with Head and Neck Surgery /Facial Plastic Surgery in [facility] and as per our conversations when patient was admitted in one of her hospitalizations in March 2020, her son reports that she is not a candidate for further surgery. The workup before has not found anything suggestive that these symptoms were from a cardiac arrest or seizure or stroke. Her telemetry workup to my knowledge has not any sustained arrhythmia. While aspiration in the past or dehydration was considered as possibly contributory, she had in March hospitalization when under my care an episode of hypotension that did not appear to be to aspiration while she was on tube feeds and without other aforementioned cardiac/neuro etiologies. It has been thought that these symptoms are vasovagal in nature or due to tumor burden possibly affecting autonomic system. She already had in recent admission increased dosing of levothyroxine for hypothyroidism. Modifying medications such as trial of midodrine in the past, or steroids, or down titrating metoprolol for the paroxysmal atrial tachycardia have all been tried but not likely to change future outcomes that she will likely have further hypotensive or syncope symptoms in the future. -Have called patient's Demetri Kelley [phone] and had long discussion in regards to the goals of care on this hospital stay. Initially he was asking for possibility of chemoport placement in anticipation of further Keytruda medications, but he also noted that he already had a palliative care clinic appointment outpatient on Wednesday04/29/2020. Hospitalist offered that patient can have vascular consult to assess chemoport placement possibility while being assessed with inpatient palliative care consult by Dr. Goodson and her team. However, patient's son prefers the outpatient clinic appointment so that he can attend with his mother. 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 Chauhan) 09/10/15: Right hemimaxillectomy with left RFFF and tracheostomy (Dr. Suarez/José KERN) 07/12/18: WLE right buccal mass, inferior maxillectomy, biopsy left mandibular gingivolabial sulcus lesion, PEG placement (Dr. Luque of [place]) 10/14/18: Composite resection of anterior FOM, marginal mandibulectomy, inner lip and right radial forearm (Dr. Flaherty and Dr. Dsouza) 02/28/19: Excision of left hard palate SCCa/Maxillectomy (Dr. Dsouza) -has recently established with oncology Dr. Sunil Roman and had been on 1 dose of Keytruda -on PEG feeds (3) PAT (paroxysmal atrial tachycardia): -can hold metoprolol from medication list to prevent any suspicion of beta blockers on low blood pressures; however I do not believe beta blockers are the culprit for patient's recurrent hypotension and syncope episodes (4) Hypothyroidism: -continue home dose levothyroxine Current Code status -patient's code status preferences has changed multiple times in previous admissions. -currently patient reports that she does not want CPR , but ok for intubation and shocks, on this admission DISPOSITION: Patient is discharged on 04/28/2020 and as per Medicare Length of Stay that on CODE 44 review of this hospital stay is an observation status instead of inpatient status and this is reviewed by a second physician Total Time Total Time Spent Total Time Spent (In Minutes): 40 minutes Total Time Includes: Examination of the Patient, Discharge Planning, Medication Reconciliation and Communication With Other Providers Discharge Plan Discharge Items Patient Disposition: Home - Self-Care Reason For Visit: SYNCOPE Discharge Diagnosis: Syncope 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 changes to medication on discharge is discontinuation of further metoprolol Pending Studies at Discharge: No Stand-Alone Forms: [facility], Smoking Cessation Medications and DC Order Prescriptions: Continued Lactinex 1 million cell tablet,chewable 2 tab feeding tube QAM RF: 0 oxycodone 5 mg/5 mL solution 5 mg feeding tube Q4 PRN (Reason: Pain) RF: 0 triamcinolone acetonide 0.1 % cream 1 applic TOPICAL BID PRN (Reason: Inflammation around peg tube) RF: 0 ondansetron 4 mg tablet,disintegrating 4 mg feeding tube Q8 PRN (Reason: Nausea) RF: 0 bacitracin 500 unit/gram Ointment 1 applic EXT DAILY 14 Days Qty: 30 RF: 0 jfxehhzl-lgr-ofvdobq gluconate [Centrum] 9 mg iron/15 mL Liquid 15 ml PEG QAM 30 Days Qty: 450 RF: 0 Magic Mouthwash 5 ml PO Q4H RF: 0 levothyroxine [Synthroid] 125 mcg tablet 125 mcg feeding tube DAILYBB RF: 0 fludrocortisone 0.1 mg Tablet 0.1 mg PO QAM Qty: 30 RF: 0 midodrine 2.5 mg tablet 5 mg PO TID RF: 0 pantoprazole 40 mg tablet,delayed release (DR/EC) 40 mg PO QAM RF: 0 Discontinued metoprolol tartrate 25 mg Tablet 6.25 mg PO BID Qty: 30 RF: 0 Discharge Orders: Discharge Order (Routine); Ordered 04/28/20 Ordered By: Jona Ortega Admission Data Admit Date/Time: 04/27/20 03:06 Attending Provider: Jona Ortega Admit Provider: Samir Rey Primary Care Provider: Ruba Chaidez Other Providers: Samir Rey ; [facility]
--- NOTE | 2020-04-28 10:39 | Communication Note ---
Date of Service: April 28, 2020 Attestation of code 44: She is an 79-year-old female with significant past medical history including metastatic squamous cell carcinoma of the head and neck, paroxysmal atrial tachycardia and other medical conditions as mentioned in history and physical was admitted with a syncopal episode. She has had prior syncope and this time this was noted due to vasovagal/postural hypotension. Relevant investigations including CT of the head and EKG remained unremarkable. She has had regular follow-up by the attending physician while she was in the hospital and was discharged home today in a reasonable medical condition. Her chart , labs and imaging studies reviewed. By CMS guidelines, a determination that the admission or continued stay is not medically necessary has been made by a member of the UR committee and a physician for this hospital stay, therefore a Code 44 will be completed and the Inpatient admission will be changed to outpatient. Dr Yael Nguyen Member UR Committee
--- NOTE | 2020-04-29 06:14 | Electrocardiogram Report ---
Test Reason : Blood Pressure : / mmHG Vent. Rate : 086 BPM Atrial Rate : 086 BPM P-R Int : 138 ms QRS Dur : 074 ms QT Int : 406 ms P-R-T Axes : 066 -41 018 degrees QTc Int : 485 ms Sinus rhythm Left axis deviation Abnormal ECG When compared with ECG of 20-APR-2020 03:18, No significant change Confirmed by Sammy Borjas ([id number]) on 04/29/2020 6:14:15 AM Referred By: REFERRED SELF Confirmed By:Sammy Borjas
--- NOTE | 2020-04-29 06:41 | Electrocardiogram Report ---
Test Reason : Blood Pressure : / mmHG Vent. Rate : 090 BPM Atrial Rate : 090 BPM P-R Int : 138 ms QRS Dur : 072 ms QT Int : 380 ms P-R-T Axes : 064 -43 040 degrees QTc Int : 464 ms Sinus rhythm with frequent Premature ventricular complexes Left axis deviation Low voltage QRS Cannot rule out Anterior infarct , age undetermined Abnormal ECG When compared with ECG of 27-APR-2020 00:23, (unconfirmed) No significant change was found Confirmed by Sammy Borjas ([id number]) on 04/29/2020 6:40:52 AM Referred By: REFERRED SELF Confirmed By:Sammy Borjas
== END 2020-04-28 13:26 | disposition home health service (06) ==
LOC: ED 00:17 → 2S 03:06 → INTOOBSV 03:06 → 2S 04:12